=== PATIENT | male | born 1955 | race Caucasian/White ===

== ENCOUNTER → 2016-07-01 | Outpatient (CLI) | payer OTHER ==
[~2016-07-01] MED LIST: ACET-1256 PO; ALEN70TA3 PO; AMLO-114 PO; ASCO500T3 PO; ASPI81TA28 PO; FSMD/70 PO; HYDR25TA4 PO; INSU100I2 SC; INSU70IN2 SC; LISI40TA PO; ZCRT/40 PO
[2016-07-02 05:57] LABS: ESTIMATED AVERAGE GLUCOSE 194 mg/dl; HA1C FLAG Normal (Normal)
== END | disposition home or self-care (01) ==
LOC: C.LAB 14:17
PROVIDERS: ATTEND Nurse Practitioner Adult Health
DX: E11.65 Type 2 diabetes mellitus with hyperglycemia (principal); Z79.4 Long term (current) use of insulin; Z11.59 Encounter for screening for other viral diseases

== ENCOUNTER → 2016-10-21 | Outpatient (CLI) | payer OTHER ==
[2016-10-21 18:12] LABS: ALT/SGPT 23 U/L (12-78); BLOOD UREA NITROGEN 16 mg/dl (7-18); BUN/CREATININE RATIO 19.1 (10-20); CALCIUM 9.1 mg/dl (8.5-10.1); CARBON DIOXIDE 30 mmol/L (21-32); CHLORIDE 99 mmol/L (98-107); CHOLESTEROL 126 mg/dl (0-200); CREATININE 0.85 mg/dl (0.60-1.40); GLUCOSE 297 mg/dl (70-99); POTASSIUM 4.8 mmol/L (3.5-5.1); SODIUM 134 mmol/L (136-145)
[2016-10-21 18:15] LABS: ALB/GLOB RATIO 0.9 (0.9-2); ALKALINE PHOSPHATASE 68 U/L (45-117); AST/SGOT 15 U/L (15-37); CHOLESTEROL/HDL RATIO 3.5; HDL CHOLESTEROL 36 mg/dl; LDL CHOLESTEROL CALCULATED 51 mg/dl; TRIGLYCERIDES 195 mg/dl (0-150); VERY LOW DENSITY LIPOPROT CALC 39 mg/dl
[2016-10-22 06:31] LABS: ESTIMATED AVERAGE GLUCOSE 200 mg/dl; HA1C FLAG Normal (Normal)
== END | disposition home or self-care (01) ==
LOC: C.LABPVFM 13:20
PROVIDERS: ATTEND Nurse Practitioner Adult Health
DX: E78.5 Hyperlipidemia, unspecified (principal); E66.01 Morbid (severe) obesity due to excess calories; E11.49 Type 2 diabetes mellitus with other diabetic neurological complication; E11.65 Type 2 diabetes mellitus with hyperglycemia; E55.9 Vitamin D deficiency, unspecified; I10 Essential (primary) hypertension

== ENCOUNTER → 2016-12-21 | Outpatient (CLI) | payer OTHER ==
--- NOTE | 2016-12-28 07:51 | CODING QUERY MEDICAL NECESSITY ---
SUPPORTING DIAGNOSIS NEEDED Mana PA, A supporting diagnosis is required for the test/procedure performed on this patient in order for us to be reimbursed by the patient's insurance. Please provide a supporting diagnosis for the following test/procedure listed below next to the test name along with your signature. *If there is no additional diagnosis for this patient that would support the following test/procedure please document that below next to the test/procedure. Test(s)/Procedure(s) that require a supporting diagnosis: * ([id number]) DXA BONE DENSITY/PERIPHERAL DIAGNOSIS: DATE OF SERVICE: 12/21/16 Provider Signature: Date: Thank you Dontae Veliz [facility] Information Management Once completed, please kindly fax back to [phone] For questions please call [phone]
== END | disposition home or self-care (01) ==
LOC: C.MAMM 14:23
PROVIDERS: ATTEND Physician Assistant Medical
DX: Z00.00 Encounter for general adult medical examination without abnormal findings (principal); M81.0 Age-related osteoporosis without current pathological fracture

== ENCOUNTER → 2017-02-24 | Outpatient (CLI) | payer OTHER ==
[2017-02-24 18:00] LABS: HEMATOCRIT 47.2 % (42-52)
[2017-02-24 18:31] LABS: CREATININE RANDOM URINE 54.5 mg/dl
[2017-02-25 07:09] LABS: ESTIMATED AVERAGE GLUCOSE 209 mg/dl; HA1C FLAG Normal (Normal)
== END | disposition home or self-care (01) ==
LOC: C.LABPVFM 14:20
PROVIDERS: ATTEND Nurse Practitioner Adult Health
DX: I10 Essential (primary) hypertension (principal); E11.49 Type 2 diabetes mellitus with other diabetic neurological complication

== ENCOUNTER → 2017-03-15 | Outpatient (CLI) | payer OTHER ==
[2017-03-15 16:54] LABS: BASO % 0.4 %; BASO ABS # 0.04 K/uL (0-0.2); COMPLETE YES; EOS % 1.8 %; HEMATOCRIT 48.3 % (42-52); IG% 0.7 %; LYMPH % 21.2 %; LYMPH ABS # 1.98 K/uL (1.2-3.4); MEAN CORPUSCULAR HEMOGLOBIN 29.9 pg (25-34); MEAN CORPUSCULAR HGB CONC 35.2 g/dl (32-36); MEAN PLATELET VOLUME 10.1 fL (7.4-10.4); MONO % 8.6 %; NEUT % 67.3 %; PLATELET COUNT 227 K/uL (130-400); RED BLOOD COUNT 5.68 M/uL (4.7-6.1); WHITE BLOOD COUNT 9.34 K/uL (4.8-10.8)
[2017-03-15 17:13] LABS: BLOOD UREA NITROGEN 11 mg/dl (7-18); BUN/CREATININE RATIO 12.6 (10-20); CARBON DIOXIDE 31 mmol/L (21-32); CHLORIDE 98 mmol/L (98-107); CREATININE 0.87 mg/dl (0.60-1.40); GLUCOSE 201 mg/dl (70-99); POTASSIUM 4.3 mmol/L (3.5-5.1); SODIUM 133 mmol/L (136-145)
== END | disposition home or self-care (01) ==
LOC: C.LABBC 13:34
PROVIDERS: ATTEND Physician Assistant Medical
DX: R53.83 Other fatigue (principal); E55.9 Vitamin D deficiency, unspecified

== ENCOUNTER 2017-03-31 09:40 | Inpatient (IN) | payer OTHER ==
[2017-03-31] VITALS (10 sets, daily range): BP systolic 120–160; BP diastolic 66–80; PULSE 62–73; TEMP 36.3–36.8; O2SAT 95–98; BMI 43.1
[~2017-03-31] VITALS: Ht 195.6 cm; Wt 157.4 kg
[2017-03-31] MEDS ORDERED: ASPIRIN 81 MG CHEW PO STA (10:05)
[2017-03-31] MEDS ORDERED: SODIUM CHLORIDE 0.9% 1000ML 1,000 ML IV STA (10:05)
[2017-03-31 10:25] LABS: BASO % 0.3 %; BASO ABS # 0.03 K/uL (0-0.2); EOS % 0.8 %; EOS ABS # 0.08 K/uL (0-0.5); HEMATOCRIT 47.7 % (42-52); HEMOGLOBIN 16.7 g/dL (14.0-18.0); IG# 0.07 K/uL (0.00-0.02); LYMPH % 20.1 %; LYMPH ABS # 1.96 K/uL (1.2-3.4); MEAN CELL VOLUME 84.6 fL (80-100); MEAN CORPUSCULAR HEMOGLOBIN 29.6 pg (25-34); MEAN PLATELET VOLUME 9.5 fL (7.4-10.4); MONO % 8.2 %; NEUT % 69.9 %; NEUT ABS # 6.83 K/uL (1.4-6.5); PLATELET COUNT 198 K/uL (130-400); RED CELL DISTRIBUTION WIDTH CV 13.1 % (11.5-14.5); RED CELL DISTRIBUTION WIDTH SD 40.1 fL (36.4-46.3); WHITE BLOOD COUNT 9.77 K/uL (4.8-10.8)
[2017-03-31] MEDS: NITROGLYCERIN 0.4 MG SL PER TAB CHARGE SL PRN ×3 (10:27→11:39)
--- NOTE | 2017-03-31 10:37 | DIAGNOSTIC IMAGING REPORT ---
CHEST ONE VIEW PORTABLE HISTORY: 61 years-old Male Chest Pain acute atypical chest pain with numbness in the left arm COMPARISON: Chest radiograph 05/27/2013 TECHNIQUE: Portable AP view of the chest FINDINGS: Cardiomediastinal and hilar silhouettes are within normal limits. There is no pneumothorax or pleural effusion. Unchanged subsegmental opacities of the left lung base suggest areas of atelectasis or scarring. No definite lobar airspace consolidation to suggest pneumonia. Bones of the chest appear grossly intact. There are degenerative changes of the spine and right shoulder. IMPRESSION: No acute process. The above report was generated using voice recognition software. It may contain grammatical, syntax or spelling errors. Electronically signed by: Abner Burnette M.D. 03/31/2017 10:36 AM Dictated Date/Time: 03/31/2017 10:34 AM
[2017-03-31 10:40] LABS: BLOOD UREA NITROGEN 10 mg/dl (7-18); CALCIUM 8.3 mg/dl (8.5-10.1); CARBON DIOXIDE 29 mmol/L (21-32); GLUCOSE 199 mg/dl (70-99); POTASSIUM 3.8 mmol/L (3.5-5.1); SODIUM 133 mmol/L (136-145)
[2017-03-31] MEDS ORDERED: INSDGIPEN SC (10:53)
[2017-03-31] MEDS: SODIUM CHLORIDE 0.9% 1000ML 1,000 ML IV SCH (12:33)
[2017-03-31] MEDS ORDERED: MAGNESIUM HYDROXIDE SUSP 30 ML UDC PO PRN (12:45)
[2017-03-31] MEDS ORDERED: GLUCAGON FOR INJ 1 MG VIAL SQ PRN (12:45)
[2017-03-31] MEDS ORDERED: ONDANSETRON INJ 2 MG/ML 2 ML VIAL IV PRN (12:45)
[2017-03-31] MEDS ORDERED: ACETAMINOPHEN 325 MG TAB PO PRN (12:45)
[2017-03-31] MEDS ORDERED: DEXTROSE 50% 50 ML SYR IV PRN (12:45)
[2017-03-31] MEDS ORDERED: MoRPHine SULFATE 2 MG/ML CARP IV PRN (12:45)
[2017-03-31] MEDS ORDERED: GLUCOSE 10 TABS/TUBE PO PRN (12:45)
[2017-03-31] MEDS ORDERED: GLUCOSE 40% GEL 15 GM TUBE PO PRN (12:45)
[2017-03-31] MEDS ORDERED: NITROGLYCERIN 0.4 MG SL PER TAB CHARGE SL PRN (12:45)
[2017-03-31] MEDS ORDERED: ALUMINUM/MAGNESIUM/SIMETH (MAALOX MAX) 30 ML UDC PO PRN (12:45)
[2017-03-31] MEDS ORDERED: POLYETHYLENE (MIRALAX) 17 GM PACK PO PRN (12:45)
[2017-03-31] MEDS ORDERED: PHARMACY GLYCEMIC MGMT CONSULT PRN (12:47)
--- NOTE | 2017-03-31 12:54 | History and Physical ---
History & Physical Date & Time of Service: Mar 31, 2017 at 12:39 Chief Complaint: Numbness In Left Arm, Pain In Chest Primary Care Physician: Meryl Adair P.A. History of Present Illness Source: patient 61 years old man w pmhx of DMii on insulin, HTN and dyslipidemia presented to ED w left sided chest pain. stabbing in character started at 9am when he was working at [employer]. referred to left arm no associated diaphoresis or sob pain was 7/10, after arrival he received SL NTG and pain subsided. EKG compared to another study in 05/2013 showed new LBBB lives by himself does not smoke father had heart disease in his 60s Past Medical/Surgical History Medical Problems: (1) DIAB W NEURO MANIFEST, TYPE II OR UNSPEC TYPE, NOT UNCNTRLD Status: Chronic (2) DIAB W NEURO MANIFEST, TYPE II OR UNSPEC TYPE, UNCONTROLLED Status: Chronic (3) DIAB W OTH SPEC MANIFEST, TYPE II OR UNSPEC TYPE, NOT UNCNTR Status: Chronic (4) DIAB W PERIPH CIRC DIS, TYPE II OR UNSPEC TYPE, NOT UNCNTRLD Status: Chronic (5) DIVERTICULOSIS COLON (W/O MENT OF HEMORRHAGE) Status: Chronic (6) HYPERTENSION NOS Status: Chronic (7) NEUROPATHY IN DIABETES Status: Chronic (8) OTHER HAMMER TOE Status: Chronic (9) SWELLING OF LIMB Status: Chronic (10) ULCER OF HEEL AND MIDFOOT Status: Chronic Family History FH: diabetes mellitus FH: hypertension Social History Smoking Status: Never Smoker Drug Use: none Marital Status: Housing status: lives with family Occupational Status: disabled Immunizations History of Influenza Vaccine: Yes History of Tetanus Vaccine?: Yes History of Pneumococcal: Yes History of Hepatitis B Vaccine: Yes Multi-Drug Resistant Organisms History of MDRO: No Allergies Coded Allergies: Penicillins (Verified Allergy, Unknown, REACTION A CHILD; EYES SWELLED , 08/22/15) Home Medications Scheduled Alendronate/Cholecalciferol (Fosamax+D 70MG/2800 Iu), 1 TABLET PO WK Amlodipine (Norvasc), 10 MG PO DAILY Ascorbic Acid (Vitamin C), 500 MG PO DAILY Aspirin (Aspirin Ec), 81 MG PO DAILY Hydrochlorothiazide (Hctz), 25 MG PO DAILY Insulin Glargine (Lantus Solostar), 25 UNITS SC HS Insulin Lispro (Human) (Humalog Kwikpen), UNITS SC TIDM Lisinopril (Zestril), 40 MG PO DAILY Simvastatin (Zocor), 40 MG PO HS Review of Systems Constitutional: No fever, No chills, No sweats, No weight loss, No weakness, No fatigue, No problem reported Eyes: No worsening of vision, No eye pain, No redness, No discharge, No diplopia, No problem reported ENT: No hearing loss, No unusual epistaxis, No nasal symptoms, No sore throat, No tinnitus, No dental problems, No trouble swallowing, No problem reported Respiratory: No cough, No sputum, No wheezing, No shortness of breath, No dyspnea on exertion, No dyspnea at rest, No hemoptysis, No problem reported Cardiovascular: + chest pain, No orthopnea, No PND, No edema, No claudication, No palpitations, No problem reported Abdomen: No pain, No nausea, No vomiting, No diarrhea, No constipation, No GI bleeding, No problem reported Musculoskeletal: No joint pain, No muscle pain, No swelling, No calf pain, No problem reported Genitourinary - Male: No hematuria, No dysuria, No urinary frequency, No urinary urgency, No urinary hesitancy, No urinary retention, No urinary incontinence, No penile discharge, No lesions, No impotence, No problem reported Neurologic: No memory loss, No paralysis, No weakness, No numbness/tingling, No vertigo, No balance problems, No problem reported Psychiatric: No depression symptoms, No anhedonism, No anxiety, No insomnia, No substance abuse, No problem reported Endocrine: No fatigue, No excessive thirst, No excessive urination, No problem reported Hematologic / Lymphatic: No abnormal bleeding/bruising, No clotting problems, No swollen lymph nodes, No night sweats, No problem reported Integumentary: No rash, No itch, No new/changing skin lesions, No color change , No bleeding, No problem reported Allergic / Immunologic: No environmental allergies, No seasonal allergies, No pet sensitivities, No food allergies, No hives, No frequent infections, No poor healing, No prolonged convalescence, No problem reported Physical Exam Vital Signs Date Time Temp Pulse Resp B/P (MAP) Pulse Ox O2 Delivery O2 Flow Rate FiO2 03/31/17 11:45 67 20 163/89 93 Room Air 03/31/17 11:30 79 18 164/97 98 Room Air 03/31/17 10:53 78 16 151/88 94 Room Air 03/31/17 10:32 73 18 170/88 96 Room Air 03/31/17 10:10 82 03/31/17 09:54 37.3 78 20 192/83 96 Room Air General Appearance: no apparent distress, + obese Head: normocephalic, atraumatic Eyes: normal inspection, PERRL, EOMI ENT: normal ENT inspection, hearing grossly normal Neck: supple Respiratory/Chest: chest non-tender, lungs clear, normal breath sounds, no respiratory distress, no accessory muscle use Cardiovascular: regular rate, rhythm, no edema, no gallop, no JVD, no murmur Abdomen/GI: normal bowel sounds, non tender, soft, no organomegaly, no pulsatile mass Back: normal inspection Extremities/Musculoskelatal: normal inspection, no pedal edema 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, no motor/sensory deficits, alert, normal mood/affect, normal reflexes, oriented x 3 Skin: normal color, warm/dry, no rash Diagnostics Laboratory Results Results Past 24 Hours Test 03/31/17 10:09 Range/Units White Blood Count 9.77 4.8-10.8 K/uL Red Blood Count 5.64 4.7-6.1 M/uL Hemoglobin 16.7 14.0-18.0 g/dL Hematocrit 47.7 42-52 % Mean Corpuscular Volume 84.6 80-100 fL Mean Corpuscular Hemoglobin 29.6 25-34 pg Mean Corpuscular Hemoglobin Concent 35.0 32-36 g/dl Platelet Count 198 130-400 K/uL Mean Platelet Volume 9.5 7.4-10.4 fL Neutrophils (%) (Auto) 69.9 % Lymphocytes (%) (Auto) 20.1 % Monocytes (%) (Auto) 8.2 % Eosinophils (%) (Auto) 0.8 % Basophils (%) (Auto) 0.3 % Neutrophils # (Auto) 6.83 1.4-6.5 K/uL Lymphocytes # (Auto) 1.96 1.2-3.4 K/uL Monocytes # (Auto) 0.80 0.11-0.59 K/uL Eosinophils # (Auto) 0.08 0-0.5 K/uL Basophils # (Auto) 0.03 0-0.2 K/uL RDW Standard Deviation 40.1 36.4-46.3 fL RDW Coefficient of Variation 13.1 11.5-14.5 % Immature Granulocyte % (Auto) 0.7 % Immature Granulocyte # (Auto) 0.07 0.00-0.02 K/uL Sodium Level 133 136-145 mmol/L Potassium Level 3.8 3.5-5.1 mmol/L Chloride Level 97 98-107 mmol/L Carbon Dioxide Level 29 21-32 mmol/L Anion Gap 7.0 3-11 mmol/L Blood Urea Nitrogen 10 7-18 mg/dl Creatinine 0.90 0.60-1.40 mg/dl Estimated GFR () 107.2 Estimated GFR (Non- 92.5 BUN/Creatinine Ratio 11.2 10-20 Random Glucose 199 70-99 mg/dl Calcium Level 8.3 8.5-10.1 mg/dl Total Creatine Kinase 79 39-308 U/L Creatine Kinase MB 2.0 0.5-3.6 ng/ml Creatine Kinase MB Ratio 2.5 0-3.0 Troponin I < 0.015 0-0.045 ng/ml Impression Assessment and Plan 61 years old man with DMII ID, HTN , Dyslipidemia and obesity p/w CP and new LBBB compared to 05/2013 EKG Plan: Chest pain R/O ACS LBBB unknown chronicity most recent comparison was 4 years ago obesity DMII insulin req HTN Dyslipidemia Plan 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 Y/N: Yes Risk Level: Moderate
[2017-03-31] MEDS: PATIENT'S HEIGHT AND/OR WEIGHT NEEDED SCH ×2 (13:00→14:26)
[2017-03-31] MEDS ORDERED: HEPARIN SOD 5000 UNIT/0.5 ML CARP SQ SCH (14:00)
--- NOTE | 2017-03-31 14:26 | EMERGENCY ROOM VISIT NOTE ---
History Report prepared by Dave: Aries Bynum Under the Supervision of: Dr. Shaun Glez D.O. First contact with patient: 09:58 Chief Complaint: CHEST PAIN Stated Complaint: NUMBNESS IN LEFT ARM, PAIN IN CHEST History of Present Illness The patient is a 61 year old male who presents to the Emergency Room with complaints of constant chest tightness beginning an hour ago. 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 He reports he was not walking or exerting himself. The patient notes his pain radiates to his left arm. He states his pain started out as a 7/10, but it has gotten better. The patient reports he has a history of diabetes, and he takes pills. He notes his dad has a history of heart disease. The patient denies shortness of breath, urinary symptoms, nausea, vomiting, problems with his aorta, new leg swelling, a history of smoking, hyperlipidemia, and heart disease. Source of History: patient Onset: hour ago Position: chest Quality: other (tightness) Timing: constant Associated Symptoms: No SOB, No nausea, No vomiting, No urinary symptoms Note: Associated symptoms: left arm pain Denies: new leg swelling, problems with his aorta Review of Systems See HPI for pertinent positives & negatives. A total of 10 systems reviewed and were otherwise negative. Past Medical & Surgical Medical Problems: (1) Chest pain (2) DIAB W NEURO MANIFEST, TYPE II OR UNSPEC TYPE, NOT UNCNTRLD (3) DIAB W NEURO MANIFEST, TYPE II OR UNSPEC TYPE, UNCONTROLLED (4) DIAB W OTH SPEC MANIFEST, TYPE II OR UNSPEC TYPE, NOT UNCNTR (5) DIAB W PERIPH CIRC DIS, TYPE II OR UNSPEC TYPE, NOT UNCNTRLD (6) Diabetic peripheral neuropathy associated with type 2 diabetes mellitus (7) DIVERTICULOSIS COLON (W/O MENT OF HEMORRHAGE) (8) Foot deformity (9) History of diabetic ulcer of foot (10) HYPERTENSION NOS (11) Loss of sensation (12) NEUROPATHY IN DIABETES (13) OTHER HAMMER TOE (14) Pre-ulcerative corn or callous (15) SWELLING OF LIMB (16) ULCER OF HEEL AND MIDFOOT Family History FH: diabetes mellitus FH: hypertension Social History Smoking Status: Never Smoker Alcohol Use: none Drug Use: none Marital Status: Housing Status: lives with family Occupation Status: disabled Current/Historical Medications Scheduled Alendronate/Cholecalciferol (Fosamax+D 70MG/2800 Iu), 1 TABLET PO WK Amlodipine (Norvasc), 10 MG PO DAILY Ascorbic Acid (Vitamin C), 500 MG PO DAILY Aspirin (Aspirin Ec), 81 MG PO DAILY Hydrochlorothiazide (Hctz), 25 MG PO DAILY Insulin Glargine (Lantus Solostar), 25 UNITS SC HS Insulin Lispro (Human) (Humalog Kwikpen), UNITS SC TIDM Lisinopril (Zestril), 40 MG PO DAILY Simvastatin (Zocor), 40 MG PO HS Allergies Coded Allergies: Penicillins (Verified Allergy, Unknown, REACTION A CHILD; EYES SWELLED , 08/22/15) Physical Exam Vital Signs Date Time Temp Pulse Resp B/P (MAP) Pulse Ox O2 Delivery O2 Flow Rate FiO2 03/31/17 11:45 67 20 163/89 93 Room Air 03/31/17 11:30 79 18 164/97 98 Room Air 03/31/17 10:53 78 16 151/88 94 Room Air 03/31/17 10:32 73 18 170/88 96 Room Air 03/31/17 10:10 82 03/31/17 09:54 37.3 78 20 192/83 96 Room Air Physical Exam GENERAL: Sitting up in bed, disheveled, no distress, non-toxic EYE EXAM: normal conjunctiva. OROPHARYNX: no exudate, no erythema, lips, buccal mucosa, and tongue normal and mucous membranes are moist NECK: supple, no nuchal rigidity, no adenopathy, non-tender LUNGS: Clear to auscultation. Normal chest wall mechanics CHEST: No reproducible chest wall tenderness. HEART: no murmurs, S1 normal and S2 normal ABDOMEN: abdomen soft, non-tender, normo-active bowel sounds, no masses, no rebound or guarding. BACK: Back is symmetrical on inspection and there is no deformity, no midline tenderness, no CVA tenderness. SKIN: no rashes and no bruising UPPER EXTREMITIES: upper extremities are grossly normal. LOWER EXTREMITIES: Mild pitting edema bilaterally. NEURO EXAM: Normal sensorium, cranial nerves II-XII grossly intact, normal speech, no gross weakness of arms, no gross weakness of legs. Medical Decision & Procedures ER Provider Diagnostic Interpretation: Radiology results as stated below per my review and the radiologist's interpretation: CHEST ONE VIEW PORTABLE HISTORY: 61 years-old Male Chest Pain acute atypical chest pain with numbness in the left arm COMPARISON: Chest radiograph 05/27/2013 TECHNIQUE: Portable AP view of the chest FINDINGS: Cardiomediastinal and hilar silhouettes are within normal limits. There is no pneumothorax or pleural effusion. Unchanged subsegmental opacities of the left lung base suggest areas of atelectasis or scarring. No definite lobar airspace consolidation to suggest pneumonia. Bones of the chest appear grossly intact. There are degenerative changes of the spine and right shoulder. IMPRESSION: No acute process. The above report was generated using voice recognition software. It may contain grammatical, syntax or spelling errors. Electronically signed by: Abner Burnette M.D. 03/31/2017 10:36 AM Dictated Date/Time: 03/31/2017 10:34 AM Laboratory Results 03/31/17 10:09 Red Blood Count 5.64, Mean Corpuscular Volume 84.6, Mean Corpuscular Hemoglobin 29.6, Mean Corpuscular Hemoglobin Concent 35.0, Mean Platelet Volume 9.5, Neutrophils (%) (Auto) 69.9, Lymphocytes (%) (Auto) 20.1, Monocytes (%) (Auto) 8.2, Eosinophils (%) (Auto) 0.8, Basophils (%) (Auto) 0.3, Neutrophils # (Auto) 6.83, Lymphocytes # (Auto) 1.96, Monocytes # (Auto) 0.80, Eosinophils # (Auto) 0.08, Basophils # (Auto) 0.03 03/31/17 10:09 Test 03/31/17 10:09 White Blood Count 9.77 K/uL (4.8-10.8) Red Blood Count 5.64 M/uL (4.7-6.1) Hemoglobin 16.7 g/dL (14.0-18.0) Hematocrit 47.7 % (42-52) Mean Corpuscular Volume 84.6 fL (80-100) Mean Corpuscular Hemoglobin 29.6 pg (25-34) Mean Corpuscular Hemoglobin Concent 35.0 g/dl (32-36) Platelet Count 198 K/uL (130-400) Mean Platelet Volume 9.5 fL (7.4-10.4) Neutrophils (%) (Auto) 69.9 % Lymphocytes (%) (Auto) 20.1 % Monocytes (%) (Auto) 8.2 % Eosinophils (%) (Auto) 0.8 % Basophils (%) (Auto) 0.3 % Neutrophils # (Auto) 6.83 K/uL (1.4-6.5) Lymphocytes # (Auto) 1.96 K/uL (1.2-3.4) Monocytes # (Auto) 0.80 K/uL (0.11-0.59) Eosinophils # (Auto) 0.08 K/uL (0-0.5) Basophils # (Auto) 0.03 K/uL (0-0.2) RDW Standard Deviation 40.1 fL (36.4-46.3) RDW Coefficient of Variation 13.1 % (11.5-14.5) Immature Granulocyte % (Auto) 0.7 % Immature Granulocyte # (Auto) 0.07 K/uL (0.00-0.02) Anion Gap 7.0 mmol/L (3-11) Estimated GFR () 107.2 Estimated GFR (Non- 92.5 BUN/Creatinine Ratio 11.2 (10-20) Calcium Level 8.3 mg/dl (8.5-10.1) Total Creatine Kinase 79 U/L (39-308) Creatine Kinase MB 2.0 ng/ml (0.5-3.6) Creatine Kinase MB Ratio 2.5 (0-3.0) Troponin I < 0.015 ng/ml (0-0.045) Triglycerides Level 142 mg/dl (0-150) Cholesterol Level 178 mg/dl (0-200) HDL Cholesterol 39 mg/dl LDL Cholesterol, Calculated 111 mg/dl VLDL Cholesterol, Calculated 28 mg/dl Cholesterol/HDL Ratio 4.6 Laboratory results per my review. Medications Administered Medications (Trade) Dose Ordered Sig/Juancarlos Route Start Time Stop Time Status Last Admin Dose Admin Sodium Chloride 1,000 ml @ 999 mls/hr Q1H1M STAT IV 03/31/17 10:05 03/31/17 11:05 DC 03/31/17 10:26 999 MLS/HR Aspirin (Aspirin Chew) 324 mg NOW STAT PO 03/31/17 10:05 03/31/17 10:07 DC 03/31/17 10:27 324 MG Nitroglycerin (Nitrostat Tab) 0.4 mg Q5M PRN SL 03/31/17 10:15 04/30/17 10:14 03/31/17 11:39 0.4 MG ECG Indication: chest pain Rate (beats per minute): 77 Rhythm: sinus rhythm Findings: LBBB, T-wave inversion (Lateral & Highlateral), other (normal axis) Comparison ECG Date: 05/27/2013 Change: LBBB is new ED Course ED COURSE: Vital signs were reviewed and showed hypertension. The patients medical record was reviewed The above diagnostic studies were performed and reviewed. ED treatments and interventions as stated above. 1000: The patient was evaluated in room B12B. A complete history and physical examination was performed. 1005: Ordered Aspirin 324 mg PO, Sodium Chloride 1000 ml @ 999 mls/hr IV 1015: Ordered Nitroglycerin 0.4mg SL 1129: Upon reevaluation, the patient is showing complete relief of his symptoms. I discussed my findings with the patient and he understands and agrees with the treatment plan. 1220: I discussed the patient's case Dr. Marc Villatoro, [facility] Hospitalist. The patient will be evaluated for further management and care. He requested I consult cardiology. 1223: I discussed the patient's case with Dr. Carnes, Cardiology. He understands the patient's case. Based on the patients age, coexisting illnesses, exam and lab findings the decision to treat as an inpatient was made. The patient remained stable while under my care. The patient will be evaluated for further management. Medical Decision Differential diagnoses includes but is not limited to acute coronary syndrome, myocardial infarction, pericarditis, pulmonary embolus, aortic dissection, pneumonia, pneumothorax, musculoskeletal, shingles, esophageal. Patient is a 61-year-old male with past medical history of hypertension, hyperlipidemia and family history of heart disease that presents to ER for exertional chest pain associated with arm pain. Chest x-ray was unremarkable. Troponin was negative. EKG shows a new left bundle in comparison to old. Pain completely resolved with nitroglycerin. Received aspirin. Patient was updated bedside. He was admitted to internal medicine for chest pain. Did discussed my findings with cardiology. Medication Reconcilliation Current Medication List: was personally reviewed by me Blood Pressure Screening Patient's blood pressure: Elevated blood pressure Monitored by hospitalist. Consults Time Called: [id number] Consulting Physician: Dr. Marc Villatoro, [facility] Hospitalist Returned Call: 1220 I discussed the patient's case Dr. Marc Villatoro, [facility] Hospitalist. The patient will be evaluated for further management and care. He requested I consult cardiology. Additional Consults: Time Called: 1222 Consulted Physician: Dr. Carnes, Cardiology Returned Call: 1223 Additional Comments: I discussed the patient's case with Dr. Carnes, Cardiology. He understands the patient's case. Impression Primary Impression: Precordial chest pain Additional Impression: New onset left bundle branch block (LBBB) Scribe Attestation The scribe's documentation has been prepared under my direction and personally reviewed by me in its entirety. I confirm that the note above accurately reflects all work, treatment, procedures, and medical decision making performed by me. Departure Information Dispostion Being Evaluated By Hospitalist Referrals Meryl AdairPTabbyATabby (PCP) Patient Instructions My [facility] Problem Qualifiers
--- NOTE | 2017-03-31 14:43 | Cardiology Consultation ---
Cardiology Consultation Date of Consultation: Mar 31, 2017. Requesting Physician: Irving Reason for Consultation: Chest pain Pt evaluation today including: conversation w/ patient, physical exam, chart review, lab review, review of studies, review of inpatient medication list, conversation w/ attending History of Present Illness The patient is a 61-year-old gentleman without a known history of cardiac disease but multiple risk factors who presented to [facility] with an episode of chest pain. 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 He reports the acute onset of sharp and stabbing chest pain close to the left nipple. This later generalized include some numbness in the left arm. It did not radiate to the back or neck. The symptoms were not pleuritic in nature. There is no associated shortness of breath. He felt he may have had an element of mild dizziness associated with this symptom. He has not had symptoms of this nature before. He presented to [facility] in the symptoms appear to have resolved without any particular intervention. He feels that the episode lasted at least an hour possibly an hour and a half. He did not report any associated palpitations. At the time of this interview the patient is feeling well without symptoms of chest discomfort or arm numbness. In general he is an active person is able form mild exertion at work. He walks on occasion and is able to complete his activities without limiting symptoms such as dyspnea or chest pain. Reports never having had chest pain before. He denies orthopnea or paroxysmal nocturnal dyspnea but does sleep in a recliner for convenience purposes. He has not report any swelling in his lower extremities. He has not report any palpitations. He has never suffered a syncopal episode. Past Medical/Surgical History Charcot foot Gastroesophageal reflux disease Peripheral neuropathy Diabetes mellitus type 2 Hyperlipidemia Hypertension Past surgical history: Knee replacement Family History FH: diabetes mellitus FH: hypertension Diabetes mellitus. No history of coronary disease Social History Smoking Status: Never Smoker History of Alcohol Use: Yes (former drinker-stopped) Patient lives alone. 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 No recent constitutional symptoms such as fevers or chills. All Other Systems: Reviewed and Negative Allergies Coded Allergies: Penicillins (Verified Allergy, Unknown, REACTION A CHILD; EYES SWELLED , 08/22/15) Medications Current Inpatient Medications Medications (Trade) Dose Ordered Sig/Juancarlos Route Start Time Stop Time Status Last Admin Dose Admin Nitroglycerin (Nitrostat Tab) 0.4 mg Q5M PRN SL 03/31/17 10:15 04/30/17 10:14 03/31/17 11:39 0.4 MG Amlodipine Besylate (Norvasc Tab) 10 mg DAILY PO 04/01/17 09:00 05/01/17 08:59 Ascorbic Acid (Vitamin C Tab) 500 mg DAILY PO 04/01/17 09:00 05/01/17 08:59 Aspirin (Ecotrin Tab) 81 mg DAILY PO 04/01/17 09:00 05/01/17 08:59 Hydrochlorothiazide (Hydrochlorothiazide Tab) 25 mg DAILY PO 04/01/17 09:00 05/01/17 08:59 Insulin Glargine (Lantus Solostar Pen) 12 units HS SC 03/31/17 21:00 04/30/17 20:59 UNV Lisinopril (Zestril Tab) 40 mg DAILY PO 04/01/17 09:00 05/01/17 08:59 Heparin Sodium (Porcine) (Heparin Sq 5000 Unit/0.5ml) 5,000 unit Q8 SQ 03/31/17 14:00 04/30/17 13:59 UNV Sodium Chloride 1,000 ml @ 50 mls/hr Q20H IV 03/31/17 12:33 04/30/17 12:32 03/31/17 12:33 50 MLS/HR Acetaminophen (Tylenol Tab) 650 mg Q4H PRN PO 03/31/17 12:45 04/30/17 12:44 Al Hydrox/Mg Hydrox/Simethicone (Maalox Max Susp) 15 ml Q4H PRN PO 03/31/17 12:45 04/30/17 12:44 Magnesium Hydroxide (Milk Of Magnesia Susp) 30 ml Q12H PRN PO 03/31/17 12:45 04/30/17 12:44 Ondansetron HCl (Zofran Inj) 4 mg Q6H PRN IV 03/31/17 12:45 04/30/17 12:44 Nitroglycerin (Nitrostat Tab) 0.4 mg UD PRN SL 03/31/17 12:45 04/30/17 12:44 Nitroglycerin (Nitroglycerin 2% Oint) 1 inch Q6 EXT 03/31/17 18:00 04/30/17 17:59 Morphine Sulfate (MoRPHine SULFATE INJ) 2 mg Q30M PRN IV 03/31/17 12:45 04/14/17 12:44 Polyethylene (Miralax Powder Packet) 17 gm DAILY PRN PO 03/31/17 12:45 04/30/17 12:44 Insulin Aspart (novoLOG ASPART) SLIDING SCALE If C... ACHS SC 03/31/17 16:00 04/30/17 15:59 UNV Glucose (Glucose 40% Gel) 15-30 GRAMS 15 GRAMS... UD PRN PO 03/31/17 12:45 04/30/17 12:44 Glucose (Glucose Chew Tab) 4-8 Tablets 4 Tabl... UD PRN PO 03/31/17 12:45 04/30/17 12:44 Dextrose (Dextrose 50% 50ML Syringe) 25-50ML OF 50% DW IV FOR... UD PRN IV 03/31/17 12:45 04/30/17 12:44 Glucagon (Glucagon Inj) 1 mg UD PRN SQ 03/31/17 12:45 04/30/17 12:44 Miscellaneous Information (Consult Glycemic Management Pharmacy) 1 ea UD PRN N/A 03/31/17 12:47 04/30/17 12:46 Miscellaneous Information (Patient'S Height And/Or Weight Needed) 1 ea Q1H N/A 03/31/17 13:00 04/30/17 12:59 03/31/17 14:26 1 EA Simvastatin (Zocor Tab) 40 mg HS PO 03/31/17 21:00 04/30/17 20:59 Physical Exam Vital Signs Past 12 Hours Date Time Temp Pulse Resp B/P (MAP) Pulse Ox O2 Delivery O2 Flow Rate FiO2 03/31/17 13:16 60 20 138/67 98 Room Air 03/31/17 13:04 59 03/31/17 12:45 64 18 137/73 98 03/31/17 11:45 67 20 163/89 93 Room Air 03/31/17 11:30 79 18 164/97 98 Room Air 03/31/17 10:53 78 16 151/88 94 Room Air 03/31/17 10:32 73 18 170/88 96 Room Air 03/31/17 10:10 82 03/31/17 09:54 37.3 78 20 192/83 96 Room Air The patient is alert and oriented. Mood and affect appeared normal. He answered all questions appropriately. HEENT: Pupils are equal and reactive to light and accommodation. Extraocular movements are intact. The sclerae are anicteric. Neuro: Cranial nerves intact Neck: Patient's neck is supple. He has palpable carotid pulses bilaterally without bruits on auscultation. There is no evidence of jugular venous distention. The thyroid is not enlarged. Lungs: Clear to auscultation bilaterally. He has good air movement without use of accessory muscles. No rales wheezes or rhonchi. Cardiac: Heart demonstrates a regular rate and rhythm. Normal S1 and S2. No murmurs on examination. Pulses: The patient has palpable radial pulses bilaterally that are equal in intensity Extremities: There was no evidence of hypoperfusion. There is no cyanosis or clubbing. Some deformity of both feet. There is no edema. Skin: I did not appreciate any rashes on examination today. Data Laboratory Results: Last 24 Hours Test 03/31/17 10:09 White Blood Count 9.77 K/uL Red Blood Count 5.64 M/uL Hemoglobin 16.7 g/dL Hematocrit 47.7 % Mean Corpuscular Volume 84.6 fL Mean Corpuscular Hemoglobin 29.6 pg Mean Corpuscular Hemoglobin Concent 35.0 g/dl Platelet Count 198 K/uL Mean Platelet Volume 9.5 fL Neutrophils (%) (Auto) 69.9 % Lymphocytes (%) (Auto) 20.1 % Monocytes (%) (Auto) 8.2 % Eosinophils (%) (Auto) 0.8 % Basophils (%) (Auto) 0.3 % Neutrophils # (Auto) 6.83 K/uL Lymphocytes # (Auto) 1.96 K/uL Monocytes # (Auto) 0.80 K/uL Eosinophils # (Auto) 0.08 K/uL Basophils # (Auto) 0.03 K/uL RDW Standard Deviation 40.1 fL RDW Coefficient of Variation 13.1 % Immature Granulocyte % (Auto) 0.7 % Immature Granulocyte # (Auto) 0.07 K/uL Sodium Level 133 mmol/L Potassium Level 3.8 mmol/L Chloride Level 97 mmol/L Carbon Dioxide Level 29 mmol/L Anion Gap 7.0 mmol/L Blood Urea Nitrogen 10 mg/dl Creatinine 0.90 mg/dl Estimated GFR () 107.2 Estimated GFR (Non- 92.5 BUN/Creatinine Ratio 11.2 Random Glucose 199 mg/dl Calcium Level 8.3 mg/dl Total Creatine Kinase 79 U/L Creatine Kinase MB 2.0 ng/ml Creatine Kinase MB Ratio 2.5 Troponin I < 0.015 ng/ml Triglycerides Level 142 mg/dl Cholesterol Level 178 mg/dl HDL Cholesterol 39 mg/dl LDL Cholesterol, Calculated 111 mg/dl VLDL Cholesterol, Calculated 28 mg/dl Cholesterol/HDL Ratio 4.6 Imaging: Chest x-ray did not demonstrate any acute cardiopulmonary disease EKG: Normal sinus rhythm with left bundle branch block Telemetry reviewed: Occasional PVC Pharmacologic perfusion study performed in 2012: No evidence of inducible ischemia or perfusion abnormality Echocardiogram performed in 06/14/2013: Preserved LV systolic function with stage I diastolic dysfunction. Assessment & Plan 1. Chest pain: The character of the patient's chest pain is slightly atypical. However, he does have multiple risk factors for coronary disease. Objective evaluation is complicated by his baseline left bundle branch block. This appears to be new from old EKGs. Fortunately, his chest pain has resolved. At this point we will simply monitor his biomarkers and symptoms. I think we should treat him as if this was an acute coronary syndrome until we have more objective data. This would include aspirin, beta blockade and systemic heparinization. Patient can be continued on his high-dose atorvastatin. He had an extended episode of chest discomfort and in the setting of normal biomarkers I would still consider an ischemic evaluation with noninvasive testing due to the development of a left bundle branch block. An echocardiogram will also be helpful and will be ordered. 2. Hypertension: Patient blood pressure mildly elevated in the hospital. Will add beta blockade to his regimen. 3. Hyperlipidemia: Patient on high-dose atorvastatin 4. Left bundle-branch block: Suggestive of cardiomyopathy. He has not report symptoms consistent with pulmonary vascular congestion or heart failure. He may also have an element of ischemic heart disease as the 2 are commonly associated. I think we will obtain an echocardiogram perform an ischemic evaluation. At this point I think we need to treat him as if he had an acute coronary syndrome with heparinization, beta-blockade anti-platelet therapy. If he has normal biomarkers on repeat testing then heparin can be discontinued. Based on the presence of a left bundle branch block and ischemic evaluation at some point is probably warranted. In the absence of significant abnormalities on his echo or elevated biomarkers despite a prolonged episode of chest pain this evaluation could be completed as an outpatient.
--- NOTE | 2017-03-31 15:00 | Pharmacy Progress Note ---
Glycemic Control Intl Consult Date of Service Mar 31, 2017. Scope Glycemic Pharmacist consulted by Dr Marc Villatoro on 03/31/17 for glycemic control and to write orders per [facility] inpatient glycemic control protocol Objective Weight (Kilograms): 165.000 Accuchecks BSG (last 24hrs): Test 03/31/17 10:09 Random Glucose 199 mg/dl (70-99) Laboratory Data (last 24hrs) Test 03/31/17 10:09 Anion Gap 7.0 mmol/L BUN/Creatinine Ratio 11.2 Blood Urea Nitrogen 10 mg/dl Creatinine 0.90 mg/dl Potassium Level 3.8 mmol/L Sodium Level 133 mmol/L White Blood Count 9.77 K/uL Red Blood Count 5.64 M/uL Hemoglobin 16.7 g/dL Hematocrit 47.7 % Mean Corpuscular Volume 84.6 fL Mean Corpuscular Hemoglobin 29.6 pg Mean Corpuscular Hemoglobin Concent 35.0 g/dl Platelet Count 198 K/uL Mean Platelet Volume 9.5 fL Neutrophils (%) (Auto) 69.9 % Lymphocytes (%) (Auto) 20.1 % Monocytes (%) (Auto) 8.2 % Eosinophils (%) (Auto) 0.8 % Basophils (%) (Auto) 0.3 % Neutrophils # (Auto) 6.83 K/uL Lymphocytes # (Auto) 1.96 K/uL Monocytes # (Auto) 0.80 K/uL Eosinophils # (Auto) 0.08 K/uL Basophils # (Auto) 0.03 K/uL Recent Pertinent Medications Outpatient Anti-diabetic Regimen: * Lantus 25 units at bedtime and Humalog TIDM (took 15 units this morning) * A1c = 8.9 % 02/24/17 Risk Factors for Insulin Resistance: * Diet: NPO except for ice chips Assessment & Plan ASSESSMENT: * Mr Nolasco is a 61 y/o M with a PMH of DM type 2, HTN, and diverticulosis who presents with chest pain. His blood sugar on random check around 10 AM was 199 mg/dL. He is current NPO. * The patient's weight is 165 kg and his current HbA1C demonstrates his blood sugar is not well controlled at 8.9%. * Based upon NPO status, will utilize a slightly lower Lantus dose if patient remains NPO tonight and 0.2 units/kg if patient is ordered a diet. A weight- based stress of 1-2 will be utilized for Novolog coverage currently. PLAN FOR INPATIENT GLYCEMIC CONTROL: * Basal insulin with LANTUS 20-30 units SQ HS * Correctional Insulin with NOVOLOG per scale ACHS or Q6hrs while NPO * Goal Range: Low 110 mg/dL - High 140 mg/dL * Correction Factor: 20 mg/dL/unit * Nutritional / Prandial insulin per carb ratio of 1 unit per 6 grams CHO consumed * Please note that the plan above was derived based on current level of insulin resistance and hospital stress. These recommendations are appropriate for inpatient admission only. Plan of care upon discharge will need to be reassessed to avoid potential outpatient hypo/hyperglycemia. Thank you.
[2017-03-31] MEDS ORDERED: NURSING VERBAL MED ORDER ONE ×2 (16:30→21:15)
[2017-03-31] MEDS ORDERED: INSULIN ASPART 100 UNITS/ML 3 ML PEN SC SCH (16:30)
[2017-03-31] MEDS: INSULIN ASPART 100 UNITS/ML 3 ML PEN SC SCH (17:00)
[2017-03-31] MEDS: NITROGLYCERIN 2% OINTMENT 30GM TUBE EXT SCH (17:03)
[2017-03-31] MEDS ORDERED: HEPARIN 25,000 UNIT/500ML D5W 500 ML IV PRN (19:15)
[2017-03-31] MEDS ORDERED: HEPARIN IV BOLUS 10,000 UNIT in SYRINGE 0 ML IV ONE (19:15)
[2017-03-31 20:05] LABS: BASO % 0.3 %; BASO ABS # 0.03 K/uL (0-0.2); EOS % 1.7 %; EOS ABS # 0.18 K/uL (0-0.5); HEMOGLOBIN 15.2 g/dL (14.0-18.0); IG# 0.06 K/uL (0.00-0.02); LYMPH % 26.7 %; LYMPH ABS # 2.77 K/uL (1.2-3.4); MEAN CELL VOLUME 84.1 fL (80-100); MEAN CORPUSCULAR HEMOGLOBIN 29.7 pg (25-34); MEAN PLATELET VOLUME 9.4 fL (7.4-10.4); MONO % 8.2 %; MONO ABS # 0.85 K/uL (0.11-0.59); NEUT % 62.5 %; NEUT ABS # 6.49 K/uL (1.4-6.5); PLATELET COUNT 173 K/uL (130-400); RED CELL DISTRIBUTION WIDTH CV 13.1 % (11.5-14.5); RED CELL DISTRIBUTION WIDTH SD 39.6 fL (36.4-46.3); WHITE BLOOD COUNT 10.38 K/uL (4.8-10.8)
[2017-03-31 20:07] LABS: MEAN CORPUSCULAR HGB CONC 35.3 g/dl (32-36)
[2017-03-31 20:20] LABS: PTT PATIENT 24.5 SECONDS (21.0-31.0)
[2017-03-31] MEDS ORDERED: INSULIN GLARGINE SOLOSTAR 100 UNITS/ML 3 ML PEN SC SCH (21:00)
[2017-03-31] MEDS ORDERED: SIMVASTATIN 40 MG TAB PO SCH ×2 (21:00)
[2017-03-31] MEDS: METOPROLOL TARTRATE 25 MG TAB PO SCH (22:14)
[2017-04-01] VITALS (7 sets, daily range): BP systolic 136–167; BP diastolic 69–90; PULSE 62–81; TEMP 36.4–36.9; O2SAT 94–97
[2017-04-01] MEDS: INSULIN ASPART 100 UNITS/ML 3 ML PEN SC SCH ×6 (00:21→20:46)
[2017-04-01] MEDS: NITROGLYCERIN 2% OINTMENT 30GM TUBE EXT SCH ×4 (00:25→17:58)
[2017-04-01 02:55] LABS: BASO % 0.3 %; BASO ABS # 0.03 K/uL (0-0.2); EOS % 1.8 %; EOS ABS # 0.16 K/uL (0-0.5); HEMATOCRIT 42.5 % (42-52); HEMOGLOBIN 14.7 g/dL (14.0-18.0); IG# 0.06 K/uL (0.00-0.02); LYMPH % 28.2 %; LYMPH ABS # 2.49 K/uL (1.2-3.4); MEAN CELL VOLUME 85.3 fL (80-100); MEAN CORPUSCULAR HEMOGLOBIN 29.5 pg (25-34); MEAN CORPUSCULAR HGB CONC 34.6 g/dl (32-36); MEAN PLATELET VOLUME 9.2 fL (7.4-10.4); MONO ABS # 0.71 K/uL (0.11-0.59); NEUT ABS # 5.39 K/uL (1.4-6.5); PLATELET COUNT 165 K/uL (130-400); RED CELL DISTRIBUTION WIDTH CV 13.3 % (11.5-14.5); RED CELL DISTRIBUTION WIDTH SD 41.3 fL (36.4-46.3); WHITE BLOOD COUNT 8.84 K/uL (4.8-10.8)
[2017-04-01] MEDS ORDERED: INSULIN ASPART 100 UNITS/ML 3 ML PEN SC SCH (03:00)
[2017-04-01 03:24] LABS: PTT PATIENT 53.2 SECONDS (21.0-31.0)
--- NOTE | 2017-04-01 06:25 | DIAGNOSTIC IMAGING REPORT ---
ULTRASOUND VENOUS DOPPLER LWR EXT BILA CLINICAL HISTORY: Leg pain. Elevated d-dimer COMPARISON STUDY: November 25, 2011 FINDINGS: Real-time and color flow Doppler imaging were performed. Flow was seen within the femoral, popliteal and calf veins with no intraluminal thrombus demonstrated. The saphenous vein is patent. IMPRESSION: No evidence of lower extremity DVT. Electronically signed by: Les Chong M.D. 04/01/2017 6:24 AM Dictated Date/Time: 04/01/2017 6:23 AM
[2017-04-01 07:14] LABS: HEMOGLOBIN A1C 8.3 % (4.5-5.6)
[2017-04-01 07:22] LABS: ALBUMIN 3.2 gm/dl (3.4-5.0); ALT/SGPT 22 U/L (12-78); AST/SGOT 18 U/L (15-37); BLOOD UREA NITROGEN 9 mg/dl (7-18); CARBON DIOXIDE 29 mmol/L (21-32); CREATININE 0.78 mg/dl (0.60-1.40); GLUCOSE 184 mg/dl (70-99); POTASSIUM 3.8 mmol/L (3.5-5.1); SODIUM 135 mmol/L (136-145); TOTAL PROTEIN 6.9 gm/dl (6.4-8.2)
[2017-04-01 07:27] LABS: ALKALINE PHOSPHATASE 53 U/L (45-117)
[2017-04-01] MEDS ORDERED: NURSING VERBAL MED ORDER ONE (07:45)
[2017-04-01] MEDS: LISINOPRIL 40 MG TAB PO SCH (08:19)
[2017-04-01] MEDS: ASPIRIN 81 MG ECTAB PO SCH (08:19)
[2017-04-01] MEDS: HYDROCHLOROTHIAZIDE 25 MG TAB PO SCH (08:19)
[2017-04-01] MEDS: ASCORBIC ACID 500 MG TAB PO SCH (08:19)
[2017-04-01] MEDS: AMLODIPINE BESYLATE 5 MG TAB PO SCH (08:19)
[2017-04-01] MEDS: METOPROLOL TARTRATE 25 MG TAB PO SCH ×2 (08:20→20:46)
[2017-04-01] MEDS: SODIUM CHLORIDE 0.9% 1000ML 1,000 ML IV SCH (08:29)
[2017-04-01] MEDS ORDERED: INSULIN GLARGINE SOLOSTAR 100 UNITS/ML 3 ML PEN SC SCH ×2 (09:00→17:00)
--- NOTE | 2017-04-01 10:42 | Pharmacy Progress Note ---
Glycemic Control Progress Note Date of Service Apr 01, 2017. Scope Glycemic Pharmacist consulted for glycemic control to write orders per [facility] inpatient glycemic control protocol. Objective Accuchecks BSG (last 24hrs): Test 03/31/17 16:26 03/31/17 20:24 04/01/17 00:09 04/01/17 02:48 Bedside Glucose 117 mg/dl (70-99) 127 mg/dl (70-99) 156 mg/dl (70-99) 143 mg/dl (70-99) Test 04/01/17 05:50 04/01/17 06:31 04/01/17 07:35 Bedside Glucose 210 mg/dl (70-99) 159 mg/dl (70-99) Random Glucose 184 mg/dl (70-99) HbA1c: Test 04/01/17 02:39 Hemoglobin A1c 8.3 % (4.5-5.6) H Recent Pertinent Medications Outpatient Anti-diabetic Regimen: * Lantus 25 units at bedtime and Humalog TIDM (took 15 units this morning) * A1c = 8.9 % 02/24/17 Risk Factors for Insulin Resistance: * Diet: T2 DM Outpatient Anti-Diabetic Meds Lantus 25 units HS plus Humalog TIDm Assessment & Plan ASSESSMENT: * Mr Nolasco is a 61 y/o M with a PMH of DM type 2, HTN, and diverticulosis who presents with chest pain. Blood sugars yesterday ranged from 117-199 mg/dL. He received only 10 of Lantus per MD order for NPO status. Fasting today is 159 mg/ dL. * Give Lantus 10 units this morning to "make up" for only 10 units given last night. Schedule 15 units with dinner and then transition to 25 units nightly tomorrow. Continue Novolog parameters as post-prandial blood sugars appear well- controlled. May need tightened with Lantus transitioning. PLAN FOR INPATIENT GLYCEMIC CONTROL: * Basal insulin with LANTUS 10 units SQ this morning then 15 units at dinner; 25 units at night starting 04/02/17 * Correctional Insulin with NOVOLOG per scale ACHS or Q6hrs while NPO * Goal Range: Low 110 mg/dL - High 140 mg/dL * Correction Factor: 20 mg/dL/unit * Nutritional / Prandial insulin per carb ratio of 1 unit per 6 grams CHO consumed Discharge Recommendations * Lower HbA1C indicates that patient has improved glycemic control. Continue current regimen and titrate as appropriate. Thank you.
[2017-04-01] MEDS ORDERED: PERFLUTREN LIPID MICROSPHERE (DEFINITY) IV ONE (11:19)
--- NOTE | 2017-04-01 16:51 | ECHOCARDIOGRAM REPORT ---
*NOTICE TO RECEIVING LIBERTARIAN AGENCY This information is strictly Confidential and protected under [place] law. [place] law prohibits you from making any further disclosure of this information unless further disclosure is expressly permitted by the written consent of the person to whom it pertains or is authorized by law. A general authorization for the release of medical or other information is not sufficient for this purpose. Hospital accepts no responsibility if the information is made available to any other person, INCLUDING THE PATIENT. Interpretation Summary * Name: SARIAH AMES Study Date: 04/01/2017 10:25 AM BP: 163/80 mmHg * Patient Location: [facility]\S\N288\S\2 HR: 62 * : 1955 (M/d/yyyy) Gender: Male Height: 77 in * Age: 61 yrs Ethnicity: CA Weight: 363 lb * Ordering Physician: Diaz Carnes * Referring Physician: Self, Referred * Performed By: Anil Oh RDCS * * Reason For Study: Chest pain * BSA: 2.9 m2 * -- Conclusions -- * 1. Technically limited study despite use of definity ultrasound contrast. * 2. Grossly normal LV size and function. Abnormal septal motion consistent with conduction abnormality. Cannot exclude other wall motion abnormalities. * 3. RV not well visualized. * 4. No significant valvular pathology. * 5. No prior studies for comparison. Procedure Details * A complete two-dimensional transthoracic echocardiogram was performed (2D, M-mode, Doppler and color flow Doppler). * The study was technically limited. * The study was technically difficult, but visualization was adequate with the administration of Definity ultrasound contrast. * There were technical limitations due to patient'sbody habitus * A contrast injection of Definity was performed to improve assessment of LV function. * Contrast was injected into an intravenous site in the left arm. * One vial of Definity ultrasound contrast was diluted in normal saline to a total volume of 10 ml. A total of '6' ml of solution was administered during imaging. * Lot # [id number] of Definity utilized for procedure. * Expiration date . * The attending nurse who injected the contrast agent was MARISA Frias. Left Ventricle * Ejection Fraction = 55-60%. * Septal motion is consistent with conduction abnormality. Right Ventricle * The right ventricle is not well visualized. Atria * The left atrium is not well visualized. * Right atrium not well visualized. * No ASD detected; PFO is not assessed. Mitral Valve * The mitral valve is grossly normal. * There is no mitral valve stenosis. * Significant mitral regurgitation is absent. Tricuspid Valve * There is trace tricuspid regurgitation. * Right ventricular systolic pressure is elevated at 30-40mmHg. Aortic Valve * The aortic valve is not well visualized. * No hemodynamically significant valvular aortic stenosis. * There is no significant aortic regurgitation. Pulmonic Valve * The pulmonary valve is inadequately visualized, but the Doppler data is adequate for interpretation. * There is no pulmonic valvular stenosis. * There is no significant pulmonary regurgitation. Pericardium/Pleural * There is no pericardial effusion. Great Vessels * Normal inferior vena cava size and collapsability with sniff indicates a normal right atrial pressure of 3 mmHg MMode 2D Measurements and Calculations IVSd 1.4 cm IVSs 1.8 cm LVIDd 5.1 cm LVIDs 3.2 cm LVPWd 1.3 cm LVPWs 1.8 cm IVS/LVPW 1.1 FS 38.1 % EDV(Teich) 124.4 ml ESV(Teich) 39.8 ml EF(Teich) 68.0 % EDV(cubed) 133.4 ml ESV(cubed) 31.6 ml EF(cubed) 76.3 % % IVS thick 24.9 % % LVPW thick 37.0 % LV mass(C)d 284.1 grams LV mass(C)dI 98.6 grams/m\S\2 LV mass(C)s 221.6 grams LV mass(C)sI 76.9 grams/m\S\2 SV(Teich) 84.6 ml SI(Teich) 29.4 ml/m\S\2 SV(cubed) 101.8 ml SI(cubed) 35.3 ml/m\S\2 Ao root diam 3.6 cm Ao root area 10.1 cm\S\2 ACS 1.9 cm LA dimension 3.8 cm asc Aorta Diam 3.7 cm LA/Ao 1.1 LVOT diam 2.1 cm LVOT area 3.4 cm\S\2 LVAd ap4 18.2 cm\S\2 LVLd ap4 5.5 cm EDV(MOD-sp4) 48.4 ml EDV(sp4-el) 51.5 ml LVAs ap4 8.2 cm\S\2 LVLs ap4 4.4 cm ESV(MOD-sp4) 13.4 ml ESV(sp4-el) 12.9 ml EF(MOD-sp4) 72.3 % EF(sp4-el) 74.9 % LVAd ap2 25.3 cm\S\2 LVLd ap2 8.1 cm EDV(MOD-sp2) 63.2 ml EDV(sp2-el) 66.8 ml LVAs ap2 9.9 cm\S\2 LVLs ap2 5.3 cm ESV(MOD-sp2) 15.4 ml ESV(sp2-el) 15.7 ml EF(MOD-sp2) 75.6 % EF(sp2-el) 76.5 % LVLd %diff 32.4 % EDV(MOD-bp) 66.8 ml LVLs %diff 17.0 % ESV(MOD-bp) 15.6 ml EF(MOD-bp) 76.7 % SV(MOD-sp4) 35.0 ml SI(MOD-sp4) 12.1 ml/m\S\2 SV(MOD-sp2) 47.8 ml SI(MOD-sp2) 16.6 ml/m\S\2 SV(MOD-bp) 51.3 ml SI(MOD-bp) 17.8 ml/m\S\2 SV(sp4-el) 38.5 ml SI(sp4-el) 13.4 ml/m\S\2 SV(sp2-el) 51.1 ml SI(sp2-el) 17.7 ml/m\S\2 Doppler Measurements and Calculations MV E max matilde 77.7 cm/sec MV A max matilde 89.3 cm/sec MV E/A 0.87 MV dec time 0.20 sec Ao V2 max 139.6 cm/sec Ao max PG 7.8 mmHg Ao max PG (full) 3.7 mmHg ZARINA(V,A) 2.5 cm\S\2 ZARINA(V,D) 2.5 cm\S\2 LV V1 max PG 4.1 mmHg LV V1 max 101.1 cm/sec PA V2 max 71.9 cm/sec PA max PG 2.1 mmHg PA acc slope 405.3 cm/sec\S\2 PA acc time 0.16 sec TR max matilde 289.0 cm/sec PA pr(Accel) 6.1 mmHg
--- NOTE | 2017-04-01 20:48 | Progress Note ---
Subjective Date of Service: Apr 01, 2017. Subjective Patient reports having no issues or complaints in the hospital. Patient reports that he cannot go home today as his family cannot pick him up. Problem List Medical Problems: (1) Closed head injury Status: Acute (2) New onset left bundle branch block (LBBB) Status: Acute (3) Precordial chest pain Status: Acute Review of Systems Constitutional: No fever Eyes: No worsening of vision, No eye pain Respiratory: No cough, No sputum Abdomen: No pain, No nausea Neurologic: No memory loss, No paralysis Heme: No abnormal bleeding/bruising Endo: No fatigue Skin: No rash, No itch All Other Systems: Reviewed and Negative Medications Current Inpatient Medications Medications (Trade) Dose Ordered Sig/Juancarlos Route Start Time Stop Time Status Last Admin Dose Admin Amlodipine Besylate (Norvasc Tab) 10 mg DAILY PO 04/01/17 09:00 05/01/17 08:59 04/03/17 08:25 10 MG Ascorbic Acid (Vitamin C Tab) 500 mg DAILY PO 04/01/17 09:00 05/01/17 08:59 04/03/17 08:25 500 MG Aspirin (Ecotrin Tab) 81 mg DAILY PO 04/01/17 09:00 05/01/17 08:59 04/03/17 08:23 81 MG Hydrochlorothiazide (Hydrochlorothiazide Tab) 25 mg DAILY PO 04/01/17 09:00 05/01/17 08:59 04/03/17 08:24 25 MG Lisinopril (Zestril Tab) 40 mg DAILY PO 04/01/17 09:00 05/01/17 08:59 04/03/17 08:24 40 MG Acetaminophen (Tylenol Tab) 650 mg Q4H PRN PO 03/31/17 12:45 04/30/17 12:44 Al Hydrox/Mg Hydrox/Simethicone (Maalox Max Susp) 15 ml Q4H PRN PO 03/31/17 12:45 04/30/17 12:44 Magnesium Hydroxide (Milk Of Magnesia Susp) 30 ml Q12H PRN PO 03/31/17 12:45 04/30/17 12:44 Ondansetron HCl (Zofran Inj) 4 mg Q6H PRN IV 03/31/17 12:45 04/30/17 12:44 Nitroglycerin (Nitrostat Tab) 0.4 mg UD PRN SL 03/31/17 12:45 04/30/17 12:44 03/31/17 18:41 0.4 MG Nitroglycerin (Nitroglycerin 2% Oint) 1 inch Q6 EXT 03/31/17 18:00 04/30/17 17:59 04/03/17 05:59 1 INCH Morphine Sulfate (MoRPHine SULFATE INJ) 2 mg Q30M PRN IV 03/31/17 12:45 04/14/17 12:44 03/31/17 18:42 2 MG Polyethylene (Miralax Powder Packet) 17 gm DAILY PRN PO 03/31/17 12:45 04/30/17 12:44 Glucose (Glucose 40% Gel) 15-30 GRAMS 15 GRAMS... UD PRN PO 03/31/17 12:45 04/30/17 12:44 Glucose (Glucose Chew Tab) 4-8 Tablets 4 Tabl... UD PRN PO 03/31/17 12:45 04/30/17 12:44 Dextrose (Dextrose 50% 50ML Syringe) 25-50ML OF 50% DW IV FOR... UD PRN IV 03/31/17 12:45 04/30/17 12:44 Glucagon (Glucagon Inj) 1 mg UD PRN SQ 03/31/17 12:45 04/30/17 12:44 Miscellaneous Information (Consult Glycemic Management Pharmacy) 1 ea UD PRN N/A 03/31/17 12:47 04/30/17 12:46 Metoprolol Tartrate (Lopressor Tab) 12.5 mg BID PO 03/31/17 21:00 04/30/17 20:59 Future Hold 04/02/17 21:04 12.5 MG Insulin Aspart (novoLOG ASPART) SLIDING SCALE If C... ACHS SC 04/01/17 06:30 04/30/17 17:59 04/03/17 08:30 3 UNITS Insulin Glargine (Lantus Solostar Pen) 25 units HS SC 04/02/17 21:00 05/02/17 20:59 04/02/17 21:07 25 UNITS Objective Vital Signs Date Time Temp Pulse Resp B/P (MAP) Pulse Ox O2 Delivery O2 Flow Rate FiO2 04/01/17 19:49 36.9 81 17 167/90 (115) 95 Room Air 04/01/17 16:00 95 Room Air 04/01/17 15:15 36.6 74 16 136/69 (91) 97 Room Air 04/01/17 12:00 Room Air 04/01/17 07:36 Room Air 04/01/17 07:12 36.6 67 16 155/78 (103) 04/01/17 05:45 36.4 62 18 163/80 (107) 95 Room Air 04/01/17 04:00 Room Air 04/01/17 03:59 36.7 75 16 140/78 (98) 94 Room Air 04/01/17 00:00 Room Air 03/31/17 23:46 36.4 62 18 160/79 (106) 96 Room Air 03/31/17 22:15 65 152/78 (102) 03/31/17 21:07 73 133/66 (88) Physical Exam General Appearance: WD/WN, no apparent distress, + obese Neck: supple, no adenopathy Respiratory/Chest: chest non-tender, lungs clear, normal breath sounds Cardiovascular: regular rate, rhythm, no edema Abdomen: normal bowel sounds, non tender, soft Extremities: normal range of motion, non-tender Skin: normal color, warm/dry Lymphatic: no adenopathy Laboratory Results Last 24 Hours Test 04/01/17 00:08 04/01/17 00:09 04/01/17 02:39 04/01/17 02:48 Total Creatine Kinase 58 U/L Troponin I < 0.015 ng/ml Bedside Glucose 156 mg/dl 143 mg/dl White Blood Count 8.84 K/uL Red Blood Count 4.98 M/uL Hemoglobin 14.7 g/dL Hematocrit 42.5 % Mean Corpuscular Volume 85.3 fL Mean Corpuscular Hemoglobin 29.5 pg Mean Corpuscular Hemoglobin Concent 34.6 g/dl Platelet Count 165 K/uL Mean Platelet Volume 9.2 fL Neutrophils (%) (Auto) 61.0 % Lymphocytes (%) (Auto) 28.2 % Monocytes (%) (Auto) 8.0 % Eosinophils (%) (Auto) 1.8 % Basophils (%) (Auto) 0.3 % Neutrophils # (Auto) 5.39 K/uL Lymphocytes # (Auto) 2.49 K/uL Monocytes # (Auto) 0.71 K/uL Eosinophils # (Auto) 0.16 K/uL Basophils # (Auto) 0.03 K/uL RDW Standard Deviation 41.3 fL RDW Coefficient of Variation 13.3 % Immature Granulocyte % (Auto) 0.7 % Immature Granulocyte # (Auto) 0.06 K/uL Activated Partial Thromboplast Time 53.2 SECONDS Partial Thromboplastin Ratio 2.0 Estimated Average Glucose 192 mg/dl Hemoglobin A1c 8.3 % Test 04/01/17 05:50 04/01/17 06:31 04/01/17 07:18 04/01/17 07:35 Bedside Glucose 210 mg/dl 159 mg/dl Sodium Level 135 mmol/L Potassium Level 3.8 mmol/L Chloride Level 100 mmol/L Carbon Dioxide Level 29 mmol/L Anion Gap 6.0 mmol/L Blood Urea Nitrogen 9 mg/dl Creatinine 0.78 mg/dl Est Creatinine Clear Calc Drug Dose 169.6 ml/min Estimated GFR () 113.7 Estimated GFR (Non- 98.1 BUN/Creatinine Ratio 11.3 Random Glucose 184 mg/dl Calcium Level 8.0 mg/dl Magnesium Level 2.1 mg/dl Total Bilirubin 0.8 mg/dl Aspartate Amino Transf (AST/SGOT) 18 U/L Alanine Aminotransferase (ALT/SGPT) 22 U/L Alkaline Phosphatase 53 U/L Total Creatine Kinase 53 U/L Troponin I < 0.015 ng/ml Total Protein 6.9 gm/dl Albumin 3.2 gm/dl Globulin 3.7 gm/dl Albumin/Globulin Ratio 0.9 Test 04/01/17 11:45 04/01/17 12:16 04/01/17 16:51 04/01/17 19:15 Bedside Glucose 171 mg/dl 154 mg/dl 139 mg/dl Total Creatine Kinase 70 U/L Troponin I < 0.015 ng/ml Assessment and Plan 61 years old man with DMII ID, HTN , Dyslipidemia and obesity p/w CP and new LBBB compared to 05/2013 EKG Atypical chest pain Plan was to discharge today. Trop. and Echo is negative for ischemic changes Inital plac was to have stress test as outpatient. But patient is not leaving hospital today as he has no one to pick him up As patient lives by himself, it will be safer to keep him over the weekend and have a stress test on Monday. LBBB unknown chronicity most recent comparison was 4 years ago obesity DMII continue sliding scale HTN cont. current management. BP stable Dyslipidemia cont. current statin (lipitor) DVT prophylaxis w heparin
[2017-04-02] VITALS (9 sets, daily range): BP systolic 122–147; BP diastolic 63–77; PULSE 59–73; TEMP 36.5–36.9; O2SAT 93–96
[2017-04-02] LABS: CALCIUM 8.3 mg/dl (8.5-10.1); CREATININE 0.83 mg/dl (0.60-1.40); POTASSIUM 3.8 mmol/L (3.5-5.1)
[2017-04-02] MEDS: NITROGLYCERIN 2% OINTMENT 30GM TUBE EXT SCH ×5 (00:03→23:59)
[2017-04-02] MEDS: SODIUM CHLORIDE 0.9% 1000ML 1,000 ML IV SCH (04:03)
[2017-04-02] MEDS: AMLODIPINE BESYLATE 5 MG TAB PO SCH (08:28)
[2017-04-02] MEDS: LISINOPRIL 40 MG TAB PO SCH (08:28)
[2017-04-02] MEDS: HYDROCHLOROTHIAZIDE 25 MG TAB PO SCH (08:28)
[2017-04-02] MEDS: ASPIRIN 81 MG ECTAB PO SCH (08:28)
[2017-04-02] MEDS: ASCORBIC ACID 500 MG TAB PO SCH (08:29)
[2017-04-02] MEDS: METOPROLOL TARTRATE 25 MG TAB PO SCH ×2 (08:29→21:04)
[2017-04-02] MEDS: INSULIN ASPART 100 UNITS/ML 3 ML PEN SC SCH ×4 (08:34→21:07)
[2017-04-02] MEDS ORDERED: NURSING VERBAL MED ORDER ONE (09:15)
[2017-04-02] MEDS: INSULIN GLARGINE SOLOSTAR 100 UNITS/ML 3 ML PEN SC SCH (21:07)
--- NOTE | 2017-04-02 22:25 | Progress Note ---
Subjective Date of Service: Apr 02, 2017. Subjective Pt evaluation today including: conversation w/ patient, physical exam 61 yo male with no change in symptoms. Continues to have chest pain at rest. Problem List Medical Problems: (1) Closed head injury Status: Acute (2) New onset left bundle branch block (LBBB) Status: Acute (3) Precordial chest pain Status: Acute Review of Systems Constitutional: No fever, No chills Eyes: No worsening of vision ENT: No hearing loss, No unusual epistaxis Respiratory: No cough, No sputum Cardiac: No chest pain, No orthopnea Musculoskeletal: No joint pain Male : No dysuria Neurologic: No memory loss, No paralysis Psychiatric: No depression symptoms Endo: No fatigue Skin: No rash, No itch All Other Systems: Reviewed and Negative Medications Current Inpatient Medications Medications (Trade) Dose Ordered Sig/Juancarlos Route Start Time Stop Time Status Last Admin Dose Admin Amlodipine Besylate (Norvasc Tab) 10 mg DAILY PO 04/01/17 09:00 05/01/17 08:59 04/03/17 08:25 10 MG Ascorbic Acid (Vitamin C Tab) 500 mg DAILY PO 04/01/17 09:00 05/01/17 08:59 04/03/17 08:25 500 MG Aspirin (Ecotrin Tab) 81 mg DAILY PO 04/01/17 09:00 05/01/17 08:59 04/03/17 08:23 81 MG Hydrochlorothiazide (Hydrochlorothiazide Tab) 25 mg DAILY PO 04/01/17 09:00 05/01/17 08:59 04/03/17 08:24 25 MG Lisinopril (Zestril Tab) 40 mg DAILY PO 04/01/17 09:00 05/01/17 08:59 04/03/17 08:24 40 MG Acetaminophen (Tylenol Tab) 650 mg Q4H PRN PO 03/31/17 12:45 04/30/17 12:44 Al Hydrox/Mg Hydrox/Simethicone (Maalox Max Susp) 15 ml Q4H PRN PO 03/31/17 12:45 04/30/17 12:44 Magnesium Hydroxide (Milk Of Magnesia Susp) 30 ml Q12H PRN PO 03/31/17 12:45 04/30/17 12:44 Ondansetron HCl (Zofran Inj) 4 mg Q6H PRN IV 03/31/17 12:45 04/30/17 12:44 Nitroglycerin (Nitrostat Tab) 0.4 mg UD PRN SL 03/31/17 12:45 04/30/17 12:44 03/31/17 18:41 0.4 MG Nitroglycerin (Nitroglycerin 2% Oint) 1 inch Q6 EXT 03/31/17 18:00 04/30/17 17:59 04/03/17 05:59 1 INCH Morphine Sulfate (MoRPHine SULFATE INJ) 2 mg Q30M PRN IV 03/31/17 12:45 04/14/17 12:44 03/31/17 18:42 2 MG Polyethylene (Miralax Powder Packet) 17 gm DAILY PRN PO 03/31/17 12:45 04/30/17 12:44 Glucose (Glucose 40% Gel) 15-30 GRAMS 15 GRAMS... UD PRN PO 03/31/17 12:45 04/30/17 12:44 Glucose (Glucose Chew Tab) 4-8 Tablets 4 Tabl... UD PRN PO 03/31/17 12:45 04/30/17 12:44 Dextrose (Dextrose 50% 50ML Syringe) 25-50ML OF 50% DW IV FOR... UD PRN IV 03/31/17 12:45 04/30/17 12:44 Glucagon (Glucagon Inj) 1 mg UD PRN SQ 03/31/17 12:45 04/30/17 12:44 Miscellaneous Information (Consult Glycemic Management Pharmacy) 1 ea UD PRN N/A 03/31/17 12:47 04/30/17 12:46 Metoprolol Tartrate (Lopressor Tab) 12.5 mg BID PO 03/31/17 21:00 04/30/17 20:59 Future Hold 04/02/17 21:04 12.5 MG Insulin Aspart (novoLOG ASPART) SLIDING SCALE If C... ACHS SC 04/01/17 06:30 04/30/17 17:59 04/03/17 08:30 3 UNITS Insulin Glargine (Lantus Solostar Pen) 25 units HS SC 04/02/17 21:00 05/02/17 20:59 04/02/17 21:07 25 UNITS Objective Vital Signs Date Time Temp Pulse Resp B/P (MAP) Pulse Ox O2 Delivery O2 Flow Rate FiO2 04/02/17 20:02 36.8 72 20 122/72 (89) 94 Room Air 04/02/17 20:00 94 Room Air 04/02/17 16:00 94 Room Air 04/02/17 14:58 36.5 66 16 136/67 (90) 94 Room Air 04/02/17 11:52 Room Air 04/02/17 11:35 36.9 59 16 131/63 (85) 96 Room Air 04/02/17 08:00 Room Air 04/02/17 07:39 36.9 63 20 145/67 (93) 93 Room Air 04/02/17 04:57 36.9 67 18 147/77 (100) 96 Room Air 04/02/17 04:00 Room Air 04/02/17 00:08 36.7 73 18 143/74 (97) 95 Room Air 04/02/17 00:00 Room Air Physical Exam General Appearance: WD/WN, no apparent distress, + obese Neck: supple, thyroid normal Respiratory/Chest: chest non-tender, lungs clear, normal breath sounds Cardiovascular: regular rate, rhythm, no edema, no gallop Abdomen: normal bowel sounds, non tender, soft Extremities: normal range of motion Neurologic/Psychiatric: alert, oriented x 3 Skin: normal color Lymphatic: no adenopathy Laboratory Results Last 24 Hours Test 04/01/17 23:22 04/02/17 05:43 04/02/17 07:35 04/02/17 11:32 Sodium Level 136 mmol/L Potassium Level 3.8 mmol/L Chloride Level 99 mmol/L Carbon Dioxide Level 28 mmol/L Anion Gap 9.0 mmol/L Blood Urea Nitrogen 9 mg/dl Creatinine 0.83 mg/dl Est Creatinine Clear Calc Drug Dose 159.4 ml/min Estimated GFR () 110.8 Estimated GFR (Non- 95.6 BUN/Creatinine Ratio 11.1 Random Glucose 165 mg/dl Calcium Level 8.3 mg/dl Activated Partial Thromboplast Time 26.0 SECONDS Partial Thromboplastin Ratio 1.0 Bedside Glucose 164 mg/dl 170 mg/dl Test 04/02/17 16:26 04/02/17 20:23 Bedside Glucose 167 mg/dl 159 mg/dl Assessment and Plan 61 years old man with DMII ID, HTN , Dyslipidemia and obesity p/w CP and new LBBB compared to 05/2013 EKG Atypical chest pain Plan was to discharge today. Trop. and Echo is negative for ischemic changes Initial plan was to have stress test as outpatient. But patient would likt ot have test as an inpatient. As patient lives by himself, it will be safer to keep him over the weekend and have a stress test on Monday. LBBB unknown chronicity most recent comparison was 4 years ago Echo was negative for cardiomyopathy obesity DMII continue sliding scale HTN cont. current management. BP stable Dyslipidemia cont. current statin (lipitor) DVT prophylaxis w heparin Continued [facility] stay due to: home environment unsafe for pt Discharge planning: home
[2017-04-03 03:48] VITALS: BP 138/69; PULSE 68; TEMP 36.5; O2SAT 95
[2017-04-03] MEDS: NITROGLYCERIN 2% OINTMENT 30GM TUBE EXT SCH ×2 (05:59→12:09)
[2017-04-03 06:39] LABS: HEMATOCRIT 46.7 % (42-52); HEMOGLOBIN 16.4 g/dL (14.0-18.0); MEAN CELL VOLUME 83.8 fL (80-100); MEAN CORPUSCULAR HEMOGLOBIN 29.4 pg (25-34); MEAN CORPUSCULAR HGB CONC 35.1 g/dl (32-36); MEAN PLATELET VOLUME 9.5 fL (7.4-10.4); PLATELET COUNT 196 K/uL (130-400); RED CELL DISTRIBUTION WIDTH SD 39.3 fL (36.4-46.3); WHITE BLOOD COUNT 9.24 K/uL (4.8-10.8)
[2017-04-03 06:51] LABS: PTT PATIENT 26.1 SECONDS (21.0-31.0)
[2017-04-03 07:52] VITALS: BP 159/75; PULSE 103; TEMP 36.5
[2017-04-03] MEDS: ASPIRIN 81 MG ECTAB PO SCH (08:23)
[2017-04-03] MEDS: HYDROCHLOROTHIAZIDE 25 MG TAB PO SCH (08:24)
[2017-04-03] MEDS: LISINOPRIL 40 MG TAB PO SCH (08:24)
[2017-04-03] MEDS: ASCORBIC ACID 500 MG TAB PO SCH (08:25)
[2017-04-03] MEDS: AMLODIPINE BESYLATE 5 MG TAB PO SCH (08:25)
[2017-04-03] MEDS: INSULIN ASPART 100 UNITS/ML 3 ML PEN SC SCH ×4 (08:30→21:25)
--- NOTE | 2017-04-03 10:32 | Pharmacy Progress Note ---
Pharmacy Glycemic Short Note 2 Date of Service Apr 03, 2017. OUTPATIENT ANTIDIABETIC REGIMEN: * Lantus 25 units at bedtime and Humalog TIDM * A1c = 8.9 % 02/24/17 ASSESSMENT: * 61yo T2DM with sub-adequate outpatient patient per recent A1c. Goal A1c <7% based on age/co-morbidities. * Patient has been receiving ~ 60 units of insulin per day with near adequate control * BSGs 04/02/17: 164, 170, 167, 159 * BSGs 04/03/17: 188 * 25 units of basal insulin + 34 units of prandial/correctional insulin * AM fasting BSG slightly above goal range at 188mg/dl. Dose increase warranted , but patient now NPO. Will not increase dosing at this time. * Post-prandial BSGs near goal range yesterday - will not receive CHO coverage today. No changes needed. PLAN FOR INPATIENT GLYCEMIC CONTROL: no changes needed at this time * Basal insulin * Lantus 25 units SQ HS * OK to give while NPO * Bolus insulin * NovoLog per scale ACHS or Q6hrs while NPO * Goal Range: Low 110 mg/dL - High 140 mg/dL * Correction Factor: 20 mg/dL/unit * Nutritional / Prandial insulin per carb ratio of 1 unit per 6 grams CHO consumed PLAN FOR DISCHARGE: * May need a slight dose increase in Lantus or Humalog dosing at discharge to achieve A1c <7%
[2017-04-03 10:42] VITALS: Ht 195.6 cm; Wt 157.4 kg
[2017-04-03 11:19] VITALS: BP 156/72; PULSE 79; TEMP 36.6; O2SAT 94
--- NOTE | 2017-04-03 14:07 | Hospitalist Progress Note ---
Hospitalist Progress Note Date of Service Apr 03, 2017. Subjective Pt evaluation today including: conversation w/ patient, physical exam, chart review, lab review, review of studies, conversation w/ travel consultant, review of inpatient medication list Patient seen and evaluated. No acute events overnight. Patient has remained largely CP free but reports intermittent L-sided "twinges" that have been chronically occurring. Had a long conversation explaining the findings and suspected heart attack in the past due to the LBBB developing at some point over the past 4 years. Due to LBBB he will need Lexiscan and will perform today and tomorrow to further evaluate. Constitutional: No fever, No chills Respiratory: No cough, No shortness of breath Cardiovascular: + chest pain (intermittent "twinges") Abdomen: No pain, No nausea, No vomiting, No diarrhea, No constipation Musculoskeletal: No swelling, No calf pain Heme: No abnormal bleeding/bruising Skin: No rash Medications Current Inpatient Medications Medications (Trade) Dose Ordered Sig/Juancarlos Route Start Time Stop Time Status Last Admin Dose Admin Amlodipine Besylate (Norvasc Tab) 10 mg DAILY PO 04/01/17 09:00 05/01/17 08:59 04/03/17 08:25 10 MG Ascorbic Acid (Vitamin C Tab) 500 mg DAILY PO 04/01/17 09:00 05/01/17 08:59 04/03/17 08:25 500 MG Aspirin (Ecotrin Tab) 81 mg DAILY PO 04/01/17 09:00 05/01/17 08:59 04/03/17 08:23 81 MG Hydrochlorothiazide (Hydrochlorothiazide Tab) 25 mg DAILY PO 04/01/17 09:00 05/01/17 08:59 04/03/17 08:24 25 MG Lisinopril (Zestril Tab) 40 mg DAILY PO 04/01/17 09:00 05/01/17 08:59 04/03/17 08:24 40 MG Acetaminophen (Tylenol Tab) 650 mg Q4H PRN PO 03/31/17 12:45 04/30/17 12:44 Al Hydrox/Mg Hydrox/Simethicone (Maalox Max Susp) 15 ml Q4H PRN PO 03/31/17 12:45 04/30/17 12:44 Magnesium Hydroxide (Milk Of Magnesia Susp) 30 ml Q12H PRN PO 03/31/17 12:45 2/4/18 12:44 Ondansetron HCl (Zofran Inj) 4 mg Q6H PRN IV 03/31/17 12:45 04/30/17 12:44 Nitroglycerin (Nitrostat Tab) 0.4 mg UD PRN SL 03/31/17 12:45 04/30/17 12:44 03/31/17 18:41 0.4 MG Nitroglycerin (Nitroglycerin 2% Oint) 1 inch Q6 EXT 03/31/17 18:00 04/30/17 17:59 04/03/17 12:09 1 INCH Morphine Sulfate (MoRPHine SULFATE INJ) 2 mg Q30M PRN IV 03/31/17 12:45 04/14/17 12:44 03/31/17 18:42 2 MG Polyethylene (Miralax Powder Packet) 17 gm DAILY PRN PO 03/31/17 12:45 04/30/17 12:44 Glucose (Glucose 40% Gel) 15-30 GRAMS 15 GRAMS... UD PRN PO 03/31/17 12:45 04/30/17 12:44 Glucose (Glucose Chew Tab) 4-8 Tablets 4 Tabl... UD PRN PO 03/31/17 12:45 04/30/17 12:44 Dextrose (Dextrose 50% 50ML Syringe) 25-50ML OF 50% DW IV FOR... UD PRN IV 03/31/17 12:45 04/30/17 12:44 Glucagon (Glucagon Inj) 1 mg UD PRN SQ 03/31/17 12:45 04/30/17 12:44 Miscellaneous Information (Consult Glycemic Management Pharmacy) 1 ea UD PRN N/A 03/31/17 12:47 04/30/17 12:46 Metoprolol Tartrate (Lopressor Tab) 12.5 mg BID PO 03/31/17 21:00 04/30/17 20:59 Future Hold 04/02/17 21:04 12.5 MG Insulin Aspart (novoLOG ASPART) SLIDING SCALE If C... ACHS SC 04/01/17 06:30 04/30/17 17:59 04/03/17 08:30 3 UNITS Insulin Glargine (Lantus Solostar Pen) 25 units HS SC 04/02/17 21:00 05/02/17 20:59 04/02/17 21:07 25 UNITS Objective Vital Signs Date Time Temp Pulse Resp B/P (MAP) Pulse Ox O2 Delivery O2 Flow Rate FiO2 04/03/17 12:00 Room Air 04/03/17 11:19 36.6 79 19 156/72 (100) 94 Room Air 04/03/17 08:00 Room Air 04/03/17 07:52 36.5 103 20 159/75 (103) Room Air 04/03/17 04:00 Room Air 04/03/17 03:48 36.5 68 18 138/69 (92) 95 Room Air 04/03/17 00:00 Room Air 04/02/17 23:38 36.5 70 18 143/73 (96) 95 Room Air 04/02/17 20:02 36.8 72 20 122/72 (89) 94 Room Air 04/02/17 20:00 94 Room Air 04/02/17 16:00 94 Room Air 04/02/17 14:58 36.5 66 16 136/67 (90) 94 Room Air Physical Exam General Appearance: WD/WN, no apparent distress, + obese Eyes: sclerae normal ENT: hearing grossly normal Neck: supple, no JVD, trachea midline Respiratory/Chest: lungs clear, normal breath sounds, no respiratory distress, no accessory muscle use Cardiovascular: regular rate, rhythm, no gallop, no murmur Abdomen: normal bowel sounds, non tender, soft Neurologic/Psychiatric: alert, oriented x 3 Skin: normal color, warm/dry Laboratory Results Last 24 Hours Test 04/02/17 16:26 04/02/17 20:23 04/03/17 06:27 04/03/17 07:47 Bedside Glucose 167 mg/dl 159 mg/dl 188 mg/dl White Blood Count 9.24 K/uL Red Blood Count 5.57 M/uL Hemoglobin 16.4 g/dL Hematocrit 46.7 % Mean Corpuscular Volume 83.8 fL Mean Corpuscular Hemoglobin 29.4 pg Mean Corpuscular Hemoglobin Concent 35.1 g/dl RDW Standard Deviation 39.3 fL RDW Coefficient of Variation 13.0 % Platelet Count 196 K/uL Mean Platelet Volume 9.5 fL Activated Partial Thromboplast Time 26.1 SECONDS Partial Thromboplastin Ratio 1.0 Test 04/03/17 11:44 Bedside Glucose 145 mg/dl Assessment and Plan 61 years old man with DMII ID, HTN , Dyslipidemia and obesity p/w CP and new LBBB compared to 05/2013 EKG Chest Pain with New LBBB: - Reporting pain that brought him in has not reoccurred but states he has had limited exertion in-hospital; reports intermittent twinges of chest pain that has been chronic - Cardiac enzymes have remained negative and LBBB appears to have developed at some point in the last 4 years - Echo - EF 55-60%; abnormal septal motional abnormality consistent with conduction abnormality - Lexiscan today and tomorrow - ASA 81 mg daily, Lisinopril 40 mg daily, and Metoprolol 12.5 mg BID - Will hold further NTG ointment and cover with PRN SL - Cardiology following - plan to incorporate medical management with ACEI, BB, and antiplatelet HTN: - Continue Norvasc 10 mg daily and HCTZ 25 mg daily - Continue to monitor BP and may need adjustments in Norvasc/HCTZ given addition of BB T2DM: Alc 8.3 - Lantus 25 units SC HS and SSI - likely need increased coverage on D/C - pharmacy following Code Status: FULL RESUSCITATION Disposition: Pending Lexiscan results possible D/C tomorrow Continued [facility] stay due to: multiple IV medications needed Discharge planning: home
[2017-04-03 15:53] VITALS: BP 142/78; PULSE 83; TEMP 36.6; O2SAT 95
[2017-04-03 19:39] VITALS: BP 133/74; PULSE 79; TEMP 36.8; O2SAT 91
[2017-04-03] MEDS: INSULIN GLARGINE SOLOSTAR 100 UNITS/ML 3 ML PEN SC SCH (21:25)
[2017-04-03 23:44] VITALS: BP 156/77; PULSE 85; TEMP 36.5; O2SAT 94
[2017-04-04 05:05] VITALS: BP 157/83; PULSE 79; TEMP 36.5; O2SAT 95
[2017-04-04 06:29] LABS: PTT PATIENT 26.1 SECONDS (21.0-31.0)
[2017-04-04 07:34] VITALS: BP 117/69; PULSE 98; TEMP 36.5; O2SAT 95
[2017-04-04] MEDS ORDERED: REGADENOSON 0.4 MG/5 ML SYR ONE (07:35)
[2017-04-04 09:33] VITALS: BP 133/84; PULSE 102
[2017-04-04] MEDS: LISINOPRIL 40 MG TAB PO SCH (09:38)
[2017-04-04] MEDS: ASCORBIC ACID 500 MG TAB PO SCH (09:39)
[2017-04-04] MEDS: HYDROCHLOROTHIAZIDE 25 MG TAB PO SCH (09:39)
[2017-04-04] MEDS: AMLODIPINE BESYLATE 5 MG TAB PO SCH (09:39)
[2017-04-04] MEDS: ASPIRIN 81 MG ECTAB PO SCH (09:39)
[2017-04-04] MEDS: INSULIN ASPART 100 UNITS/ML 3 ML PEN SC SCH ×3 (10:37→17:07)
[2017-04-04 11:30] VITALS: BP 130/76; PULSE 92; TEMP 37; O2SAT 94
--- NOTE | 2017-04-04 12:01 | Pharmacy Progress Note ---
Glycemic: Assessment & Plan Date of Service Apr 04, 2017. Assessment & Plan The patient is currently receiving ~58 units of insulin per day while taking full PO. BSGs ranging 145 - 188 mg/dl over the past 24hrs. * Basal insulin: Lantus 25 units every 24 hours given at bedtime * Correctional Insulin: Novolog Correction per scale ACHS Goal Range: Low 110 mg/dL - High 140 mg/dL Correction Factor: 20 mg/dL/unit * Prandial insulin: Per carb ratio of 1 unit per 6 grams CHO consumed BSGs continue to improve, no changes needed to inpatient regimen at this time. Pharmacy will continue to monitor patient daily and write orders per [facility] inpatient glycemic control protocol. Thanks. * Please note that the plan above was derived based on current level of insulin resistance and hospital stress. These recommendations are appropriate for inpatient admission only. Plan of care upon discharge will need to be reassessed to avoid potential outpatient hypo/hyperglycemia.
--- NOTE | 2017-04-04 12:37 | MYOCARDIAL PERFUSION SCAN ---
ONE-DAY NUCLEAR MEDICINE TECHNETIUM-99M CARDIOLITE MYOCARDIAL PERFUSION SCAN CLINICAL HISTORY: This stress test is being performed because of a chest pain syndrome. The patient has a left bundle-branch block. COMPARISON: None. TECHNIQUE: TECHNIQUE: For the stress portion of the study, 25.9 mCi of Technetium 99 m Cardiolite IV was injected at 8:35 a.m. on 04/04/2017. Thirty minutes following the injection, imaging of the heart was performed in multiple projection. For the rest portion of the study, 24.8 mCi of Technetium 99 m Cardiolite was injected IV at 1:35 p.m. One hour following the injection, imaging of the heart was performed in the same projections. For the stress portion of the study, 0.4 mg of Lexiscan was injected intravenously as per protocol. The patient did not experience chest discomfort or EKG changes above the baseline abnormality. Following the study, patient was hemodynamically stable without complaints. FINDINGS: Short axis, vertical long axis, horizontal long axis images were reviewed in detail. There is normal myocardial uptake at both stress and rest. This excludes a prior myocardial infarction and evidence of stress-induced myocardial ischemia. The left ventricle demonstrates mildly reduced systolic performance with an ejection fraction of 44%. There are no isolated wall motion abnormalities. IMPRESSION: 1. No definite scintigraphic evidence of a prior myocardial infarction or stress-induced myocardial ischemia. 2. No Lexiscan induced chest pain. 3. No Lexiscan induced EKG changes over the baseline abnormality. 4. Mildly reduced left ventricular ejection fraction of 44% without wall motion abnormality.
[2017-04-04] MEDS ORDERED: LPR25 PO (13:10)
--- NOTE | 2017-04-04 13:23 | Discharge Instructions ---
Discharge Instructions Date of Service Apr 04, 2017. Admission Reason for Admission: Chest Pain Discharge Discharge Diagnosis / Problem: Chest Pain Discharge Goals Goal(s): Decrease discomfort, Improve function, Increase independence Activity Recommendations Activity Limitations: per Instructions/Follow-up section Lifting Limitations: gradually increase as tolerated Exercise/Sports Limitations: gradually increase as tolerated . Instructions / Follow-Up Instructions / Follow-Up Chest Pain with New Left Bundle Branch Block: - You were admitted to evaluate your chest pain. Your cardiac enzymes were negative meaning that you did not have a heart attack that brought your into the hospital. - The EKG was concerning for a new left bundle branch block that has occurred at some point over the past 4 years. This can be caused by a previous heart attack or can develop overtime. A left bundle branch block is caused when the electrical current (that causes your heart to pump) travels slower through the left side of your heart. - Thankfully your echo (ultrasound of your heart) does not show an issue with the pumping action of your heart and is functioning well. - You had a Lexiscan which looks at the structure of your heart and how its functioning. -- This scan actually does not show any damage that would suggest a previous heart attack and when your heart is stressed it does not show lack of blood flow to your heart muscle. This means that your heart is doing very well and this bundle branch block may have just been something that you developed with time. - Recommend to continue to maintain good diabetes control and practice a heart healthy lifestyle. Diabetes when uncontrolled can lead to cardiac issues and would recommend a low-carbohydrate diet, incorporate good fats such as avocados/ fish, and reduce your salt intake. Good diet and exercise helps as well and you should gradually increase your physical activity - There would not be direct activity restriction but would encourage to gradually increase as tolerated and taking breaks as needed - Continue Aspirin 81 mg daily Medications Changes: - It would be best to still treat you with medications to help reduce the stress on your heart - STOP YOUR HCTZ - Since we are adding other blood pressure medication - Continue Lisinopril 40 mg daily and Norvasc 10 mg daily - START Metoprolol 25 mg twice a day - this will help with blood pressure, heart , and faster heart rates as you had a short episode of supraventricular tachycardia when your heart rate went in the 150s. Diabetes: - You A1c is 8.3 and goal would be to get this closer to 6.5 to help reduce complications of diabetes including cardiac disease, neuropathy (numbness/ tingling), poor wound healing, vision issues.... Follow-Up: - Recommend follow-up with your family doctor, heart doctors, and to complete your sleep study as undiagnosed sleep apnea can add stress to your heart as overall health. Current Hospital Diet Patient's current hospital diet: AHA Diet (Heart Healthy), Diabetes Type 2 Diet Discharge Diet Recommended Diet: AHA Diet (Heart Healthy), Diabetes Type 2 Diet Pending Studies Studies pending at discharge: no Laboratory Results Hemoglobin A1c Test 04/01/17 02:39 Range/Units Estimated Average Glucose 192 mg/dl Hemoglobin A1c 8.3 H 4.5-5.6 % Lipid Panel Test 03/31/17 10:09 Range/Units Triglycerides Level 142 0-150 mg/dl Cholesterol Level 178 0-200 mg/dl HDL Cholesterol 39 mg/dl Cholesterol/HDL Ratio 4.6 LDL Cholesterol, Calculated 111 mg/dl Medical Emergencies . Who to Call and When: Medical Emergencies: If at any time you feel your situation is an emergency, please call 911 immediately. . Non-Emergent Contact Non-Emergency issues call your: Primary Care Provider Call Non-Emergent contact if: you have a fever, your pain is concerning you, you have any medication questions . . "Provider Documentation" section prepared by Luann Philippe. . VTE Core Measure Inpt VTE Proph given/why not?: Other Anticoagulation (heparin gtt), SCD's
[2017-04-04 14:24] VITALS: BP 130/76; PULSE 92; TEMP 37; O2SAT 94
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
[2017-04-04 15:45] LABS: RMSF IgG AB Not Detected (Not Detected); RMSF IgM AB Not Detected (Not Detected)
[2017-04-04] MEDS ORDERED: METOPROLOL TARTRATE 25 MG TAB PO SCH (21:00)
[2017-04-04] MEDS ORDERED: INSULIN GLARGINE SOLOSTAR 100 UNITS/ML 3 ML PEN SC SCH (21:00)
== END 2017-04-04 18:28 | disposition home or self-care (01) | DRG 313 ==
LOC: C.EDB 09:41 → C.MED 12:38 → ENRESERV 13:18
PROVIDERS: ADMIT Internal Medicine; ATTEND Internal Medicine
DX: R07.9 Chest pain, unspecified (principal); I50.32 Chronic diastolic (congestive) heart failure; Z68.41 Body mass index [BMI] 40.0-44.9, adult; I24.9 Acute ischemic heart disease, unspecified; I44.7 Left bundle-branch block, unspecified; I11.0 Hypertensive heart disease with heart failure; E66.9 Obesity, unspecified; E11.49 Type 2 diabetes mellitus with other diabetic neurological complication; Z79.82 Long term (current) use of aspirin; Z79.4 Long term (current) use of insulin; Z83.3 Family history of diabetes mellitus; Z82.49 Family history of ischemic heart disease and other diseases of the circulatory system

== ENCOUNTER 2017-05-04 16:53 | Observation (INO) | payer OTHER ==
[~2017-05-04] VITALS: Ht 195.6 cm; Wt 158.0 kg
[~2017-05-04 16:53] MED LIST changes: -ACET-1256 PO; -ALEN70TA3 PO; -HYDR25TA4 PO; +INSDGIPEN SC; -INSU70IN2 SC; +LPR25 PO
[2017-05-04] MEDS ORDERED: SODIUM CHLORIDE 0.9% 500ML 500 ML IV STA (17:35)
--- NOTE | 2017-05-04 17:37 | EMERGENCY ROOM VISIT NOTE ---
History Report prepared by Dave: Ludin Lawrence Under the Supervision of: Dr. Jase Kidd M.D. First contact with patient: 17:17 Chief Complaint: SYNCOPE Stated Complaint: SYNCOPE Nursing Triage Summary: Patient having a syncopal episiode at [facility]. Pt doesn't remember the event, but his friend was there. Denies hitting his head. Drove home after the event and his niece instructed him to come here for evaluation. PMH: SD 2 weeks ago (treated here). History of Present Illness The patient is a 61 year old male who presents to the Emergency Room with complaints of a sudden syncopal episode occurring prior to arrival, and he was unconscious for a few minutes. The patient states that he was pumping gas, and he suddenly fell, and he does not remember falling. He states that he did not hit his head, though he is having neck pain and back pain. He states that he was feeling fine earlier in the day, and he denies any light headedness, chest pain, shortness of breath, nausea, vomiting, diarrhea, burning with urination. He states that he had a fever the other day. The patient states that he has never passed out before, and he states that he does not smoke or drink alcohol. The patient states that he drove home after the incident, and he states that he was admitted to the hospital for five days for a new left bundle branch block. The patient states that he is a diabetic, and his sugars were not that bad today. On the patient's last admission, he had an unremarkable nuclear stress test, and his EF was 55-60% on echo. He is supposed to have a sleep study for sleep apnea coming up. When he was admitted he had a run of SVT while going to the bathroom, so they increased his Lopressor dose. Source of History: patient Onset: prior to arrival Position: other (global) Quality: other (syncope) Timing: other (sudden) Associated Symptoms: + neck pain, + back pain, No chest pain, No SOB, No nausea, No vomiting, No diarrhea Review of Systems See HPI for pertinent positives and negatives. A total of ten systems were reviewed and were otherwise negative. Past Medical & Surgical Medical Problems: (1) Chest pain (2) DIAB W NEURO MANIFEST, TYPE II OR UNSPEC TYPE, NOT UNCNTRLD (3) DIAB W NEURO MANIFEST, TYPE II OR UNSPEC TYPE, UNCONTROLLED (4) DIAB W OTH SPEC MANIFEST, TYPE II OR UNSPEC TYPE, NOT UNCNTR (5) DIAB W PERIPH CIRC DIS, TYPE II OR UNSPEC TYPE, NOT UNCNTRLD (6) Diabetic peripheral neuropathy associated with type 2 diabetes mellitus (7) DIVERTICULOSIS COLON (W/O MENT OF HEMORRHAGE) (8) Foot deformity (9) History of diabetic ulcer of foot (10) HYPERTENSION NOS (11) Loss of sensation (12) NEUROPATHY IN DIABETES (13) OTHER HAMMER TOE (14) Pre-ulcerative corn or callous (15) SWELLING OF LIMB (16) Syncope (17) ULCER OF HEEL AND MIDFOOT Family History FH: diabetes mellitus FH: hypertension Social History Smoking Status: Former Smoker Alcohol Use: none Drug Use: none Marital Status: Housing Status: lives with family Occupation Status: disabled Current/Historical Medications Scheduled Ascorbic Acid (Vitamin C), 500 MG PO DAILY Aspirin (Aspirin Ec), 81 MG PO DAILY Atorvastatin (Lipitor), 40 MG PO HS Calcium Carbonate-Cholecalcife (Caltrate 600+D), 1 TAB PO DAILY Cholecalciferol (Vitamin D3), 1 CAP PO DAILY Clonidine Hcl (Catapres), 2 TAB PO BID Doxycycline Monohydrate (Monodox), 100 MG PO BID Gabapentin (Gabapentin), 300 MG PO TID Insulin Glargine (Lantus Solostar), 25 UNITS SC HS Insulin Lispro (Human) (Humalog Kwikpen), 25 UNITS SC BIDM Lisinopril (Zestril), 40 MG PO DAILY Metoprolol Tartrate (Lopressor), 25 MG PO BID Multivitamin (Multivitamin), 1 TAB PO DAILY Allergies Coded Allergies: Penicillins (Verified Allergy, Unknown, REACTION A CHILD; EYES SWELLED , 05/04/17) Physical Exam Vital Signs Date Time Temp Pulse Resp B/P (MAP) Pulse Ox O2 Delivery O2 Flow Rate FiO2 05/04/17 22:06 61 14 98 05/04/17 22:01 174/83 05/04/17 22:00 66 18 91 Room Air 05/04/17 21:31 167/80 05/04/17 21:30 61 16 98 Room Air 05/04/17 21:20 66 05/04/17 21:00 62 17 153/70 97 05/04/17 20:59 67 16 152/71 97 Room Air 05/04/17 20:01 157/72 05/04/17 20:00 59 18 05/04/17 19:31 137/76 05/04/17 19:30 60 17 95 05/04/17 19:06 70 15 129/69 97 Room Air 05/04/17 18:19 80 160/80 75 151/91 96 164/130 05/04/17 18:00 71 20 133/85 97 Room Air 05/04/17 17:29 82 05/04/17 17:24 80 16 136/76 95 Room Air 05/04/17 17:13 95 Room Air 05/04/17 17:05 36.7 90 18 168/83 96 Room Air Physical Exam GENERAL: Well appearing, no distress. HENT: Normocephalic, atraumatic. Dry mucous membranes. Oropharynx unremarkable. EYES: Normal conjunctiva. Sclera non-icteric. NECK: Supple. No nuchal rigidity. FROM. No JVD. RESPIRATORY: Clear to auscultation. CARDIAC: Regular rate, normal rhythm. Extremities warm and well perfused. Pulses equal. ABDOMEN: Obese abdomen. Soft, non-distended. No tenderness to palpation. No rebound or guarding. No masses. RECTAL: Deferred. MUSCULOSKELETAL: Chest examination reveals no tenderness. The back is symmetrical on inspection without obvious abnormality. There is no CVA tenderness to palpation. No joint edema. LOWER EXTREMITIES: Scant lower extremity edema. Calves are equal size bilaterally and non-tender. No discoloration. NEURO: Normal sensorium. No sensory or motor deficits noted. SKIN: No rash or jaundice noted. Medical Decision & Procedures ER Provider Diagnostic Interpretation: Radiology results as stated below per my review and radiologist interpretation: HEAD WITHOUT CONTRAST (CT) CLINICAL HISTORY: 61 years-old Male presenting with Culp fall syncope. TECHNIQUE: Multidetector CT imaging of the head was performed without the use of intravenous contrast. IV contrast: None. A dose lowering technique was used consistent with the principles of ALARA (as low as reasonably achievable). COMPARISON: 05/06/2015. CT DOSE (mGy.cm): The estimated cumulative dose is 1331.41 mGy.cm. FINDINGS: Organizational Psychologist topogram: Unremarkable. Ventricles and sulci normal in size. Brain parenchyma normal in appearance with preserved luna-white differentiation. No mass effect or midline shift. No hemorrhage or acute territorial infarct. No extra-axial fluid collection. Paranasal sinuses and mastoid air cells clear. Calvarium intact. IMPRESSION: 1. No acute intracranial abnormality. Electronically signed by: Kaleb Champion M.D. 05/04/2017 6:48 PM Dictated Date/Time: 05/04/2017 6:47 PM CHEST ONE VIEW PORTABLE CLINICAL HISTORY: 61 years-old Male presenting with EVALUATE ALTERED MENTAL STATUS/WEAKNESS. TECHNIQUE: Portable upright AP view of the chest was obtained. COMPARISON: 03/31/2017. FINDINGS: Prominence of the aortic contour and pulmonary vasculature. Mildly low lung volumes with hypoventilatory changes. Apparent opacities in the right mid lung may represent overlapping costochondral calcification. No other focal opacity. No large effusion or pneumothorax. Lungs and pleural spaces clear. Osseous structures normal. Upper abdomen normal. IMPRESSION: 1. Mildly low lung volumes with hypoventilatory changes. 2. Possible volume overload. 3. Apparent nodular opacities in the right lung represent overlapping shadows related to costochondral calcification. If there is clinical concern, PA and lateral radiographs recommended. Electronically signed by: Kaleb Champion M.D. 05/04/2017 6:09 PM Dictated Date/Time: 05/04/2017 6:07 PM CERVICAL SPINE W/O CLINICAL HISTORY: 61 years-old Male presenting with neck pain, headache, fall syncope. TECHNIQUE: Multidetector CT of the cervical spine was performed without the use of intravenous contrast. IV contrast: None. A dose lowering technique was used consistent with the principles of ALARA (as low as reasonably achievable). COMPARISON: 05/06/2015. CT DOSE (mGy.cm): The estimated cumulative dose is 1331.[address] head. FINDINGS: Organizational Psychologist topogram: Unremarkable. Normal cervical lordosis. Vertebral bodies maintain normal height and alignment. Intervertebral discs spaces preserved. No acute fracture or subluxation. Minimal degenerative change evidenced by disc osteophyte complexes at C3-4 and C4-5. No significant osseous neural foraminal or spinal canal narrowing. Skull base intact. Nonspecific subcutaneous edema noted in the posterior cervical region. Paraspinal musculature within normal limits. Atherosclerosis noted. IMPRESSION: No acute osseous injury of the cervical spine. Minimal degenerative change. Electronically signed by: Kaleb Champion M.D. 05/04/2017 6:52 PM Dictated Date/Time: 05/04/2017 6:49 PM CHEST 2 VIEWS ROUTINE CLINICAL HISTORY: 61 years-old Male presenting with leukocytosis. TECHNIQUE: PA and lateral views of the chest were obtained. COMPARISON: Portable chest x-ray performed earlier the same day. FINDINGS: Atherosclerosis of the aortic arch. Cardiac silhouette normal in size. Dense nodular opacity projecting over the paramediastinal right upper lung likely indicates calcification related to a rib shadow despite the asymmetric appearance. Degenerative changes of the thoracic spine. Upper abdomen normal. IMPRESSION: 1. No acute cardiopulmonary disease. 2. The nodular opacity in the right upper lung queried on portable radiograph likely represents a rib shadow. Electronically signed by: Kaleb Champion M.D. 05/04/2017 8:28 PM Dictated Date/Time: 05/04/2017 8:26 PM Laboratory Results Test 05/04/17 17:19 05/04/17 18:27 Immature Granulocyte % (Auto) 0.5 % White Blood Count 15.88 K/uL (4.8-10.8) Red Blood Count 5.40 M/uL (4.7-6.1) Hemoglobin 16.1 g/dL (14.0-18.0) Hematocrit 45.2 % (42-52) Mean Corpuscular Volume 83.7 fL (80-100) Mean Corpuscular Hemoglobin 29.8 pg (25-34) Mean Corpuscular Hemoglobin Concent 35.6 g/dl (32-36) Platelet Count 186 K/uL (130-400) Mean Platelet Volume 9.7 fL (7.4-10.4) Neutrophils (%) (Auto) 84.8 % Lymphocytes (%) (Auto) 8.3 % Monocytes (%) (Auto) 6.0 % Eosinophils (%) (Auto) 0.2 % Basophils (%) (Auto) 0.2 % Neutrophils # (Auto) 13.47 K/uL (1.4-6.5) Lymphocytes # (Auto) 1.32 K/uL (1.2-3.4) Monocytes # (Auto) 0.95 K/uL (0.11-0.59) Eosinophils # (Auto) 0.03 K/uL (0-0.5) Basophils # (Auto) 0.03 K/uL (0-0.2) Immature Granulocyte # (Auto) 0.08 K/uL (0.00-0.02) Magnesium Level 1.9 mg/dl (1.8-2.4) Total Bilirubin 0.7 mg/dl (0.2-1) Direct Bilirubin 0.2 mg/dl (0-0.2) Aspartate Amino Transf (AST/SGOT) 18 U/L (15-37) Alanine Aminotransferase (ALT/SGPT) 23 U/L (12-78) Alkaline Phosphatase 61 U/L (45-117) Pro-B-Type Natriuretic Peptide 239 pg/ml (0-900) Total Protein 7.6 gm/dl (6.4-8.2) Albumin 3.6 gm/dl (3.4-5.0) Thyroid Stimulating Hormone (TSH) 3.320 uIu/ml (0.300-4.500) Hepatitis C Antibody Screen NEG (NEG) Urine Color YELLOW Urine Appearance CLEAR (CLEAR) Urine pH 7.5 (4.5-7.5) Urine Specific Alexander 1.004 (1.000-1.030) Urine Protein NEG (NEG) Urine Glucose (UA) NEG (NEG) Urine Ketones NEG (NEG) Urine Occult Blood NEG (NEG) Urine Nitrite NEG (NEG) Urine Bilirubin NEG (NEG) Urine Urobilinogen NEG (NEG) Urine Leukocyte Esterase NEG (NEG) Laboratory results reviewed by me Medications Administered Medications (Trade) Dose Ordered Sig/Juancarlos Route Start Time Stop Time Status Last Admin Dose Admin Sodium Chloride 500 ml @ 999 mls/hr Q31M STAT IV 05/04/17 17:35 05/04/17 18:05 DC 05/04/17 18:15 999 MLS/HR Acetaminophen (Tylenol Tab) 1,000 mg NOW STAT PO 05/04/17 17:40 05/04/17 17:41 DC 05/04/17 18:16 1,000 MG ECG Indication: syncope Rate (beats per minute): 83 Rhythm: sinus with SA Findings: LBBB, PVC (Occasional ), no acute ischemic change, other (No Sgarbossa Criteria) Change: Patient's electrocardiogram interpreted by me. ED Course 1716: The patient was evaluated in room A12. A complete history and physical exam was performed. 2102: I reevaluated the patient, and I discussed the treatment plan with him, and he was agreeable 2131: I discussed the patient with Dr. Galeas - She will evaluate the patient for further treatment. Medical Decision I reviewed the patient's past medical history, medications, and the nursing notes as described above. Differential diagnosis: Etiologies such as vasovagal event, infection, hypoglycemia, electrolyte abnormalities, cardiac sources, intracerebral event, toxicologic, neurologic, as well as others were entertained. The patient is a 61-year-old gentleman with a past medical history of a left bundle branch block recent admission for chest pain with negative nuclear stress test who presents emergency Department with syncopal episode per hpi. Of note during the patient's admission there was an episode of SVT when the patient had walked to the bathroom. On arrival the patient is well-appearing, in no acute distress, afebrile stable vital signs. Appears clinically dry. Neuro intact including normal cerebellar function with [id number], alternating palms. WBC elevated to 15, nonspecific. Labs otherwise unremarkable. UA negative. Chest x-ray negative for pneumonia. Question of volume overload however BNP within normal limits and the patient has no respiratory symptoms. CT head and C-spine negative. The patient's prior episode of SVT, and syncopal episode is possibly related to an arrhythmia. I discussed findings with the patient and he is concerned about going home given that he lives by himself. Thus it is reasonable to admit the patient for further syncopal evaluation including telemetry monitoring for further arrhythmias. Case was discussed with Dr. Galeas, [facility] admitting resident, who will admit the patient for further evaluation and management. Medication Reconcilliation Current Medication List: was personally reviewed by me Blood Pressure Screening Patient's blood pressure: Elevated blood pressure Monitored by the hospitalist Consults Time Called: 2130 Consulting Physician: Dr. Galeas Returned Call: 2131 I discussed the patient with Dr. Galeas - She will evaluate the patient for further treatment. Impression Primary Impression: Syncope Scribe Attestation The scribe's documentation has been prepared under my direction and personally reviewed by me in its entirety. I confirm that the note above accurately reflects all work, treatment, procedures, and medical decision making performed by me. Departure Information Dispostion Being Evaluated By Hospitalist Prescriptions Doxycycline Monohydrate (Monodox) 100 Mg Cap 100 MG PO BID for 10 Days, #20 CAP Prov: Denita Cabrera MD 05/05/17 Referrals Meryl Adair,P.A. (PCP) Patient Instructions [facility]
[2017-05-04] MEDS ORDERED: ACETAMINOPHEN 500 MG TAB PO STA (17:40)
[2017-05-04 17:45] LABS: BASO % 0.2 %; BASO ABS # 0.03 K/uL (0-0.2); EOS % 0.2 %; EOS ABS # 0.03 K/uL (0-0.5); HEMATOCRIT 45.2 % (42-52); HEMOGLOBIN 16.1 g/dL (14.0-18.0); IG# 0.08 K/uL (0.00-0.02); LYMPH % 8.3 %; LYMPH ABS # 1.32 K/uL (1.2-3.4); MEAN CELL VOLUME 83.7 fL (80-100); MEAN CORPUSCULAR HEMOGLOBIN 29.8 pg (25-34); MEAN CORPUSCULAR HGB CONC 35.6 g/dl (32-36); MEAN PLATELET VOLUME 9.7 fL (7.4-10.4); MONO ABS # 0.95 K/uL (0.11-0.59); NEUT % 84.8 %; NEUT ABS # 13.47 K/uL (1.4-6.5); PLATELET COUNT 186 K/uL (130-400); RED CELL DISTRIBUTION WIDTH CV 13.1 % (11.5-14.5); WHITE BLOOD COUNT 15.88 K/uL (4.8-10.8)
[2017-05-04 18:03] LABS: ALBUMIN 3.6 gm/dl (3.4-5.0); ALKALINE PHOSPHATASE 61 U/L (45-117); ALT/SGPT 23 U/L (12-78); AST/SGOT 18 U/L (15-37); BLOOD UREA NITROGEN 12 mg/dl (7-18); CARBON DIOXIDE 31 mmol/L (21-32); CREATININE 0.84 mg/dl (0.60-1.40); GLUCOSE 121 mg/dl (70-99); POTASSIUM 3.6 mmol/L (3.5-5.1); SODIUM 133 mmol/L (136-145); TOTAL PROTEIN 7.6 gm/dl (6.4-8.2)
--- NOTE | 2017-05-04 18:11 | DIAGNOSTIC IMAGING REPORT ---
CHEST ONE VIEW PORTABLE CLINICAL HISTORY: 61 years-old Male presenting with EVALUATE ALTERED MENTAL STATUS/WEAKNESS. TECHNIQUE: Portable upright AP view of the chest was obtained. COMPARISON: 03/31/2017. FINDINGS: Prominence of the aortic contour and pulmonary vasculature. Mildly low lung volumes with hypoventilatory changes. Apparent opacities in the right mid lung may represent overlapping costochondral calcification. No other focal opacity. No large effusion or pneumothorax. Lungs and pleural spaces clear. Osseous structures normal. Upper abdomen normal. IMPRESSION: 1. Mildly low lung volumes with hypoventilatory changes. 2. Possible volume overload. 3. Apparent nodular opacities in the right lung represent overlapping shadows related to costochondral calcification. If there is clinical concern, PA and lateral radiographs recommended. Electronically signed by: Kaleb Champion M.D. 05/04/2017 6:09 PM Dictated Date/Time: 05/04/2017 6:07 PM
--- NOTE | 2017-05-04 18:50 | DIAGNOSTIC IMAGING REPORT ---
HEAD WITHOUT CONTRAST (CT) CLINICAL HISTORY: 61 years-old Male presenting with Culp fall syncope. TECHNIQUE: Multidetector CT imaging of the head was performed without the use of intravenous contrast. IV contrast: None. A dose lowering technique was used consistent with the principles of ALARA (as low as reasonably achievable). COMPARISON: 05/06/2015. CT DOSE (mGy.cm): The estimated cumulative dose is 1331.41 mGy.cm. FINDINGS: Marketing Assistant Manager topogram: Unremarkable. Ventricles and sulci normal in size. Brain parenchyma normal in appearance with preserved luna-white differentiation. No mass effect or midline shift. No hemorrhage or acute territorial infarct. No extra-axial fluid collection. Paranasal sinuses and mastoid air cells clear. Calvarium intact. IMPRESSION: 1. No acute intracranial abnormality. Electronically signed by: Kaleb Champion M.D. 05/04/2017 6:48 PM Dictated Date/Time: 05/04/2017 6:47 PM
--- NOTE | 2017-05-04 18:53 | DIAGNOSTIC IMAGING REPORT ---
CERVICAL SPINE W/O CLINICAL HISTORY: 61 years-old Male presenting with neck pain, headache, fall syncope. TECHNIQUE: Multidetector CT of the cervical spine was performed without the use of intravenous contrast. IV contrast: None. A dose lowering technique was used consistent with the principles of ALARA (as low as reasonably achievable). COMPARISON: 05/06/2015. CT DOSE (mGy.cm): The estimated cumulative dose is 1331.[address] head. FINDINGS: Treatment Manager topogram: Unremarkable. Normal cervical lordosis. Vertebral bodies maintain normal height and alignment. Intervertebral discs spaces preserved. No acute fracture or subluxation. Minimal degenerative change evidenced by disc osteophyte complexes at C3-4 and C4-5. No significant osseous neural foraminal or spinal canal narrowing. Skull base intact. Nonspecific subcutaneous edema noted in the posterior cervical region. Paraspinal musculature within normal limits. Atherosclerosis noted. IMPRESSION: No acute osseous injury of the cervical spine. Minimal degenerative change. Electronically signed by: Kaleb Champion M.D. 05/04/2017 6:52 PM Dictated Date/Time: 05/04/2017 6:49 PM
[2017-05-04] MEDS ORDERED: CALC-354 PO (19:37)
[2017-05-04] MEDS ORDERED: CTP1CL PO (19:37)
[2017-05-04] MEDS ORDERED: ZSTI SQ (19:37)
[2017-05-04] MEDS ORDERED: MULT-506 PO (19:37)
[2017-05-04] MEDS ORDERED: GABA1CAP4 PO (19:37)
[2017-05-04] MEDS ORDERED: ATOR-24 PO (19:41)
[2017-05-04] MEDS ORDERED: CHOL2000 PO (19:41)
--- NOTE | 2017-05-04 20:29 | DIAGNOSTIC IMAGING REPORT ---
CHEST 2 VIEWS ROUTINE CLINICAL HISTORY: 61 years-old Male presenting with leukocytosis. TECHNIQUE: PA and lateral views of the chest were obtained. COMPARISON: Portable chest x-ray performed earlier the same day. FINDINGS: Atherosclerosis of the aortic arch. Cardiac silhouette normal in size. Dense nodular opacity projecting over the paramediastinal right upper lung likely indicates calcification related to a rib shadow despite the asymmetric appearance. Degenerative changes of the thoracic spine. Upper abdomen normal. IMPRESSION: 1. No acute cardiopulmonary disease. 2. The nodular opacity in the right upper lung queried on portable radiograph likely represents a rib shadow. Electronically signed by: Kaleb Champion M.D. 05/04/2017 8:28 PM Dictated Date/Time: 05/04/2017 8:26 PM
--- NOTE | 2017-05-04 21:45 | History and Physical ---
History & Physical Date & Time of Service: May 04, 2017 at 21:44 Chief Complaint: Syncope Primary Care Physician: Meryl Adair P.A. History of Present Illness Source: family, hospital records 61 years old man with DMII, LBBB, HTN , HLD, and obesity admitted for syncopal episode work up Patient was feeling well today. Walling a little light headed at work, but this was transient and subsequently resolved. Was stopped for gas, got out of car to fill gas, as he turned to look over at his friend, he experienced some facial flushing and fell to ground. Friend who came out of passenger side believes he landed on his bottom. As per patient, friend did not state that he had been shaking, denies incontinence, and states he was only out a minute or two. Patient denies a post ictal state. No pervious similar episode of syncope States compliance with medication, no adverse issues noted. Drinks lots of water and diet green tea. Currently, neck and back are slightly sore, denies headache. He otherwise denies fevers/chills, headaches, CP, palpitations, dyspnea, abdominal pain, lower extremity swelling or rashes. He is tolerating diet without nausea or vomiting, ambulating without exacerbating symptoms - uses a cane due to neuropathy, and voiding and stooling appropriately. ROS is unremarkable except as noted above. Past Medical/Surgical History Medical Problems: (1) DIAB W NEURO MANIFEST, TYPE II OR UNSPEC TYPE, NOT UNCNTRLD (5) DIVERTICULOSIS COLON (W/O MENT OF HEMORRHAGE) (6) HYPERTENSION NOS (7) NEUROPATHY IN DIABETES (8) OTHER HAMMER TOE (9) SWELLING OF LIMB (10) ULCER OF HEEL AND MIDFOOT Family History FH: diabetes mellitus FH: hypertension Dad had DM and leukemia Social History Smoking Status: Former Smoker Drug Use: none Marital Status: Housing status: lives with family Occupational Status: disabled Immunizations History of Influenza Vaccine: Yes History of Tetanus Vaccine?: Yes History of Pneumococcal: Yes History of Hepatitis B Vaccine: Yes Multi-Drug Resistant Organisms History of MDRO: No Allergies Coded Allergies: Penicillins (Verified Allergy, Unknown, REACTION A CHILD; EYES SWELLED , 05/04/17) Home Medications Scheduled Ascorbic Acid (Vitamin C), 500 MG PO DAILY Aspirin (Aspirin Ec), 81 MG PO DAILY Atorvastatin (Lipitor), 40 MG PO HS Calcium Carbonate-Cholecalcife (Caltrate 600+D), 1 TAB PO DAILY Cholecalciferol (Vitamin D3), 1 CAP PO DAILY Clonidine Hcl (Catapres), 2 TAB PO BID Doxycycline Monohydrate (Monodox), 100 MG PO BID Gabapentin (Gabapentin), 300 MG PO TID Insulin Glargine (Lantus Solostar), 25 UNITS SC HS Insulin Lispro (Human) (Humalog Kwikpen), 25 UNITS SC BIDM Lisinopril (Zestril), 40 MG PO DAILY Metoprolol Tartrate (Lopressor), 25 MG PO BID Multivitamin (Multivitamin), 1 TAB PO DAILY Physical Exam Vital Signs Date Time Temp Pulse Resp B/P (MAP) Pulse Ox O2 Delivery O2 Flow Rate FiO2 05/04/17 20:59 67 16 152/71 97 Room Air 05/04/17 20:01 157/72 05/04/17 20:00 59 18 05/04/17 19:31 137/76 05/04/17 19:30 60 17 95 05/04/17 19:06 70 15 129/69 97 Room Air 05/04/17 18:19 80 160/80 75 151/91 96 164/130 05/04/17 18:00 71 20 133/85 97 Room Air 05/04/17 17:29 82 05/04/17 17:24 80 16 136/76 95 Room Air 05/04/17 17:13 95 Room Air 05/04/17 17:05 36.7 90 18 168/83 96 Room Air General Appearance: WD/WN, no apparent distress, + obese Head: normocephalic, atraumatic Eyes: normal inspection ENT: hearing grossly normal, pharynx normal, + pertinent finding (moist mucous membranes) Neck: supple, no adenopathy Respiratory/Chest: normal breath sounds, no respiratory distress, no accessory muscle use Cardiovascular: regular rate, rhythm Abdomen/GI: normal bowel sounds, non tender, soft Extremities/Musculoskelatal: no calf tenderness, + swelling Neurologic/Psych: alert, normal mood/affect Skin: normal color, warm/dry Diagnostics Laboratory Results Results Past 24 Hours Test 05/04/17 17:19 05/04/17 18:09 05/04/17 18:27 Range/Units White Blood Count 15.88 4.8-10.8 K/uL Red Blood Count 5.40 4.7-6.1 M/uL Hemoglobin 16.1 14.0-18.0 g/dL Hematocrit 45.2 42-52 % Mean Corpuscular Volume 83.7 80-100 fL Mean Corpuscular Hemoglobin 29.8 25-34 pg Mean Corpuscular Hemoglobin Concent 35.6 32-36 g/dl Platelet Count 186 130-400 K/uL Mean Platelet Volume 9.7 7.4-10.4 fL Neutrophils (%) (Auto) 84.8 % Lymphocytes (%) (Auto) 8.3 % Monocytes (%) (Auto) 6.0 % Eosinophils (%) (Auto) 0.2 % Basophils (%) (Auto) 0.2 % Neutrophils # (Auto) 13.47 1.4-6.5 K/uL Lymphocytes # (Auto) 1.32 1.2-3.4 K/uL Monocytes # (Auto) 0.95 0.11-0.59 K/uL Eosinophils # (Auto) 0.03 0-0.5 K/uL Basophils # (Auto) 0.03 0-0.2 K/uL RDW Standard Deviation 39.0 36.4-46.3 fL RDW Coefficient of Variation 13.1 11.5-14.5 % Immature Granulocyte % (Auto) 0.5 % Immature Granulocyte # (Auto) 0.08 0.00-0.02 K/uL Sodium Level 133 136-145 mmol/L Potassium Level 3.6 3.5-5.1 mmol/L Chloride Level 97 98-107 mmol/L Carbon Dioxide Level 31 21-32 mmol/L Anion Gap 5.0 3-11 mmol/L Blood Urea Nitrogen 12 7-18 mg/dl Creatinine 0.84 0.60-1.40 mg/dl Est Creatinine Clear Calc Drug Dose 157.9 ml/min Estimated GFR () 110.3 Estimated GFR (Non- 95.2 BUN/Creatinine Ratio 14.4 10-20 Random Glucose 121 70-99 mg/dl Calcium Level 9.0 8.5-10.1 mg/dl Magnesium Level 1.9 1.8-2.4 mg/dl Total Bilirubin 0.7 0.2-1 mg/dl Direct Bilirubin 0.2 0-0.2 mg/dl Aspartate Amino Transf (AST/SGOT) 18 15-37 U/L Alanine Aminotransferase (ALT/SGPT) 23 12-78 U/L Alkaline Phosphatase 61 45-117 U/L Troponin I < 0.015 0-0.045 ng/ml Pro-B-Type Natriuretic Peptide 239 0-900 pg/ml Total Protein 7.6 6.4-8.2 gm/dl Albumin 3.6 3.4-5.0 gm/dl Thyroid Stimulating Hormone (TSH) 3.320 0.300-4.500 uIu/ml Bedside Glucose 97 70-99 mg/dl Urine Color YELLOW Urine Appearance CLEAR CLEAR Urine pH 7.5 4.5-7.5 Urine Specific [place] 1.004 1.000-1.030 Urine Protein NEG NEG Urine Glucose (UA) NEG NEG Urine Ketones NEG NEG Urine Occult Blood NEG NEG Urine Nitrite NEG NEG Urine Bilirubin NEG NEG Urine Urobilinogen NEG NEG Urine Leukocyte Esterase NEG NEG Impression Assessment and Plan 61 years old man with DMII, LBBB, HTN , HLD, and obesity admitted for syncopal episode work up Syncopal episode - NSS @ 100ml/hr - Started aspirin - MRA neck combo, MRA brain combo, MRI head without contrast LBBB/HTN/HLD - Continue metoprolol, lisinopril, clonidine, atorvastatin - EKG/trop PRN chest pain DMII with neuropathy - Lantus and ISS with checks ac/hs - Continue gabapentin VTE ppx - SCD FULL CODE Attending addendum: I have physically seen this patient, have supervised the medical residents activities, and agree with the H&P unless as otherwise noted. Assessment and Plan: Syncope-- The patient will be admitted to telemetry for serial cardiac enzymes, serial EKG's, cardiac rhythm monitoring and a 2-D echocardiogram with Dopplers. Stroke protocol with neuro checks Order MRA of head without contrast, MRI of brain combo, MRA neck combo Start aspirin 81 mg daily Consult neurology Hypertension/left bundle branch block-- Continue metoprolol, lisinopril and clonidine with hold parameters Hyperlipidemia-- Continue atorvastatin Check a fasting lipid panel Diabetes mellitus-- Continue Lantus Placed on Accu-Cheks before meals and at bedtime with NovoLog coverage for scale Check hemoglobin A1c Level of Care Telemetry Advanced Directives Existing Living Will: Yes Resuscitation Status FULL RESUSCITATION VTE Prophylaxis VTE Risk Assessment Done? Y/N: Yes Risk Level: Moderate Given or contraindicated: SCD's Resident Tracking Resident Involvement: Resident Care Provided Care Provided: Adult [facility]
[2017-05-04] MEDS ORDERED: ALUMINUM/MAGNESIUM/SIMETH (MAALOX MAX) 30 ML UDC PO PRN (22:15)
[2017-05-04] MEDS ORDERED: MAGNESIUM HYDROXIDE SUSP 30 ML UDC PO PRN (22:15)
[2017-05-04] MEDS ORDERED: NITROGLYCERIN 0.4 MG SL PER TAB CHARGE SL PRN (22:15)
[2017-05-04] MEDS ORDERED: POLYETHYLENE (MIRALAX) 17 GM PACK PO PRN (22:15)
[2017-05-04] MEDS ORDERED: ACETAMINOPHEN 325 MG TAB PO PRN (22:15)
[2017-05-04] MEDS ORDERED: ONDANSETRON INJ 2 MG/ML 2 ML VIAL IV PRN (22:15)
[2017-05-04] MEDS ORDERED: GLUCOSE 10 TABS/TUBE PO PRN (22:45)
[2017-05-04] MEDS ORDERED: GLUCAGON FOR INJ 1 MG VIAL SQ PRN (22:45)
[2017-05-04] MEDS ORDERED: DEXTROSE 50% 50 ML SYR IV PRN (22:45)
[2017-05-04] MEDS ORDERED: GLUCOSE 40% GEL 15 GM TUBE PO PRN (22:45)
[2017-05-04] MEDS ORDERED: IV FLUIDS COMPLETED PRN (23:15)
[2017-05-05] VITALS (7 sets, daily range): BP systolic 115–186; BP diastolic 68–93; PULSE 60–78; TEMP 36.3–36.9; O2SAT 95–97; Ht 195.6 cm; Wt 158.0 kg
[2017-05-05] MEDS: SODIUM CHLORIDE 0.9% 1000ML 1,000 ML IV SCH ×2 (01:33→11:00)
[2017-05-05 05:50] LABS: HEMATOCRIT 43.9 % (42-52); HEMOGLOBIN 15.1 g/dL (14.0-18.0); MEAN CELL VOLUME 84.1 fL (80-100); MEAN CORPUSCULAR HEMOGLOBIN 28.9 pg (25-34); MEAN CORPUSCULAR HGB CONC 34.4 g/dl (32-36); MEAN PLATELET VOLUME 9.6 fL (7.4-10.4); PLATELET COUNT 184 K/uL (130-400); RED CELL DISTRIBUTION WIDTH CV 13.2 % (11.5-14.5); RED CELL DISTRIBUTION WIDTH SD 40.2 fL (36.4-46.3); WHITE BLOOD COUNT 10.36 K/uL (4.8-10.8)
[2017-05-05 06:06] LABS: CALCIUM 8.4 mg/dl (8.5-10.1); CREATININE 0.71 mg/dl (0.60-1.40); POTASSIUM 3.8 mmol/L (3.5-5.1)
--- NOTE | 2017-05-05 07:03 | DIAGNOSTIC IMAGING REPORT ---
MR ANGIOGRAPHY OF THE [place] OF [place] NO CONTRAST CLINICAL HISTORY: syncope HEADACHES COMPARISON STUDY: Head CT dated May 04, 2017 A 3-D [id number] MR angiographic sequence of the [place] was performed. Both the source and projection images were reviewed. There is no evidence of major intracranial branch occlusion. There is no evidence of intracranial stenosis. There are no lesions suspicious for aneurysm. IMPRESSION: Unremarkable MR angiography of the [place]. Electronically signed by: Les Chong M.D. 05/05/2017 7:02 AM Dictated Date/Time: 05/05/2017 7:01 AM
--- NOTE | 2017-05-05 07:18 | DIAGNOSTIC IMAGING REPORT ---
BRAIN COMBO HISTORY: 61 years-old Male syncope acute syncope with headache COMPARISON: MRA of the head of same day, CT head 05/14/2017 TECHNIQUE: Multiplanar multisequence MRI of the brain was obtained both with and without the use of Gadavist. Technologist reports that the first injection there was a malfunction with the IV catheter and contrast injection was not injected into the patient. The second bolus however worked appropriately. A total of 16 mL Gadavist was used. FINDINGS: Large field view safety and occupational health manager localizer images demonstrate no gross abnormality. No restricted diffusion to suggest acute infarction. Midline structures including the corpus callosum, brainstem, optic chiasm, infundibulum, pituitary and pineal glands appear unremarkable on the sagittal T1 series. There is no cerebellar tonsillar herniation. Degenerative changes are seen within the imaged cervical spine. There is no acute intracranial hemorrhage, midline shift, abnormal extra-axial collections or hydrocephalus. There is mild brain atrophy with minimal scattered T2/FLAIR hyperintensities within the subcortical and periventricular white matter suggesting mild chronic microvascular ischemic changes. The major flow voids at the level of the skull base appear patent. Mastoid air cells are clear. The globes are suboptimally evaluated secondary to patient motion. Mild ethmoid sinus disease. The scalp, calvarium and soft tissues are unremarkable. There is no abnormal intra-axial or extra-axial enhancement identified. IMPRESSION: 1. No acute intracranial abnormality identified. No acute infarction or abnormal enhancement. 2. Probable mild chronic microvascular ischemic changes. 3. Minimal ethmoid sinus disease. The above report was generated using voice recognition software. It may contain grammatical, syntax or spelling errors. Electronically signed by: Abner Burnette M.D. 05/05/2017 7:17 AM Dictated Date/Time: 05/05/2017 7:11 AM
--- NOTE | 2017-05-05 07:29 | DIAGNOSTIC IMAGING REPORT ---
MR ANGIOGRAM OF THE NECK COMBO CLINICAL HISTORY: Syncope. COMPARISON STUDY: No priors.. TECHNIQUE: Axial 3-D [id number] MR angiography of the neck is performed. Subsequently, following the IV administration of 16 cc of Gadavist. Coronal MR angiogram of the neck was performed to corroborate the findings. 3-D reformats are created and assessed. All measurements were calculated based on NASCET criteria. FINDINGS: Visualized portions of the thoracic aorta are normal in caliber. The aortic arch demonstrates standard 3-vessel anatomy. The subclavian arteries are widely patent bilaterally. The right common carotid artery is widely patent, as are the right internal and external carotid arteries. The left common carotid artery is widely patent, as are the left internal and external carotid arteries. The vertebral arteries are widely patent. The vertebral arteries are codominant. The visualized intracranial vessels at the skull base appear patent. IMPRESSION: Unremarkable MR angiogram of the neck. Electronically signed by: Leroy Best M.D. 05/05/2017 7:28 AM Dictated Date/Time: 05/05/2017 7:25 AM
[2017-05-05] MEDS: GABAPENTIN 300 MG CAP PO SCH ×2 (08:01→13:05)
[2017-05-05] MEDS ORDERED: METOPROLOL TARTRATE 25 MG TAB PO SCH (09:00)
[2017-05-05] MEDS ORDERED: CLONIDINE HCL 0.1 MG TAB PO SCH (09:00)
[2017-05-05] MEDS ORDERED: MULTIVITAMIN TAB PO SCH (09:00)
[2017-05-05] MEDS ORDERED: ASPIRIN 81 MG ECTAB PO SCH (09:00)
[2017-05-05] MEDS ORDERED: ASCORBIC ACID 500 MG TAB PO SCH (09:00)
[2017-05-05] MEDS ORDERED: LISINOPRIL 40 MG TAB PO SCH (09:00)
[2017-05-05] MEDS: INSULIN ASPART 100 UNITS/ML 3 ML PEN SC SCH ×2 (09:09→12:12)
--- NOTE | 2017-05-05 15:45 | Discharge Instructions ---
Discharge Instructions Date of Service May 05, 2017. Admission Reason for Admission: Syncope Discharge Discharge Diagnosis / Problem: Syncope Discharge Goals Goal(s): Improve function, Diagnostic testing Activity Recommendations Activity Limitations: resume your previous activity . Instructions / Follow-Up Instructions / Follow-Up You were admitted to the hospital for the evaluation of your episode of fainting which had occurred prior to your arrival. You were evaluated with blood tests as well as imaging and monitoring on a heart monitor to check for any abnormalities. In the blood tests there was no sign of infection, no changes in your electrolytes such as potassium or magnesium and the heart test called troponin was negative more than 8 hour after the incident. This with a recent admission and stress test which did not show any damage is very reassuring. Your ekg was also not significantly changed from the previous admission. The imaging looked at the brain as well as the vessels of your brain and neck. There was no acute findings on the brain MRI however there was some sinus disease so we will treat for sinusitis in case this is contributing to your symptoms. The vessels in the head and neck also looked good without any significant clogging. We will arrange for a 7 day event monitor in case you develop another episode of lightheadedness and we can possibly capture an arrhythmia which could be causing your symptoms. We also recommend that you check a blood pressure and blood sugar during/ after the episode and write down the results as this can help us understand what the cause could be. in summary, 1. Starting you on doxycyline x2/ day for 10 days to treat the sinus disease with a nasal spray 2. You will wear an event monitor for 7 days to assess for any abnormal heart beats which could be the cause of the symptoms 3. Please check the blood pressure and your sugar if you develop another of these episodes. We wish you well Lesly Cabrera Current Hospital Diet Patient's current hospital diet: Diabetes Type 2 Diet, AHA Diet (Heart Healthy) Discharge Diet Recommended Diet: Diabetes Type 2 Diet Pending Studies Studies pending at discharge: no Laboratory Results Hemoglobin A1c Test 04/01/17 02:39 Range/Units Estimated Average Glucose 192 mg/dl Hemoglobin A1c 8.3 H 4.5-5.6 % Lipid Panel Test 03/31/17 10:09 Range/Units Triglycerides Level 142 0-150 mg/dl Cholesterol Level 178 0-200 mg/dl HDL Cholesterol 39 mg/dl Cholesterol/HDL Ratio 4.6 LDL Cholesterol, Calculated 111 mg/dl Medical Emergencies . Who to Call and When: Medical Emergencies: If at any time you feel your situation is an emergency, please call 911 immediately. . Non-Emergent Contact Non-Emergency issues call your: Primary Care Provider Call Non-Emergent contact if: you have a fever, you have any medication questions . . "Provider Documentation" section prepared by Denita Cabrera. . VTE Core Measure Inpt VTE Proph given/why not?: SCD's
[2017-05-05] MEDS ORDERED: DOXY100C76 PO (15:52)
[2017-05-05] MEDS ORDERED: DOXYCYCLINE HYCLATE 100 MG CAP PO STA (15:56)
--- NOTE | 2017-05-05 16:03 | Discharge Summary ---
Discharge Summary Date of Service May 05, 2017. Discharge Summary Admission Date: May 04, 2017 at 22:23 Discharge Date: May 05, 2017 Discharge Disposition: Home Principal Diagnosis: Syncope Problems/Secondary Diagnoses: LBBB CAD HTN DMII HLD Immunizations: Have You Had Influenza Vaccine: Yes History of Tetanus Vaccine?: Yes History of Pneumococcal: Yes History of Hepatitis B Vaccine: Yes Medication Reconciliation New Medications: Doxycycline Monohydrate (Monodox) 100 Mg Cap 100 MG PO BID for 10 Days, #20 CAP Continued Medications: Ascorbic Acid (Vitamin C) 500 Mg Tab 500 MG PO DAILY Aspirin (Aspirin Ec) 81 Mg Tab 81 MG PO DAILY Atorvastatin (Lipitor) 40 Mg Tab 40 MG PO HS Calcium Carbonate-Cholecalcife (Caltrate 600+D) 1 Tab Tab 1 TAB PO DAILY Cholecalciferol (Vitamin D3) 2,000 Unit Cap 1 CAP PO DAILY Clonidine Hcl (Catapres) 0.1 Mg Tab 2 TAB PO BID Gabapentin (Gabapentin) 300 Mg Cap 300 MG PO TID Insulin Glargine (Lantus Solostar) 100 Unit/Ml Inj 25 UNITS SC HS, PEN Insulin Lispro (Human) (Humalog Kwikpen) 100 Unit/Ml Inj 25 UNITS SC BIDM COVERAGE DIRECTED BY SLIDING SCALE. Lisinopril (Zestril) 40 Mg Tab 40 MG PO DAILY, 0 Refills Metoprolol Tartrate (Lopressor) 25 Mg Tab 25 MG PO BID for 30 Days, #60 TAB Multivitamin (Multivitamin) Tab 1 TAB PO DAILY, TAB Discontinued Medications: Zoster Vaccine (Zostavax) 0.65 Ml Inj 0.65 ML SQ UD Discharge Exam Patient has been asymptomatic today and was able to participate with PT without symptoms or changes to his tele monitor. We discussed the plan for d/c and the patient was agreeable. Patient reflected understanding of the plan and felt comfortable with d/c Review of Systems: Constitutional: No fever Eyes: No worsening of vision ENT: No hearing loss Respiratory: No cough, No sputum, No wheezing, No shortness of breath, No dyspnea on exertion, No dyspnea at rest Cardiovascular: No chest pain, No palpitations Abdomen: No pain, No nausea, No vomiting, No diarrhea, No constipation, No GI bleeding Musculoskeletal: + problem reported (lower ext edema, BL), No joint pain, No muscle pain Genitourinary - Male: No hematuria, No dysuria Neurologic: No weakness, No numbness/tingling, No balance problems Psychiatric: No depression symptoms, No anxiety Endocrine: No fatigue Hematologic / Lymphatic: No abnormal bleeding/bruising Integumentary: No rash Physical Exam: General Appearance: no apparent distress Eyes: normal inspection ENT: normal ENT inspection, + pertinent finding (poor dentition) Neck: supple, no JVD, no carotid bruits, trachea midline Respiratory/Chest: normal breath sounds, no respiratory distress, no accessory muscle use, + decreased breath sounds (bilat bases) Cardiovascular: regular rate, rhythm, no murmur, normal peripheral pulses Extremities: normal inspection, no calf tenderness, + pedal edema (+2 bilat LE) 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 The patient states that he had an episode fo syncope at work which did not result in any postictal confusion or seizure like activity ( was witnessed by friend). He has never had a syncopal episode in the past but had light headed episodes occurring 1-2x/ week at work over the past month and a half. He states that he would be working , feel flushed and lightheaded and it would resolve. In house there was no events noted on the monitor, EKG unchanged, MRA or head and neck unremarkable and the MRI was WNL aside from some mild sinus disease. Difficult to say if this is contributory however patient will be treated accordingly. Event monitor has been ordered and discussed with patient checking BP and BSG with additional lightheaded episodes. As he was recently admitted for new LBBB and nuclear stress was WNL with an unchanged EKG and negative troponin this is reassuring. Syncopal episode possibly secondary to arrhythmia vs hypotension - Patient is to check BP if he develops a lightheaded episode - Event monitor x 1 week - Orthostatics appropriate and unlikely cause of syncope - Has had extensive work up during last hospital stay and it was negative. Sinusitis - Doxycycline bid x 10 days with INCS bid x 3 days then daily LBBB/HTN/HLD - Continued metoprolol, lisinopril, clonidine, atorvastatin - EKG did not reveal significant changes DMII with neuropathy - Lantus and ISS while in house - Continue gabapentin DVT Prophylaxis - SCD FULL CODE Total Time Spent: Greater than 30 minutes This includes examination of the patient, discharge planning, medication reconciliation, and communication with other providers. Discharge Instructions Please refer to the electronic Patient Visit Report (Discharge Instructions) for additional information. Additional Copies To Meryl Adair P.A. Reviewed: Pt Seen/Exam by Me History no dizziness Constitutional: denies: fever Respiratory: negative: short of breath Cardiovascular: denies chest pain General Appearance: no apparent distress Respiratory: lungs clear, no respiratory distress Cardiovascular: regular rate, rhythm Neurologic/Psychiatric: alert, oriented x 3 Skin Characteristics: warm/dry Assessment/Plan Resident Physician Supervision Note: I independently interviewed and examined the patient and verified the ferraro history and physical, reviewed labs and image studies, discussed the case with the resident Dr. Cabrera and agree with the findings and care plan.
[2017-05-05] MEDS ORDERED: FLUTICASONE PROPIONATE NA SPR 16 GM BTL SCH (16:30)
[2017-05-05] MEDS ORDERED: INSULIN GLARGINE SOLOSTAR 100 UNITS/ML 3 ML PEN SC SCH (21:00)
[2017-05-05] MEDS ORDERED: ATORVASTATIN 20 MG TAB PO SCH (21:00)
== END 2017-05-05 17:00 | disposition home or self-care (01) ==
LOC: EDBD 16:53 → C.EDA 16:55 → C.MED 22:23 → ENRESERV 23:16
PROVIDERS: ADMIT Hospitalist; ATTEND Family Medicine
DX: R55 Syncope and collapse (principal); I44.7 Left bundle-branch block, unspecified; I25.10 Atherosclerotic heart disease of native coronary artery without angina pectoris; I10 Essential (primary) hypertension; E11.9 Type 2 diabetes mellitus without complications; E78.5 Hyperlipidemia, unspecified; E66.9 Obesity, unspecified; Z87.891 Personal history of nicotine dependence; Z79.82 Long term (current) use of aspirin; Z79.899 Other long term (current) drug therapy; Z79.4 Long term (current) use of insulin; Z83.3 Family history of diabetes mellitus; Z82.49 Family history of ischemic heart disease and other diseases of the circulatory system; Z88.0 Allergy status to penicillin; Z80.6 Family history of leukemia

== ENCOUNTER → 2017-07-14 | Outpatient (CLI) | payer OTHER ==
[~2017-07-14] MED LIST changes: -AMLO-114 PO; +ATOR-24 PO; +CALC-354 PO; +CHOL2000 PO; +CTP1CL PO; -FSMD/70 PO; +GABA-1219 PO; +GLC500 PO; +INSUINJ7 SQ; +METO25TA56 PO; +MULT-506 PO; -ZCRT/40 PO
[2017-07-14 14:53] LABS: BLOOD UREA NITROGEN 11 mg/dl (7-18); CARBON DIOXIDE 31 mmol/L (21-32); CREATININE 0.81 mg/dl (0.60-1.40); GLUCOSE 118 mg/dl (70-99); POTASSIUM 4.2 mmol/L (3.5-5.1); SODIUM 137 mmol/L (136-145)
[2017-07-15 06:44] LABS: HEMOGLOBIN A1C 7.1 % (4.5-5.6)
== END ==
LOC: C.LAB1850 13:23
PROVIDERS: ATTEND Nurse Practitioner Adult Health
DX: I10 Essential (primary) hypertension (principal); E11.49 Type 2 diabetes mellitus with other diabetic neurological complication; E11.65 Type 2 diabetes mellitus with hyperglycemia

== ENCOUNTER 2017-07-20 13:59 | Emergency (ER) | payer OTHER ==
[~2017-07-20] VITALS: Ht 195.6 cm; Wt 142.4 kg
[~2017-07-20 13:59] MED LIST changes: -ASCO500T3 PO; -ASPI81TA28 PO; -ATOR-24 PO; -CALC-354 PO; -CHOL2000 PO; -CTP1CL PO; -GABA-1219 PO; -GLC500 PO; -INSUINJ7 SQ; -METO25TA56 PO; -MULT-506 PO
[2017-07-20 14:04] VITALS: TEMP 36.6; Ht 195.6 cm; Wt 142.4 kg
--- NOTE | 2017-07-20 14:16 | EMERGENCY ROOM VISIT NOTE ---
History Report prepared by Dave: Kilo Oscar Under the Supervision of: Dr. Ryanne Heck D.O. First contact with patient: 14:06 Chief Complaint: SYNCOPE Stated Complaint: CHEST PAIN, DIZZY History of Present Illness The patient is a 61 year old male who presents to the Emergency Room with complaints of a syncopal episode that occurred earlier today. 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 The patient notes that his left knee hurt after the fall, but went to [employer] prior to arrival, and had an x-ray of the knee which was negative. He adds that he had breakfast and then a snack around 0900 this morning, but did not eat lunch. The patient states that he drank a lot of water this morning, and was not feeling sick this morning before the episode. He denies any fevers, chills, nausea, chest pain, shortness of breath, current pain , urinary symptoms, changes in his bowel movements, numbness, or tingling. He notes no recent changes in his medications. The patient states that he has passed out twice before, the last time being a month ago while standing at a gas station. He notes that during the first episode, he was told that he had a left bundle branch block. The patient states that during the second episode, either his blood sugar or his blood pressure dropped. He adds that he has a history of wearing a Holter monitor for a month but nothing came of it. 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 Review of Systems See HPI for pertinent positives & negatives. A total of 10 systems reviewed and were otherwise negative. Past Medical & Surgical Medical Problems: (1) Chest pain (2) DIAB W NEURO MANIFEST, TYPE II OR UNSPEC TYPE, NOT UNCNTRLD (3) DIAB W NEURO MANIFEST, TYPE II OR UNSPEC TYPE, UNCONTROLLED (4) DIAB W OTH SPEC MANIFEST, TYPE II OR UNSPEC TYPE, NOT UNCNTR (5) DIAB W PERIPH CIRC DIS, TYPE II OR UNSPEC TYPE, NOT UNCNTRLD (6) Diabetic peripheral neuropathy associated with type 2 diabetes mellitus (7) DIVERTICULOSIS COLON (W/O MENT OF HEMORRHAGE) (8) Foot deformity (9) History of diabetic ulcer of foot (10) HYPERTENSION NOS (11) Loss of sensation (12) NEUROPATHY IN DIABETES (13) OTHER HAMMER TOE (14) Pre-ulcerative corn or callous (15) SWELLING OF LIMB (16) Syncope (17) ULCER OF HEEL AND MIDFOOT Family History FH: diabetes mellitus FH: hypertension Social History Smoking Status: Never Smoker Alcohol Use: none Drug Use: none Marital Status: Housing Status: lives with family Occupation Status: disabled Current/Historical Medications Scheduled Ascorbic Acid (Vitamin C), 500 MG PO DAILY Aspirin (Aspirin Ec), 81 MG PO DAILY Atorvastatin (Lipitor), 40 MG PO HS Calcium Carbonate-Cholecalcife (Caltrate 600+D), 1 TAB PO DAILY Cholecalciferol (Vitamin D3), 1 CAP PO DAILY Clonidine Hcl (Catapres), 2 TAB PO BID Gabapentin (Gabapentin), 300 MG PO TID Insulin Glargine (Lantus Solostar), 35 UNITS SC HS Insulin Regular (Human) (Novolin R U-100), UNITS SQ TIDM Lisinopril (Zestril), 40 MG PO DAILY Metformin HCl (Metformin HCl), 1,000 MG PO BID Metoprolol Tartrate (Lopressor) (Lopressor), 25 MG PO BID Multivitamin (Multivitamin), 1 TAB PO DAILY Allergies Coded Allergies: Penicillins (Verified Allergy, Unknown, REACTION A CHILD; EYES SWELLED , 05/04/17) Physical Exam Vital Signs Date Time Temp Pulse Resp B/P (MAP) Pulse Ox O2 Delivery O2 Flow Rate FiO2 07/20/17 18:07 84 163/73 93 179/99 101 180/91 07/20/17 16:57 78 18 141/86 98 Room Air 07/20/17 14:35 82 22 116/69 97 Room Air 07/20/17 14:27 98 Room Air 07/20/17 14:23 85 07/20/17 14:04 36.6 95 18 188/118 98 Room Air Physical Exam GENERAL: alert, well appearing, well nourished, no distress, non-toxic, ambulates with a cane EYE EXAM: normal conjunctiva, PERRL and EOM's grossly intact OROPHARYNX: no exudate, no erythema, lips, buccal mucosa, and tongue normal and mucous membranes are moist NECK: supple, no nuchal rigidity, no adenopathy, non-tender LUNGS: Clear to auscultation. Normal chest wall mechanics HEART: no murmurs, S1 normal and S2 normal ABDOMEN: abdomen obese, soft, non-tender, normo-active bowel sounds, no masses, no rebound or guarding. BACK: Back is symmetrical on inspection and there is no deformity, no midline tenderness, no CVA tenderness. SKIN: no rashes and no bruising UPPER EXTREMITIES: upper extremities are grossly normal. LOWER EXTREMITIES: No pitting edema. NEURO EXAM: Normal sensorium, cranial nerves II-XII grossly intact, normal speech, no gross weakness of arms, no gross weakness of legs. No drift. Finger to nose intact. Gross sensation intact. Medical Decision & Procedures ER Provider Diagnostic Interpretation: Radiology results have been interpreted by the radiologist and reviewed by me. ANGIOGRAPHY HEAD COMBO HISTORY: Mental status change TECHNIQUE: Multiaxial CT images of the head were performed both before and after the intravenous administration of contrast to evaluate the major cerebral vessels. Maximum intensity projection images were also obtained. A dose lowering technique was utilized adhering to the principles of ALARA. COMPARISON: 05/04/2017 FINDINGS: There is no mass, hematoma, midline shift, or acute infarct. Visualized intracranial internal carotid arteries, distal vertebral arteries, and basilar artery are widely patent. 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 IMPRESSION: No significant stenosis, occlusion, or aneurysm within the [place]. Negative CT of the brain The above report was generated using voice recognition software. It may contain grammatical, syntax or spelling errors. Electronically signed by: Joey Gallardo M.D. 07/20/2017 4:20 PM Dictated Date/Time: 07/20/2017 4:19 PM CHEST ONE VIEW PORTABLE CLINICAL HISTORY: Syncope. Chest pain. Dizzy. COMPARISON STUDY: Chest radiograph May 04, 2017. FINDINGS: Lung volumes are normal. No pneumothorax or pleural effusion is noted. There is no consolidation or evidence for pulmonary edema. Mild cardiomegaly is unchanged. The appearance of the chest is unchanged. IMPRESSION: 1. No acute cardiopulmonary findings. 2. Stable mild cardiomegaly. Electronically signed by: Aamir Betancur M.D. 07/20/2017 2:38 PM Dictated Date/Time: 07/20/2017 2:37 PM Laboratory Results 07/20/17 14:20 Red Blood Count 5.51, Mean Corpuscular Volume 83.7, Mean Corpuscular Hemoglobin 29.2, Mean Corpuscular Hemoglobin Concent 34.9, Mean Platelet Volume 9.3, Neutrophils (%) (Auto) 78.2, Lymphocytes (%) (Auto) 14.0, Monocytes (%) (Auto) 6.4, Eosinophils (%) (Auto) 0.7, Basophils (%) (Auto) 0.2, Neutrophils # (Auto) 11.56, Lymphocytes # (Auto) 2.07, Monocytes # (Auto) 0.95, Eosinophils # (Auto) 0.11, Basophils # (Auto) 0.03 07/20/17 14:20 Test 07/20/17 14:20 07/20/17 17:05 White Blood Count 14.80 K/uL (4.8-10.8) Red Blood Count 5.51 M/uL (4.7-6.1) Hemoglobin 16.1 g/dL (14.0-18.0) Hematocrit 46.1 % (42-52) Mean Corpuscular Volume 83.7 fL (80-100) Mean Corpuscular Hemoglobin 29.2 pg (25-34) Mean Corpuscular Hemoglobin Concent 34.9 g/dl (32-36) Platelet Count 209 K/uL (130-400) Mean Platelet Volume 9.3 fL (7.4-10.4) Neutrophils (%) (Auto) 78.2 % Lymphocytes (%) (Auto) 14.0 % Monocytes (%) (Auto) 6.4 % Eosinophils (%) (Auto) 0.7 % Basophils (%) (Auto) 0.2 % Neutrophils # (Auto) 11.56 K/uL (1.4-6.5) Lymphocytes # (Auto) 2.07 K/uL (1.2-3.4) Monocytes # (Auto) 0.95 K/uL (0.11-0.59) Eosinophils # (Auto) 0.11 K/uL (0-0.5) Basophils # (Auto) 0.03 K/uL (0-0.2) RDW Standard Deviation 40.3 fL (36.4-46.3) RDW Coefficient of Variation 13.3 % (11.5-14.5) Immature Granulocyte % (Auto) 0.5 % Immature Granulocyte # (Auto) 0.08 K/uL (0.00-0.02) Prothrombin Time 10.3 SECONDS (9.0-12.0) Prothromb Time International Ratio 1.0 (0.9-1.1) Anion Gap 6.0 mmol/L (3-11) Est Creatinine Clear Calc Drug Dose 153.4 ml/min Estimated GFR () 112.5 Estimated GFR (Non- 97.1 BUN/Creatinine Ratio 14.3 (10-20) Calcium Level 8.8 mg/dl (8.5-10.1) Magnesium Level 1.9 mg/dl (1.8-2.4) Total Bilirubin 0.6 mg/dl (0.2-1) Aspartate Amino Transf (AST/SGOT) 17 U/L (15-37) Alanine Aminotransferase (ALT/SGPT) 22 U/L (12-78) Alkaline Phosphatase 69 U/L (45-117) Troponin I < 0.015 ng/ml (0-0.045) Pro-B-Type Natriuretic Peptide 120 pg/ml (0-900) Total Protein 7.7 gm/dl (6.4-8.2) Albumin 3.8 gm/dl (3.4-5.0) Globulin 3.9 gm/dl (2.5-4.0) Albumin/Globulin Ratio 1.0 (0.9-2) Thyroid Stimulating Hormone (TSH) 2.420 uIu/ml (0.300-4.500) Urine Color YELLOW Urine Appearance CLEAR (CLEAR) Urine pH 7.0 (4.5-7.5) Urine Specific [place] 1.045 (1.000-1.030) Urine Protein NEG (NEG) Urine Glucose (UA) NEG (NEG) Urine Ketones NEG (NEG) Urine Occult Blood NEG (NEG) Urine Nitrite NEG (NEG) Urine Bilirubin NEG (NEG) Urine Urobilinogen NEG (NEG) Urine Leukocyte Esterase NEG (NEG) Laboratory results per my review. ECG Per My Interpretation Indication: syncope Rate (beats per minute): 88 Rhythm: normal sinus Findings: LBBB, other (normal axis) Change: no significant change (from 05/04/17) ED Course 1407: The patient was evaluated in room C6. A complete history and physical exam was performed. 1417: Review of EMR - in March 2017, he had a head CT and had a nuclear stress test, both of which were negative. The stress test revealed a LVEF of 44% . In April of this year he had a MRI/MRA of the brain, and those were negative as well. 1713: I reevaluated the patient and he says that he has been up and down to the bathroom and felt okay. He will be discharged after PO challenge. The patient expressed understanding and agreement with this plan. Medical Decision Differential diagnosis includes etiologies such as vasovagal event, infection, hypoglycemia, electrolyte abnormalities, cardiac sources, intracerebral event, toxicologic, neurologic, as well as others were entertained. Patient well-appearing here despite HPI and complaint. Review of EMR concerns patient's story of recent negative MRI and stress test. No dysrhythmia noted on telemetry. Patient's labs and imaging reassuring, vital signs stable throughout. Unclear etiology of syncopal event today, possible given patient's description of decreased oral intake that is orthostatic due to volume depletion. No evidence of DKA, doubt occult infectious etiology. Patient had no other accompanying symptoms prior to or following the syncopal event and had no recurrent symptoms here. I do not suspect ACS, dissection, PE, CVA, cerebellar infarct/bleed, bacteremia/sepsis. Patient ambulatory with a steady gait in his usual fashion, tolerating p.o. at bedside, had no orthostatic complaints upon standing. Discussed with patient close follow-up with family doctor as a precaution, symptoms to watch and return for, he verbalized understanding and was agreeable with plan. Medication Reconcilliation Current Medication List: was personally reviewed by me Blood Pressure Screening Patient's blood pressure: Elevated blood pressure Blood pressure disposition: Referred to PCP Impression Primary Impression: Syncope Scribe Attestation The scribe's documentation has been prepared under my direction and personally reviewed by me in its entirety. I confirm that the note above accurately reflects all work, treatment, procedures, and medical decision making performed by me. Departure Information Dispostion Home / Self-Care Referrals Meryl Adair P.A. (PCP) Patient Instructions My [facility] Additional Instructions Please call and follow-up with your family doctor as a precaution. If you have any recurrent episodes of passing out, develop recurrent dizziness or lightheadedness, develop chest pain, palpitations, trouble breathing, headaches , vision changes, numbness or tingling, vomiting, you have any other new concerns, please return the emergency room. Please make sure you are eating and drinking at regular intervals, and staying well-hydrated. Please take your medications as prescribed. Problem Qualifiers Primary Impression: Syncope Syncope type: unspecified Qualified Codes: R55 - Syncope and collapse
[2017-07-20 14:27] VITALS: O2SAT 98
[2017-07-20] MEDS ORDERED: OPTIRAY 320 IV PRN (14:30)
[2017-07-20 14:32] LABS: BASO % 0.2 %; BASO ABS # 0.03 K/uL (0-0.2); EOS % 0.7 %; EOS ABS # 0.11 K/uL (0-0.5); HEMATOCRIT 46.1 % (42-52); HEMOGLOBIN 16.1 g/dL (14.0-18.0); IG# 0.08 K/uL (0.00-0.02); LYMPH ABS # 2.07 K/uL (1.2-3.4); MEAN CELL VOLUME 83.7 fL (80-100); MEAN CORPUSCULAR HEMOGLOBIN 29.2 pg (25-34); MEAN CORPUSCULAR HGB CONC 34.9 g/dl (32-36); MEAN PLATELET VOLUME 9.3 fL (7.4-10.4); MONO % 6.4 %; MONO ABS # 0.95 K/uL (0.11-0.59); NEUT % 78.2 %; NEUT ABS # 11.56 K/uL (1.4-6.5); PLATELET COUNT 209 K/uL (130-400); RED CELL DISTRIBUTION WIDTH CV 13.3 % (11.5-14.5); RED CELL DISTRIBUTION WIDTH SD 40.3 fL (36.4-46.3)
--- NOTE | 2017-07-20 14:39 | DIAGNOSTIC IMAGING REPORT ---
CHEST ONE VIEW PORTABLE CLINICAL HISTORY: Syncope. Chest pain. Dizzy. COMPARISON STUDY: Chest radiograph May 04, 2017. FINDINGS: Lung volumes are normal. No pneumothorax or pleural effusion is noted. There is no consolidation or evidence for pulmonary edema. Mild cardiomegaly is unchanged. The appearance of the chest is unchanged. IMPRESSION: 1. No acute cardiopulmonary findings. 2. Stable mild cardiomegaly. Electronically signed by: Aamir Betancur M.D. 07/20/2017 2:38 PM Dictated Date/Time: 07/20/2017 2:37 PM
[2017-07-20 14:50] LABS: ALBUMIN 3.8 gm/dl (3.4-5.0); ALT/SGPT 22 U/L (12-78); AST/SGOT 17 U/L (15-37); BLOOD UREA NITROGEN 11 mg/dl (7-18); CALCIUM 8.8 mg/dl (8.5-10.1); CARBON DIOXIDE 29 mmol/L (21-32); GLUCOSE 116 mg/dl (70-99); POTASSIUM 3.8 mmol/L (3.5-5.1); SODIUM 136 mmol/L (136-145)
[2017-07-20 15:00] LABS: ALKALINE PHOSPHATASE 69 U/L (45-117); TOTAL PROTEIN 7.7 gm/dl (6.4-8.2)
[2017-07-20] MEDS ORDERED: INSUINJ7 SQ (15:18)
[2017-07-20] MEDS ORDERED: METO25TA56 PO (15:18)
[2017-07-20] MEDS ORDERED: GLC500 PO (15:18)
[2017-07-20] MEDS ORDERED: ASCO500T3 PO (15:44)
[2017-07-20] MEDS ORDERED: ASPI81TA28 PO (15:45)
--- NOTE | 2017-07-20 16:22 | DIAGNOSTIC IMAGING REPORT ---
ANGIOGRAPHY HEAD COMBO HISTORY: Mental status change TECHNIQUE: Multiaxial CT images of the head were performed both before and after the intravenous administration of contrast to evaluate the major cerebral vessels. Maximum intensity projection images were also obtained. A dose lowering technique was utilized adhering to the principles of ALARA. COMPARISON: 05/04/2017 FINDINGS: There is no mass, hematoma, midline shift, or acute infarct. Visualized intracranial internal carotid arteries, distal vertebral arteries, and basilar artery are widely patent. There is no significant stenosis, occlusion, or aneurysm seen within the bilateral ACAs, MCAs, or triage clinician. IMPRESSION: No significant stenosis, occlusion, or aneurysm within the [place]. Negative CT of the brain The above report was generated using voice recognition software. It may contain grammatical, syntax or spelling errors. Electronically signed by: Joey Gallardo M.D. 07/20/2017 4:20 PM Dictated Date/Time: 07/20/2017 4:19 PM
[2017-07-20 16:57] VITALS: O2SAT 98
[2017-07-20 18:07] VITALS: BP 180/91; PULSE 101
[2017-07-20] MEDS ORDERED: CALC-354 PO (19:37)
[2017-07-20] MEDS ORDERED: CTP1CL PO (19:37)
[2017-07-20] MEDS ORDERED: GABA-1219 PO (19:37)
[2017-07-20] MEDS ORDERED: MULT-506 PO (19:37)
[2017-07-20] MEDS ORDERED: CHOL2000 PO (19:41)
[2017-07-20] MEDS ORDERED: ATOR-24 PO (19:41)
[2017-07-24] MEDS ORDERED: OXYC1TAB3 PO (10:55)
== END 2017-07-20 18:35 | disposition home or self-care (01) ==
LOC: C.EDB 14:00 → C.EDC 18:35
DX: R55 Syncope and collapse (principal); E11.42 Type 2 diabetes mellitus with diabetic polyneuropathy; E11.59 Type 2 diabetes mellitus with other circulatory complications; I10 Essential (primary) hypertension; Z86.31 Personal history of diabetic foot ulcer; Z88.0 Allergy status to penicillin; Z83.3 Family history of diabetes mellitus; Z82.49 Family history of ischemic heart disease and other diseases of the circulatory system; Z79.4 Long term (current) use of insulin; Z79.82 Long term (current) use of aspirin; Z79.84 Long term (current) use of oral hypoglycemic drugs; Z79.899 Other long term (current) drug therapy

== ENCOUNTER → 2017-11-10 | Outpatient (CLI) | payer OTHER ==
[~2017-11-10] MED LIST changes: +ACET-1047 PO; +ASCO500T3 PO; +ASPI81TA28 PO; +ATOR-24 PO; +CALC-354 PO; +CHOL2000 PO; +CTP1CL PO; +GABA-1219 PO; +GLC500 PO; -INSU100I2 SC; +INSUINJ7 SQ; -LPR25 PO; +METO25TA56 PO; +MULT-506 PO
[2017-11-10 09:07] LABS: ALBUMIN 3.2 gm/dl (3.4-5.0); ALKALINE PHOSPHATASE 66 U/L (45-117); ALT/SGPT 17 U/L (12-78); AST/SGOT 13 U/L (15-37); BLOOD UREA NITROGEN 11 mg/dl (7-18); CALCIUM 8.6 mg/dl (8.5-10.1); CARBON DIOXIDE 30 mmol/L (21-32); CHOLESTEROL 94 mg/dl (0-200); CREATININE 0.68 mg/dl (0.60-1.40); GLUCOSE 99 mg/dl (70-99); LDL CHOLESTEROL CALCULATED 40 mg/dl; POTASSIUM 3.8 mmol/L (3.5-5.1); SODIUM 137 mmol/L (136-145); TOTAL PROTEIN 7.4 gm/dl (6.4-8.2)
== END ==
LOC: C.LABCC 08:30
PROVIDERS: ATTEND Internal Medicine
DX: E78.5 Hyperlipidemia, unspecified (principal); I10 Essential (primary) hypertension; E55.9 Vitamin D deficiency, unspecified; E11.40 Type 2 diabetes mellitus with diabetic neuropathy, unspecified

== ENCOUNTER 2017-11-21 10:49 | Emergency (ER) | payer OTHER ==
[~2017-11-21] VITALS: Ht 193 cm; Wt 145.0 kg
[2017-11-21 11:04] VITALS: TEMP 37; Ht 193 cm; Wt 145.0 kg
[2017-11-21] MEDS ORDERED: SODIUM CHLORIDE 0.9% 1000ML 1,000 ML IV STA (11:25)
[2017-11-21] MEDS ORDERED: VANCOMYCIN IV 2,800 MG in SODIUM CHLORIDE 0.9% 500ML 500 ML IV STA (11:25)
[2017-11-21] MEDS ORDERED: VANCOMYCIN CONSULT ACTIVE PRN (11:30)
--- NOTE | 2017-11-21 11:32 | EMERGENCY ROOM VISIT NOTE ---
History Report prepared by Dave: Kilo Norman Under the Supervision of: Dr. Rita Arrieta M.D. First contact with patient: 11:12 Chief Complaint: EYE PAIN Stated Complaint: RIGHT EYE PAIN History of Present Illness The patient is a 61 year old male who presents to the Emergency Room with complaints of worsening cellulitis in his right eye beginning 4 or 5 days ago. The patient reports that he has been receiving Rocephin injections and prednisone for his symptoms. He reports that at 01:30 this morning, his eye was completely shut. He reports associated pain in his right eye, noting that it worsens with eyeball movement. The patient notes a history of cellulitis. He states that he is currently living at [facility] for rehabilitation from a fractured ankle on July 28. He notes that his face has felt warm today and yesterday. Source of History: patient Onset: 4 or 5 days ago Position: eye (right) Quality: other (cellulitis) Timing: worsening Modifying Factors (Worsening): movement (of eyeball) Note: eye pain, warmth in face Review of Systems See HPI for pertinent positives & negatives. A total of 10 systems reviewed and were otherwise negative. Past Medical & Surgical Medical Problems: (1) Chest pain (2) DIAB W NEURO MANIFEST, TYPE II OR UNSPEC TYPE, NOT UNCNTRLD (3) DIAB W NEURO MANIFEST, TYPE II OR UNSPEC TYPE, UNCONTROLLED (4) DIAB W OTH SPEC MANIFEST, TYPE II OR UNSPEC TYPE, NOT UNCNTR (5) DIAB W PERIPH CIRC DIS, TYPE II OR UNSPEC TYPE, NOT UNCNTRLD (6) Diabetic peripheral neuropathy associated with type 2 diabetes mellitus (7) DIVERTICULOSIS COLON (W/O MENT OF HEMORRHAGE) (8) Foot deformity (9) History of diabetic ulcer of foot (10) HYPERTENSION NOS (11) Loss of sensation (12) NEUROPATHY IN DIABETES (13) OTHER HAMMER TOE (14) Pre-ulcerative corn or callous (15) Sinus pause (16) SWELLING OF LIMB (17) Syncope (18) ULCER OF HEEL AND MIDFOOT Family History FH: diabetes mellitus FH: hypertension Social History Smoking Status: Never Smoker Alcohol Use: none Drug Use: none Marital Status: Housing Status: lives with family Occupation Status: employed, disabled Current/Historical Medications Scheduled Ascorbic Acid (Vitamin C), 500 MG PO DAILY Aspirin (Aspirin Ec), 81 MG PO DAILY Atorvastatin (Lipitor), 40 MG PO HS Calcium Carbonate-Cholecalcife (Caltrate 600+D), 1 TAB PO DAILY Ceftriaxone Sod (Ceftriaxone Sodium), 1 DOSE INJ DAILY Cholecalciferol (Vitamin D3), 2,000 UNITS PO DAILY Clonidine Hcl (Catapres), 0.2 MG PO BID Gabapentin (Gabapentin), 300 MG PO TID Insulin Glargine (Lantus Solostar), 35 UNITS SC HS Insulin Regular (Human) (Novolin R U-100), UNITS SQ TIDM Lisinopril (Zestril), 40 MG PO DAILY Metformin HCl (Metformin HCl), 1,000 MG PO BID Metoprolol Tartrate (Lopressor) (Lopressor), 25 MG PO BID Multivitamin (Multivitamin), 1 TAB PO DAILY Prednisone (Prednisone), 20 MG PO DAILY Vancomycin HCl in Sodium Chlor (Vancomycin Hydrochloride/ 1-0.9 gm/250Ml-%), 2, 800 MG IV BID Scheduled PRN Acetaminophen (Mapap), 650 MG PO Q4H PRN for Pain or Fever Allergies Coded Allergies: Penicillins (Verified Allergy, Unknown, REACTION A CHILD; EYES SWELLED , 11/21/17) Physical Exam Vital Signs Date Time Temp Pulse Resp B/P (MAP) Pulse Ox O2 Delivery O2 Flow Rate FiO2 11/21/17 17:04 67 16 143/94 99 11/21/17 16:04 66 16 141/78 99 11/21/17 14:26 77 16 168/84 97 Room Air 11/21/17 13:25 68 20 158/86 95 Room Air 11/21/17 12:30 69 21 137/66 94 Room Air 11/21/17 12:22 71 11/21/17 11:52 75 21 117/50 95 Room Air 11/21/17 11:04 37.0 75 18 134/75 95 Room Air Physical Exam Vital signs reviewed. General: Obese and chronically ill-appearing male, in no significant distress. HEENT: No scleral icterus, PERRLA, neck supple. Atraumatic. Right periorbital edema and erythema with a 2 cm area of swelling and fluctuance overlying ulceration. Pain with extraocular movements. No proptosis. Cardiovascular: Regular rate and rhythm, no extra sounds. Pulmonary: Clear to auscultation bilaterally, normal work of breathing. Abdomen: Soft, nontender, nondistended, positive bowel sounds. Musculoskeletal: Atraumatic, no peripheral edema. Cast in place to RLE Neurologic: Patient awake alert and oriented x 3 Skin: Warm, dry, no rash Medical Decision & Procedures ER Provider Diagnostic Interpretation: Radiology results as stated below per my review and radiologist interpretation: ORBIT CT WITH CONTRAST CLINICAL HISTORY: Right periorbital cellulitis. Evaluate for abscess. COMPARISON STUDY: Head CT July 20, 2017. TECHNIQUE: Axial images of the orbits were obtained following intravenous injection of 119 cc Optiray 320 IV. Sagittal and coronal reconstructions were viewed. FINDINGS: Visualized portions of the intracranial contents are unremarkable. The globes are intact. There is no retrobulbar abnormality. There is moderate inflammation lateral to the right orbit. There is an associated 8 mm rim-enhancing fluid collection which is located 1 cm deep to the skin. There is associated skin thickening. No additional fluid collections are present. There is no bony destruction. Sinuses and mastoid air cells are clear. IMPRESSION: Moderate inflammation and skin thickening consistent with cellulitis lateral to the right orbit with an associated 8 mm abscess located 1 cm deep to the skin. No retrobulbar abnormality. Electronically signed by: Aamir Betancur M.D. 11/21/2017 1:43 PM Dictated Date/Time: 11/21/2017 1:06 PM Laboratory Results 11/21/17 11:30 Red Blood Count 5.00, Mean Corpuscular Volume 85.0, Mean Corpuscular Hemoglobin 29.2, Mean Corpuscular Hemoglobin Concent 34.4, Mean Platelet Volume 9.9, Neutrophils (%) (Auto) 82.7, Lymphocytes (%) (Auto) 10.2, Monocytes (%) (Auto) 5.5, Eosinophils (%) (Auto) 0.3, Basophils (%) (Auto) 0.2, Neutrophils # (Auto) 10.03, Lymphocytes # (Auto) 1.23, Monocytes # (Auto) 0.66, Eosinophils # (Auto) 0.04, Basophils # (Auto) 0.02 11/21/17 11:30 Test 11/21/17 11:30 White Blood Count 12.11 K/uL (4.8-10.8) Red Blood Count 5.00 M/uL (4.7-6.1) Hemoglobin 14.6 g/dL (14.0-18.0) Hematocrit 42.5 % (42-52) Mean Corpuscular Volume 85.0 fL (80-100) Mean Corpuscular Hemoglobin 29.2 pg (25-34) Mean Corpuscular Hemoglobin Concent 34.4 g/dl (32-36) Platelet Count 227 K/uL (130-400) Mean Platelet Volume 9.9 fL (7.4-10.4) Neutrophils (%) (Auto) 82.7 % Lymphocytes (%) (Auto) 10.2 % Monocytes (%) (Auto) 5.5 % Eosinophils (%) (Auto) 0.3 % Basophils (%) (Auto) 0.2 % Neutrophils # (Auto) 10.03 K/uL (1.4-6.5) Lymphocytes # (Auto) 1.23 K/uL (1.2-3.4) Monocytes # (Auto) 0.66 K/uL (0.11-0.59) Eosinophils # (Auto) 0.04 K/uL (0-0.5) Basophils # (Auto) 0.02 K/uL (0-0.2) RDW Standard Deviation 42.7 fL (36.4-46.3) RDW Coefficient of Variation 13.9 % (11.5-14.5) Immature Granulocyte % (Auto) 1.1 % Immature Granulocyte # (Auto) 0.13 K/uL (0.00-0.02) Prothrombin Time 10.6 SECONDS (9.0-12.0) Prothromb Time International Ratio 1.0 (0.9-1.1) Activated Partial Thromboplast Time 24.7 SECONDS (21.0-31.0) Partial Thromboplastin Ratio 1.0 Anion Gap 9.0 mmol/L (3-11) Est Creatinine Clear Calc Drug Dose 147.3 ml/min Estimated GFR () 110.8 Estimated GFR (Non- 95.6 BUN/Creatinine Ratio 15.2 (10-20) Calcium Level 8.4 mg/dl (8.5-10.1) Total Bilirubin 0.4 mg/dl (0.2-1) Direct Bilirubin 0.1 mg/dl (0-0.2) Aspartate Amino Transf (AST/SGOT) 12 U/L (15-37) Alanine Aminotransferase (ALT/SGPT) 22 U/L (12-78) Alkaline Phosphatase 68 U/L (45-117) Total Protein 7.3 gm/dl (6.4-8.2) Albumin 3.1 gm/dl (3.4-5.0) Laboratory results per my review. Medications Administered Medications (Trade) Dose Ordered Sig/Juancarlos Route Start Time Stop Time Status Last Admin Dose Admin Sodium Chloride 1,000 ml @ 125 mls/hr Q8H STAT IV 11/21/17 11:25 11/21/17 17:22 DC 11/21/17 12:24 125 MLS/HR Vancomycin HCl 2800 mg/Sodium Chloride 556 ml @ 200 mls/hr ONE STAT IV 11/21/17 11:25 11/21/17 14:11 DC 11/21/17 12:24 200 MLS/HR Procedure Incision & Drainage Indication: Abscess. Location: right lateral orbital ridge Verbal consent was obtained after the risks and benefits were explained, including but not limited to bleeding, scarring, infection, pain, and bone/joint /nerve damage. At this time, the risks of the procedure are less than the risks of NOT performing the procedure. A time out was taken and the correct patient and site identified. The skin was prepped with betadine and a sterile field set. The wound was anesthetized with 1 ml of 1% lidocaine without epinephrine. The abscess cavity was entered with a number 11 blade and small amount of purulent material expressed. Copious irrigation was performed using saline. The wound was explored for foreign bodies and none found. Debridement was not performed. Packing placed and a sterile dressing applied. Detailed wound care instructions and signs and symptoms of worsening infection reviewed with the patient. No complications and the patient tolerated the procedure well. ED Course 1115: Past medical records reviewed. The patient was evaluated in room C5. A complete history and physical examination was performed. 1519: I performed an Incision and Drainage on the patient. I reevaluated the patient and discussed findings with him. He verbalized agreement of the treatment plan. The patient was discharged home. Medical Decision Differential diagnosis: Etiologies such as cellulitis, abscess, MRSA infection, DVT, necrotizing fasciitis, dermatitis, drug eruption, as well as others were entertained. This patient was evaluated and appeared to be in no significant distress. IV access was obtained and laboratory work was drawn. Blood cultures were obtained. The fluctuant area was aspirated with an 18-gauge needle without success. CT scan of the face was performed and reveals no retrobulbar or fluid collection however there is a subcentimeter fluid collection 1 cm deep to the skin. An I&D was performed, please see my procedure note above. Culture was sent. Patient was given a dose of IV vancomycin. I did confirm with the nurse practitioner at [facility] that IV vancomycin could be continued as an outpatient. Patient does not appear to be septic at this time. He feels comfortable with the plan. He will return to the ED for worsening of symptoms or any medical concerns. Medication Reconcilliation Current Medication List: was personally reviewed by me Blood Pressure Screening Patient's blood pressure: Elevated blood pressure Blood pressure disposition: Referred to PCP Impression Primary Impression: Periorbital cellulitis of right eye Additional Impression: Subcutaneous abscess Scribe Attestation The scribe's documentation has been prepared under my direction and personally reviewed by me in its entirety. I confirm that the note above accurately reflects all work, treatment, procedures, and medical decision making performed by me. Departure Information Dispostion Home / Self-Care Prescriptions Vancomycin HCl in Sodium Chlor (Vancomycin Hydrochloride/ 1-0.9 gm/250Ml-%) 1 Inj Inj 2800 MG IV BID for 10 Days, #20 DOSE Prov: Rita Arrieta M.D. 11/21/17 Referrals [facility] ([facility] Forms HOME CARE DOCUMENTATION FORM, IMPORTANT VISIT INFORMATION, WORK / SCHOOL INSTRUCTIONS Patient Instructions My [facility] Additional Instructions Diagnosis: Right periorbital cellulitis with abscess Vancomycin 2800 mg IV every 12 hours. Dosing and further management is deferred to the retirement physician. Change the dressing only if it becomes soiled or blood-stained, but keep the packing in place. Keep area clean and dry. Follow up with your doctor or return in 48 hrs to have the packing removed. Tylenol 650 mg every 6 hours as needed for pain (Maximum 3000 mg Tylenol in 24 hr period). Return sooner if any problems such as fever >101 or significantly increasing pain. After packing removed, use warm soaks 4-5 times a day to help continue to express pus until healed. Follow-up with your physician for reevaluation in 24-48 hours. Return to the emergency department for worsening of symptoms or any medical concerns. Problem Qualifiers
[2017-11-21] MEDS ORDERED: OPTIRAY 320 IV PRN (11:45)
[2017-11-21] MEDS ORDERED: PRED20TA PO (11:52)
[2017-11-21] MEDS ORDERED: [UNRECOGNIZED DRUG - CODE] INJ (11:52)
[2017-11-21 11:54] LABS: BASO % 0.2 %; BASO ABS # 0.02 K/uL (0-0.2); EOS % 0.3 %; EOS ABS # 0.04 K/uL (0-0.5); HEMATOCRIT 42.5 % (42-52); HEMOGLOBIN 14.6 g/dL (14.0-18.0); IG# 0.13 K/uL (0.00-0.02); LYMPH % 10.2 %; LYMPH ABS # 1.23 K/uL (1.2-3.4); MEAN CORPUSCULAR HEMOGLOBIN 29.2 pg (25-34); MEAN CORPUSCULAR HGB CONC 34.4 g/dl (32-36); MEAN PLATELET VOLUME 9.9 fL (7.4-10.4); MONO % 5.5 %; MONO ABS # 0.66 K/uL (0.11-0.59); NEUT % 82.7 %; NEUT ABS # 10.03 K/uL (1.4-6.5); PLATELET COUNT 227 K/uL (130-400); RED CELL DISTRIBUTION WIDTH CV 13.9 % (11.5-14.5); RED CELL DISTRIBUTION WIDTH SD 42.7 fL (36.4-46.3); WHITE BLOOD COUNT 12.11 K/uL (4.8-10.8)
[2017-11-21 12:02] LABS: PTT PATIENT 24.7 SECONDS (21.0-31.0)
[2017-11-21 12:14] LABS: ALBUMIN 3.1 gm/dl (3.4-5.0); CALCIUM 8.4 mg/dl (8.5-10.1); CREATININE 0.83 mg/dl (0.60-1.40); POTASSIUM 4.3 mmol/L (3.5-5.1); TOTAL PROTEIN 7.3 gm/dl (6.4-8.2)
--- NOTE | 2017-11-21 13:45 | DIAGNOSTIC IMAGING REPORT ---
ORBIT CT WITH CONTRAST CLINICAL HISTORY: Right periorbital cellulitis. Evaluate for abscess. COMPARISON STUDY: Head CT July 20, 2017. TECHNIQUE: Axial images of the orbits were obtained following intravenous injection of 119 cc Optiray 320 IV. Sagittal and coronal reconstructions were viewed. FINDINGS: Visualized portions of the intracranial contents are unremarkable. The globes are intact. There is no retrobulbar abnormality. There is moderate inflammation lateral to the right orbit. There is an associated 8 mm rim-enhancing fluid collection which is located 1 cm deep to the skin. There is associated skin thickening. No additional fluid collections are present. There is no bony destruction. Sinuses and mastoid air cells are clear. IMPRESSION: Moderate inflammation and skin thickening consistent with cellulitis lateral to the right orbit with an associated 8 mm abscess located 1 cm deep to the skin. No retrobulbar abnormality. Electronically signed by: Aamir Betancur M.D. 11/21/2017 1:43 PM Dictated Date/Time: 11/21/2017 1:06 PM
[2017-11-21] MEDS ORDERED: LIDOCAINE 1% BUFFERED INJ 20 ML VIAL ONE (14:30)
[2017-11-21] MEDS ORDERED: LIDOCAINE 1% BUFFERED INJ 20 ML VIAL INFIL ONE (15:00)
[2017-11-21] MEDS ORDERED: [UNRECOGNIZED DRUG - CODE] IV ×2 (16:00→16:15)
--- NOTE | 2017-11-21 16:17 | Pharmacy Progress Note ---
ED Pharmacist Progress Note Date of Service: Nov 21, 2017. Received a call from [facility] pharmacist - received prescription for IV vancomycin and was clarifying. Spoke w Dr. Arrieta - prescription is to go to [facility], not [facility]. [facility] pharmacist aware and notes intent to cancel the prescription for vancomycin IV.
[2017-11-21 17:04] VITALS: BP 143/94; PULSE 67; O2SAT 99
--- NOTE | 2017-11-23 00:36 | EMERGENCY ROOM VISIT NOTE ---
ED Visit Note First contact with patient: 11:12 Upon my review of the cultures, it appears that the blood cultures are pending and no wound culture was ever formally ordered. I did contact the laboratory who stated that the swab has been discarded.
== END 2017-11-21 17:05 | disposition home or self-care (01) ==
LOC: C.EDB 10:50 → C.EDC 17:05
DX: L03.213 Periorbital cellulitis (principal); H00.033 Abscess of eyelid right eye, unspecified eyelid; E11.40 Type 2 diabetes mellitus with diabetic neuropathy, unspecified; I10 Essential (primary) hypertension; Z79.82 Long term (current) use of aspirin; Z79.4 Long term (current) use of insulin; Z79.84 Long term (current) use of oral hypoglycemic drugs; Z79.899 Other long term (current) drug therapy; Z88.0 Allergy status to penicillin

== ENCOUNTER 2022-07-07 11:32 | Inpatient (IN) ==
[2022-07-07] MEDS ORDERED: cefTRIAXone SODIUM 2,000 MG/70 ML BAG IV STA (13:11)
--- NOTE | 2022-07-07 13:21 | Emergency Department Note ---
Impression & Plan Cellulitis of right lower extremity, Right foot ulcer ED Provider Note CHIEF COMPLAINT: Right lower leg swelling, redness and warmth x3-4 days HISTORY OF PRESENT ILLNESS: Patient is a 66-year-old male with past medical history significant for diabetes on insulin, chronic venous insufficiency, Zvxntej-Tqijf-Kcbwq syndrome, hypertension, status post pacemaker insertion, who presents emergency department for evaluation of his right lower leg. He noticed some increased redness in the right leg over the last 3 to 4 days. It has gotten swollen and warm since yesterday. He otherwise reports that he is feeling well, denies any fever or chills, nausea, vomiting or malaise. Blood sugars have been controlled per his normal. He denies a prior history of skin infections, abscess or cellulitis. He does have peripheral neuropathy, and does report diminished sensation in his feet bilaterally, left greater than right. REVIEW OF SYSTEMS: Review of systems as per HPI. All other systems reviewed were negative. 10 systems reviewed. PMH: External medical records are reviewed and summarized as above/below. See Problem List. SOCIAL HISTORY: Patient lives at home. Employed. PHYSICAL EXAM: Vital Signs: Reviewed Nurse's notes. GENERAL: Patient is a well-appearing 66-year-old male who is awake and alert and in no acute distress. Vital signs are stable. LUNGS: Clear to auscultation. HEART: Regular rate and rhythm. ABDOMEN: Bowel sounds are present. The abdomen is soft, nontender, nondistended. MUSCULOSKELETAL: Examination of the right lower extremity note chronic venous stasis changes. There is superimposed erythema, increased warmth consistent with cellulitis over the anterior right padilla. There is a superficial abraded area on the anterior tibial spine proximally. 2+ pitting edema noted. The patient's shoes were removed, and on the plantar aspect of the right foot over the fourth and fifth metatarsal head, he has a large, several centimeter in diameter ulcer/blister. It is about 2 cm deep. The area is nontender to palpation. There is a foul odor but no overt discharge. EMERGENCY DEPARTMENT COURSE: The patient was seen and assessed as above. Exter nal medical records were reviewed. He presents emergency department for evaluation of right lower leg redness and warmth concerning for cellulitis. He does have a history of diabetes and peripheral neuropathy as well as a CMT and has diminished sensation in his feet. He has a large plantar foot ulcer on the right on exam which he is completely unaware of. This is likely the source. I did review outpatient podiatry note from 05/25/2022, which noted at that time the patient only had a mild callus at this site which was minimally debrided. IV lock was initiated and laboratory studies were collected. Ultrasound of the right lower extremity and x-ray of the right foot were obtained. He was treated with ceftriaxone 2 g empirically. I did later discussed the patient's presentation with the ED pharmacist, and she recommended Zosyn and daptomycin which were ordered. Laboratory studies per my interpretation notes a normal white count at 9400. No anemia, H&H 15 and 45. Platelet count is 204,000. Electrolytes are without significant imbalance requiring correction. Renal functions are normal. A COVID test was obtained and was negative. X-ray per my interpretation note no acute fracture. Soft tissue swelling noted. No obvious bony erosion or findings clip typical for osteomyelitis. Additional degenerative, posttraumatic and postsurgical changes are noted. There is also a thin linear metallic foreign body present in the plantar soft tissue of the foot, new since 2018. Ultrasound of the right lower extremity per my interpretation shows no evidence for DVT. Laboratory studies and diagnostic imaging studies were discussed with the patient. Reviewed with him findings, and suggested that he would benefit from admission/observation for further care and IV antibiotics in the hospital. He was in agreement. Case was reviewed with attending physician, Dr. Chappell and discussed with the ED immigration case worker. Admission was reviewed with the [facility]ist Terence graham. Patient was discussed with Dr. Zepeda. He remained stable in the emergency department pending admission. Differential diagnoses entertained included DVT, superficial thrombophlebitis, cellulitis, abscess, necrotizing fasciitis, osteomyelitis, among others. Past Med/Surg History Medical History Ambulatory dysfunction uses cane Bilateral lower extremity edema Improving - wound clinic did wrap to right LE 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 Khojoum-Pamta-Pkezx syndrome Followed by Wound clinic and [facility] Complete heart block follows Dr. Menon S/p pacemaker placement 2017 Diabetic peripheral neuropathy associated with type 2 diabetes mellitus Followed by Endocrinology To left LE GERD (gastroesophageal reflux disease) Well controlled and stable History of colon polyps History of diabetic ulcer of foot seeing wound clinic History of syncope reason for pacemaker per pt Hyperlipidemia Hypertension LBBB (left bundle branch block) Chronic Paroxysmal SVT (supraventricular tachycardia) Penicillin allergy Status post partial amputation of foot Type 2 diabetes mellitus treated with insulin Glucose controlled per patient Venous stasis ulcer Ventricular tachycardia Surgical History History of arthroscopy of left knee History of arthroscopy of right knee History of colonoscopy with polypectomy 10/13 repeat 10 years History of permanent cardiac pacemaker placement meditronic 2018 @ [facility]--follows with Dr. Menon > last checked few months ago History of tonsillectomy Hx of vasectomy S/P TKR (total knee replacement) (06/26/13) 1 on right knee 1 on left knee Family History Mother Alzheimer disease Depression Seizure Lung disease Hypertension Family hx of colon cancer Colorectal cancer Father Diabetes Depression Kidney disease Leukemia Seizure Lung disease Hypertension Sister Brain tumor Seizure Lung disease Lung cancer Other No family history of adverse response to anesthesia Denies family history of Ovarian cancer Prostate cancer Myocardial infarction Breast cancer Social History Smoking Status: Never smoker Second Hand Exposure: No; Hx Alcohol Use: Yes Hx Substance Use: No Preferred Language: Nepalese Communication Ability: Effective Visual Impairment: No Limitations Hearing Ability: Normal Hair And Makeup Designer Required: No Beliefs That Will Affect Care: None marital status: marital status details: Current Living Situation: Alone Current Living Situation Comment: Has an apartment with friend current occupational status: previously employed How many Children do You have: 2 Feels Safe at Home: Yes Childhood Exposure to Second-Hand Smoke: Yes caffeine: Yes Dental Care, Regularly: Yes Physical Activity Frequency: Does not Exercise Seatbelt Use: always Sunscreen Use: Yes Assistive Devices: Cane and Wheelchair Allergies Allergies Allergy/AdvReac Type Severity Reaction Status Date / Time vancomycin Allergy Mild thrombocyto Verified 06/23/22 10:21 penia Home Meds Home Medications Medication Instructions Recorded Confirmed acetaminophen 650 mg 650 mg PO Q6H PRN pain or fever 02/19/18 07/07/22 tablet,extended release ascorbic acid (vitamin C) 500 mg 500 mg PO QAM 02/19/18 07/07/22 tablet aspirin 81 mg tablet,delayed 81 mg PO DIRECTED PRN Pain 02/19/18 07/07/22 release calcium carbonate 600 mg-vitamin 1 tab PO QAM 02/19/18 07/07/22 D3 20 mcg (800 unit) chewable tablet (Caltrate 600 plus D) multivitamin 1 tab PO QAM 11/13/18 06/23/22 cholecalciferol (vitamin D3) 50 5,000 units PO HS 10/03/19 07/07/22 mcg (2,000 unit) tablet hydrocodone 5 mg-acetaminophen 325 1 tab PO Q6 PRN Pain 11/25/20 06/23/22 mg tablet Previous Rx's Medication Instructions Recorded Saccharomyces boulardii 250 mg 250 mg PO BID #60 caps 10/14/19 capsule (Florastor) clonidine HCl 0.1 mg tablet See Rx Instructions .Route 05/31/21 .COMPLEX #180 tabs metoprolol tartrate 25 mg tablet 25 mg PO BID #180 tabs 06/14/21 empagliflozin 10 mg tablet 10 mg PO DAILY #90 tabs 08/13/21 (Jardiance) torsemide 10 mg tablet 10 mg PO Q3D #30 tabs 08/31/21 atorvastatin 80 mg tablet 80 mg PO DAILY #90 tabs 12/11/21 insulin regular human 100 unit/mL See Rx Instructions .Route 01/18/22 injection solution (Novolin R .COMPLEX #1 vial Regular U-100 Insulin) gabapentin 300 mg capsule 300 mg PO TID #90 caps 01/25/22 blood sugar diagnostic (OneTouch #100 ea 02/16/22 Verio test strips) metformin 1,000 mg tablet 1,000 mg PO BID diabetes #90 tabs 02/28/22 lisinopril 40 mg tablet See Rx Instructions .Route 03/11/22 .COMPLEX #90 tabs insulin glargine 100 unit/mL (3 35 unit (0.35 mL) subcut PM #15 mL 04/27/22 mL) subcutaneous pen (Basaglar KwikPen U-100 Insulin) Results & Data (ED) Vital Signs Vital Signs - 24 hr 07/07/22 11:37 07/07/22 13:47 07/07/22 15:16 Temperature 36.7 C Temperature Source Temporal Artery Scan Pulse Rate 69 Pulse Rate [Finger] 54 L 70 Pulse Rhythm [Finger] Regular Respiratory Rate 18 18 20 Respiratory Effort / Characteristics Non-Labored Spontaneous Non-Labored Spontaneous Non-Labored Spontaneous Respiratory Depth Normal Normal Normal Respiratory Pattern Regular Blood Pressure 154/75 H Blood Pressure [Right Arm] 127/68 170/77 H Blood Pressure Mean 101 Blood Pressure Mean [Right Arm] 87 108 Blood Pressure Position [Right Arm] Sitting Pulse Oximetry 97 99 99 Oxygen Delivery Method Room Air Room Air Sepsis Recent Fever Within 48 Hours No Sepsis New/Unexplained Change in Mental Status N/A Sepsis Action Taken by Nursing No Action Required Home Medications Current Medication List: was personally reviewed by me Laboratory Data Attestation: I reviewed the patient's lab results. 07/07/22 13:24 07/07/22 13:24 Lab Results 07/07/22 07/07/22 07/07/22 Range/Units 13:24 13:24 13:45 WBC 9.49 (4.8-10.8) K/ul RBC 5.29 (4.70-6.10) M/uL Hgb 15.4 (14.0-18.0) g/dl Hct 45.1 (42.0-52.0) % MCV 85.3 (80.0-100.0) fL MCH 29.1 (25.0-34.0) pg MCHC 34.1 (32.0-36.0) g/dL RDW Std Deviation 41.3 (36.4-46.3) fL RDW Coeff of Oskar 13.2 (11.5-14.5) % Plt Count 204 (130-400) K/uL MPV 10.0 (9.4-12.4) fL Immature Gran % (Auto) 0.6 % Neut % (Auto) 74.4 % Lymph % (Auto) 15.5 % [place] % (Auto) 7.8 % Eos % (Auto) 1.2 % Baso % (Auto) 0.5 % Neut # (Auto) 7.06 H (1.40-6.50) K/uL Lymph # (Auto) 1.47 (1.2-3.4) K/uL [place] # (Auto) 0.74 H (0.11-0.59) K/uL Eos # (Auto) 0.11 (0-0.50) K/uL Baso # (Auto) 0.05 (0-0.2) K/uL Immature Gran # (Auto) 0.06 (0.01-0.20) K/uL Sodium 133 L (136-145) mmol/L Potassium 4.1 (3.5-5.1) mmol/L Chloride 99 (98-107) mmol/L Carbon Dioxide 30 (21-32) mmol/L Anion Gap 4 (3-11) BUN 11 (6-23) mg/dl Creatinine 0.68 (0.6-1.4) mg/dl Est Cr Clr Drug Dosing 171.2 ml/min Est GFR ( Amer) 116.2 ml/min Est GFR (Non-Af Amer) 100.2 ml/min BUN/Creatinine Ratio 16.2 (10-20) Glucose 257 H (70-99(Fasting)) mg/dl Calcium 9.1 (8.6-10.3) mg/dl SARS-CoV-2, RNA, NAAT NEGATIVE (NEGATIVE) Administered Medications Daptomycin 450 mg/ Syringe 9 mls @ 4.5 mls/min IV Q24H [facility]; Protocol Stop: 07/14/22 14:59 Last Admin: 07/07/22 15:12 Dose: 4.5 mls/min Documented By: MITRA Discontinued Medications Ceftriaxone Sodium (Rocephin) 2,000 mg in 70 mls @ 140 mls/hr IV NOW STA Stop: 07/07/22 13:40 Last Infusion: 07/07/22 14:51 Dose: 0 mls/hr Documented By: Admin: 07/07/22 13:36 Dose: 140 mls/hr Documented By: MAGALIS Piperacillin Sod/Tazobactam Sod (Zosyn) 4.5 gm in 120 mls @ 240 mls/hr IV NOW ONE Stop: 07/07/22 15:15 Last Infusion: 07/07/22 15:42 Dose: 0 mls/hr Documented By: Admin: 07/07/22 15:12 Dose: 240 mls/hr Documented By: MITRA Imaging Data Attestation: I personally reviewed and interpreted this imaging study as follows: Radiologist's Impression: Venous Doppler Study 07/07/22 13:11 ULTRASOUND RIGHT LOWER EXTREMITY VENOUS CLINICAL HISTORY: Right calf swelling and erythema. COMPARISON STUDY: Right lower extremity venous ultrasound dated 07/24/2017. TECHNIQUE: Real-time, grayscale, and color Doppler sonography of the deep veins of the right lower extremity was performed from the inguinal crease to the calf. Compression and augmentation were utilized. FINDINGS: There is no sonographic evidence of deep venous thrombosis identified in the right lower extremity. The common femoral, superficial femoral, and popliteal veins are patent and normally compressible. The greater saphenous vein and the profunda femoris vein at the junction with the common femoral vein are clear. The visualized calf veins are patent. Soft tissue edema is noted in the calf. IMPRESSION: There is no sonographic evidence of deep venous thrombosis identified in the right lower extremity. ACT 112: Negative or not required by law. Electronically signed by: Leroy Best M.D. 07/07/2022 3:11 PM Foot X-Ray 07/07/22 13:34 RIGHT FOOT 3 VIEWS CLINICAL HISTORY: Plantar ulcer. FINDINGS: 3 views of the right foot are compared to study dated 07/24/2017 and correlated with MRI of the right foot dated 08/07/2018. The skeletal structures are heterogeneously osteopenic. No acute fracture is seen. No bony erosion or periostitis is identified typical for osteomyelitis. There is chronic posttraumatic deformity of the fifth metatarsal. Advanced arthritic change and bony overgrowth is seen throughout the foot. Degenerative spurring is noted a long the dorsal aspect of the tarsal bones. There are dorsal and plantar calcaneal enthesophytes. Erosive osteoarthritis is suggested at the [place] proximal interphalangeal joint. A thin linear metallic foreign bodies seen in the plantar soft tissues between the second and third metatarsal shafts. A plantar ulceration is identified in the plantar soft tissues of the forefoot. Diffuse soft tissue edema is noted. There is atherosclerotic calcification of the residual arteries IMPRESSION: 1. Diffuse soft tissue edema with no acute bony abnormality identified. 2. Osteopenia with advanced degenerative, chronic posttraumatic, and postsurgical changes as above. 3. A thin linear metallic foreign body is present within the plantar soft tissues between the second and third metatarsal shafts. This is new from the 2018 examination. 4. A plantar ulceration is noted in the forefoot. Electronically signed by: Leroy Best M.D. 07/07/2022 3:22 PM Discharge Plan Visit Data Chief Complaint: Swelling/Edema to Extremity Stated Complaint: RIGHT LOWER KNEE, SWELLING AND RED ED Provider: Grady Chappell ED Midlevel Provider: Nirmala Barry Discharge Problem: Cellulitis of right lower extremity, Right foot ulcer Patient Disposition: Being Evaluated by Hospitalist Forms Stand Alone Forms: My [facility] Prescriptions Prescriptions: No Action cholecalciferol (vitamin D3) 50 mcg (2,000 unit) tablet 5,000 units PO HS Saccharomyces boulardii [Florastor] 250 mg capsule 250 mg PO BID Qty: 60 0RF Rx Instructions: swallow whole clonidine HCl 0.1 mg tablet See Rx Instructions .ROUTE .COMPLEX Qty: 180 3RF Dose Instruction: Take 1 tablet by mouth twice daily Rx Instructions: Take 1 tablet by mouth twice daily metoprolol tartrate 25 mg tablet 25 mg PO BID Qty: 180 3RF Jardiance 10 mg tablet 10 mg PO DAILY Qty: 90 3RF torsemide 10 mg tablet 10 mg PO Q3D Qty: 30 1RF Rx Instructions: 10 mg PO every 3 days atorvastatin 80 mg tablet 80 mg PO DAILY Qty: 90 3RF Novolin R Regular U-100 Insuln 100 unit/mL solution See Rx Instructions .ROUTE .COMPLEX Qty: 1 5RF Dose Instruction: INJECT SUBCUTANEOUSLY DAILY WITH MEALS, TOTAL DAILY DOSE 30 UNITS. Rx Instructions: INJECT SUBCUTANEOUSLY DAILY WITH MEALS, TAKES 10 UNITS WITH BREAKFAST, LUNC H, AND DINNER. gabapentin 300 mg capsule 300 mg PO TID Qty: 90 5RF (DME) OneTouch Verio test strips Strip See Rx Instructions miscellaneous .MEDSUPPLY Qty: 100 3RF Rx Instructions: Check every day 1x metformin 1,000 mg tablet 1,000 mg PO BID Qty: 90 3RF lisinopril 40 mg tablet See Rx Instructions .ROUTE .COMPLEX Qty: 90 3RF Dose Instruction: Take 1 tablet by mouth once daily Rx Instructions: Take 1 tablet by mouth once daily insulin glargine [Basaglar KwikPen U-100 Insulin] 100 unit/mL (3 mL) insulin pen 35 unit SQ PM Qty: 15 5RF acetaminophen 650 mg Tablet Extended Release 650 mg PO Q6H PRN (Reason: pain or fever) Rx Instructions: Temp greater than 100 not to exceed 3 grams/24 hour period Give for pain not to exceed 3 grams/24 hour period ascorbic acid (vitamin C) 500 mg Tablet 500 mg PO QAM aspirin 81 mg Tablet,Delayed Release (Dr/Ec) 81 mg PO DIRECTED PRN (Reason: Pain) Caltrate 600 plus D 600 mg (1,500 mg)-800 unit Tablet,Chewable 1 tab PO QAM multivitamin tablet 1 tab PO QAM hydrocodone-acetaminophen 5-325 mg tablet 1 tab PO Q6 PRN (Reason: Pain) Referrals Referrals: Branden Renteria DO [Primary Care Provider] -
[2022-07-07 14:13] LABS: Basophils # (auto) 0.05 K/uL (0-0.2); Basophils % (auto) 0.5 %; Eosinophils # (auto) 0.11 K/uL (0-0.50); Eosinophils % (auto) 1.2 %; Hematocrit (blood only) 45.1 % (42.0-52.0); Hemoglobin 15.4 g/dl (14.0-18.0); Immature Granulocytes # (auto) 0.06 K/uL (0.01-0.20); Immature Granulocytes % (auto) 0.6 %; Lymphocytes # (auto) 1.47 K/uL (1.2-3.4); Lymphocytes % (auto) 15.5 %; Mean Corpuscular Hemoglobin 29.1 pg (25.0-34.0); Mean Corpuscular Hgb Conc 34.1 g/dL (32.0-36.0); Mean Corpuscular Volume 85.3 fL (80.0-100.0); Monocytes # (auto) 0.74 K/uL (0.11-0.59); Monocytes % (auto) 7.8 %; Neutrophils # (auto) 7.06 K/uL (1.40-6.50); Neutrophils % (auto) 74.4 %; Platelet Count 204 K/uL (130-400); RDW Coefficient of Variation 13.2 % (11.5-14.5); RDW Standard Deviation 41.3 fL (36.4-46.3); Red Blood Count 5.29 M/uL (4.70-6.10); White Blood Count 9.49 K/ul (4.8-10.8)
[2022-07-07 14:17] LABS: Calcium 9.1 mg/dl (8.6-10.3); Potassium 4.1 mmol/L (3.5-5.1)
[2022-07-07 14:22] LABS: BUN Creatinine Ratio 16.2 (10-20); Creatinine Clr Calc Pharmacy 171.2 ml/min; Est GFR (African American) 116.2 ml/min; Est GFR (Non-African American) 100.2 ml/min
[2022-07-07] MEDS ORDERED: PIPERACILLIN/TAZOBACTAM 4.5 GM/120 ML BAG IV ONE (14:46)
[2022-07-07] MEDS: DAPTOmycin 450 MG in SYRINGE 0 ML IV SCH (15:12)
--- NOTE | 2022-07-07 15:12 | Ultrasound Report ---
ULTRASOUND RIGHT LOWER EXTREMITY VENOUS CLINICAL HISTORY: Right calf swelling and erythema. COMPARISON STUDY: Right lower extremity venous ultrasound dated 07/24/2017. TECHNIQUE: Real-time, grayscale, and color Doppler sonography of the deep veins of the right lower ex tremity was performed from the inguinal crease to the calf. Compression and augmentation were utilize d. FINDINGS: There is no sonographic evidence of deep venous thrombosis identified in the right lower ex tremity. The common femoral, superficial femoral, and popliteal veins are patent and normally heraclio sible. The greater saphenous vein and the profunda femoris vein at the junction with the common femor al vein are clear. The visualized calf veins are patent. Soft tissue edema is noted in the calf. IMPRESSION: There is no sonographic evidence of deep venous thrombosis identified in the right lower extremity. ACT 112: Negative or not required by law. Electronically signed by: Leroy Best M.D. 07/07/2022 3:11 PM
--- NOTE | 2022-07-07 15:23 | XRay Report ---
RIGHT FOOT 3 VIEWS CLINICAL HISTORY: Plantar ulcer. FINDINGS: 3 views of the right foot are compared to study dated 07/24/2017 and correlated with MRI of the right foot dated 08/07/2018. The skeletal structures are heterogeneously osteopenic. No acute frac ture is seen. No bony erosion or periostitis is identified typical for osteomyelitis. There is chroni c posttraumatic deformity of the fifth metatarsal. Advanced arthritic change and bony overgrowth is s een throughout the foot. Degenerative spurring is noted along the dorsal aspect of the tarsal bones. There are dorsal and plantar calcaneal enthesophytes. Erosive osteoarthritis is suggested at the [place] proximal interphalangeal joint. A thin linear metallic foreign bodies seen in the plantar soft tis sues between the second and third metatarsal shafts. A plantar ulceration is identified in the planta r soft tissues of the forefoot. Diffuse soft tissue edema is noted. There is atherosclerotic calcific ation of the residual arteries IMPRESSION: 1. Diffuse soft tissue edema with no acute bony abnormality identified. 2. Osteopenia with advanced degenerative, chronic posttraumatic, and postsurgical changes as above. 3. A thin linear metallic foreign body is present within the plantar soft tissues between the second and third metatarsal shafts. This is new from the 2018 examination. 4. A plantar ulceration is noted in the forefoot. Electronically signed by: Leroy Best M.D. 07/07/2022 3:22 PM
--- NOTE | 2022-07-07 16:19 | History & Physical Report ---
Date of Service July 07, 2022 Assessment & Plan (1) Cellulitis of right lower extremity: Plan: Presents with acute onset of erythema, warmth, worsening edema of right lower extremity. No leukocytosis or fever, no sepsis. With a history of diabetes and neuropathy of the feet from CMT as well as diabetes With right plantar foot ulcer likely as source of infection Right lower extremity venous Doppler negative for DVT Right foot x-ray negative for osteomyelitis Previous cultures from soft tissue infections have grown MRSA, Enterococcus, group B beta strep, Bacteroides, Klebsiella, Pseudomonas, E. coli -Admit to medical/surgical unit -Start IV Zosyn and daptomycin for broad spectrum coverage given extensive history of organisms on previous cultures -Elevate leg when in bed to reduce swelling, draw demarcation line for comparison -Tylenol as needed for pain -Consult podiatry for foot wound to see if needs debridement -Follow CBC, CMP in the morning (2) Right foot ulcer: Plan: As above Podiatry consulted (3) HTN (hypertension): Plan: Blood pressures mildly elevated on admission Continue home metoprolol, lisinopril, and torsemide Patient is unsure if he still takes clonidine and it has not been filled in 6 months-hold for now (4) Paroxysmal SVT (supraventricular tachycardia): Plan: Continue metoprolol No evidence of such on physical examination (5) Pacemaker: Plan: Placed for complete heart block, functioning appropriately and follows with cardiology routinely (6) Type 2 diabetes mellitus treated with insulin: Plan: Last hemoglobin A1c uncontrolled at 9.0% Follows with endocrinology Continue Lantus 35 units at bedtime, NovoLog supplemental insulin Hold home Jardiance and metformin (7) Diabetic peripheral neuropathy associated with type 2 diabetes mellitus: Plan: Continue gabapentin (8) Wqfnuxm-Ttgwp-Wvxcu syndrome: Plan: Follows with podiatry, has shoes Neuropathy precautions Plan DVT prophylaxis-Lovenox Disposition-admit to medical/surgical unit History of Present Illness Chief Complaint: Leg swelling and pain, redness Primary Care Provider: Branden Renteria, This patient is a 66-year-old male with a history of Emtihye-Dbpfd-Vjlrl, HTN, paroxysmal SVT, PPM for complete heart block, DM 2, LBBB, chronic venous insufficiency, obesity who presents to the ER with worsening pain, redness, and swelling of the right leg. He did not notice that he had an open ulceration on the bottom of his right foot as he has neuropathy from his CMT. He denies fevers or chills at home, no nausea/vomiting, no chest pains or shortness of breath, no abdominal pains or diarrhea. In the ER, his laboratory work-up was fairly unremarkable except for mildly low sodium at 133, vital signs were normal except for mild hypertension. A right foot x-ray showed metallic foreign body and ulceration of the plantar surface, soft tissue edema diffusely of the foot but no osteomyelitis. The right lower extremity venous Doppler was negative for DVT. The patient will be admitted for right lower extremity cellulitis and right diabetic foot ulcer. Allergies Allergy/AdvReac Type Severity Reaction Status Date / Time vancomycin Allergy Mild thrombocyto Verified 06/23/22 10:21 penia Home Medications Medication Instructions Recorded Confirmed Type acetaminophen 650 mg 650 mg PO Q6H PRN pain or fever 02/19/18 07/07/22 History tablet,extended release ascorbic acid (vitamin C) 500 mg 500 mg PO QAM 02/19/18 07/07/22 History tablet aspirin 81 mg tablet,delayed 81 mg PO DIRECTED PRN Pain 02/19/18 07/07/22 History release calcium carbonate 600 mg-vitamin 1 tab PO QAM 02/19/18 07/07/22 History D3 20 mcg (800 unit) chewable tablet (Caltrate 600 plus D) multivitamin 1 tab PO QAM 11/13/18 07/07/22 History cholecalciferol (vitamin D3) 50 5,000 units PO HS 10/03/19 07/07/22 History mcg (2,000 unit) tablet clonidine HCl 0.1 mg tablet See Rx Instructions .Route 05/31/21 07/07/22 Rx .COMPLEX #180 tabs metoprolol tartrate 25 mg tablet 25 mg PO BID #180 tabs 06/14/21 07/07/22 Rx empagliflozin 10 mg tablet 10 mg PO DAILY #90 tabs 08/13/21 07/07/22 Rx (Jardiance) torsemide 10 mg tablet 10 mg PO Q3D #30 tabs 08/31/21 07/07/22 Rx atorvastatin 80 mg tablet 80 mg PO DAILY #90 tabs 12/11/21 07/07/22 Rx insulin regular human 100 unit/mL See Rx Instructions .Route 01/18/22 07/07/22 Rx injection solution (Novolin R .COMPLEX #1 vial Regular U-100 Insulin) gabapentin 300 mg capsule 300 mg PO TID #90 caps 01/25/22 07/07/22 Rx blood sugar diagnostic (OneTouch #100 ea 02/16/22 06/23/22 Rx Verio test strips) metformin 1,000 mg tablet 1,000 mg PO BID diabetes #90 tabs 02/28/22 07/07/22 Rx lisinopril 40 mg tablet See Rx Instructions .Route 03/11/22 07/07/22 Rx .COMPLEX #90 tabs insulin glargine 100 unit/mL (3 35 unit (0.35 mL) subcut PM #15 mL 04/27/22 07/07/22 Rx mL) subcutaneous pen (Basaglar KwikPen U-100 Insulin) Past Med/Surg History Medical History Ambulatory dysfunction uses cane Bilateral lower extremity edema Improving - wound clinic did wrap to right LE 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 Nopleok-Riizl-Hambj syndrome Followed by Wound clinic and [facility] Complete heart block follows Dr. Menon S/p pacemaker placement 2017 Diabetic peripheral neuropathy associated with type 2 diabetes mellitus Followed by Endocrinology To left LE GERD (gastroesophageal reflux disease) Well controlled and stable History of colon polyps History of diabetic ulcer of foot seeing wound clinic History of syncope reason for pacemaker per pt Hyperlipidemia Hypertension LBBB (left bundle branch block) Chronic Paroxysmal SVT (supraventricular tachycardia) Penicillin allergy Status post partial amputation of foot Type 2 diabetes mellitus treated with insulin Glucose controlled per patient Venous stasis ulcer Ventricular tachycardia Surgical History History of arthroscopy of left knee History of arthroscopy of right knee History of colonoscopy with polypectomy 10/13 repeat 10 years History of permanent cardiac pacemaker placement meditronic 2018 @ [facility]--follows with Dr. Menon > last checked few months ago History of tonsillectomy Hx of vasectomy S/P TKR (total knee replacement) (06/26/13) 1 on right knee 1 on left knee Family History Mother Alzheimer disease Depression Seizure Lung disease Hypertension Family hx of colon cancer Colorectal cancer Father Diabetes Depression Kidney disease Leukemia Seizure Lung disease Hypertension Sister Brain tumor Seizure Lung disease Lung cancer Other No family history of adverse response to anesthesia Denies family history of Ovarian cancer Prostate cancer Myocardial infarction Breast cancer Social History Smoking Status: Never smoker Second Hand Exposure: No; Hx Alcohol Use: Yes Hx Substance Use: No Preferred Language: Azerbaijani Communication Ability: Effective Visual Impairment: No Limitations Hearing Ability: Normal Trim Stencil Maker Required: No Beliefs That Will Affect Care: None marital status: marital status details: Current Living Situation: Alone Current Living Situation Comment: Has an apartment with friend current occupational status: previously employed How many Children do You have: 2 Feels Safe at Home: Yes Childhood Exposure to Second-Hand Smoke: Yes caffeine: Yes Dental Care, Regularly: Yes Physical Activity Frequency: Does not Exercise Seatbelt Use: always Sunscreen Use: Yes Assistive Devices: Cane and Wheelchair Review of Systems Review of Systems: All systems reviewed & are unremarkable except as noted in HPI & below Physical Exam Constitutional: WD/WN, vitals as above + obese Eyes: + anicteric sclerae Respiratory: normal respiratory effort, lungs clear to auscultation Cardiovascular: Rate/Rhythm: regular rate and regular rhythm Heart Sounds: no murmur Vessels: dorsalis pedis pulses present (Difficult to palpate through edema but present) Extremities: + edema (2+ edema in the right leg, 1+ edema left leg) Gastrointestinal (Abdomen): normal bowel sounds, soft, nontender, no hepatosplenomegaly Musculoskeletal: Extremities: + extremities abnormal to inspection (Left fourth and fifth toe amputations) Skin: + ulcer (Right plantar aspect fifth metatarsal 1.5 cm ulceration, surrounding callus) and + erythema (Right leg erythema circumferential from foot two thirds of the way up padilla) No drainage from ulcer Neurologic: no focal motor deficits and not confused Psychiatric: A+Ox3, euthymic affect Results & Data Results & Data Vital Signs (Past 12 Hours) Vital Signs Temp Pulse Pulse Resp BP BP Pulse Ox 07/07/22 15:16 70 20 170/77 H 99 07/07/22 13:47 54 L 18 127/68 99 07/07/22 11:37 36.7 C 69 18 154/75 H 97 O2 Del Method 07/07/22 15:16 Room Air 07/07/22 13:47 07/07/22 11:37 Room Air Laboratory Results CBC, BMP, COVID test reviewed Diagnostic Findings Right foot x-ray and right lower extremity venous Doppler reviewed ECG Additional Comments: None performed Code Status & VTE Plan Code Status Full code VTE Prophylaxis Plan VTE Prophylaxis will be ordered: Yes PG Care Time/CCT Total # of Minutes Spent Total Time Spent with Patient: Total time spent is greater than 50% in coordination of care (as documented) at patient's floor/unit and/or counseling patient: Coding Level of Care Code 36045 INT INP/OBS CARE 3/75MIN Diagnoses Cellulitis of right lower extremity L03.115 Right foot ulcer L97.519 HTN (hypertension) I10 Paroxysmal SVT (supraventricular tachycardia) I47.1 Pacemaker Z95.0 Type 2 diabetes mellitus treated with insulin E11.9; Z79.4 Diabetic peripheral neuropathy associated with type 2 diabetes mellitus E11.42 Ftuqhnl-Aumkl-Wmodd syndrome G60.0
--- NOTE | 2022-07-07 18:02 | Podiatry Consultation ---
Date of Consultation July 07, 2022 Assessment & Plan (1) Cellulitis of right lower extremity: Please continue antibiotics also recommend wound care evaluation for dressings patient is to continue to elevate the right lower extremity and rest he would probably also benefit from a surgical shoe although he does have a custom diabetic shoe which may need to be adjusted as well but that can be done in the outpatient setting especially if he is referred to the wound care center they can take a look and see if it needs some further adjustments. Again I will try to see patient tomorrow after my clinic if time does not permit I would recommend he follow-up with me in 1 week. (2) Right foot ulcer: (3) Diabetic peripheral neuropathy associated with type 2 diabetes mellitus: History of Present Illness History of Present Illness Patient is a very pleasant 66-year-old male known to myself last seen in my office on May 25, 2022. Patient has a history of Charcot neuropathy to the right foot and does develop a subsequent callus submetatarsal 5 in relationship to the changes of his foot secondary to Charcot. 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 He notes he developed right lower extremity leg swelling and cellulitis over the course of yesterday and into today. I was consulted on patient today he was still present in the emergency room department as they do not have any beds to send him to I did evaluate him in pod D room 2. He notes that he is feeling well patient is afebrile he does not have significant pain or discomfort. He does have a known history of neuropathy as previously stated. White blood cell count from blood work ordered today in the ED is noted to be within normal limits. His most pressing issue is he developed pretty significant right lower extremity swelling and cellulitis this is most likely secondary to his job and time spent standing. Underlying callus on the plantar aspect of the right foot does have a significant amount of callus tissue and there is a small underlying ulcerated area measuring about 1 cm x 1.5 cm in diameter. Due to patient remaining in the emergency room department I did not do any bedside debridement this will be best done in my office. However I do feel wound dressings would be appropriate to apply likely Aquacel and Allevyn foam but would recommend wound care consult for application of dressings while patient is in the hospital. Per discharge she may benefit from seeing the wound clinic as well. As well as he would benefit from seeing me in my office after d ischarge. This ulceration is stable without significant drainage. And again this is due to the fact that patient has been standing for long periods of his time having subsequent leg swelling and essentially of a callus perforated and has an opening. -If possible tomorrow if patient is in a room after clinic I would like to come over and try to debride some of the callus tissue at bedside again I feel that he would benefit from a topical wound dressing as well as antibiotics for his leg cellulitis. Probably be also beneficial to ensure that he does not have a DVT although likely unlikely, if unable to see patient tomorrow I would recommend that postdischarge I see him in our office next week. -Patient's visit with me on May 25 he had a callus which was debrided I recommended he apply moisturizing lotion he may also need to have his diabetic shoes changed to help better offload the area as he does have Charcot neuropathic arthropathy as well. Allergies Allergy/AdvReac Type Severity Reaction Status Date / Time vancomycin Allergy Mild thrombocyto Verified 06/23/22 10:21 penia Home Medications Medication Instructions Recorded Confirmed Type acetaminophen 650 mg 650 mg PO Q6H PRN pain or fever 02/19/18 07/07/22 History tablet,extended release ascorbic acid (vitamin C) 500 mg 500 mg PO QAM 02/19/18 07/07/22 History tablet aspirin 81 mg tablet,delayed 81 mg PO DIRECTED PRN Pain 02/19/18 07/07/22 History release calcium carbonate 600 mg-vitamin 1 tab PO QAM 02/19/18 07/07/22 History D3 20 mcg (800 unit) chewable tablet (Caltrate 600 plus D) multivitamin 1 tab PO QAM 11/13/18 07/07/22 History cholecalciferol (vitamin D3) 50 5,000 units PO HS 10/03/19 07/07/22 History mcg (2,000 unit) tablet clonidine HCl 0.1 mg tablet See Rx Instructions .Route 05/31/21 07/07/22 Rx .COMPLEX #180 tabs metoprolol tartrate 25 mg tablet 25 mg PO BID #180 tabs 06/14/21 07/07/22 Rx empagliflozin 10 mg tablet 10 mg PO DAILY #90 tabs 08/13/21 07/07/22 Rx (Jardiance) torsemide 10 mg tablet 10 mg PO Q3D #30 tabs 08/31/21 07/07/22 Rx atorvastatin 80 mg tablet 80 mg PO DAILY #90 tabs 12/11/21 07/07/22 Rx insulin regular human 100 unit/mL See Rx Instructions .Route 01/18/22 07/07/22 Rx injection solution (Novolin R .COMPLEX #1 vial Regular U-100 Insulin) gabapentin 300 mg capsule 300 mg PO TID #90 caps 01/25/22 07/07/22 Rx blood sugar diagnostic (OneTouch #100 ea 02/16/22 06/23/22 Rx Verio test strips) metformin 1,000 mg tablet 1,000 mg PO BID diabetes #90 tabs 02/28/22 07/07/22 Rx lisinopril 40 mg tablet See Rx Instructions .Route 03/11/22 07/07/22 Rx .COMPLEX #90 tabs insulin glargine 100 unit/mL (3 35 unit (0.35 mL) subcut PM #15 mL 04/27/22 07/07/22 Rx mL) subcutaneous pen (Basaglar KwikPen U-100 Insulin) Patient History Medical History Ambulatory dysfunction uses cane Bilateral lower extremity edema Improving - wound clinic did wrap to right LE 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 Pahahmp-Wlomr-Hnaey syndrome Followed by Wound clinic and [facility] Complete heart block follows Dr. Menon S/p pacemaker placement 2017 Diabetic peripheral neuropathy associated with type 2 diabetes mellitus Followed by Endocrinology To left LE GERD (gastroesophageal reflux disease) Well controlled and stable History of colon polyps History of diabetic ulcer of foot seeing wound clinic History of syncope reason for pacemaker per pt Hyperlipidemia Hypertension LBBB (left bundle branch block) Chronic Paroxysmal SVT (supraventricular tachycardia) Penicillin allergy Status post partial amputation of foot Type 2 diabetes mellitus treated with insulin Glucose controlled per patient Venous stasis ulcer Ventricular tachycardia Surgical History History of arthroscopy of left knee History of arthroscopy of right knee History of colonoscopy with polypectomy 10/13 repeat 10 years History of permanent cardiac pacemaker placement meditronic 2018 @ [facility]--follows with Dr. Menon > last checked few months ago History of tonsillectomy Hx of vasectomy S/P TKR (total knee replacement) (06/26/13) 1 on right knee 1 on left knee Family History Mother Alzheimer disease Depression Seizure Lung disease Hypertension Family hx of colon cancer Colorectal cancer Father Diabetes Depression Kidney disease Leukemia Seizure Lung disease Hypertension Sister Brain tumor Seizure Lung disease Lung cancer Other No family history of adverse response to anesthesia Denies family history of Ovarian cancer Prostate cancer Myocardial infarction Breast cancer Social History Smoking Status: Never smoker Second Hand Exposure: No; Hx Alcohol Use: Yes Hx Substance Use: No Preferred Language: Faroese Communication Ability: Effective Visual Impairment: No Limitations Hearing Ability: Normal Industrial 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: No Beliefs That Will Affect Care: None marital status: marital status details: Current Living Situation: Alone Current Living Situation Comment: Has an apartment with friend current occupational status: previously employed How many Children do You have: 2 Feels Safe at Home: Yes Childhood Exposure to Second-Hand Smoke: Yes caffeine: Yes Dental Care, Regularly: Yes Physical Activity Frequency: Does not Exercise Seatbelt Use: always Sunscreen Use: Yes Assistive Devices: Cane and Wheelchair Physical Exam 2 Skin: Difficult to palpate pulses although patient did have vascular studies for me in the office he is known to have lower extremity leg swelling and a history of venous insufficiency there is significant erythema and swelling to the right lower extremity secondary to his cellulitis. There is significant callus tissue present on the plantar aspect submetatarsal 5 right foot with a small ulcerated area underlying the callus no debridement performed will recommend once patient gets admitted to his bed in the hospital the wound care centimeters to apply a dressing and likely would require follow-up with wound care as well as myself. Results & Data Vital Signs (Past 12 Hours) Vital Signs Temp Pulse Pulse Resp BP BP Pulse Ox 07/07/22 17:33 68 20 162/82 H 96 07/07/22 15:16 70 20 170/77 H 99 07/07/22 13:47 54 L 18 127/68 99 07/07/22 11:37 36.7 C 69 18 154/75 H 97 O2 Del Method 07/07/22 17:33 Room Air 07/07/22 15:16 Room Air 07/07/22 13:47 07/07/22 11:37 Room Air
[2022-07-07] MEDS ORDERED: GLUCOSE 40% GEL 15 GM TUBE PO PRN (19:01)
[2022-07-07] MEDS ORDERED: ONDANSETRON INJ 2 MG/ML 2 ML VIAL IV PRN (19:01)
[2022-07-07] MEDS ORDERED: GLUCOSE 10 TAB/TUBE PO PRN (19:01)
[2022-07-07] MEDS ORDERED: CARBOHYDRATES FOR HYPOGLYCEMIA PO PRN (19:01)
[2022-07-07] MEDS ORDERED: POLYETHYLENE (MIRALAX) 17 GM PACK PO PRN (19:01)
[2022-07-07] MEDS ORDERED: FLUTICASONE PROPIONATE NA SPR 16 GM BTL NAE PRN (19:01)
[2022-07-07] MEDS ORDERED: DEXTROSE 50% 50 ML SYRINGE IV PRN (19:01)
[2022-07-07] MEDS ORDERED: GLUCAGON FOR INJ 1 MG VIAL SQ PRN (19:01)
[2022-07-07] MEDS ORDERED: ASPIRIN 81 MG ECTAB PO PRN (19:01)
[2022-07-07] MEDS ORDERED: ACETAMINOPHEN 325 MG TAB PO PRN (19:25)
[2022-07-07] MEDS: PIPERACILLIN/TAZOBACTAM 3.375 GM in DEXTROSE 5% 100 ML IV SCH (19:55)
[2022-07-07] MEDS ORDERED: LANTUS PER UNIT CHARGE SQ SCH (21:00)
[2022-07-07] MEDS ORDERED: cloNIDine HCL 0.1 MG TAB PO SCH (21:00)
[2022-07-07] MEDS: METOPROLOL TARTRATE 25 MG TAB PO SCH (21:04)
[2022-07-07] MEDS: CHOLECALCIFEROL 5,000 UNITS 125 MCG TAB PO SCH (21:04)
[2022-07-07] MEDS: TORSEMIDE 10 MG TAB PO SCH (21:04)
[2022-07-07] MEDS: ENOXAPARIN INJ 40 MG/0.4 ML SYR SQ SCH (21:05)
[2022-07-07] MEDS: GABAPENTIN 300 MG CAP PO SCH (21:05)
[2022-07-07] MEDS: INSULIN ASPART PER UNIT CHARGE SC SCH ×2 (21:12)
[2022-07-08] MEDS: PIPERACILLIN/TAZOBACTAM 3.375 GM in DEXTROSE 5% 100 ML IV SCH ×3 (04:09→19:44)
[2022-07-08] MEDS: CALCIUM 600MG + VIT D 400 IU TAB PO SCH (08:51)
[2022-07-08] MEDS: GABAPENTIN 300 MG CAP PO SCH ×3 (08:51→20:29)
[2022-07-08] MEDS: MULTIVITAMIN TAB PO SCH (08:52)
[2022-07-08] MEDS: METOPROLOL TARTRATE 25 MG TAB PO SCH ×2 (08:52→20:29)
[2022-07-08] MEDS: lisinopril 40 MG TAB PO SCH (08:52)
[2022-07-08] MEDS: INSULIN ASPART PER UNIT CHARGE SC SCH ×4 (08:53→20:33)
[2022-07-08 09:18] LABS: Basophils # (auto) 0.04 K/uL (0-0.2); Basophils % (auto) 0.5 %; Eosinophils # (auto) 0.13 K/uL (0-0.50); Eosinophils % (auto) 1.5 %; Hematocrit (blood only) 45.7 % (42.0-52.0); Hemoglobin 15.9 g/dl (14.0-18.0); Immature Granulocytes # (auto) 0.07 K/uL (0.01-0.20); Immature Granulocytes % (auto) 0.8 %; Lymphocytes # (auto) 1.44 K/uL (1.2-3.4); Lymphocytes % (auto) 16.3 %; Mean Corpuscular Hgb Conc 34.8 g/dL (32.0-36.0); Mean Corpuscular Volume 83.4 fL (80.0-100.0); Monocytes # (auto) 0.62 K/uL (0.11-0.59); Neutrophils # (auto) 6.56 K/uL (1.40-6.50); Neutrophils % (auto) 73.9 %; Platelet Count 237 K/uL (130-400); RDW Coefficient of Variation 13.3 % (11.5-14.5); RDW Standard Deviation 40.5 fL (36.4-46.3); Red Blood Count 5.48 M/uL (4.70-6.10); White Blood Count 8.86 K/ul (4.8-10.8)
[2022-07-08 09:33] LABS: Albumin Globulin Ratio 1.3 (0.9-2); Albumin Level 3.9 gm/dl (3.4-5.0); BUN Creatinine Ratio 14.1 (10-20); Bilirubin,Total 0.9 mg/dl (0.2-1.0); Calcium 9.1 mg/dl (8.6-10.3); Creatinine Clr Calc Pharmacy 160.7 ml/min; Est GFR (African American) 114.1 ml/min; Est GFR (Non-African American) 98.5 ml/min; Globulin 3.1 gm/dl (2.5-4.0); Magnesium 1.9 mg/dl (1.7-2.4); Potassium 4.2 mmol/L (3.5-5.1)
--- NOTE | 2022-07-08 15:03 | Podiatry Consultation ---
Date of Consultation July 08, 2022 Assessment & Plan (1) Cellulitis of right lower extremity: Please continue antibiotics also recommend wound care evaluation for dressings patient is to continue to elevate the right lower extremity and rest he would probably also benefit from a surgical shoe although he does have a custom diabetic shoe which may need to be adjusted as well but that can be done in the outpatient setting especially if he is referred to the wound care center post d/c - debridement performed bedside as stated. - will follow up with patient Monday if still in house, if d/c over the weekend will see in my office outpatient. (2) Right foot ulcer: (3) Diabetic peripheral neuropathy associated with type 2 diabetes mellitus: History of Present Illness Attending Physician: Lillian Zepeda MD History of Present Illness Is a very pleasant 66-year-old male presenting today for follow-up evaluation. Patient was seen at bedside. He notes that he is resting comfortably feeling well he had his leg elevated. He noted that wound nurse was in and placed a dressing on the foot. Allergies Allergy/AdvReac Type Severity Reaction Status Date / Time vancomycin Allergy Mild thrombocyto Verified 06/23/22 10:21 penia Home Medications Medication Instructions Recorded Confirmed Type acetaminophen 650 mg 650 mg PO Q6H PRN pain or fever 02/19/18 07/07/22 History tablet,extended release ascorbic acid (vitamin C) 500 mg 500 mg PO QAM 02/19/18 07/07/22 History tablet aspirin 81 mg tablet,delayed 81 mg PO DIRECTED PRN Pain 02/19/18 07/07/22 History release calcium carbonate 600 mg-vitamin 1 tab PO QAM 02/19/18 07/07/22 History D3 20 mcg (800 unit) chewable tablet (Caltrate 600 plus D) multivitamin 1 tab PO QAM 11/13/18 07/07/22 History cholecalciferol (vitamin D3) 50 5,000 units PO HS 10/03/19 07/07/22 History mcg (2,000 unit) tablet clonidine HCl 0.1 mg tablet See Rx Instructions .Route 05/31/21 07/07/22 Rx .COMPLEX #180 tabs metoprolol tartrate 25 mg tablet 25 mg PO BID #180 tabs 06/14/21 07/07/22 Rx empagliflozin 10 mg tablet 10 mg PO DAILY #90 tabs 08/13/21 07/07/22 Rx (Jardiance) torsemide 10 mg tablet 10 mg PO Q3D #30 tabs 08/31/21 07/07/22 Rx atorvastatin 80 mg tablet 80 mg PO DAILY #90 tabs 12/11/21 07/07/22 Rx insulin regular human 100 unit/mL See Rx Instructions .Route 01/18/22 07/07/22 Rx injection solution (Novolin R .COMPLEX #1 vial Regular U-100 Insulin) gabapentin 300 mg capsule 300 mg PO TID #90 caps 01/25/22 07/07/22 Rx blood sugar diagnostic (OneTouch #100 ea 02/16/22 06/23/22 Rx Verio test strips) metformin 1,000 mg tablet 1,000 mg PO BID diabetes #90 tabs 02/28/22 07/07/22 Rx lisinopril 40 mg tablet See Rx Instructions .Route 03/11/22 07/07/22 Rx .COMPLEX #90 tabs insulin glargine 100 unit/mL (3 35 unit (0.35 mL) subcut PM #15 mL 04/27/22 07/07/22 Rx mL) subcutaneous pen (Basaglar KwikPen U-100 Insulin) Patient History Medical History Ambulatory dysfunction uses cane Bilateral lower extremity edema Improving - wound clinic did wrap to right LE 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 Xbxaezq-Lnhpl-Abuup syndrome Followed by Wound clinic and [facility] Complete heart block follows Dr. Menon S/p pacemaker placement 2017 Diabetic peripheral neuropathy associated with type 2 diabetes mellitus Followed by Endocrinology To left LE GERD (gastroesophageal reflux disease) Well controlled and stable History of colon polyps History of diabetic ulcer of foot seeing wound clinic History of syncope reason for pacemaker per pt Hyperlipidemia Hypertension LBBB (left bundle branch block) Chronic Paroxysmal SVT (supraventricular tachycardia) Penicillin allergy Status post partial amputation of foot Type 2 diabetes mellitus treated with insulin Glucose controlled per patient Venous stasis ulcer Ventricular tachycardia Surgical History History of arthroscopy of left knee History of arthroscopy of right knee History of colonoscopy with polypectomy 10/13 repeat 10 years History of permanent cardiac pacemaker placement meditronic 2017 @ [facility]--follows with Dr. Menon > last checked few months ago History of tonsillectomy Hx of vasectomy S/P TKR (total knee replacement) (06/26/13) 1 on right knee 1 on left knee Family History Mother Alzheimer disease Depression Seizure Lung disease Hypertension Family hx of colon cancer Colorectal cancer Father Diabetes Depression Kidney disease Leukemia Seizure Lung disease Hypertension Sister Brain tumor Seizure Lung disease Lung cancer Other No family history of adverse response to anesthesia Denies family history of Ovarian cancer Prostate cancer Myocardial infarction Breast cancer Social History Smoking Status: Never smoker Second Hand Exposure: No; Do You Dip or Chew Tobacco: No; Hx Alcohol Use: No Hx Substance Use: No Preferred Language: Cuban Communication Ability: Effective Visual Impairment: No Limitations Hearing Ability: Normal Quality Assurance Lab Technician Required: No Beliefs That Will Affect Care: None marital status: marital status details: Current Living Situation: Alone Current Living Situation Comment: Has an apartment with friend current occupational status: previously employed How many Children do You have: 2 Feels Safe at Home: Yes Safety Concerns: Feels Safe At This Time Childhood Exposure to Second-Hand Smoke: Yes caffeine: Yes Dental Care, Regularly: Yes Physical Activity Frequency: Does not Exercise Seatbelt Use: always Sunscreen Use: Yes Assistive Devices: Cane Physical Exam Skin: Wound care dressings were removed, photo obtained there was significant callus tissue overlying an ulcerated area that is centrally perforated open due to the pressure from standing and pressure from the callus. All callus tissue was removed to uncover about a 4 cm x 4 cm area. This most central part of the area had an ulcerated portion with fully granular tissue there was scant yellow tissue present along the lateral side of the ulceration there is no acute erythema surrounding the ulcer. There was some mild minimal serous drainage on dressings which consisted of Aquacel silver. Debridement performed with a #15 blade and forceps of surrounding subcutaneous tissue no bleeding noted. Dressings were reapplied consisting of Aquacel silver abdominal pad and gauze. Patient should continue with wound care dressings. Results & Data Vital Signs (Past 12 Hours) Vital Signs Temp Pulse Pulse Resp BP Pulse Ox O2 Del Method 07/08/22 11:03 Room Air 07/08/22 08:10 37.3 C 64 16 168/72 H 97 Room Air 07/08/22 07:13 36.7 C 63 18 146/81 H 98 Room Air
[2022-07-08] MEDS: DAPTOmycin 450 MG in SYRINGE 0 ML IV SCH (15:26)
--- NOTE | 2022-07-08 16:57 | Hospitalist Progress Note ---
Date of Service July 08, 2022 Assessment & Plan (1) Cellulitis of right lower extremity: Plan: Presents with acute onset of erythema, warmth, worsening edema of right lower extremity. No leukocytosis or fever, no sepsis. With a history of diabetes and neuropathy of the feet from CMT as well as diabetes With right plantar foot ulcer likely as source of infection Right lower extremity venous Doppler negative for DVT Right foot x-ray negative for osteomyelitis Previous cultures from soft tissue infections have grown MRSA, Enterococcus, group B beta strep, Bacteroides, Klebsiella, Pseudomonas, E. coli BCxs remain NGTD Podiatry performed callus and ulcer debridement at bedside on 07/08-dressing in place as per Wound care recommendations Erythema of leg starting to improve Does have pacer in place, right TKA -cont IV Zosyn and daptomycin for broad spectrum coverage given extensive history of organisms on previous cultures -Elevate leg when in bed to reduce swelling, follow demarcation line for comparison -Tylenol as needed for pain -Consult podiatry appreciated -Follow CBC, CMP, CRP in the morning (2) Right foot ulcer: Plan: As above Podiatry consulted (3) HTN (hypertension): Plan: Blood pressures controlled Continue home metoprolol, lisinopril, and torsemide Patient is unsure if he still takes clonidine and it has not been filled in 6 months-hold for now as BPs controlled. (4) Paroxysmal SVT (supraventricular tachycardia): Plan: Continue metoprolol No evidence of such on physical examination (5) Pacemaker: Plan: Placed for complete heart block, functioning appropriately and follows with cardiology routinely (6) Type 2 diabetes mellitus treated with insulin: Plan: Last hemoglobin A1c uncontrolled at 9.0% recently Follows with endocrinology With hyperglycemia here Increase Lantus to 40 units at bedtime, tighten down NovoLog supplemental insulin Hold home Jardiance and metformin (7) Diabetic peripheral neuropathy associated with type 2 diabetes mellitus: Plan: Continue gabapentin (8) Vjxtuni-Rtlnj-Pvpwy syndrome: Plan: Follows with podiatry, has shoes Neuropathy precautions Plan DVT prophylaxis-Lovenox Disposition-continued stay medical/surgical unit. Is independent, no PT consult needed Admission and Anticipated Discharge Date Admission Date: July 07, 2022 Subjective Pt feels his leg redness is improving slightly. No other complaints. No CP, SOB, nausea, diarrhea. Physical Exam Constitutional: WD/WN, vitals as above + obese Eyes: + anicteric sclerae Respiratory: normal respiratory effort, lungs clear to auscultation Cardiovascular: Rate/Rhythm: regular rate and regular rhythm Heart Sounds: no murmur Vessels: dorsalis pedis pulses present (Difficult to palpate through edema but present) Extremities: + edema (2+ edema in the right leg, 1+ edema left leg) Gastrointestinal (Abdomen): normal bowel sounds, soft, nontender, no hepatosplenomegaly Musculoskeletal: Extremities: + extremities abnormal to inspection (Left fourth and fifth toe amputations) Skin: + ulcer (Right foot now in dressing s/p debridement) and + erythema (Right leg erythema improving from line,not as dark red or warm) Neurologic: no focal motor deficits and not confused Psychiatric: A+Ox3, euthymic affect Results & Data Results & Data Vital Signs (Past 12 Hours) Vital Signs Temp Pulse Pulse Resp BP Pulse Ox O2 Del Method 07/08/22 15:02 36.7 C 56 L 18 136/76 99 Room Air 07/08/22 11:03 Room Air 07/08/22 08:10 37.3 C 64 16 168/72 H 97 Room Air 07/08/22 07:13 36.7 C 63 18 146/81 H 98 Room Air Laboratory Results CBC, BMP, LFTs reviewed BCxs NGTD PG Care Time/CCT Total # of Minutes Spent Total Time Spent with Patient: Total time spent is greater than 50% in coordination of care (as documented) at patient's floor/unit and/or counseling patient: Coding Level of Care Code 15211 SUB INP/OBS CARE 2/35MIN Diagnoses Cellulitis of right lower extremity L03.115 Right foot ulcer L97.519 HTN (hypertension) I10 Paroxysmal SVT (supraventricular tachycardia) I47.1 Pacemaker Z95.0 Type 2 diabetes mellitus treated with insulin E11.9; Z79.4 Diabetic peripheral neuropathy associated with type 2 diabetes mellitus E11.42 Lxtwhgd-Atydp-Wlyqc syndrome G60.0
[2022-07-08] MEDS: ENOXAPARIN INJ 40 MG/0.4 ML SYR SQ SCH (20:29)
[2022-07-08] MEDS: CHOLECALCIFEROL 5,000 UNITS 125 MCG TAB PO SCH (20:29)
[2022-07-08] MEDS ORDERED: LANTUS PER UNIT CHARGE SQ SCH (21:00)
[2022-07-09] MEDS: PIPERACILLIN/TAZOBACTAM 3.375 GM in DEXTROSE 5% 100 ML IV SCH ×2 (04:21→12:41)
[2022-07-09 06:27] LABS: Basophils # (auto) 0.04 K/uL (0-0.2); Basophils % (auto) 0.5 %; Eosinophils # (auto) 0.14 K/uL (0-0.50); Eosinophils % (auto) 1.8 %; Hematocrit (blood only) 43.2 % (42.0-52.0); Hemoglobin 15.1 g/dl (14.0-18.0); Immature Granulocytes # (auto) 0.04 K/uL (0.01-0.20); Immature Granulocytes % (auto) 0.5 %; Lymphocytes # (auto) 1.41 K/uL (1.2-3.4); Lymphocytes % (auto) 18.6 %; Mean Corpuscular Hemoglobin 29.4 pg (25.0-34.0); Mean Corpuscular Volume 84.2 fL (80.0-100.0); Mean Platelet Volume 9.7 fL (9.4-12.4); Monocytes # (auto) 0.63 K/uL (0.11-0.59); Monocytes % (auto) 8.3 %; Neutrophils # (auto) 5.32 K/uL (1.40-6.50); Neutrophils % (auto) 70.3 %; Platelet Count 196 K/uL (130-400); RDW Coefficient of Variation 13.2 % (11.5-14.5); RDW Standard Deviation 40.3 fL (36.4-46.3); Red Blood Count 5.13 M/uL (4.70-6.10); White Blood Count 7.58 K/ul (4.8-10.8)
[2022-07-09 06:35] LABS: Albumin Globulin Ratio 1.2 (0.9-2); Albumin Level 3.6 gm/dl (3.4-5.0); BUN Creatinine Ratio 17.7 (10-20); Bilirubin,Total 0.7 mg/dl (0.2-1.0); Calcium 8.9 mg/dl (8.6-10.3); Creatinine Clr Calc Pharmacy 144.5 ml/min; Est GFR (African American) 109.2 ml/min; Est GFR (Non-African American) 94.2 ml/min; Globulin 2.9 gm/dl (2.5-4.0); Potassium 4.1 mmol/L (3.5-5.1); Total Protein 6.5 gm/dl (6.0-8.3)
[2022-07-09] MEDS: MULTIVITAMIN TAB PO SCH (08:39)
[2022-07-09] MEDS: METOPROLOL TARTRATE 25 MG TAB PO SCH ×2 (08:40→19:43)
[2022-07-09] MEDS: lisinopril 40 MG TAB PO SCH (08:41)
[2022-07-09] MEDS: GABAPENTIN 300 MG CAP PO SCH ×3 (08:42→19:41)
[2022-07-09] MEDS: CALCIUM 600MG + VIT D 400 IU TAB PO SCH (08:42)
[2022-07-09] MEDS: INSULIN ASPART PER UNIT CHARGE SC SCH ×4 (08:53→21:04)
[2022-07-09] MEDS: CIPROFLOXACIN 250 MG TAB PO SCH (15:46)
--- NOTE | 2022-07-09 18:03 | Hospitalist Progress Note ---
Date of Service July 09, 2022 Assessment & Plan (1) Cellulitis of right lower extremity: Plan: Presents with acute onset of erythema, warmth, worsening edema of right lower extremity. No leukocytosis or fever, no sepsis. With a history of diabetes and neuropathy of the feet from CMT as well as diabetes With right plantar foot ulcer likely as source of infection Right lower extremity venous Doppler negative for DVT Right foot x-ray negative for osteomyelitis Previous cultures from soft tissue infections have grown MRSA, Enterococcus, group B beta strep, Bacteroides, Klebsiella, Pseudomonas, E. coli BCxs remain NGTD Podiatry performed callus and ulcer debridement at bedside on 07/08-dressing in place as per Wound care recommendations Erythema of leg starting to improve Does have pacer in place, right TKA -Patient was initially placed on IV Zosyn and daptomycin for broad spectrum coverage given extensive history of organisms on previous cultures --agree with providing MRSA and Pseudomonal coverage, but would like to transition patient to an oral regimen. Linezolid and Cipro ordered. -Elevate leg when in bed to reduce swelling, follow demarcation line for comparison -Tylenol as needed for pain -Consult podiatry appreciated -Follow CBC, CMP, CRP in the morning (2) Right foot ulcer: Plan: As above Podiatry consulted (3) HTN (hypertension): Plan: Blood pressures controlled Continue home metoprolol, lisinopril, and torsemide Patient is unsure if he still takes clonidine and it has not been filled in 6 months-hold for now as BPs controlled. (4) Paroxysmal SVT (supraventricular tachycardia): Plan: Continue metoprolol No evidence of such on physical examination (5) Pacemaker: Plan: Placed for complete heart block, functioning appropriately and follows with cardiology routinely (6) Type 2 diabetes mellitus treated with insulin: Plan: Last hemoglobin A1c uncontrolled at 9.0% recently Follows with endocrinology Increase Lantus to 45 units at bedtime, tighten down NovoLog supplemental insulin Hold home Jardiance and metformin - Patient seems to be under the misunderstanding that his infection is causing his A1c to be elevated -- however upon my chart review his A1c has been above goal since 2019 - I do think he would be a good candidate for Trulicity as an outpatient. I will send in starting dose to pharmacy upon his discharge - As for his Jardiance, given his recurrent foot ulcer infections, I would like to discontinue use moving forward (ie increased risk of foot amputations in patients using SGLT2i) (7) Diabetic peripheral neuropathy associated with type 2 diabetes mellitus: Plan: Continue gabapentin (8) Cmubnrt-Ebevd-Nzdgt syndrome: Plan: Follows with podiatry, has shoes Neuropathy precautions Plan DVT prophylaxis-Lovenox Disposition-continued stay medical/surgical unit. Is independent, no PT consult needed. Admission and Anticipated Discharge Date Admission Date: July 07, 2022 Subjective Patient states he is doing much better -- he is frustrated with repeat foot infections. He says his father lost his foot due to recurrent diabetic ulcers Review of Systems Review of Systems: All systems reviewed & are unremarkable except as noted in HPI & below Physical Exam Physical Exam: Constitutional:L WD/WN, vitals as a davida + obese Eyes: + anicteric sclera e Respiratory: normal respiratory effort, lungs alyce ar to auscultation Cardiovascular:L Rate/Rhythm: regul ar rate and regula r rhythm Heart So unds: no murmur V essels: dorsalis p jolie pulses presen t (Difficult to pa lpate through octaviano a but present) Ex tremities: + edema (2+ edema in the right leg, 1+ octaviano a left leg) Gastrointestinal ( Abdomen): normal bowel sound s, soft, nontender , no hepatosplenom egaly Musculoskeletal: Extremities: + ext remities abnormal to inspection (Lef t fourth and fifth toe amputations) Skin: + ulcer (Right bita t now in dressing s/p debridement) a nd + erythema (Rig ht leg erythema im proving from line, not as dark red or warm) Neurologic: no focal motor def icits and not conf used Psychiatric: A+Ox3, euthymic af fect Results & Data Results & Data Vital Signs (Past 12 Hours) Vital Signs Temp Pulse Pulse Resp BP BP Pulse Ox 07/09/22 15:28 36.5 C 54 L 16 146/88 H 99 07/09/22 08:10 07/09/22 07:46 36.5 C 66 16 134/72 94 O2 Del Method 07/09/22 15:28 Room Air 07/09/22 08:10 Room Air 07/09/22 07:46 Room Air PG Care Time/CCT Total # of Minutes Spent Total Time Spent with Patient: Total time spent is greater than 50% in coordination of care (as documented) at patient's floor/unit and/or counseling patient: [place] [address] SUB INP/OBS CARE MIN Patient Type Established Diagnoses Cellulitis of right lower extremity L03.115 Right foot ulcer L97.519 HTN (hypertension) I10 Paroxysmal SVT (supraventricular tachycardia) I47.1 Pacemaker Z95.0 Type 2 diabetes mellitus treated with insulin E11.9; Z79.4 Diabetic peripheral neuropathy associated with type 2 diabetes mellitus E11.42 Smucxzk-Msgba-Fcobq syndrome G60.0
[2022-07-09] MEDS: ENOXAPARIN INJ 40 MG/0.4 ML SYR SQ SCH (19:40)
[2022-07-09] MEDS: CHOLECALCIFEROL 5,000 UNITS 125 MCG TAB PO SCH (19:41)
[2022-07-09] MEDS: LINEZOLID 600 MG TAB PO SCH (20:07)
[2022-07-09] MEDS ORDERED: LANTUS PER UNIT CHARGE SQ SCH (21:00)
[2022-07-10] MEDS: CIPROFLOXACIN 250 MG TAB PO SCH ×2 (03:12→13:28)
[2022-07-10 06:13] LABS: Basophils # (auto) 0.05 K/uL (0-0.2); Basophils % (auto) 0.6 %; Eosinophils # (auto) 0.17 K/uL (0-0.50); Eosinophils % (auto) 2.2 %; Hematocrit (blood only) 46.7 % (42.0-52.0); Hemoglobin 15.9 g/dl (14.0-18.0); Immature Granulocytes # (auto) 0.05 K/uL (0.01-0.20); Immature Granulocytes % (auto) 0.6 %; Lymphocytes # (auto) 2.03 K/uL (1.2-3.4); Lymphocytes % (auto) 26.1 %; Mean Corpuscular Hemoglobin 28.9 pg (25.0-34.0); Mean Corpuscular Volume 84.8 fL (80.0-100.0); Mean Platelet Volume 9.9 fL (9.4-12.4); Monocytes # (auto) 0.55 K/uL (0.11-0.59); Monocytes % (auto) 7.1 %; Neutrophils # (auto) 4.92 K/uL (1.40-6.50); Neutrophils % (auto) 63.4 %; Platelet Count 225 K/uL (130-400); RDW Coefficient of Variation 13.2 % (11.5-14.5); RDW Standard Deviation 41.1 fL (36.4-46.3); Red Blood Count 5.51 M/uL (4.70-6.10); White Blood Count 7.77 K/ul (4.8-10.8)
[2022-07-10] MEDS: CALCIUM 600MG + VIT D 400 IU TAB PO SCH (08:27)
[2022-07-10] MEDS: GABAPENTIN 300 MG CAP PO SCH ×2 (08:28→13:29)
[2022-07-10] MEDS: LINEZOLID 600 MG TAB PO SCH (08:28)
[2022-07-10] MEDS: lisinopril 40 MG TAB PO SCH (08:29)
[2022-07-10] MEDS: METOPROLOL TARTRATE 25 MG TAB PO SCH (08:30)
[2022-07-10] MEDS: TORSEMIDE 10 MG TAB PO SCH (08:31)
[2022-07-10] MEDS: INSULIN ASPART PER UNIT CHARGE SC SCH ×2 (08:41→12:31)
[2022-07-10] MEDS: MULTIVITAMIN TAB PO SCH (09:37)
--- NOTE | 2022-07-10 21:28 | Discharge Summary ---
Date of Service July 10, 2022 Admission HPI Per Admitting Provider This patient is a 66-year-old male with a history of Hajyjrc-Mcgon-Dvscc, HTN, paroxysmal SVT, PPM for complete heart block, DM 2, LBBB, chronic venous insufficiency, obesity who presents to the ER with worsening pain, redness, and swelling of the right leg. He did not notice that he had an open ulceration on the bottom of his right foot as he has neuropathy from his CMT. He denies fevers or chills at home, no nausea/vomiting, no chest pains or shortness of breath, no abdominal pains or diarrhea. In the ER, his laboratory work-up was fairly unremarkable except for mildly low sodium at 133, vital signs were normal except for mild hypertension. A right foot x-ray showed metallic foreign body and ulceration of the plantar surface, soft tissue edema diffusely of the foot but no osteomyelitis. The right lower extremity venous Doppler was negative for DVT. The patient will be admitted for right lower extremity cellulitis and right diabetic foot ulcer. Admission Exam Per Admitting Provider Constitutional: WD/WN, vitals as above + obese Eyes: + anicteric sclerae Respiratory: normal respiratory effort, lungs clear to auscultation Cardiovascular: Rate/Rhythm: regular rate and regular rhythm Heart Sounds: no murmur Vessels: dorsalis pedis pulses present (Difficult to palpate through edema but present) Extremities: + edema (2+ edema in the right leg, 1+ edema left leg) Gastrointestinal (Abdomen): normal bowel sounds, soft, nontender, no hepatosplenomegaly Musculoskeletal: Extremities: + extremities abnormal to inspection (Left fourth and fifth toe amputations) Skin: + ulcer (Right plantar aspect fifth metatarsal 1.5 cm ulceration, surrounding callus) and + erythema (Right leg erythema circumferential from foot two thirds of the way up padilla)No drainage from ulcer Neurologic: no focal motor deficits and not confused Psychiatric: A+Ox3, euthymic affect Principal Diagnosis Infected diabetic foot ulcer with right lower extremity cellulitis Discharge Exam Constitutional:WD/WN, vitals as above + obese Eyes:+ anicteric sclera Respiratory:normal respiratory effort, lungs clear to auscultation Cardiovascular:Rate/Rhythm: regular rate and regular rhythm Heart Sounds: no murmur Vessels: dorsalis pedis pulses present (Difficult to palpate through edema but present) Extremities: + edema (2+ edema in the right leg, 1+ edema left leg) Gastrointestinal: normal bowel sounds, soft, nontender, no hepatosplenomegaly Musculoskeletal:Extremities: + extremities abnormal to inspection (Left fourth and fifth toe amputations) Skin:+ ulcer (Right foot now in dressing s/p debridement) and + erythema (Right leg erythema receding from line, not as dark red or warm) Neurologic:no focal motor deficits and not confused Psychiatric:A+Ox3, euthymic affect Discharge Data Allergies Allergy/AdvReac Type Severity Reaction Status Date / Time vancomycin Allergy Mild thrombocyto Verified 06/23/22 10:21 penia Consultations 07/07/22 16:04 ED Decision to Admit Stat 07/07/22 16:17 Consult Podiatry Routine Ordered Studies 07/07/22 13:11 US venous doppler LE RT Stat Hospital Course (1) Cellulitis of right lower extremity: Presents with acute onset of erythema, warmth, worsening edema of right lower extremity. No leukocytosis or fever, no sepsis. With a history of diabetes and neuropathy of the feet from CMT as well as diabetes With right plantar foot ulcer likely as source of infection Right lower extremity venous Doppler negative for DVT Right foot x-ray negative for osteomyelitis Previous cultures from soft tissue infections have grown MRSA, Enterococcus, group B beta strep, Bacteroides, Klebsiella, Pseudomonas, E. coli BCxs remain NGTD Podiatry performed callus and ulcer debridement at bedside on 07/08-dressing in place as per Wound care recommendations Erythema of leg starting to improve Does have pacer in place, right TKA -Patient was initially placed on IV Zosyn and daptomycin for broad spectrum coverage given extensive history of organisms on previous cultures -transitioned to the following oral regimen upon discharge: Linezolid and Cipro ordered to complete a 10 day course. Patient to follow up with Podiatry Dr. Ashley in the office, ideally within next few weeks. Wound care referral also placed for consideration of making a surgical shoe or modifications to his current diabetic shoe. (2) Right foot ulcer: As above Podiatry consulted (3) HTN (hypertension): Blood pressures controlled Continue home metoprolol, lisinopril, and torsemide Patient is unsure if he still takes clonidine and it has not been filled in 6 months-hold for now as BPs controlled. (4) Paroxysmal SVT (supraventricular tachycardia): Continue metoprolol No evidence of such on physical examination (5) Pacemaker: Placed for complete heart block, functioning appropriately and follows with cardiology routinely (6) Type 2 diabetes mellitus treated with insulin: Last hemoglobin A1c uncontrolled at 9.0% recently Follows with endocrinology Increase Lantus to from 35 units at bedtime to 42 units - Patient seems to be under the misunderstanding that his infection is causing his A1c to be elevated -- however upon my chart review his A1c has been above goal since 2019 - I do think he would be a good candidate for [facility] as an outpatient. I will send in starting dose to pharmacy upon his discharge - As for his Jardiance, given his recurrent foot ulcer infections, I would like to discontinue use moving forward (ie increased risk of foot amputations in patients using SGLT2i) (7) Diabetic peripheral neuropathy associated with type 2 diabetes mellitus: Continue gabapentin (8) Zmwkjth-Cttdp-Edtda syndrome: Follows with podiatry, has shoes Neuropathy precautions Total Time Total Time Spent Total Time Spent (In Minutes): 37 Total Time Includes: Examination of the Patient, Discharge Planning and Medication Reconciliation Discharge Plan Discharge Items Patient Disposition: Home - Self-Care Reason For Visit: FOOT ULCER,LEG CELULITIS Discharge Diagnosis: Leg cellulitis and infected foot ulcer Activity: Resume your previous activity Non-emergency contact: Primary Care Provider Call non-emergency contact if: you have any medication questions Follow-up/Referrals: Zoe Bell CRNP [Nurse Practitioner] - (Patient hospitalized with recurrent R diabetic ulcer infection + cellulitis. Requesting surgical shoe vs. modifications to his custom diabetic shoe) Umu Ashley DPM [Physician] - Branden Renteria DO [Primary Care Provider] - Diet: Carb Consistent or DM2 Addtl Attending Provider Instructions: You were hospitalized at [facility] for a recurrent R foot ulcer infection and also infection of the surrounding skin (ie a cellulitis). Yo u were treated with IV antibiotics and then we converted you to an oral antibiotic regimen. Please continue the following antibiotic regimen upon discharge: Ciprofloxacin 750mg, once in the AM and once in the PM -- take first dose evening of 07/10/22. Take for a total of 7 days. Linezolid 600mg, once in the AM and once in the PM -- take first dose evening of 07/10/22. Take for a total of 7 days. Please continue to try to elevate the R leg when you are seated (ie such as on a recliner). As for your diabetes, your blood sugars remain well above. We need to increase your sugar control regimen. Please increase your glargine insulin from 35 units at night to 42 units at night. Additionally, we do not want you to restart Jardiance moving forward. In its place, I would like you to start a medication known as Trulicity. This is a one weekly injection you give yourself -- starting dose is 0.75mg once weekly. Over time, your diabetes provider may increase your dose of Trulicity. Please remain on your current dose of metformin. You should see [facility] (referral placed) and also Dr. Ashley in podiatry within 1-2 weeks of your discharge. You will have to call Dr. Abhijeet Martínez's office to make this appointment. Pending Studies at Discharge: No Stand-Alone Forms: My [facility] [employer], Work/School Release, Smoking Cessation Medications and DC Order Prescriptions: New ciprofloxacin HCl 250 mg Tablet 750 mg PO Q12H 7 Days Qty: 14 0RF linezolid 600 mg Tablet 600 mg PO BID 7 Days Qty: 14 0RF Trulicity 0.75 mg/0.5 mL pen injector 0.75 mg subcut .q7days 28 Days Qty: 2 0RF Rx Instructions: Please inject 0.5ml once weekly Continued cholecalciferol (vitamin D3) 50 mcg (2,000 unit) tablet 5,000 units PO HS metoprolol tartrate 25 mg tablet 25 mg PO BID Qty: 180 3RF torsemide 10 mg tablet 10 mg PO Q3D Qty: 30 1RF Rx Instructions: 10 mg PO every 3 days atorvastatin 80 mg tablet 80 mg PO DAILY Qty: 90 3RF Novolin R Regular U-100 Insuln 100 unit/mL solution See Rx Instructions .ROUTE .COMPLEX Qty: 1 5RF Dose Instruction: INJECT SUBCUTANEOUSLY DAILY WITH MEALS, TOTAL DAILY DOSE 30 UNITS. Rx Instructions: INJECT SUBCUTANEOUSLY DAILY WITH MEALS, TAKES 10 UNITS WITH BREAKFAST, LUNCH, AND DINNER. gabapentin 300 mg capsule 300 mg PO TID Qty: 90 5RF (DME) OneTouch Verio test strips Strip See Rx Instructions miscellaneous .MEDSUPPLY Qty: 100 3RF Rx Instructions: Check every day 1x metformin 1,000 mg tablet 1,000 mg PO BID Qty: 90 3RF lisinopril 40 mg tablet See Rx Instructions .ROUTE .COMPLEX Qty: 90 3RF Dose Instruction: Take 1 tablet by mouth once daily Rx Instructions: Take 1 tablet by mouth once daily acetaminophen 650 mg Tablet Extended Release 650 mg PO Q6H PRN (Reason: pain or fever) Rx Instructions: Temp greater than 100 not to exceed 3 grams/24 hour period Give for pain not to exceed 3 grams/24 hour period ascorbic acid (vitamin C) 500 mg Tablet 500 mg PO QAM aspirin 81 mg Tablet,Delayed Release (Dr/Ec) 81 mg PO DIRECTED PRN (Reason: Pain) Caltrate 600 plus D 600 mg (1,500 mg)-800 unit Tablet,Chewable 1 tab PO QAM multivitamin tablet 1 tab PO QAM Changed insulin glargine [Basaglar KwikPen U-100 Insulin] 100 unit/mL (3 mL) insulin pen 42 unit SQ PM 30 Days Qty: 15 5RF Discontinued clonidine HCl 0.1 mg tablet See Rx Instructions .ROUTE .COMPLEX Qty: 180 3RF Dose Instruction: Take 1 tablet by mouth twice daily Rx Instructions: Take 1 tablet by mouth twice daily Jardiance 10 mg tablet 10 mg PO DAILY Qty: 90 3RF Discharge Orders: Discharge Order (Routine); Ordered 07/10/22 Ordered By: Nancy Damian/Other Patient Handouts: Managing Type 2 Diabetes Admission Data Admit Date/Time: 07/07/22 16:17 Attending Provider: Nancy Hope Admit Provider: Lillian Zepeda Primary Care Provider: Branden Renteria Other Providers: Umu Ashley ; Lillian Zepeda Other Interventions: Discharge Summary Assessment (RN) Last Done: 07/10/22 14:16 [place] [address] INP/OBS DISCH >30 MIN Patient Type Established Diagnoses Cellulitis of right lower extremity L03.115 Right foot ulcer L97.519 HTN (hypertension) I10 Paroxysmal SVT (supraventricular tachycardia) I47.1 Pacemaker Z95.0 Type 2 diabetes mellitus treated with insulin E11.9; Z79.4 Diabetic peripheral neuropathy associated with type 2 diabetes mellitus E11.42 Xgxvazs-Rtpjg-Arrhu syndrome G60.0
== END 2022-07-10 16:23 | disposition home or self-care (01) | DRG 571 ==
LOC: ED 11:32 → 3E 16:17 → SUATTDRO 16:17 → 3E 18:33

== ENCOUNTER 2024-06-20 16:53 | Inpatient (IN) ==
--- NOTE | 2024-06-20 16:58 | Emergency Department Note ---
Impression & Plan Closed head injury, Fall, Diabetic ulcer of left foot, Infection of left foot, Elevated troponin ED Provider Note CHIEF COMPLAINT: Fall HISTORY OF PRESENTING ILLNESS: This 68-year-old male patient presents to the emergency department via EMS for evaluation after 2 falls. EMS states that he had a GLF this morning and hit his head. His neighbor had to help him get up. He then fell again this afternoon and his neighbor was unable to get him up and called EMS. He hit his head with both falls. He denies any blood thinners. The patient does not remember anything about the falls. He does not remember what caused him to fall. He does not remember if he had any symptoms prior to falling. He is complaining of a headache, neck pain, lower back pain, and left sided abdominal pain. BSG was 320 then down to 252 for EMS - he is on insulin. The patient also has a diabetic foot ulcer on the left side and has been following up with the diabetic foot clinic. The patient states that he had some mild discomfort in his chest 2 to 3 days ago, but currently denies any chest pain. He has a pacemaker. He did not take any aspirin today. The patient does not think that he has had any fevers. The patient denies any other symptoms. REVIEW OF SYSTEMS: See HPI for pertinent positives and pertinent negatives. ALLERGIES: Vancomycin MEDICATIONS: See below PAST MEDICAL HISTORY: See below PHYSICAL EXAM: VITALS: Vitals are noted on the nurse's note and reviewed by myself. GENERAL: No acute distress, non-diaphoretic. SKIN: The patient's left foot is erythematous and edematous from the midfoot distally. The patient has a diabetic ulcer on the bottom of his foot near the third and fourth metatarsals. There is an open wound that tracks deep. There is yellow purulent discharge coming from the wound. No obvious foreign body. There is a foul smell coming from the left foot. The patient is missing 2 toes secondary to previous amputation. The patient also has erythema and edema to the midportion of the left lower extremity. No obvious cording. The patient has chronic changes of the right lower extremity, but no significant sign for infection, erythema, or significant edema. The patient has no sensation to light or sharp touch of the bilateral lower extremities due to his significant diabetic neuropathy. The patient also has erythema to the left side of the chest wall underwear his breast tissue would overlap with the chest wall. It appears to be consistent with an irritant/contact dermatitis or possible yeast type infection. Capillary reflex less than 2 seconds. HEAD: Normocephalic. No scalp tenderness or step-offs felt. EYES: Pupils equal round and reactive to light and accommodation. Conjunctivae without injection, sclerae without icterus. Extraocular movements intact. No nystagmus. NOSE: Patent without discharge. No sinus tenderness. No septal hematoma or bleeding. FACE: No facial bone tenderness. Full range of motion of the jaw without tenderness. MOUTH: Mucous membranes somewhat dry with chronic changes present. Pharynx without erythema or exudate. Uvula midline. Airway patent. Tongue does not deviate. NECK: The patient was in a stiff cervical collar. Cervical spine is nontender, but the patient is tender to palpation over the right sided paraspinal muscles. HEART: Regular rate and rhythm without murmurs gallops or rubs. LUNGS: Clear to auscultation bilaterally without wheezes, rales or rhonchi. No retractions or accessory muscle use. CHEST: No chest wall tenderness. ABDOMEN: Positive bowel sounds x 4. Normal tympanic percussion. Soft, mildly tender to palpation over the left side of his abdomen. No obvious masses or organomegaly. No guarding or rebound tenderness. MUSCULOSKELETAL: No tenderness of the thoracic spine or paraspinal muscles. The patient is mildly tender to palpation of the lower lumbar spine and bilateral paraspinal muscles. No tenderness with pelvic rocking. No tenderness to palpation of the bilateral upper extremities. No tenderness to palpation of the right lower extremity. The patient does not have any tenderness to palpation of the left lower extremity. However, see the skin exam above in regards to the left foot and left lower extremity. NEURO: The patient is a poor historian and does not always appear to be oriented to time or place, but is always oriented to person. DIFFERENTIAL DIAGNOSIS: Differential diagnosis includes concussion, contusion, fracture, subluxation, dislocation, subdural hematoma, epidural hematoma, intraparenchymal hemorrhage, contusion, ligamentous injury, neurovascular, compartment syndrome, rhabdomyolysis, intra-abdominal injury, splenic rupture, hepatic rupture, rib fractures, cardiac contusion, pneumothorax, hemothorax, cardiac tamponade, intrathoracic injury, neurologic, cellulitis, abscess, osteomyelitis, septic arthritis, necrotizing fasciitis, as well as other pathologies. ED COURSE AND MEDICAL DECISION MAKING: HISTORY FROM INDEPENDENT HISTORIAN: Additional history obtained from EMS due to the patient's condition. MEDICATIONS GIVEN: 1 L normal saline solution bolus. Daptomycin 900 mg IV. Zosyn 4.5 g IV. Tylenol 1000 mg IV. Aspirin 324 mg p.o. chewed. MONITOR: Continuous spice fumigator: Order was placed for continuous spice fumigator. Patient was placed on the spice fumigator and continuous pulse ox. Patient was noted to be in normal sinus rhythm at an initial rate of 90 bpm per my interpretation. EKG: EKG was interpreted by myself and Dr. Dumont as a paced rhythm at 91 bpm with possible left bundle branch block, but no other acute abnormalities and no significant change from his previous EKG. Repeat EKG was interpreted by myself and Dr. Dumont as a paced rhythm at 87 bpm with possible left bundle branch block, but no other acute abnormalities and no significant change from his previous EKG. INTERPRETATION OF LABS: I interpreted the labs with full lab results as below in the lab section of this note. Laboratory results pertinent to the emergent complaint are discussed in the MDM section below. The patient was advised to follow up with their PCP and/or specialist(s) for further outpatient monitoring and management of any abnormal results. INTERPRETATION OF IMAGING: Imaging studies were interpreted by myself and read by radiology as per the imaging section of this note. The patient was advised to follow up with their PCP and/or specialist(s) for further outpatient management of any non-emergent abnormal findings. CT scan of the head without contrast was negative for acute intracranial abnormality. CT scan of the cervical and lumbar spine showed no acute fractures or subluxation. He does have chronic changes of the lumbar spine with diffuse mild to moderate disc base degeneration and disc bulging. CT scan of the chest, abdomen, and pelvis with IV contrast showed no traumatic abnormalities. Cardiomegaly is noted with cardiac pacing device. Stable 2.7 x 2.1 cm right adrenal myelolipoma. Simple bilateral renal cysts. Degenerative changes of the spine and hips. Small bilateral fat-containing inguinal hernias. CT scan of the left foot without contrast showed soft tissue swelling and gas which most likely reflects anaerobic infection at the level of the fourth proximal phalanx. No defined fluid collection or gross osteomyelitis noted, but there is some motion artifact. Venous Doppler of the left lower extremity was negative for DVT, SVT, or other acute abnormalities. EXTERNAL RECORDS REVIEWED: I reviewed the patient's most recent diabetic foot clinic note. CHRONIC MEDICAL/SOCIAL CONDITIONS AFFECTING CARE: Diabetes with significant diabetic neuropathy as well as Charcot Clary tooth syndrome. CONSULTATIONS: [employer]. Dr. Davila of orthopedics. On-call hospitalist. [facility] SUMMARY: I examined the patient. The patient presents by EMS after he had 2 ground-level falls today. The patient's neighbor had to pick him up the first time, but was unable to pick him up the second time. His neighbor called EMS. The patient does not remember falling and does not really remember the events. The patient is a relatively poor historian. The patient denies any blood thinners. He is not sure if he had any symptoms prior to the fall. He is complaining of a mild headache, neck pain, lower back pain, and left sided abdominal pain. The patient also has a diabetic foot ulcer to the left lower extremity that appears much worse than his last diabetic foot clinic office visit note. The patient has a hole in the bottom of the foot that I am able to probe deeply with the culture swab. There is some yellow purulent discharge from the opening. The patient has no sensation of the left lower extremity. An IV lock was placed and labs were drawn. The patient was given 1 L normal saline solution bolus and Tylenol 1000 mg IV. Additional IV fluids were held at this time due to concern for fluid overload from the patient's cardiac history. White blood cell count elevated at 17.88. Hemoglobin normal at 16.3. Platelet count normal at 237. Coags were normal. VBG with a slightly elevated pH of 7.42, but otherwise normal. Sodium slightly low at 135 and glucose 281, but CMP otherwise normal. Lipase normal. Magnesium normal. Lactate normal. Procalcitonin elevated at 0.93. Initial high-sensitivity troponin elevated at 56.9. Repeat high-sensitivity troponin 62.9. EKGs x 2 showed a paced rhythm with possible left bundle branch block, but no acute abnormalities and no significant change from his previous EKGs. The patient's pacemaker was interrogated and I spoke with [employer] regarding the interrogation. The patient had a 2-second episode of PVCs on May 09, but no additional episodes. The patient had no abnormalities recorded today. They stated that his wires look good and his battery life is 6 years. No other abnormalities noted. CT scan of the head without contrast was negative for acute intracranial abnormality. CT scan of the cervical and lumbar spine showed no acute fractures or subluxation. He does have chronic changes of the lumbar spine with diffuse mild to moderate disc base degeneration and disc bulging. The patient cervical collar was removed by myself. On repeat exam, the patient had no central cervical spine tenderness. Minimal right sided paraspinal muscle tenderness. He is able to move his neck fully. CT scan of the chest, abdomen, and pelvis with IV contrast showed no traumatic abnormalities. Cardiomegaly is noted with cardiac pacing device. Stable 2.7 x 2.1 cm right adrenal myelolipoma. Simple bilateral renal cysts. Degenerative changes of the spine and hips. Small bilateral fat-containing inguinal hernias. CT scan of the left foot without contrast showed soft tissue swelling and gas which most likely reflects anaerobic infection at the level of the fourth proximal phalanx. No defined fluid collection or gross osteomyelitis noted, but there is some motion artifact. Venous Doppler of the left lower extremity was negative for DVT, SVT, or other acute abnormalities. Blood cultures are pending. Wound culture of the left foot is still pending. The patient was given daptomycin 900 mg IV and Zosyn 4.5 g IV. Unfortunately, we do not have an on-call corporate recruiter this evening. I spoke with Dr. Davila of orthopedics who stated the patient could perform soaks of the foot if needed. He stated that podiatry should be consulted in the morning during admission. He agreed with IV antibiotics. No additional emergent surgical intervention needed at this time. I had a meaningful discussion about this patient with Dr. Dumont who agrees with my assessment and the treatment plan. The patient has an infection of the left lower quadrant from his diabetic ulcer. The patient's troponin is also elevated likely secondary to ischemic demand. Question whether the patient's falls may have been secondary to the infection of his foot. The patient will require admission for further evaluation and treatment. I spoke with the on-call hospitalist who agreed to admit the patient for further management. Please refer to their dictation for further details. The patient's care was transferred in stable condition. DIAGNOSIS: Closed head injury Fall Infected diabetic ulcer of the left foot Elevated troponin Past Med/Surg History Problem List (Updated 06/20/24 @ 22:28 by Gayle A. Roach, PA-C) Elevated troponin (Acute) Infection of left foot (Acute) Diabetic ulcer of left foot (Acute) Fall (Acute) Closed head injury (Acute) Loss of protective sensation of skin of foot 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 foot associated with diabetes mellitus due to underlying condition, limited to breakdown of skin Vitamin B12 deficiency Diabetes mellitus type 2 with complications Vitamin D deficiency HTN (hypertension) (Chronic) Paroxysmal SVT (supraventricular tachycardia) LBBB (left bundle branch block) Pacemaker (~2018) Type 2 diabetes mellitus treated with insulin (Chronic) Glucose controlled per patient Diabetic peripheral neuropathy associated with type 2 diabetes mellitus Followed by Endocrinology To left LE Status post partial amputation of foot Hyperlipidemia (Chronic) Chronic venous insufficiency (Chronic) Morbid obesity (Chronic) Ambulatory dysfunction uses cane GERD (gastroesophageal reflux disease) Well controlled and stable Bjvljen-Swify-Xhdgz syndrome (Chronic) Followed by Wound clinic and [facility] Podiatry Medical History Nonsustained paroxysmal ventricular tachycardia 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 Penicillin allergy Ventricular tachycardia History of colon polyps History of syncope Bilateral lower extremity edema Complete heart block (~2018) Hypertension History of diabetic ulcer of foot Surgical History Hx of vasectomy History of colonoscopy with polypectomy History of arthroscopy of left knee History of arthroscopy of right knee History of permanent cardiac pacemaker placement History of tonsillectomy S/P TKR (total knee replacement) (06/26/13) Family History Mother Alzheimer disease Depression Seizure Lung disease Hypertension Family hx of colon cancer Colorectal cancer Father Diabetes Depression Kidney disease Leukemia Seizure Lung disease Hypertension Sister Brain tumor Seizure Lung disease Lung cancer Other No family history of adverse response to anesthesia Denies family history of Ovarian cancer Prostate cancer Myocardial infarction Breast cancer Social History Smoking Status: Unknown if ever smoked Second Hand Exposure: No; Do You Dip or Chew Tobacco: No; Hx Alcohol Use: No Hx Substance Use: No Preferred Language: Nepali Communication Ability: Effective Visual Impairment: No Limitations Hearing Ability: Normal Coin Machine Collector Required: No Beliefs That Will Affect Care: None marital status: marital status details: Current Living Situation: Alone Current Living Situation Comment: Has an apartment with friend current occupational status: previously employed How many Children do You have: 2 Feels Safe at Home: Yes Childhood Exposure to Second-Hand Smoke: Yes Diet: regular caffeine: Yes Dental Care, Regularly: Yes Physical Activity Frequency: Does not Exercise Seatbelt Use: always Sunscreen Use: Yes Assistive Devices: Cane Allergies Allergies Allergy/AdvReac Type Severity Reaction Status Date / Time vancomycin Allergy Mild thrombocyto Verified 05/22/24 09:45 penia Home Meds Home Medications Medication Instructions Recorded Confirmed acetaminophen 650 mg 650 mg PO Q6H PRN pain or fever 02/19/18 05/22/24 tablet,extended release ascorbic acid (vitamin C) 500 mg 500 mg PO QAM 02/19/18 05/22/24 tablet aspirin 81 mg tablet,delayed 81 mg PO DIRECTED PRN Pain 02/19/18 05/22/24 release calcium 600 mg (as carbonate)-vit 1 tab PO QAM 02/19/18 05/22/24 D3 20 mcg (800 unit) chewable tablet (Caltrate plus D) multivitamin 1 tab PO QAM 11/13/18 05/22/24 cholecalciferol (vitamin D3) 50 5,000 units PO HS 10/03/19 05/22/24 mcg (2,000 unit) tablet Previous Rx's Medication Instructions Recorded pen needle, diabetic 32 gauge x #100 ea 06/14/23 5/32" (BD Ultra-Fine Danitza Pen Needle) blood-glucose meter (OneTouch #1 ea 06/28/23 Verio Flex Meter) FreeStyle Almaz 2 [place] (flash #1 ea 09/05/23 glucose scanning reader) blood sugar diagnostic (OneTouch #100 ea 02/06/24 Verio test strips) amlodipine 5 mg tablet 5 mg PO DAILY #90 tabs 04/10/24 atorvastatin 80 mg tablet 80 mg PO DAILY #90 tabs 04/10/24 insulin glargine 100 unit/mL (3 35 unit (0.35 mL) subcut PM #15 mL 04/10/24 mL) subcutaneous pen (Basaglar KwikPen U-100 Insulin) insulin lispro 100 unit/mL 10 unit (0.1 mL) subcut .COMPLEX 04/10/24 subcutaneous pen (Admelog SoloStar #15 mL U-) lisinopril 10 mg tablet 10 mg PO DAILY #90 tabs 04/10/24 metformin 1,000 mg tablet 1,000 mg PO BID diabetes #180 tabs 04/10/24 metoprolol tartrate 25 mg tablet 25 mg PO BID #180 tabs 04/10/24 mecobalamin (vitamin B12) 1,000 1,000 mcg PO DAILY #30 tabs 06/04/24 mcg chewable tablet Results & Data (ED) Vital Signs Vital Signs - 24 hr 06/20/24 17:17 06/20/24 17:17 06/20/24 17:31 Temperature 37.2 C 37.2 C Temperature Source Oral Oral Pulse Rate 97 H 93 H Pulse Rate [Apical] 97 H Pulse Rhythm [Apical] Pulse Strength [Apical] Respiratory Rate 17 17 Respiratory Effort / Characteristics Non-Labored Spontaneous Non-Labored Spontaneous Respiratory Depth Normal Normal Respiratory Pattern Regular Blood Pressure 131/74 Blood Pressure [Right Arm] 131/74 Blood Pressure Mean 93 Blood Pressure Mean [Right Arm] 93 Blood Pressure Position Lying Blood Pressure Position [Right Arm] Lying Pulse Oximetry 93 93 Oxygen Delivery Method Room Air Room Air Sepsis Recent Fever Within 48 Hours No Sepsis New/Unexplained Change in Mental Status N/A Sepsis Action Taken by Nursing No Action Required 06/20/24 17:38 06/20/24 19:10 06/20/24 21:00 Temperature Temperature Source Pulse Rate Pulse Rate [Apical] 85 77 Pulse Rhythm [Apical] Regular Regular Pulse Strength [Apical] Normal Normal Respiratory Rate 16 16 Respiratory Effort / Characteristics Non-Labored Spontaneous Non-Labored Spontaneous Respiratory Depth Normal Normal Respiratory Pattern Regular Regular Blood Pressure Blood Pressure [Right Arm] 136/74 119/73 Blood Pressure Mean Blood Pressure Mean [Right Arm] 94 88 Blood Pressure Position Blood Pressure Position [Right Arm] Lying Lying Pulse Oximetry 93 95 Oxygen Delivery Method Room Air Room Air Sepsis Recent Fever Within 48 Hours Sepsis New/Unexplained Change in Mental Status Sepsis Action Taken by Nursing 06/20/24 21:27 Temperature Temperature Source Pulse Rate 71 Pulse Rate [Apical] Pulse Rhythm [Apical] Pulse Strength [Apical] Respiratory Rate Respiratory Effort / Characteristics Respiratory Depth Respiratory Pattern Blood Pressure Blood Pressure [Right Arm] Blood Pressure Mean Blood Pressure Mean [Right Arm] Blood Pressure Position Blood Pressure Position [Right Arm] Pulse Oximetry Oxygen Delivery Method Sepsis Recent Fever Within 48 Hours Sepsis New/Unexplained Change in Mental Status Sepsis Action Taken by Nursing Laboratory Data 06/20/24 17:15 06/20/24 17:15 Lab Results 06/20/24 06/20/24 06/20/24 Range/Units 17:14 17:15 17:20 WBC 17.88 H (4.8-10.8) K/ul RBC 5.66 (4.70-6.10) M/uL Hgb 16.3 (14.0-18.0) g/dl POC Hgb 16.0 (14.0-18.0) g/dl Hct 46.9 (42.0-52.0) % POC Hct 47 (42-52) % MCV 82.9 (80.0-100.0) fL MCH 28.8 (25.0-34.0) pg MCHC 34.8 (32.0-36.0) g/dL RDW Std Deviation 37.2 (36.4-46.3) fL RDW Coeff of Oskar 12.3 (11.5-14.5) % Plt Count 237 (130-400) K/uL MPV 9.7 (9.4-12.4) fL Immature Gran % (Auto) 0.8 % Neut % (Auto) 90.9 % Lymph % (Auto) 1.3 % Duval % (Auto) 6.9 % Eos % (Auto) 0.0 % Baso % (Auto) 0.1 % Neut # (Auto) 16.24 H (1.40-6.50) K/uL Lymph # (Auto) 0.24 L (1.20-3.40) K/uL Duval # (Auto) 1.23 H (0.11-0.59) K/uL Eos # (Auto) 0.00 (0.00-0.50) K/uL Baso # (Auto) 0.02 (0.00-0.20) K/uL Immature Gran # (Auto) 0.15 (0.01-0.20) K/uL PT 11.9 (9.0-12.0) Seconds INR 1.1 (0.9-1.1) APTT 26 (21-31) Seconds PTT Ratio 1.0 VBG pH 7.42 H (7.36-7.41) VBG pCO2 49 (38-50) mmHg VBG pO2 21 mmHg VBG HCO3 32 mmol/L VBG O2 Saturation < 60.0 % VBG Base Excess 6.1 mEq/L POC Sodium 136 (135-144) mmol/L Sodium 135 L (136-145) mmol/L POC Potassium 4.0 (3.3-5.0) mmol/L Potassium 3.9 (3.5-5.1) mmol/L POC Chloride 95 L (101-112) mmol/L Chloride 96 L (98-107) mmol/L Carbon Dioxide 30 (21-32) mmol/L POC Total CO2 27 (24-31) mmol/L Anion Gap 9 (3-11) POC Anion Gap 18.0 (16-25) mmol/L POC BUN 15 (7-18) mg/dl BUN 15 (6-23) mg/dl Creatinine 0.87 (0.6-1.4) mg/dl POC Creatinine 0.9 (0.6-1.3) mg/dl Est Cr Clr Drug Dosing 122.3 ml/min eGFR 94.57 BUN/Creatinine Ratio 17.2 (10-20) Glucose 281 H (70-99(Fasting)) mg/dl POC Glucose (other) 269 H (70-99) mg/dl Lactate 1.9 (0.4-2.0) mmol/L Calcium 8.9 (8.6-10.3) mg/dl POC Ioniz Calcium Lokesh 1.08 L (1.12-1.32) mmol/l Magnesium 2.0 (1.7-2.4) mg/dl Total Bilirubin 1.0 (0.2-1.0) mg/dl AST 19 (13-39) U/L ALT 11 (7-52) U/L Alkaline Phosphatase 52 (34-104) U/L Troponin I High Sens 56.9 H* (0-20) pg/ml Total Protein 7.2 (6.0-8.3) gm/dl Albumin 3.7 (3.4-5.0) gm/dl Globulin 3.5 (2.5-4.0) gm/dl Albumin/Globulin Ratio 1.1 (0.9-2) Lipase 14 (11-82) U/L Procalcitonin 0.93 H (0-0.5) ng/ml SARS-CoV-2 (PCR) NEGATIVE (Negative) Influenza Type A (PCR) Negative (Neg) Influenza Type B (PCR) Negative (Neg) RSV (RT-PCR) Negative (Neg) 06/20/24 Range/Units 19:06 WBC (4.8-10.8) K/ul RBC (4.70-6.10) M/uL Hgb (14.0-18.0) g/dl POC Hgb (14.0-18.0) g/dl Hct (42.0-52.0) % POC Hct (42-52) % MCV (80.0-100.0) fL MCH (25.0-34.0) pg MCHC (32.0-36.0) g/dL RDW Std Deviation (36.4-46.3) fL RDW Coeff of Oskar (11.5-14.5) % Plt Count (130-400) K/uL MPV (9.4-12.4) fL Immature Gran % (Auto) % Neut % (Auto) % Lymph % (Auto) % Duval % (Auto) % Eos % (Auto) % Baso % (Auto) % Neut # (Auto) (1.40-6.50) K/uL Lymph # (Auto) (1.20-3.40) K/uL Duval # (Auto) (0.11-0.59) K/uL Eos # (Auto) (0.00-0.50) K/uL Baso # (Auto) (0.00-0.20) K/uL Immature Gran # (Auto) (0.01-0.20) K/uL PT (9.0-12.0) Seconds INR (0.9-1.1) APTT (21-31) Seconds PTT Ratio VBG pH (7.36-7.41) VBG pCO2 (38-50) mmHg VBG pO2 mmHg VBG HCO3 mmol/L VBG O2 Saturation % VBG Base Excess mEq/L POC Sodium (135-144) mmol/L Sodium (136-145) mmol/L POC Potassium (3.3-5.0) mmol/L Potassium (3.5-5.1) mmol/L POC Chloride (101-112) mmol/L Chloride (98-107) mmol/L Carbon Dioxide (21-32) mmol/L POC Total CO2 (24-31) mmol/L Anion Gap (3-11) POC Anion Gap (16-25) mmol/L POC BUN (7-18) mg/dl BUN (6-23) mg/dl Creatinine (0.6-1.4) mg/dl POC Creatinine (0.6-1.3) mg/dl Est Cr Clr Drug Dosing ml/min eGFR BUN/Creatinine Ratio (10-20) Glucose (70-99(Fasting)) mg/dl POC Glucose (other) (70-99) mg/dl Lactate (0.4-2.0) mmol/L Calcium (8.6-10.3) mg/dl POC Ioniz Calcium Lokesh (1.12-1.32) mmol/l Magnesium (1.7-2.4) mg/dl Total Bilirubin (0.2-1.0) mg/dl AST (13-39) U/L ALT (7-52) U/L Alkaline Phosphatase (34-104) U/L Troponin I High Sens 62.9 H* (0-20) pg/ml Total Protein (6.0-8.3) gm/dl Albumin (3.4-5.0) gm/dl Globulin (2.5-4.0) gm/dl Albumin/Globulin Ratio (0.9-2) Lipase (11-82) U/L Procalcitonin (0-0.5) ng/ml SARS-CoV-2 (PCR) (Negative) Influenza Type A (PCR) (Neg) Influenza Type B (PCR) (Neg) RSV (RT-PCR) (Neg) Administered Medications Discontinued Medications Aspirin (Aspirin Chew 324 Mg) 324 mg PO NOW STA Stop: 06/20/24 19:12 Last Admin: 06/20/24 19:25 Dose: 324 mg Documented By: CAM Sodium Chloride (Nss) 1,000 mls @ 999 mls/hr IV .Q1H1M ONE Stop: 06/20/24 18:14 Last Infusion: 06/20/24 19:39 Dose: Infused Documented By: Admin: 06/20/24 17:22 Dose: 999 mls/hr Documented By: WILLIAM Daptomycin 900 mg/ Syringe 18 mls @ 9 mls/min IV NOW ONE; Protocol Stop: 06/20/24 18:11 Last Admin: 06/20/24 18:56 Dose: 9 mls/min Documented By: WILLIAM Piperacillin Sod/Tazobactam Sod (Zosyn) 4.5 gm in 100 mls @ 200 mls/hr IV NOW ONE; Protocol Stop: 06/20/24 18:28 Last Infusion: 06/20/24 19:38 Dose: Infused Documented By: Admin: 06/20/24 18:59 Dose: 200 mls/hr Documented By: WILLIAM Acetaminophen (Ofirmev) 1,000 mg in 100 mls @ 400 mls/hr IV NOW STA Stop: 06/20/24 19:25 Last Infusion: 06/20/24 20:35 Dose: Infused Documented By: Admin: 06/20/24 19:25 Dose: 400 mls/hr Documented By: CAM Ioversol (Optiray 320 100ml) 93 ml IV ONCE ONE Stop: 06/20/24 17:45 Last Admin: 06/20/24 17:44 Dose: 93 ml Documented By: DUNCAN Imaging Data Radiologist's Impression: Abdomen/Pelvis CT 06/20/24 17:14 EXAM: CT Chest Abdomen and Pelvis With Intravenous Contrast INDICATION: Multiple falls. Lower back pain and lightheadedness. TECHNIQUE: Axial computed tomography images of the chest, abdomen and pelvis with intravenous contrast. Sagittal and coronal reformatted images were created and reviewed. This CT exam was performed using one or more of the following dose reduction techniques: automated exposure control, adjustment of the mA and/or kV according to patient size, and/or use of iterative reconstruction technique. CONTRAST: 93ml of Optiray 320 was administered intravenously. COMPARISON: CT chest 11/10/2020 FINDINGS: Limitations: None. CHEST: Lungs and pleural spaces: No abnormality noted. No mass. No consolidation. No significant effusion. No pneumothorax. Heart: Cardiomegaly noted. Cardiac pacing device noted. Metallic artifact limits assessment of lead integrity. Mediastinum: No abnormality noted. Thyroid: No abnormality noted. ABDOMEN: Liver: No abnormality noted. Gallbladder and bile ducts: No calcified stones or surrounding fluid. No ductal dilation. Pancreas: Homogeneous enhancement. No mass, inflammation or ductal dilation. Spleen: The spleen is enlarged to 16.8 cm long. Adrenals: Stable 2.7 x 2.1 cm right adrenal myelolipoma. No further assessment required. The left appears normal. Kidneys and ureters: Simple bilateral renal cysts noted. No follow-up necessary. No stones or hydronephrosis. There is scarring of the lower pole of the left kidney with a small associated nonobstructing stone measuring about 3 mm. No hydronephrosis. No urinary gas. Stomach and bowel: No distension or mucosal thickening. No inflammation noted. PELVIS: Appendix: Well seen and appears normal. Bladder: No filling defects to suggest mass or large stone. No inflammation. Reproductive: No significant abnormality noted. CHEST, ABDOMEN and PELVIS: Intraperitoneal space: No free air. No significant fluid collection. Retroperitoneal space: No abnormality noted. No fluid collection. Bones/joints: Degenerative changes noted throughout the spine. No acute osseous abnormality seen. Degenerative changes of the hips. There is heterotopic ossification contiguous with the left iliac crest presumably postoperative or posttraumatic. Soft tissues: There are small bilateral fat containing inguinal hernias. Vasculature: No abnormality noted. No aortic aneurysm. Lymph nodes: No enlarged lymph nodes. IMPRESSION: 1. No traumatic change in the chest, abdomen or pelvis. 2. Chronic changes as above. ACT 112: N/A Electronically signed by Katerina Xavier 06-20-2024 6:[address] 06/20/24 17:14 CT cervical spine without IV contrast History: Pain Comparison: None Technique: Using multidetector thin collimation helical acquisition technique, axial, coronal and sagittal CT images through the cervical spine were obtained without intravenous contrast. Dose reduction techniques were achieved by using automatic exposure control and/or adjustment of mA and/or kV according to patient size and/or use of iterative reconstruction technique. Findings: The cervical vertebrae are normally aligned. Normal cervical lordosis. No acute fracture or subluxation. No prevertebral edema. Mild multilevel uncovertebral osteophytes of the vertebral bodies. No abnormality of the paraspinous soft tissues. Impression: No acute fracture or traumatic subluxation. Electronically signed by Diaz Duran 06-20-2024 6:[address] 06/20/24 17:14 EXAM: CT Chest Abdomen and Pelvis With Intravenous Contrast INDICATION: Multiple falls. Lower back pain and lightheadedness. TECHNIQUE: Axial computed tomography images of the chest, abdomen and pelvis with intravenous contrast. Sagittal and coronal reformatted images were created and reviewed. This CT exam was performed using one or more of the following dose reduction techniques: automated exposure control, adjustment of the mA and/or kV according to patient size, and/or use of iterative reconstruction technique. CONTRAST: 93ml of Optiray 320 was administered intravenously. COMPARISON: CT chest 11/10/2020 FINDINGS: Limitations: None. CHEST: Lungs and pleural spaces: No abnormality noted. No mass. No consolidation. No significant effusion. No pneumothorax. Heart: Cardiomegaly noted. Cardiac pacing device noted. Metallic artifact limits assessment of lead integrity. Mediastinum: No abnormality noted. Thyroid: No abnormality noted. ABDOMEN: Liver: No abnormality noted. Gallbladder and bile ducts: No calcified stones or surrounding fluid. No ductal dilation. Pancreas: Homogeneous enhancement. No mass, inflammation or ductal dilation. Spleen: The spleen is enlarged to 16.8 cm long. Adrenals: Stable 2.7 x 2.1 cm right adrenal myelolipoma. No further assessment required. The left appears normal. Kidneys and ureters: Simple bilateral renal cysts noted. No follow-up necessary. No stones or hydronephrosis. There is scarring of the lower pole of the left kidney with a small associated nonobstructing stone measuring about 3 mm. No hydronephrosis. No urinary gas. Stomach and bowel: No distension or mucosal thickening. No inflammation noted. PELVIS: Appendix: Well seen and appears normal. Bladder: No filling defects to suggest mass or large stone. No inflammation. Reproductive: No significant abnormality noted. CHEST, ABDOMEN and PELVIS: Intraperitoneal space: No free air. No significant fluid collection. Retroperitoneal space: No abnormality noted. No fluid collection. Bones/joints: Degenerative changes noted throughout the spine. No acute osseous abnormality seen. Degenerative changes of the hips. There is heterotopic ossification contiguous with the left iliac crest presumably postoperative or posttraumatic. Soft tissues: There are small bilateral fat containing inguinal hernias. Vasculature: No abnormality noted. No aortic aneurysm. Lymph nodes: No enlarged lymph nodes. IMPRESSION: 1. No traumatic change in the chest, abdomen or pelvis. 2. Chronic changes as above. ACT 112: N/A Electronically signed by Katerina Xavier 06-20-2024 6:[address] 06/20/24 17:14 Exam(s): CT HEAD Without Contrast EXAM: CT Head Without Intravenous Contrast CLINICAL HISTORY: Reason for exam: Trauma. TECHNIQUE: Axial computed tomography images of the head/brain without intravenous contrast. CTDI is 36.9 mGy and DLP is 702.4 mGy-cm. Automated exposure control was utilized for the study. A dose lowering technique was utilized adhering to the principles of ALARA. COMPARISON: No relevant prior studies available. FINDINGS: Brain: Generalized parenchymal volume loss. Periventricular and deep cerebral white matter hypoattenuation suggesting chronic small vessel ischemic change. Neely-white matter differentiation maintained. No hemorrhage, mass effect, parenchymal edema, or midline shift. Ventricles: No hydrocephalus. Bones/joints: No acute fracture. Soft tissues: Unremarkable. Vasculature: Intracranial atherosclerosis. Sinuses: Unremarkable as visualized. Mastoid air cells: No significant mastoid effusion. IMPRESSION: No acute intracranial process. Electronically signed by: Diana Hoyos M.D. 06/20/24 21:[address] 06/20/24 17:14 EXAM: CT Lumbar Spine With Intravenous Contrast INDICATION: Multiple falls. TECHNIQUE: Axial computed tomography images of the lumbar spine with intravenous contrast. Sagittal and coronal reformatted images were created and reviewed. This CT exam was performed using one or more of the following dose reduction techniques: automated exposure control, adjustment of the mA and/or kV according to patient size, and/or use of iterative reconstruction technique. CONTRAST: 93 ml of Optiray 320 was administered intravenously. COMPARISON: No relevant prior studies available. FINDINGS: Limitations: None. Vertebrae: The bones are diffusely demineralized. There is diffuse mild to moderate facet arthrosis and moderate to severe spondylosis. There is no acute fracture or subluxation. Sacrum/coccyx: No significant abnormality noted. No acute change noted. Discs/spinal canal/neural foramina: There is diffuse mild to moderate disc space degeneration. Diffuse disc bulge with moderate canal stenosis noted at L3-L4. Mild stenosis L4-L5. Soft tissues: No significant abnormality noted. Kidneys and ureters: Simple left renal cyst/s. No simple cyst follow-up necessary. Right kidney appears normal. No renal stone, hydronephrosis or perinephric fluid. IMPRESSION: Chronic changes. No acute abnormality. ACT 112: N/A Electronically signed by Katerina Xavier 06-20-2024 6:51 PM Venous Doppler Study 06/20/24 17:14 Exam(s): US VENOUS LEFT LOWER EXTREMITY EXAM: US Duplex Left Lower Extremity Veins CLINICAL HISTORY: Reason for exam: eval DVT. TECHNIQUE: Real-time duplex ultrasound scan of the left lower extremity veins integrating B-mode two-dimensional vascular structure, Doppler spectral analysis, color flow Doppler imaging and compression. COMPARISON: No relevant prior studies available. FINDINGS: Deep veins: Unremarkable. The visualized deep veins of the left lower extremity are compressible with color flow. No visualized thrombus. Superficial veins: Unremarkable. No thrombus identified in the GSV. Soft tissues: No acute findings. IMPRESSION: No DVT within the left lower extremity. Electronically signed by: Beka Jules MD 06/20/24 21:[address] 06/20/24 17:39 EXAM: CT Left Lower Extremity Without Intravenous Contrast Foot INDICATION: Evaluate for osteomyelitis TECHNIQUE: Axial computed tomography images of the left foot without intravenous contrast. Sagittal and coronal reformatted images were created and reviewed. This CT exam was performed using one or more of the following dose reduction techniques: automated exposure control, adjustment of the mA and/or kV according to patient size, and/or use of iterative reconstruction technique. COMPARISON: X-ray left foot 11/18/2020 FINDINGS: Limitations: Significant motion artifact limits assessment. Bones/joints: Significantly limited evaluation of the tarsals, metatarsals and residual phalanges. Hypertrophic changes noted similar to the plain radiograph. There is no gross fracture or dislocation. Periosteal reaction and small erosions would not be visualized. Soft tissues: There is marked soft tissue edema. There is soft tissue gas adjacent to the base of the fourth proximal phalanx. No loculated collection is identified although there is significant motion. No radiopaque foreign body. IMPRESSION: 1. Significantly limited exam. 2. Soft tissue swelling and gas most likely reflecting anaerobic infection at the level of the fourth proximal phalanx. No defined fluid collection or gross osteomyelitis although limiting motion could obscure these abnormalities. ACT 112: N/A Electronically signed by Katerina Xavier 06-20-2024 6:49 PM Discharge Plan Visit Data Chief Complaint: Fall ED Provider: Bradley Dumont ED Midlevel Provider: Gayle Roach Discharge Problem: Closed head injury, Fall, Diabetic ulcer of left foot, Infection of left foot, Elevated troponin Patient Disposition: Admitted As Inpatient Condition: Good Forms Stand Alone Forms: [place] Prescriptions Prescriptions: No Action cholecalciferol (vitamin D3) 50 mcg (2,000 unit) tablet 5,000 units PO HS (DME) blood-glucose meter [OneTouch Verio Flex meter] [facility] [place] See Rx Instructions .ROUTE .MEDSUPPLY Qty: 1 0RF Rx Instructions: test blood sugar TID (DME) FreeStyle Almaz 2 [place] See Rx Instructions .Route Qty: 1 0RF Rx Instructions: Use to monitor blood sugars daily (DME) OneTouch Verio test strips Strip See Rx Instructions miscellaneous .MEDSUPPLY Qty: 100 3RF Rx Instructions: Check every day 1x insulin lispro [Admelog SoloStar U-100 Insulin] 100 unit/mL insulin pen 10 unit subcut .COMPLEX Qty: 15 5RF Rx Instructions: 10 units subcutaneously with breakfast and dinnet; insulin glargine [Basaglar KwikPen U-100 Insulin] 100 unit/mL (3 mL) insulin pen 35 unit SQ PM Qty: 15 5RF mecobalamin (vitamin B12) 1,000 mcg tablet,chewable 1,000 mcg PO DAILY Qty: 30 11RF amlodipine 5 mg tablet 5 mg PO DAILY Qty: 90 3RF atorvastatin 80 mg tablet 80 mg PO DAILY Qty: 90 3RF metoprolol tartrate 25 mg tablet 25 mg PO BID Qty: 180 3RF metformin 1,000 mg tablet 1,000 mg PO BID Qty: 180 3RF lisinopril 10 mg tablet 10 mg PO DAILY Qty: 90 3RF (DME) pen needle, diabetic [BD Ultra-Fine Danitza Pen Needle] 32 gauge x 5/32" needle See Rx Instructions .Route Qty: 100 5RF Rx Instructions: Use 3 per day acetaminophen 650 mg Tablet Extended Release 650 mg PO Q6H PRN (Reason: pain or fever) Rx Instructions: Temp greater than 100 not to exceed 3 grams/24 hour period Give for pain not to exceed 3 grams/24 hour period ascorbic acid (vitamin C) 500 mg Tablet 500 mg PO QAM aspirin 81 mg Tablet,Delayed Release (Dr/Ec) 81 mg PO DIRECTED PRN (Reason: Pain) Caltrate 600 plus D 600 mg (1,500 mg)-800 unit Tablet,Chewable 1 tab PO QAM multivitamin tablet 1 tab PO QAM Referrals Referrals: Branden Renteria DO [Primary Care Provider] - Discharge Problem: Closed head injury Qualifiers: Encounter type: initial encounter Qualified Code(s): S09.90XA - Unspecified injury of head, initial encounter Fall Qualifiers: Encounter type: initial encounter Qualified Code(s): W19.XXXA - Unspecified fall, initial encounter
[2024-06-20] MEDS: SODIUM CHLORIDE 0.9% 1,000 ML IV ONE (17:22)
[2024-06-20 17:27] LABS: Base Excess VBG 6.1 mEq/L; HCO3 VBG 32 mmol/L; Oxygen Saturation VBG < 60.0 %; PCO2 VBG 49 mmHg (38-50); PO2 VBG 21 mmHg; pH VBG 7.42 (7.36-7.41)
[2024-06-20 17:30] LABS: Hematocrit (blood only) 46.9 % (42.0-52.0); Hemoglobin 16.3 g/dl (14.0-18.0); Mean Corpuscular Hemoglobin 28.8 pg (25.0-34.0); Mean Corpuscular Hgb Conc 34.8 g/dL (32.0-36.0); Mean Corpuscular Volume 82.9 fL (80.0-100.0); Mean Platelet Volume 9.7 fL (9.4-12.4); Platelet Count 237 K/uL (130-400); RDW Coefficient of Variation 12.3 % (11.5-14.5); RDW Standard Deviation 37.2 fL (36.4-46.3); Red Blood Count 5.66 M/uL (4.70-6.10); White Blood Count 17.88 K/ul (4.8-10.8)
[2024-06-20 17:33] LABS: iSTAT Creatinine 0.9 mg/dl (0.6-1.3); iSTAT Ionized Calcium 1.08 mmol/l (1.12-1.32)
[2024-06-20] MEDS: OPTIRAY 320 100ml IV ONE (17:44)
[2024-06-20 17:46] LABS: Albumin Globulin Ratio 1.1 (0.9-2); Albumin Level 3.7 gm/dl (3.4-5.0); BUN Creatinine Ratio 17.2 (10-20); Calcium 8.9 mg/dl (8.6-10.3); Creatinine Clr Calc Pharmacy 122.3 ml/min; Globulin 3.5 gm/dl (2.5-4.0); Potassium 3.9 mmol/L (3.5-5.1); Total Protein 7.2 gm/dl (6.0-8.3)
[2024-06-20 17:51] LABS: Basophils # (auto) 0.02 K/uL (0.00-0.20); Basophils % (auto) 0.1 %; Immature Granulocytes # (auto) 0.15 K/uL (0.01-0.20); Immature Granulocytes % (auto) 0.8 %; Lymphocytes # (auto) 0.24 K/uL (1.20-3.40); Lymphocytes % (auto) 1.3 %; Monocytes # (auto) 1.23 K/uL (0.11-0.59); Monocytes % (auto) 6.9 %; Neutrophils # (auto) 16.24 K/uL (1.40-6.50); Neutrophils % (auto) 90.9 %
[2024-06-20 17:56] LABS: Troponin I High Sensitivity 56.9 pg/ml (0-20)
[2024-06-20 17:59] LABS: INR 1.1 (0.9-1.1); Partial Thromboplastin Time 26 Seconds (21-31); Prothrombin Time 11.9 Seconds (9.0-12.0)
--- NOTE | 2024-06-20 18:04 | Emergency Department Note ---
ED Visit Note I was consulted by the Advanced Practice Provider Vivienne Roach PA-C. I performed a substantive portion of the visit including all aspects of medical decision making. .
--- NOTE | 2024-06-20 18:13 | CT Scan Report ---
CT cervical spine without IV contrast History: Pain Comparison: None Technique: Using multidetector thin collimation helical acquisition technique, axial, coronal and sagittal CT images through the cervical spine were obtained without intravenous contrast. Dose reduction techniques were achieved by using automatic exposure control and/or adjustment of mA and/or kV according to patient size and/or use of iterative reconstruction technique. Findings: The cervical vertebrae are normally aligned. Normal cervical lordosis. No acute fracture or subluxation. No prevertebral edema. Mild multilevel uncovertebral osteophytes of the vertebral bodies. No abnormality of the paraspinous soft tissues. Impression: No acute fracture or traumatic subluxation. Electronically signed by Diaz Duran 06-20-2024 6:12 PM
[2024-06-20 18:21] LABS: Influenza A virus by PCR Negative (Neg); Influenza B virus by PCR Negative (Neg); RSV by PCR Negative (Neg); SARS CoV2 RNA(COVID-19) Ceph NEGATIVE (Negative)
--- NOTE | 2024-06-20 18:40 | CT Scan Report ---
EXAM: CT Chest Abdomen and Pelvis With Intravenous Contrast INDICATION: Multiple falls. Lower back pain and lightheadedness. TECHNIQUE: Axial computed tomography images of the chest, abdomen and pelvis with intravenous contrast. Sagittal and coronal reformatted images were created and reviewed. This CT exam was performed using one or more of the following dose reduction techniques: automated exposure control, adjustment of the mA and/or kV according to patient size, and/or use of iterative reconstruction technique. CONTRAST: 93ml of Optiray 320 was administered intravenously. COMPARISON: CT chest 11/10/2020 FINDINGS: Limitations: None. CHEST: Lungs and pleural spaces: No abnormality noted. No mass. No consolidation. No significant effusion. No pneumothorax. Heart: Cardiomegaly noted. Cardiac pacing device noted. Metallic artifact limits assessment of lead integrity. Mediastinum: No abnormality noted. Thyroid: No abnormality noted. ABDOMEN: Liver: No abnormality noted. Gallbladder and bile ducts: No calcified stones or surrounding fluid. No ductal dilation. Pancreas: Homogeneous enhancement. No mass, inflammation or ductal dilation. Spleen: The spleen is enlarged to 16.8 cm long. Adrenals: Stable 2.7 x 2.1 cm right adrenal myelolipoma. No further assessment required. The left appears normal. Kidneys and ureters: Simple bilateral renal cysts noted. No follow-up necessary. No stones or hydronephrosis. There is scarring of the lower pole of the left kidney with a small associated nonobstructing stone measuring about 3 mm. No hydronephrosis. No urinary gas. Stomach and bowel: No distension or mucosal thickening. No inflammation noted. PELVIS: Appendix: Well seen and appears normal. Bladder: No filling defects to suggest mass or large stone. No inflammation. Reproductive: No significant abnormality noted. CHEST, ABDOMEN and PELVIS: Intraperitoneal space: No free air. No significant fluid collection. Retroperitoneal space: No abnormality noted. No fluid collection. Bones/joints: Degenerative changes noted throughout the spine. No acute osseous abnormality seen. Degenerative changes of the hips. There is heterotopic ossification contiguous with the left iliac crest presumably postoperative or posttraumatic. Soft tissues: There are small bilateral fat containing inguinal hernias. Vasculature: No abnormality noted. No aortic aneurysm. Lymph nodes: No enlarged lymph nodes. IMPRESSION: 1. No traumatic change in the chest, abdomen or pelvis. 2. Chronic changes as above. ACT 112: N/A Electronically signed by Katerina Xavier 06-20-2024 6:40 PM
--- NOTE | 2024-06-20 18:49 | CT Scan Report ---
EXAM: CT Left Lower Extremity Without Intravenous Contrast Foot INDICATION: Evaluate for osteomyelitis TECHNIQUE: Axial computed tomography images of the left foot without intravenous contrast. Sagittal and coronal reformatted images were created and reviewed. This CT exam was performed using one or more of the following dose reduction techniques: automated exposure control, adjustment of the mA and/or kV according to patient size, and/or use of iterative reconstruction technique. COMPARISON: X-ray left foot 11/18/2020 FINDINGS: Limitations: Significant motion artifact limits assessment. Bones/joints: Significantly limited evaluation of the tarsals, metatarsals and residual phalanges. Hypertrophic changes noted similar to the plain radiograph. There is no gross fracture or dislocation. Periosteal reaction and small erosions would not be visualized. Soft tissues: There is marked soft tissue edema. There is soft tissue gas adjacent to the base of the fourth proximal phalanx. No loculated collection is identified although there is significant motion. No radiopaque foreign body. IMPRESSION: 1. Significantly limited exam. 2. Soft tissue swelling and gas most likely reflecting anaerobic infection at the level of the fourth proximal phalanx. No defined fluid collection or gross osteomyelitis although limiting motion could obscure these abnormalities. ACT 112: N/A Electronically signed by Katerina Xavier 06-20-2024 6:49 PM
--- NOTE | 2024-06-20 18:51 | CT Scan Report ---
EXAM: CT Lumbar Spine With Intravenous Contrast INDICATION: Multiple falls. TECHNIQUE: Axial computed tomography images of the lumbar spine with intravenous contrast. Sagittal and coronal reformatted images were created and reviewed. This CT exam was performed using one or more of the following dose reduction techniques: automated exposure control, adjustment of the mA and/or kV according to patient size, and/or use of iterative reconstruction technique. CONTRAST: 93 ml of Optiray 320 was administered intravenously. COMPARISON: No relevant prior studies available. FINDINGS: Limitations: None. Vertebrae: The bones are diffusely demineralized. There is diffuse mild to moderate facet arthrosis and moderate to severe spondylosis. There is no acute fracture or subluxation. Sacrum/coccyx: No significant abnormality noted. No acute change noted. Discs/spinal canal/neural foramina: There is diffuse mild to moderate disc space degeneration. Diffuse disc bulge with moderate canal stenosis noted at L3-L4. Mild stenosis L4-L5. Soft tissues: No significant abnormality noted. Kidneys and ureters: Simple left renal cyst/s. No simple cyst follow-up necessary. Right kidney appears normal. No renal stone, hydronephrosis or perinephric fluid. IMPRESSION: Chronic changes. No acute abnormality. ACT 112: N/A Electronically signed by Katerina Xavier 06-20-2024 6:51 PM
[2024-06-20] MEDS: DAPTOmycin 900 MG in SYRINGE 0 ML IV ONE (18:56)
[2024-06-20] MEDS: PIPERACILLIN/TAZOBACTAM 4.5 GM/100 ML BAG IV ONE (18:59)
[2024-06-20] MEDS: ACETAMINOPHEN 1,000 MG/100 ML VIAL IV STA (19:25)
[2024-06-20] MEDS: ASPIRIN CHEW 324 MG PO STA (19:25)
--- NOTE | 2024-06-20 21:23 | Ultrasound Report ---
Exam(s): US VENOUS LEFT LOWER EXTREMITY EXAM: US Duplex Left Lower Extremity Veins CLINICAL HISTORY: Reason for exam: eval DVT. TECHNIQUE: Real-time duplex ultrasound scan of the left lower extremity veins integrating B-mode two-dimensional vascular structure, Doppler spectral analysis, color flow Doppler imaging and compression. COMPARISON: No relevant prior studies available. FINDINGS: Deep veins: Unremarkable. The visualized deep veins of the left lower extremity are compressible with color flow. No visualized thrombus. Superficial veins: Unremarkable. No thrombus identified in the GSV. Soft tissues: No acute findings. IMPRESSION: No DVT within the left lower extremity. Electronically signed by: Beka Jules MD 06/20/24 21:22 PM
--- NOTE | 2024-06-20 21:43 | History & Physical Report ---
Date of Service June 20, 2024 Assessment & Plan (1) Diabetic ulcer of left foot: (2) History of amputation of foot through metatarsal bone: (3) Diabetes mellitus type 2 with complications: (4) Diabetic peripheral neuropathy associated with type 2 diabetes mellitus: (5) Elevated troponin: (6) Zpspuxr-Ujlzy-Zljpv syndrome: Plan The patient is a 68-year-old male with a past medical history including diabetic ulcer of left foot, peripheral neuropathy, history of partial amputation of foot through metatarsal bone, B12 deficiency, diabetes mellitus, vitamin D deficiency, hypertension, paroxysmal SVT, LBBB, presents of pacemaker, hyperlipidemia, chronic venous insufficiency, morbid obesity, GERD, and Ygjevod-Appnf-Nzllp syndrome.The patient presents to the emergency department via EMS, after a ground-level fall this morning, when he hit his head, requiring a neighbor to help him get up. He then fell again in the afternoon, where his neighbor was unable to help him get up, and he called EMS. In both instances, he hit his head. He does not remember the exact mechanism of how he fell. He did initially complain of some generalized headache, with neck pain and low back pain, but these resolved spontaneously while in the ED. The patient has been following with the diabetic foot care clinic for a chronic left lower extremity foot ulcer. The patient has a primary concern of losing his left foot, similar to what happened to his father, and has had a history of partial amputation in the past. Workup in the emergency department included CT scan of head, cervical spine, chest which were all negative. CT scan of the lumbar spine showed moderate L3-4, and mild L4-5 degenerative disc disease and spinal stenosis. CT scan of the left lower extremity without IV contrast showed soft tissue swelling and gas most likely reflecting anaerobic infection at the level of the fourth proximal phalanx. No defined fluid collection or gross osteomyelitis although limiting motion could obscure these abnormalities. [facility]. #Diabetic foot ulcer of left foot/history of partial amputation through metatarsal bone- Status post daptomycin 900 mg IV, and Zosyn 4.5 g IV in ED Daptomycin dosing to be adjusted by pharmacy to 700 mg IV daily. Continue Zosyn 4.5 g IV every [address] scan of left foot notes soft tissue swelling and gas most likely reflecting anaerobic infection at the level of the fourth proximal phalanx. There was no defined fluid collection or gross osteomyelitis and the limiting motion could not secure these abnormalities. Consult wound care Will need to have consult from either orthopedic surgery or podiatry in the a.m. Given aspirin 324 mg in ED, and will continue aspirin 81 mg every morning Most recent bilateral lower extremity arterial Dopplers were performed on 10/20/2020, and were both negative History of RF ablation 11/08/2019, with closure of both GSV's Order repeat bilateral lower extremity arterial Dopplers this evening. #Elevated troponin/LBBB/PSVT history/hypertension- The patient will be admitted to telemetry for serial cardiac enzymes, serial EKG's, cardiac rhythm monitoring Initial troponin 56.9 with follow-up 62.9, and will repeat in the a.m. Continue amlodipine, aspirin, metoprolol titrate Holding lisinopril #Diabetes mellitus- Hold metformin Reduce glargine from 35 to 25 units subcu daily Check hemoglobin A1c #Chronic medical conditions: Hyperlipidemia-continue atorvastatin, check a fasting lipid panel Vitamin D deficiency-continue supplement next 12 vitamin B12 deficiency-continue supplement History of Present Illness Chief Complaint: The patient presents to the emergency department via EMS, after a ground-level fall this morning, when he hit his head, requiring a neighbor to help him get up. He then fell again in the afternoon, where his neighbor was unable to help him get up, and he called EMS. In both instances, he hit his head. He does not remember the exact mechanism of how he fell. He did initially complain of some generalized headache, with neck pain and low back pain, but these resolved spontaneously while in the ED. The patient has been following with the diabetic foot care clinic for a chronic left lower extremity foot ulcer. The patient has a primary concern of losing his left foot, similar to what happened to his father, and has had a history of partial amputation in the past. Primary Care Provider: Branden Renteria DO The patient is a 68-year-old male with a past medical history including diabetic ulcer of left foot, peripheral neuropathy, history of partial amputation of foot through metatarsal bone, B12 deficiency, diabetes mellitus, vitamin D deficiency, hypertension, paroxysmal SVT, LBBB, presents of pacemaker, hyperlipidemia, chronic venous insufficiency, morbid obesity, GERD, and Bgfsxhp-Totqh-Kqrei syndrome.The patient presents to the emergency department via EMS, after a ground-level fall this morning, when he hit his head, requiring a neighbor to help him get up. He then fell again in the afternoon, where his neighbor was unable to help him get up, and he called EMS. In both instances, he hit his head. He does not remember the exact mechanism of how he fell. He did initially complain of some generalized headache, with neck pain and low back pain, but these resolved spontaneously while in the ED. The patient has been following with the diabetic foot care clinic for a chronic left lower extremity foot ulcer. The patient has a primary concern of losing his left foot, similar to what happened to his father, and has had a history of partial amputation in the past. Workup in the emergency department included CT scan of head, cervical spine, chest which were all negative. CT scan of the lumbar spine showed moderate L3-4, and mild L4-5 degenerative disc disease and spinal stenosis. CT scan of the left lower extremity without IV contrast showed soft tissue swelling and gas most likely reflecting anaerobic infection at the level of the fourth proximal phalanx. No defined fluid collection or gross osteomyelitis although limiting motion could obscure these abnormalities. [facility]. Allergies Allergy/AdvReac Type Severity Reaction Status Date / Time vancomycin Allergy Mild thrombocyto Verified 05/22/24 09:45 penia Home Medications Medication Instructions Recorded Confirmed Type acetaminophen 650 mg 650 mg PO Q6H PRN pain or fever 02/19/18 05/22/24 History tablet,extended release ascorbic acid (vitamin C) 500 mg 500 mg PO QAM 02/19/18 05/22/24 History tablet aspirin 81 mg tablet,delayed 81 mg PO DIRECTED PRN Pain 02/19/18 05/22/24 History release calcium 600 mg (as carbonate)-vit 1 tab PO QAM 02/19/18 05/22/24 History D3 20 mcg (800 unit) chewable tablet (Caltrate plus D) multivitamin 1 tab PO QAM 11/13/18 05/22/24 History cholecalciferol (vitamin D3) 50 5,000 units PO HS 10/03/19 05/22/24 History mcg (2,000 unit) tablet pen needle, diabetic 32 gauge x #100 ea 06/14/23 05/22/24 Rx 5/32" (BD Ultra-Fine Danitza Pen Needle) blood-glucose meter (OneTouch #1 ea 06/28/23 05/22/24 Rx Verio Flex Meter) FreeStyle Almaz 2 [place] (flash #1 ea 09/05/23 05/22/24 Rx glucose scanning reader) blood sugar diagnostic (OneTouch #100 ea 02/06/24 05/22/24 Rx Verio test strips) amlodipine 5 mg tablet 5 mg PO DAILY #90 tabs 04/10/24 05/22/24 Rx atorvastatin 80 mg tablet 80 mg PO DAILY #90 tabs 04/10/24 05/22/24 Rx insulin glargine 100 unit/mL (3 35 unit (0.35 mL) subcut PM #15 mL 04/10/24 05/22/24 Rx mL) subcutaneous pen (Basaglar KwikPen U-100 Insulin) insulin lispro 100 unit/mL 10 unit (0.1 mL) subcut .COMPLEX 04/10/24 05/22/24 Rx subcutaneous pen (Admelog SoloStar #15 mL U-) lisinopril 10 mg tablet 10 mg PO DAILY #90 tabs 04/10/24 05/22/24 Rx metformin 1,000 mg tablet 1,000 mg PO BID diabetes #180 tabs 04/10/24 05/22/24 Rx metoprolol tartrate 25 mg tablet 25 mg PO BID #180 tabs 04/10/24 05/22/24 Rx mecobalamin (vitamin B12) 1,000 1,000 mcg PO DAILY #30 tabs 06/04/24 Rx mcg chewable tablet Past Med/Surg History Problem List (Updated 06/20/24 @ 22:28 by Gayle Roach PA-C) Elevated troponin (Acute) Infection of left foot (Acute) Diabetic ulcer of left foot (Acute) Fall (Acute) Closed head injury (Acute) Loss of protective sensation of skin of foot 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 foot associated with diabetes mellitus due to underlying condition, limited to breakdown of skin Vitamin B12 deficiency Diabetes mellitus type 2 with complications Vitamin D deficiency HTN (hypertension) (Chronic) Paroxysmal SVT (supraventricular tachycardia) LBBB (left bundle branch block) Pacemaker (~2018) Type 2 diabetes mellitus treated with insulin (Chronic) Glucose controlled per patient Diabetic peripheral neuropathy associated with type 2 diabetes mellitus Followed by Endocrinology To left LE Status post partial amputation of foot Hyperlipidemia (Chronic) Chronic venous insufficiency (Chronic) Morbid obesity (Chronic) Ambulatory dysfunction uses cane GERD (gastroesophageal reflux disease) Well controlled and stable Ocpffuy-Lapqv-Ujper syndrome (Chronic) Followed by Wound clinic and [facility] Medical History Nonsustained paroxysmal ventricular tachycardia 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 Penicillin allergy Ventricular tachycardia History of colon polyps History of syncope Bilateral lower extremity edema Complete heart block (~2018) Hypertension History of diabetic ulcer of foot Surgical History Hx of vasectomy History of colonoscopy with polypectomy History of arthroscopy of left knee History of arthroscopy of right knee History of permanent cardiac pacemaker placement History of tonsillectomy S/P TKR (total knee replacement) (06/26/13) Family History Mother Alzheimer disease Depression Seizure Lung disease Hypertension Family hx of colon cancer Colorectal cancer Father Diabetes Depression Kidney disease Leukemia Seizure Lung disease Hypertension Sister Brain tumor Seizure Lung disease Lung cancer Other No family history of adverse response to anesthesia Denies family history of Ovarian cancer Prostate cancer Myocardial infarction Breast cancer Social History Smoking Status: Unknown if ever smoked Second Hand Exposure: No; Do You Dip or Chew Tobacco: No; Hx Alcohol Use: No Hx Substance Use: No Preferred Language: Malaysian Communication Ability: Effective Visual Impairment: No Limitations Hearing Ability: Normal Manager [employer] Required: No Beliefs That Will Affect Care: None marital status: marital status details: Current Living Situation: Alone Current Living Situation Comment: Has an apartment with friend current occupational status: previously employed How many Children do You have: 2 Feels Safe at Home: Yes Childhood Exposure to Second-Hand Smoke: Yes Diet: regular caffeine: Yes Dental Care, Regularly: Yes Physical Activity Frequency: Does not Exercise Seatbelt Use: always Sunscreen Use: Yes Assistive Devices: Cane Review of Systems Review of Systems: The patient denies chest pain, palpitations, shortness of breath, dyspnea on exertion, cough, sore throat, fevers, chills, sweats, weight change, fatigue, nausea, vomiting, diarrhea , constipation, abdominal pain, pelvic pain, blood in urine or stool, dysuria, urinary frequency or urgency, lightheadedness, dizziness, headache, memory loss, loss of consciousness, imbalance, focal or generalized weakness, numbness or tingling in arms right lower extremity, generalized arthralgias or myalgias, back or neck pain, or night sweats. The review of systems is otherwise negative other than for that already noted above, and at least 10 systems have been reviewed. Physical Exam Physical Exam: The patient is awake, alert and oriented 3, well developed and well nourished, normocephalic and atraumatic, lying in bed and in no acute distress. HEENT--PERRL, EOMI, mucous membranes and oropharynx mildly dry. Neck--supple. No JVD. No bruits. Thyroid normal, trachea midline, no adenopathy. Heart--normal S1 and S2. No murmurs, rubs or gallops. Lungs--clear bilaterally, no respiratory distress, no accessory muscle use. Abdomen--normal bowel sounds and soft. Nontender. Morbidly obese. Extremities-1+ bilateral pretibial pitting edema. Left foot with partial amputation. Moderate erythema and warmth across DIPs. Eschar at bases of DIPs moderate erythema Dermatologic--normal skin turgor, normal color, no abnormal lymph nodes, no rash. Neurologic--cranial nerves II through XII grossly intact. Rheumatologic--normal except for left lower extremity foot and toes Psychiatric--normal affect. Results & Data Results & Data Vital Signs (Past 12 Hours) Vital Signs Temp Pulse Pulse Resp BP BP Pulse Ox 06/20/24 21:27 71 06/20/24 21:00 77 16 119/73 95 06/20/24 19:10 85 16 136/74 06/20/24 17:38 93 06/20/24 17:31 93 H 06/20/24 17:17 37.2 C 97 H 17 131/74 93 06/20/24 17:17 37.2 C 97 H 17 131/74 93 O2 Del Method 06/20/24 21:27 06/20/24 21:00 Room Air 06/20/24 19:10 06/20/24 17:38 Room Air 06/20/24 17:31 06/20/24 17:17 Room Air 06/20/24 17:17 Room Air Laboratory Results Laboratory Results WBC 17.88 K/ul (4.8-10.8) H 06/20/24 17:15 RBC 5.66 M/uL (4.70-6.10) 06/20/24 17:15 Hgb 16.3 g/dl (14.0-18.0) 06/20/24 17:15 POC Hgb 16.0 g/dl (14.0-18.0) 06/20/24 17:20 Hct 46.9 % (42.0-52.0) 06/20/24 17:15 POC Hct 47 % (42-52) 06/20/24 17:20 MCV 82.9 fL (80.0-100.0) 06/20/24 17:15 MCH 28.8 pg (25.0-34.0) 06/20/24 17:15 MCHC 34.8 g/dL (32.0-36.0) 06/20/24 17:15 RDW Std Deviation 37.2 fL (36.4-46.3) 06/20/24 17:15 RDW Coeff of Oskar 12.3 % (11.5-14.5) 06/20/24 17:15 Plt Count 237 K/uL (130-400) 06/20/24 17:15 MPV 9.7 fL (9.4-12.4) 06/20/24 17:15 Immature Gran % (Auto) 0.8 % 06/20/24 17:15 Neut % (Auto) 90.9 % 06/20/24 17:15 Lymph % (Auto) 1.3 % 06/20/24 17:15 [place] % (Auto) 6.9 % 06/20/24 17:15 Eos % (Auto) 0.0 % 06/20/24 17:15 Baso % (Auto) 0.1 % 06/20/24 17:15 Neut # (Auto) 16.24 K/uL (1.40-6.50) H 06/20/24 17:15 Lymph # (Auto) 0.24 K/uL (1.20-3.40) L 06/20/24 17:15 [place] # (Auto) 1.23 K/uL (0.11-0.59) H 06/20/24 17:15 Eos # (Auto) 0.00 K/uL (0.00-0.50) 06/20/24 17:15 Baso # (Auto) 0.02 K/uL (0.00-0.20) 06/20/24 17:15 Immature Gran # (Auto) 0.15 K/uL (0.01-0.20) 06/20/24 17:15 PT 11.9 Seconds (9.0-12.0) 06/20/24 17:15 INR 1.1 (0.9-1.1) 06/20/24 17:15 APTT 26 Seconds (21-31) 06/20/24 17:15 PTT Ratio 1.0 06/20/24 17:15 VBG pH 7.42 (7.36-7.41) H 06/20/24 17:15 VBG pCO2 49 mmHg (38-50) 06/20/24 17:15 VBG pO2 21 mmHg 06/20/24 17:15 VBG HCO3 32 mmol/L 06/20/24 17:15 VBG O2 Saturation < 60.0 % 06/20/24 17:15 VBG Base Excess 6.1 mEq/L 06/20/24 17:15 POC Sodium 136 mmol/L (135-144) 06/20/24 17:20 Sodium 135 mmol/L (136-145) L 06/20/24 17:15 POC Potassium 4.0 mmol/L (3.3-5.0) 06/20/24 17:20 Potassium 3.9 mmol/L (3.5-5.1) 06/20/24 17:15 POC Chloride 95 mmol/L (101-112) L 06/20/24 17:20 Chloride 96 mmol/L (98-107) L 06/20/24 17:15 Carbon Dioxide 30 mmol/L (21-32) 06/20/24 17:15 POC Total CO2 27 mmol/L (24-31) 06/20/24 17:20 Anion Gap 9 (3-11) 06/20/24 17:15 POC Anion Gap 18.0 mmol/L (16-25) 06/20/24 17:20 POC BUN 15 mg/dl (7-18) 06/20/24 17:20 BUN 15 mg/dl (6-23) 06/20/24 17:15 Creatinine 0.87 mg/dl (0.6-1.4) 06/20/24 17:15 POC Creatinine 0.9 mg/dl (0.6-1.3) 06/20/24 17:20 Est Cr Clr Drug Dosing 122.3 ml/min 06/20/24 17:15 eGFR 94.57 06/20/24 17:15 BUN/Creatinine Ratio 17.2 (10-20) 06/20/24 17:15 Glucose 281 mg/dl (70-99(Fasting)) H 06/20/24 17:15 POC Glucose (other) 269 mg/dl (70-99) H 06/20/24 17:20 Lactate 1.9 mmol/L (0.4-2.0) 06/20/24 17:15 Calcium 8.9 mg/dl (8.6-10.3) 06/20/24 17:15 POC Ioniz Calcium [place] 1.08 mmol/l (1.12-1.32) L 06/20/24 17:20 Magnesium 2.0 mg/dl (1.7-2.4) 06/20/24 17:15 Total Bilirubin 1.0 mg/dl (0.2-1.0) 06/20/24 17:15 AST 19 U/L (13-39) 06/20/24 17:15 ALT 11 U/L (7-52) 06/20/24 17:15 Alkaline Phosphatase 52 U/L (34-104) 06/20/24 17:15 Troponin I High Sens 62.9 pg/ml (0-20) H* 06/20/24 19:06 Total Protein 7.2 gm/dl (6.0-8.3) 06/20/24 17:15 Albumin 3.7 gm/dl (3.4-5.0) 06/20/24 17:15 Globulin 3.5 gm/dl (2.5-4.0) 06/20/24 17:15 Albumin/Globulin Ratio 1.1 (0.9-2) 06/20/24 17:15 Lipase 14 U/L (11-82) 06/20/24 17:15 Procalcitonin 0.93 ng/ml (0-0.5) H 06/20/24 17:15 SARS-CoV-2 (PCR) NEGATIVE (Negative) 06/20/24 17:14 Influenza Type A (PCR) Negative (Neg) 06/20/24 17:14 Influenza Type B (PCR) Negative (Neg) 06/20/24 17:14 RSV (RT-PCR) Negative (Neg) 06/20/24 17:14 Impressions Abdomen/Pelvis CT 06/20/24 17:14 EXAM: CT Chest Abdomen and Pelvis With Intravenous Contrast INDICATION: Multiple falls. Lower back pain and lightheadedness. TECHNIQUE: Axial computed tomography images of the chest, abdomen and pelvis with intravenous contrast. Sagittal and coronal reformatted images were created and reviewed. This CT exam was performed using one or more of the following dose reduction techniques: automated exposure control, adjustment of the mA and/or kV according to patient size, and/or use of iterative reconstruction technique. CONTRAST: 93ml of Optiray 320 was administered intravenously. COMPARISON: CT chest 11/10/2020 FINDINGS: Limitations: None. CHEST: Lungs and pleural spaces: No abnormality noted. No mass. No consolidation. No significant effusion. No pneumothorax. Heart: Cardiomegaly noted. Cardiac pacing device noted. Metallic artifact limits assessment of lead integrity. Mediastinum: No abnormality noted. Thyroid: No abnormality noted. ABDOMEN: Liver: No abnormality noted. Gallbladder and bile ducts: No calcified stones or surrounding fluid. No ductal dilation. Pancreas: Homogeneous enhancement. No mass, inflammation or ductal dilation. Spleen: The spleen is enlarged to 16.8 cm long. Adrenals: Stable 2.7 x 2.1 cm right adrenal myelolipoma. No further assessment required. The left appears normal. Kidneys and ureters: Simple bilateral renal cysts noted. No follow-up necessary. No stones or hydronephrosis. There is scarring of the lower pole of the left kidney with a small associated nonobstructing stone measuring about 3 mm. No hydronephrosis. No urinary gas. Stomach and bowel: No distension or mucosal thickening. No inflammation noted. PELVIS: Appendix: Well seen and appears normal. Bladder: No filling defects to suggest mass or large stone. No inflammation. Reproductive: No significant abnormality noted. CHEST, ABDOMEN and PELVIS: Intraperitoneal space: No free air. No significant fluid collection. Retroperitoneal space: No abnormality noted. No fluid collection. Bones/joints: Degenerative changes noted throughout the spine. No acute osseous abnormality seen. Degenerative changes of the hips. There is heterotopic ossification contiguous with the left iliac crest presumably postoperative or posttraumatic. Soft tissues: There are small bilateral fat containing inguinal hernias. Vasculature: No abnormality noted. No aortic aneurysm. Lymph nodes: No enlarged lymph nodes. IMPRESSION: 1. No traumatic change in the chest, abdomen or pelvis. 2. Chronic changes as above. ACT 112: N/A Electronically signed by Katerina Xavier 06-20-2024 6:[address] 06/20/24 17:14 CT cervical spine without IV contrast History: Pain Comparison: None Technique: Using multidetector thin collimation helical acquisition technique, axial, coronal and sagittal CT images through the cervical spine were obtained without intravenous contrast. Dose reduction techniques were achieved by using automatic exposure control and/or adjustment of mA and/or kV according to patient size and/or use of iterative reconstruction technique. Findings: The cervical vertebrae are normally aligned. Normal cervical lordosis. No acute fracture or subluxation. No prevertebral edema. Mild multilevel uncovertebral osteophytes of the vertebral bodies. No abnormality of the paraspinous soft tissues. Impression: No acute fracture or traumatic subluxation. Electronically signed by Diaz Duran 06-20-2024 6:[address] 06/20/24 17:14 EXAM: CT Chest Abdomen and Pelvis With Intravenous Contrast INDICATION: Multiple falls. Lower back pain and lightheadedness. TECHNIQUE: Axial computed tomography images of the chest, abdomen and pelvis with intravenous contrast. Sagittal and coronal reformatted images were created and reviewed. This CT exam was performed using one or more of the following dose reduction techniques: automated exposure control, adjustment of the mA and/or kV according to patient size, and/or use of iterative reconstruction technique. CONTRAST: 93ml of Optiray 320 was administered intravenously. COMPARISON: CT chest 11/10/2020 FINDINGS: Limitations: None. CHEST: Lungs and pleural spaces: No abnormality noted. No mass. No consolidation. No significant effusion. No pneumothorax. Heart: Cardiomegaly noted. Cardiac pacing device noted. Metallic artifact limits assessment of lead integrity. Mediastinum: No abnormality noted. Thyroid: No abnormality noted. ABDOMEN: Liver: No abnormality noted. Gallbladder and bile ducts: No calcified stones or surrounding fluid. No ductal dilation. Pancreas: Homogeneous enhancement. No mass, inflammation or ductal dilation. Spleen: The spleen is enlarged to 16.8 cm long. Adrenals: Stable 2.7 x 2.1 cm right adrenal myelolipoma. No further assessment required. The left appears normal. Kidneys and ureters: Simple bilateral renal cysts noted. No follow-up necessary. No stones or hydronephrosis. There is scarring of the lower pole of the left kidney with a small associated nonobstructing stone measuring about 3 mm. No hydronephrosis. No urinary gas. Stomach and bowel: No distension or mucosal thickening. No inflammation noted. PELVIS: Appendix: Well seen and appears normal. Bladder: No filling defects to suggest mass or large stone. No inflammation. Reproductive: No significant abnormality noted. CHEST, ABDOMEN and PELVIS: Intraperitoneal space: No free air. No significant fluid collection. Retroperitoneal space: No abnormality noted. No fluid collection. Bones/joints: Degenerative changes noted throughout the spine. No acute osseous abnormality seen. Degenerative changes of the hips. There is heterotopic ossification contiguous with the left iliac crest presumably postoperative or posttraumatic. Soft tissues: There are small bilateral fat containing inguinal hernias. Vasculature: No abnormality noted. No aortic aneurysm. Lymph nodes: No enlarged lymph nodes. IMPRESSION: 1. No traumatic change in the chest, abdomen or pelvis. 2. Chronic changes as above. ACT 112: N/A Electronically signed by Katerina Xavier 06-20-2024 6:[address] 06/20/24 17:14 Exam(s): CT HEAD Without Contrast EXAM: CT Head Without Intravenous Contrast CLINICAL HISTORY: Reason for exam: Trauma. TECHNIQUE: Axial computed tomography images of the head/brain without intravenous contrast. CTDI is 36.9 mGy and DLP is 702.4 mGy-cm. Automated exposure control was utilized for the study. A dose lowering technique was utilized adhering to the principles of ALARA. COMPARISON: No relevant prior studies available. FINDINGS: Brain: Generalized parenchymal volume loss. Periventricular and deep cerebral white matter hypoattenuation suggesting chronic small vessel ischemic change. Neely-white matter differentiation maintained. No hemorrhage, mass effect, parenchymal edema, or midline shift. Ventricles: No hydrocephalus. Bones/joints: No acute fracture. Soft tissues: Unremarkable. Vasculature: Intracranial atherosclerosis. Sinuses: Unremarkable as visualized. Mastoid air cells: No significant mastoid effusion. IMPRESSION: No acute intracranial process. Electronically signed by: Diana Hoyos M.D. 06/20/24 21:[address] 06/20/24 17:14 EXAM: CT Lumbar Spine With Intravenous Contrast INDICATION: Multiple falls. TECHNIQUE: Axial computed tomography images of the lumbar spine with intravenous contrast. Sagittal and coronal reformatted images were created and reviewed. This CT exam was performed using one or more of the following dose reduction techniques: automated exposure control, adjustment of the mA and/or kV according to patient size, and/or use of iterative reconstruction technique. CONTRAST: 93 ml of Optiray 320 was administered intravenously. COMPARISON: No relevant prior studies available. FINDINGS: Limitations: None. Vertebrae: The bones are diffusely demineralized. There is diffuse mild to moderate facet arthrosis and moderate to severe spondylosis. There is no acute fracture or subluxation. Sacrum/coccyx: No significant abnormality noted. No acute change noted. Discs/spinal canal/neural foramina: There is diffuse mild to moderate disc space degeneration. Diffuse disc bulge with moderate canal stenosis noted at L3-L4. Mild stenosis L4-L5. Soft tissues: No significant abnormality noted. Kidneys and ureters: Simple left renal cyst/s. No simple cyst follow-up necessary. Right kidney appears normal. No renal stone, hydronephrosis or perinephric fluid. IMPRESSION: Chronic changes. No acute abnormality. ACT 112: N/A Electronically signed by Katerina Xavier 06-20-2024 6:51 PM Venous Doppler Study 06/20/24 17:14 Exam(s): US VENOUS LEFT LOWER EXTREMITY EXAM: US Duplex Left Lower Extremity Veins CLINICAL HISTORY: Reason for exam: eval DVT. TECHNIQUE: Real-time duplex ultrasound scan of the left lower extremity veins integrating B-mode two-dimensional vascular structure, Doppler spectral analysis, color flow Doppler imaging and compression. COMPARISON: No relevant prior studies available. FINDINGS: Deep veins: Unremarkable. The visualized deep veins of the left lower extremity are compressible with color flow. No visualized thrombus. Superficial veins: Unremarkable. No thrombus identified in the GSV. Soft tissues: No acute findings. IMPRESSION: No DVT within the left lower extremity. Electronically signed by: Beka Julse MD 06/20/24 21:[address] 06/20/24 17:39 EXAM: CT Left Lower Extremity Without Intravenous Contrast Foot INDICATION: Evaluate for osteomyelitis TECHNIQUE: Axial computed tomography images of the left foot without intravenous contrast. Sagittal and coronal reformatted images were created and reviewed. This CT exam was performed using one or more of the following dose reduction techniques: automated exposure control, adjustment of the mA and/or kV according to patient size, and/or use of iterative reconstruction technique. COMPARISON: X-ray left foot 11/18/2020 FINDINGS: Limitations: Significant motion artifact limits assessment. Bones/joints: Significantly limited evaluation of the tarsals, metatarsals and residual phalanges. Hypertrophic changes noted similar to the plain radiograph. There is no gross fracture or dislocation. Periosteal reaction and small erosions would not be visualized. Soft tissues: There is marked soft tissue edema. There is soft tissue gas adjacent to the base of the fourth proximal phalanx. No loculated collection is identified although there is significant motion. No radiopaque foreign body. IMPRESSION: 1. Significantly limited exam. 2. Soft tissue swelling and gas most likely reflecting anaerobic infection at the level of the fourth proximal phalanx. No defined fluid collection or gross osteomyelitis although limiting motion could obscure these abnormalities. ACT 112: N/A Electronically signed by Katerina Xavier 06-20-2024 6:49 PM Code Status & VTE Plan Code Status Full code VTE Prophylaxis Plan VTE Prophylaxis will be ordered: Yes PG Care Time/CCT Total # of Minutes Spent Total Time Spent with Patient: Total time spent is greater than 50% in coordination of care (as documented) at patient's floor/unit and/or counseling patient: Coding Level of Care Code 95237 INT INP/OBS CARE 3/75MIN Diagnoses Diabetic ulcer of left foot E11.621; L97.529 History of amputation of foot through metatarsal bone Z89.439 Diabetes mellitus type 2 with complications E11.8 Diabetic peripheral neuropathy associated with type 2 diabetes mellitus E11.42 Elevated troponin R79.89 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
--- NOTE | 2024-06-20 21:51 | CT Scan Report ---
Exam(s): CT HEAD Without Contrast EXAM: CT Head Without Intravenous Contrast CLINICAL HISTORY: Reason for exam: Trauma. TECHNIQUE: Axial computed tomography images of the head/brain without intravenous contrast. CTDI is 36.9 mGy and DLP is 702.4 mGy-cm. Automated exposure control was utilized for the study. A dose lowering technique was utilized adhering to the principles of ALARA. COMPARISON: No relevant prior studies available. FINDINGS: Brain: Generalized parenchymal volume loss. Periventricular and deep cerebral white matter hypoattenuation suggesting chronic small vessel ischemic change. Neely-white matter differentiation maintained. No hemorrhage, mass effect, parenchymal edema, or midline shift. Ventricles: No hydrocephalus. Bones/joints: No acute fracture. Soft tissues: Unremarkable. Vasculature: Intracranial atherosclerosis. Sinuses: Unremarkable as visualized. Mastoid air cells: No significant mastoid effusion. IMPRESSION: No acute intracranial process. Electronically signed by: Diana Hoyos M.D. 06/20/24 21:50 PM
[2024-06-21] MEDS ORDERED: ONDANSETRON INJ 2 MG/ML 2 ML VIAL IV PRN (00:59)
[2024-06-21] MEDS ORDERED: GLUCOSE 10 TAB/TUBE PO PRN (00:59)
[2024-06-21] MEDS ORDERED: CARBOHYDRATES FOR HYPOGLYCEMIA PO PRN (00:59)
[2024-06-21] MEDS ORDERED: GLUCOSE 40% GEL 15 GM TUBE PO PRN (00:59)
[2024-06-21] MEDS ORDERED: GLUCAGON FOR INJ 1 MG VIAL SQ PRN (00:59)
[2024-06-21] MEDS ORDERED: DEXTROSE 50% 50 ML SYRINGE IV PRN (00:59)
--- NOTE | 2024-06-21 02:30 | Ultrasound Report ---
EXAM: US arterial duplex LE BI CLINICAL HISTORY: LLE diabetic foot ulcr. TECHNIQUE: Ultrasound examination of the bilateral lower extremities arteries was performed in real time and duplex. One or more of the following were performed: spectral analysis, resistive index, waveform analysis, and pulsed Doppler. COMPARISON: None. 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) Triphasic 93/7 Triphasic 103 Profunda femoris Artery Triphasic 61 Triphasic 61 Superficial Femoral Artery (SFA) Triphasic 93/7-Proximal 90-Mid 74-Distal Triphasic 89-Proximal 100-Mid 88-Distal Popliteal Artery (POP A) Triphasic 95-Proximal 77-Distal Triphasic 64/9-Proximal 88/6-Distal Anterior tbial Artery(MER) Triphasic 39-Proximal 32-Mid 52-Distal Biphasic 33-Proximal 19-Mid 63-Distal Posterior Tibial Artery (ARCHITECTURAL INTERN) Triphasic 65-proximal 51-Mid 44-Distal Triphasic 102-Proximal 264-Mid 70-Distal Peroneal Artery (ARCHITECTURAL INTERN) Triphasic 34-Proximal 34-Mid 17-Distal Biphasic 42-Proximal 60-Mid 38-Distal Dorsalis Pedis Artery (DPA) Triphasic 48 Triphasic 18 Atherosclerotic changes with multifocal scattered calcified plaques are seen in both lower limb extremities arteries. Right side: Triphasic waveform in right lower limb arteries as described above. Normal peak systolic velocities. No hemodynamically significant stenosis. Left side: Biphasic flow in left anterior tibial and peoneal arteries. Triphasic flow in rest of the evaluated arteries of left lower limb. Increased peak systolic velocity of left mid posterior tibial artery, suggesting moderate stenosis. Low peak systolic velocity of left anterior tibial artery, with limited visualization of left proximal anterior tibial artery due to position and plaques. Collateral Circulation: Evaluation of collateral vessels: No significant collateral circulation was noted, indicative of chronic arterial occlusion. Additional Findings: Absence of haematoma IMPRESSION: 1. Normal triphasic waveforms, along with mild atherosclerotic changes and multifocal calcified plaques, were noted in the arteries of the right lower limb with normal peak systolic velocities, suggestive of minimal peripheral arterial disease. Details as above. 2. Triphasic/Biphasic waveforms along with moderate atherosclerotic changes noted in the arteries of the left lower limb, along with increased peak systolic velocity of left posterior tibial and low velocity of left anterior tibial arteries, could be due to position and plaques suggestive of mild to moderate peripheral arterial disease. Details as above. 3. Increased peak systolic velocity of left mid posterior tibial artery with velocity of 264 cm/sec, suggesting moderate stenosis. Electronically signed by Parag House 06-21-2024 02:30 AM
[2024-06-21] MEDS ORDERED: NYSTATIN POWDER 15GM BTL EXT PRN (06:00)
[2024-06-21 06:20] LABS: Basophils # (auto) 0.02 K/uL (0.00-0.20); Basophils % (auto) 0.2 %; Eosinophils # (auto) 0.04 K/uL (0.00-0.50); Eosinophils % (auto) 0.4 %; Hematocrit (blood only) 45.5 % (42.0-52.0); Hemoglobin 15.5 g/dl (14.0-18.0); Immature Granulocytes # (auto) 0.07 K/uL (0.01-0.20); Immature Granulocytes % (auto) 0.6 %; Lymphocytes % (auto) 3.5 %; Mean Corpuscular Hemoglobin 28.5 pg (25.0-34.0); Mean Corpuscular Hgb Conc 34.1 g/dL (32.0-36.0); Mean Corpuscular Volume 83.8 fL (80.0-100.0); Mean Platelet Volume 9.7 fL (9.4-12.4); Monocytes # (auto) 0.93 K/uL (0.11-0.59); Monocytes % (auto) 8.3 %; Neutrophils # (auto) 9.81 K/uL (1.40-6.50); Platelet Count 209 K/uL (130-400); RDW Coefficient of Variation 12.6 % (11.5-14.5); RDW Standard Deviation 37.8 fL (36.4-46.3); Red Blood Count 5.43 M/uL (4.70-6.10); White Blood Count 11.27 K/ul (4.8-10.8)
[2024-06-21 06:31] LABS: Albumin Globulin Ratio 1.1 (0.9-2); Albumin Level 3.4 gm/dl (3.4-5.0); BUN Creatinine Ratio 19.2 (10-20); Bilirubin,Total 0.8 mg/dl (0.2-1.0); Calcium 8.8 mg/dl (8.6-10.3); Chol HDL Ratio 5.6 (0-5); Globulin 3.2 gm/dl (2.5-4.0); Magnesium 2.2 mg/dl (1.7-2.4); Potassium 4.4 mmol/L (3.5-5.1); Total Protein 6.6 gm/dl (6.0-8.3)
[2024-06-21 06:37] LABS: INR 1.1 (0.9-1.1); Partial Thromboplastin Time 26 Seconds (21-31); Prothrombin Time 11.9 Seconds (9.0-12.0); Troponin I High Sensitivity 32.3 pg/ml (0-20)
[2024-06-21 06:48] LABS: Appearance Urine Clear (Clear); Bacteria Urine Automated None Seen (None Seen); Bilirubin Urine Negative (Negative); Blood Urine Negative (Negative); Color Urine Dark Yellow; Epithelial Casts Urine Present /lpf (None Prsent); Epithelial Cell Urine Auto 0-2 /hpf (0-2); Glucose Urine UA 3+ (Negative); Granular Casts Urine Present /lpf (None Prsent); Ketones Urine 1+ (Negative); Leukocyte Esterase Urine Negative (Negative); Mucus Urine Present (None Prsent); Nitrite Urine Negative (Negative); Protein Urine 2+ (Negative); RBC Urine Automated 0-2 /hpf (0-2); Specific Gravity Urine > 1.045 (1.000-1.030); Urobilinogen Urine Negative (Negative); WBC Urine Automated 0-5 /hpf (0-5); pH Urine 5.5 (4.5-7.5)
[2024-06-21 07:11] LABS: Estimated Average Glucose 212 mg/dl
[2024-06-21] MEDS: ASCORBIC ACID 500 MG TAB PO SCH (09:11)
[2024-06-21] MEDS: METOPROLOL TARTRATE 25 MG TAB PO SCH (09:11)
[2024-06-21] MEDS: CALCIUM 600MG + VIT D 400 IU TAB PO SCH (09:11)
[2024-06-21] MEDS: ASPIRIN 81 MG ECTAB PO SCH (09:11)
[2024-06-21] MEDS: CYANOCOBALAMIN (B-12) 500 MCG TABLET PO SCH (09:11)
[2024-06-21] MEDS: ATORVASTATIN 40 MG TAB PO SCH (09:11)
[2024-06-21] MEDS: amLODIPine BESYLATE 5 MG TAB PO SCH (09:11)
[2024-06-21] MEDS: INSULIN ASPART PER UNIT CHARGE SC SCH (09:15)
[2024-06-21 10:05] LABS: A calco-baum cmplx NotReported Not Detected (NotDetected); Bact fragilis Not Reported Not Detected (NotDetected); Blood Culture Id Panel See PCR Comment (NotDetected); C auris Not Reported Not Detected (NotDetected); Calbicans Not Reported Not Detected (NotDetected); Candida glabrata Not Reported Not Detected (NotDetected); Candida krusei Not Reported Not Detected (NotDetected); Cneoformans/gatti Not Reported Not Detected (NotDetected); Cparapsilosis Not Reported Not Detected (NotDetected); E cloacae compx Not Reported Not Detected (NotDetected); Efaecalis Not Reported Not Detected (NotDetected); Efaecium Not Reported Not Detected (NotDetected); Enterobacterales Not Reported Not Detected (NotDetected); Escherichia coli Not Reported Not Detected (NotDetected); H influenzae Not Reported Not Detected (NotDetected); K aerogenes Not Reported Not Detected (NotDetected); Koxytoca Not Reported Not Detected (NotDetected); Kpneumoniae grp Not Reported Not Detected (NotDetected); Lmonocyt Not Reported Not Detected (NotDetected); N meningitidis Not Reported Not Detected (NotDetected); P aeruginosa Not Reported Not Detected (NotDetected); Proteus spp Not Reported Not Detected (NotDetected); Salmonella spp Not Reported Not Detected (NotDetected); Staph lugdunensis Not Reported Not Detected (NotDetected); Staph spp. Not Reported DETECTED (NotDetected); Staphaureus Not Reported DETECTED (NotDetected); Staphepi Not Reported DETECTED (NotDetected); Stenmaltophilia Not Reported Not Detected (NotDetected); Strep agal(GrpB) Not Reported Not Detected (NotDetected); Strep pneum Not Reported Not Detected (NotDetected); Strep pyog (GrpA) Not Reported Not Detected (NotDetected); Strep spp Not Reported Not Detected (NotDetected)
[2024-06-21 10:14] LABS: Staphylococcus epidermidis DETECTED (NotDetected); Staphylococcus spp. DETECTED (NotDetected); mecAC Resistant Gene DETECTED (NotDetected); mecAC+MREJ Resistant Gene MRSA DETECTED (NotDetected)
--- NOTE | 2024-06-21 11:47 | Hospitalist Progress Note ---
Date of Service June 21, 2024 Assessment & Plan (1) Diabetic ulcer of left foot: (2) History of amputation of foot through metatarsal bone: (3) Diabetes mellitus type 2 with complications: (4) Diabetic peripheral neuropathy associated with type 2 diabetes mellitus: (5) Elevated troponin: (6) Ghmstjb-Ojcwh-Yxlhq syndrome: Plan The patient is a 68-year-old male with a past medical history including diabetic ulcer of left foot, peripheral neuropathy, history of partial amputation of foot through metatarsal bone, B12 deficiency, diabetes mellitus, vitamin D deficiency, hypertension, paroxysmal SVT, LBBB, presents of pacemaker, hyperlipidemia, chronic venous insufficiency, morbid obesity, GERD, and Rrfiucd-Wkmal-Hdxbc syndrome.The patient presents to the emergency department via EMS, after a ground-level fall this morning, when he hit his head, requiring a neighbor to help him get up. He then fell again in the afternoon, where his neighbor was unable to help him get up, and he called EMS. In both instances, he hit his head. He does not remember the exact mechanism of how he fell. He did initially complain of some generalized headache, with neck pain and low back pain, but these resolved spontaneously while in the ED. The patient has been following with the diabetic foot care clinic for a chronic left lower extremity foot ulcer. The patient has a primary concern of losing his left foot, similar to what happened to his father, and has had a history of partial amputation in the past. Workup in the emergency department included CT scan of head, cervical spine, chest which were all negative. CT scan of the lumbar spine showed moderate L3-4, and mild L4-5 degenerative disc disease and spinal stenosis. CT scan of the left lower extremity without IV contrast showed soft tissue swelling and gas most likely reflecting anaerobic infection at the level of the fourth proximal phalanx. No defined fluid collection or gross osteomyelitis although limiting motion could obscure these abnormalities. The patient was referred to the [facility] service for further evaluation and treatment. Bacteremia Blood culture now growing MRSA source is likely foot ulcer Will start IV daptomycin Consult ID #Diabetic foot ulcer of left foot/history of partial amputation through metatarsal bone- Status post daptomycin 900 mg IV, and Zosyn 4.5 g IV in ED Daptomycin dosing to be adjusted by pharmacy to 700 mg IV daily. Continue Zosyn 4.5 g IV every [address] scan of left foot notes soft tissue swelling and gas most likely reflecting anaerobic infection at the level of the fourth proximal phalanx. There was no defined fluid collection or gross osteomyelitis and the limiting motion could not secure these abnormalities. Consult wound care and Podiatry #Elevated troponin/LBBB/PSVT history/hypertension- Likely demand ischemia The patient will be admitted to telemetry for serial cardiac enzymes, serial EKG's, cardiac rhythm monitoring Initial troponin 56.9 with follow-up 62.9, will trend Continue amlodipine, aspirin, metoprolol titrate Holding lisinopril #Diabetes mellitus- Hold metformin Reduce glargine from 35 to 25 units subcu daily Check hemoglobin A1c #Chronic medical conditions: Hyperlipidemia-continue atorvastatin, check a fasting lipid panel Vitamin D deficiency-continue supplement next 12 vitamin B12 deficiency-continue supplement Admission and Anticipated Discharge Date Admission Date: June 20, 2024 Subjective patient seen and examined, no new complaints, awating eval by Podiatry Review of Systems Review of Systems: All systems reviewed are negative, apart from the ones contained in the history. Physical Exam Physical Exam: The patient is awake, alert and oriented 3, well developed and well nourished, normocephalic and atraumatic, lying in bed and in no acute distress. HEENT--PERRL, EOMI, mucous membranes and oropharynx mildly dry Neck--supple. No JVD. No bruits. Thyroid normal, trachea midline, no adenopathy. Heart--normal S1 and S2. No murmurs, rubs or gallops. Lungs--clear bilaterally, no respiratory distress, no accessory muscle use. Abdomen--normal bowel sounds and soft. Extremities--left LE in bandage, amputation of 4th digits Dermatologic--normal skin turgor, normal color, no abnormal lymph nodes, no rash. Neurologic--cranial nerves II through XII grossly intact. Rheumatologic--normal range of motion. Psychiatric--normal affect. Results & Data Results & Data Vital Signs (Past 12 Hours) Vital Signs Temp Pulse Pulse Pulse Resp BP BP 06/21/24 08:00 06/21/24 07:54 97.5 F L 73 20 150/69 H 06/21/24 07:00 75 06/21/24 06:45 98.1 F 75 18 133/74 06/21/24 00:59 06/21/24 00:50 96 H 06/21/24 00:47 97.7 F 75 16 116/66 Pulse Ox Pulse Ox O2 Del Method O2 Del Method 06/21/24 08:00 Room Air 06/21/24 07:54 98 Room Air 06/21/24 07:00 06/21/24 06:45 96 Room Air 06/21/24 00:59 98 Room Air 06/21/24 00:50 06/21/24 00:47 98 Room Air PG Care Time/CCT Total # of Minutes Spent Total Time Spent with Patient: Total time spent is greater than 50% in coordination of care (as documented) at patient's floor/unit and/or counseling patient: Coding Level of Care Code 24582 SUB INP/OBS CARE 2/35MIN Diagnoses Diabetic ulcer of left foot E11.621; L97.529 History of amputation of foot through metatarsal bone Z89.439 Diabetes mellitus type 2 with complications E11.8 Diabetic peripheral neuropathy associated with type 2 diabetes mellitus E11.42 Elevated troponin R79.89 Esfpdfw-Ripbp-Mibjh syndrome G60.0 Time Spent (min) 35
--- NOTE | 2024-06-21 12:09 | Infectious Disease Consult ---
Date of Consultation June 21, 2024 Assessment & Plan (1) MRSA bacteremia: (2) Diabetic ulcer of left foot: Plan Problems: #L diabetic foot infection #MRSA and Staph epi bacteremia #Pacemaker in place #Vanc allergy: thrombocytopenia Micro: 06/21 BCx x2: pending 06/20 L foot wound cx: Staph aureus, plus low counts of probable skin lucio. GS many GPCs 06/20 BCx: GPCs in clusters in 2/4 bottles. BCID2 panel + MRSA and Staph epi Abx: Dapto 06/20 - present Pip-tazo 06/20 - present 68 yo M with T2DM, peripheral neuropathy, diabetic foot ulcer s/p prior amputation, Urnzjnz-Qkcew-Ozuze syndrome, pacemaker in place who presented on 06/20 after a ground level fall that morning in which he hit his head. Again fell in the afternoon. He has a chronic LLE foot ulcer for which he was seen in the [facility] in 04/[facility]. On presentation, pt was afebrile, VSS. Exam was notable for a sub-third/fourth metatarsal open wound with purulent discharge, foul smell, and erythema and edema from the midfoot distally. Labs showed WBC 17.88, procal 0.93. UA with 0-5 WBCs. COVID-19/flu/RSV negative. BCx collected. CT head, C-spine, L-spine, chest, abd/pelvis without acute findings. CT LLE without contrast was significantly limited due to motion artifact, but showed soft tissue swelling and gas most likely reflecting anaerobic infection at the level of the fourth proximal phalanx, no defined fluid collection or gross osteomyelitis although limiting motion could obscure these abnormalities. Pt was started on dapto, Zosyn. Podiatry consulted and planning for I&D of L foot today to debride necrotic appearing soft tissue and bone, with tentative plan to return to the OR at some point next week for repeat I&D vs transmetatarsal amputation. BCx growing GPCs in clusters in 2/4 bottles. BCID2 panel positive for MRSA and Staph epi. Recommendations: -MRI with and without contrast to evaluate for osteomyelitis. (Pt had an MRI in 2019 when he had a pacemaker in place, so should be MRI compatible?) -Please send culture of tissue/bone from any debridements. Also send pathology of proximal margin from any amputation to evaluate for residual osteomyelitis. -TTE to evaluate for endocarditis given MRSA bacteremia and pacemaker (ordered) -Repeat blood cultures ordered for today and tomorrow -Follow-up L foot wound culture -Can continue dapto, pip-tazo for now Please note that ID does not round or write notes over the weekend. If questions or concerns arise, please contact the Infectious Disease Call Center and ask to speak with the covering ID physician. Consultation Information Consultation was provided via telemedicine using two-way real-time interactive telecommunication between the patient and the telemedicine provider. For the duration of the visit, the provider was performing the assessment from a different facility than the patient. This includesuse of bluetooth stethoscope forauscultationperformed by the telepresenter that the telemedicine provider can hear if described in the physical exam. Public Relations Consultant contact information: Please call [facility] [phone]. (Phone Number For Physician Use Only) After establishing a telemedicine visit, patient was: Patient was verified with two unique identifiers, Patient/authorized rep acknowledged consent and understanding and Gave permission to continue telehealth session Time Spent with Patient: Initial => 40 min History of Present Illness Reason for Consultation: Bacteremia Attending Physician: Chilango Plascencia MD History of Present Illness 68 yo M with T2DM, peripheral neuropathy, diabetic foot ulcer s/p prior amputation, Xlhstwx-Qvxif-Zkgbi syndrome, pacemaker in place who presented on 06/20 after a ground level fall that morning in which he hit his head. Again fell in the afternoon. He has a chronic LLE foot ulcer for which he was seen in the [facility] in 04/2024. On presentation, pt was afebrile, VSS. Exam was notable for a sub-third/fourth metatarsal open wound with purulent discharge, foul smell, and erythema and edema from the midfoot distally. Labs showed WBC 17.88, procal 0.93. UA with 0-5 WBCs. COVID-19/flu/RSV negative. BCx collected. CT head, C-spine, L-spine, chest, abd/pelvis without acute findings. CT LLE without contrast was significantly limited due to motion artifact, but showed soft tissue swelling and gas most likely reflecting anaerobic infection at the level of the fourth proximal phalanx, no defined fluid collection or gross osteomyelitis although limiting motion could obscure these abnormalities. Pt was started on dapto, Zosyn. BCx growing GPCs in clusters in 2/4 bottles. BCID2 panel positive for MRSA and Staph epi. Allergies Allergy/AdvReac Type Severity Reaction Status Date / Time vancomycin Allergy Mild thrombocyto Verified 05/22/24 09:45 penia Home Medications Medication Instructions Recorded Confirmed Type acetaminophen 650 mg 650 mg PO Q6H PRN pain or fever 02/19/18 05/22/24 History tablet,extended release ascorbic acid (vitamin C) 500 mg 500 mg PO QAM 02/19/18 05/22/24 History tablet aspirin 81 mg tablet,delayed 81 mg PO DIRECTED PRN Pain 02/19/18 05/22/24 History release calcium 600 mg (as carbonate)-vit 1 tab PO QAM 02/19/18 05/22/24 History D3 20 mcg (800 unit) chewable tablet (Caltrate plus D) multivitamin 1 tab PO QAM 11/13/18 05/22/24 History cholecalciferol (vitamin D3) 50 5,000 units PO HS 10/03/19 05/22/24 History mcg (2,000 unit) tablet pen needle, diabetic 32 gauge x #100 ea 06/14/23 05/22/24 Rx 5/32" (BD Ultra-Fine Danitza Pen Needle) blood-glucose meter (OneTouch #1 ea 06/28/23 05/22/24 Rx Verio Flex Meter) FreeStyle Almaz 2 [place] (flash #1 ea 09/05/23 05/22/24 Rx glucose scanning reader) blood sugar diagnostic (OneTouch #100 ea 02/06/24 05/22/24 Rx Verio test strips) amlodipine 5 mg tablet 5 mg PO DAILY #90 tabs 04/10/24 05/22/24 Rx atorvastatin 80 mg tablet 80 mg PO DAILY #90 tabs 04/10/24 05/22/24 Rx insulin glargine 100 unit/mL (3 35 unit (0.35 mL) subcut PM #15 mL 04/10/24 05/22/24 Rx mL) subcutaneous pen (Basaglar KwikPen U-100 Insulin) insulin lispro 100 unit/mL 10 unit (0.1 mL) subcut .COMPLEX 04/10/24 05/22/24 Rx subcutaneous pen (Admelog SoloStar #15 mL U-) lisinopril 10 mg tablet 10 mg PO DAILY #90 tabs 04/10/24 05/22/24 Rx metformin 1,000 mg tablet 1,000 mg PO BID diabetes #180 tabs 04/10/24 05/22/24 Rx metoprolol tartrate 25 mg tablet 25 mg PO BID #180 tabs 04/10/24 05/22/24 Rx mecobalamin (vitamin B12) 1,000 1,000 mcg PO DAILY #30 tabs 06/04/24 Rx mcg chewable tablet Patient History Medical History Nonsustained paroxysmal ventricular tachycardia 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 Penicillin allergy Ventricular tachycardia History of colon polyps History of syncope Bilateral lower extremity edema Complete heart block (~2017) Hypertension History of diabetic ulcer of foot Surgical History Hx of vasectomy History of colonoscopy with polypectomy History of arthroscopy of left knee History of arthroscopy of right knee History of permanent cardiac pacemaker placement History of tonsillectomy S/P TKR (total knee replacement) (06/26/13) Family History Mother Alzheimer disease Depression Seizure Lung disease Hypertension Family hx of colon cancer Colorectal cancer Father Diabetes Depression Kidney disease Leukemia Seizure Lung disease Hypertension Sister Brain tumor Seizure Lung disease Lung cancer Other No family history of adverse response to anesthesia Denies family history of Ovarian cancer Prostate cancer Myocardial infarction Breast cancer Social History Smoking Status: Never smoker Second Hand Exposure: No; Do You Dip or Chew Tobacco: No; Tobacco Cessation Education Requested by Patient: No Hx Alcohol Use: No Hx Substance Use: No Preferred Language: Bots[place]an Communication Ability: Effective Visual Impairment: No Limitations Hearing Ability: Normal Grounds/Maintenance Specialist Required: No Beliefs That Will Affect Care: None marital status: marital status details: Current Living Situation: Personal Care Facility Current Living Situation Comment: [facility] assisted [facility] current occupational status: previously employed How many Children do You have: 2 Other Information That Helps Us Care for You: No Feels Safe at Home: Yes Safety Concerns: Feels Safe At This Time Childhood Exposure to Second-Hand Smoke: Yes Diet: regular caffeine: Yes Dental Care, Regularly: Yes Physical Activity Frequency: Does not Exercise Seatbelt Use: always Sunscreen Use: Yes Assistive Devices: Walker and Wheelchair Review of System A complete ROS was performed and is negative except as mentioned in the HPI. Results & Data Vital Signs (Past 12 Hours) Vital Signs Temp Pulse Pulse Pulse Resp BP BP 06/21/24 08:00 06/21/24 07:54 36.4 C L 73 20 150/69 H 06/21/24 07:00 75 06/21/24 06:45 36.7 C 75 18 133/74 06/21/24 00:59 06/21/24 00:50 96 H 06/21/24 00:47 36.5 C 75 16 116/66 Pulse Ox Pulse Ox O2 Del Method O2 Del Method 06/21/24 08:00 Room Air 06/21/24 07:54 98 Room Air 06/21/24 07:00 06/21/24 06:45 96 Room Air 06/21/24 00:59 98 Room Air 06/21/24 00:50 06/21/24 00:47 98 Room Air Laboratory Results Short CBC 06/20/24 06/21/24 Range/Units 17:15 05:35 WBC 17.88 H 11.27 H (4.8-10.8) K/ul Hgb 16.3 15.5 (14.0-18.0) g/dl Hct 46.9 45.5 (42.0-52.0) % Plt Count 237 209 (130-400) K/uL BMP 06/20/24 06/21/24 17:15 05:35 Sodium 135 L 136 Potassium 3.9 4.4 Chloride 96 L 101 Carbon Dioxide 30 30 BUN 15 14 Creatinine 0.87 0.73 Glucose 281 H 236 H Calcium 8.9 8.8 Liver Function 06/20/24 06/21/24 Range/Units 17:15 05:35 Total Bilirubin 1.0 0.8 (0.2-1.0) mg/dl AST 19 20 (13-39) U/L ALT 11 10 (7-52) U/L Alkaline Phosphatase 52 47 (34-104) U/L Albumin 3.7 3.4 (3.4-5.0) gm/dl Urine 06/21/24 Range/Units 06:19 Urine Color Dark Yellow Urine Appearance Clear (Clear) Urine pH 5.5 (4.5-7.5) Ur Specific [place] > 1.045 H (1.000-1.030) Urine Protein 2+ H (Negative) Urine Glucose (UA) 3+ H (Negative) Diagnostic Findings Abdomen/Pelvis CT 06/20/24 17:14 EXAM: CT Chest Abdomen and Pelvis With Intravenous Contrast INDICATION: Multiple falls. Lower back pain and lightheadedness. TECHNIQUE: Axial computed tomography images of the chest, abdomen and pelvis with intravenous contrast. Sagittal and coronal reformatted images were created and reviewed. This CT exam was performed using one or more of the following dose reduction techniques: automated exposure control, adjustment of the mA and/or kV according to patient size, and/or use of iterative reconstruction technique. CONTRAST: 93ml of Optiray 320 was administered intravenously. COMPARISON: CT chest 11/10/2020 FINDINGS: Limitations: None. CHEST: Lungs and pleural spaces: No abnormality noted. No mass. No consolidation. No significant effusion. No pneumothorax. Heart: Cardiomegaly noted. Cardiac pacing device noted. Metallic artifact limits assessment of lead integrity. Mediastinum: No abnormality noted. Thyroid: No abnormality noted. ABDOMEN: Liver: No abnormality noted. Gallbladder and bile ducts: No calcified stones or surrounding fluid. No ductal dilation. Pancreas: Homogeneous enhancement. No mass, inflammation or ductal dilation. Spleen: The spleen is enlarged to 16.8 cm long. Adrenals: Stable 2.7 x 2.1 cm right adrenal myelolipoma. No further assessment required. The left appears normal. Kidneys and ureters: Simple bilateral renal cysts noted. No follow-up necessary. No stones or hydronephrosis. There is scarring of the lower pole of the left kidney with a small associated nonobstructing stone measuring about 3 mm. No hydronephrosis. No urinary gas. Stomach and bowel: No distension or mucosal thickening. No inflammation noted. PELVIS: Appendix: Well seen and appears normal. Bladder: No filling defects to suggest mass or large stone. No inflammation. Reproductive: No significant abnormality noted. CHEST, ABDOMEN and PELVIS: Intraperitoneal space: No free air. No significant fluid collection. Retroperitoneal space: No abnormality noted. No fluid collection. Bones/joints: Degenerative changes noted throughout the spine. No acute osseous abnormality seen. Degenerative changes of the hips. There is heterotopic ossification contiguous with the left iliac crest presumably postoperative or posttraumatic. Soft tissues: There are small bilateral fat containing inguinal hernias. Vasculature: No abnormality noted. No aortic aneurysm. Lymph nodes: No enlarged lymph nodes. IMPRESSION: 1. No traumatic change in the chest, abdomen or pelvis. 2. Chronic changes as above. ACT 112: N/A Electronically signed by Katerina Xavier 06-20-2024 6:[address] 06/20/24 17:14 CT cervical spine without IV contrast History: Pain Comparison: None Technique: Using multidetector thin collimation helical acquisition technique, axial, coronal and sagittal CT images through the cervical spine were obtained without intravenous contrast. Dose reduction techniques were achieved by using automatic exposure control and/or adjustment of mA and/or kV according to patient size and/or use of iterative reconstruction technique. Findings: The cervical vertebrae are normally aligned. Normal cervical lordosis. No acute fracture or subluxation. No prevertebral edema. Mild multilevel uncovertebral osteophytes of the vertebral bodies. No abnormality of the paraspinous soft tissues. Impression: No acute fracture or traumatic subluxation. Electronically signed by Diaz Duran 06-20-2024 6:[address] 06/20/24 17:14 EXAM: CT Chest Abdomen and Pelvis With Intravenous Contrast INDICATION: Multiple falls. Lower back pain and lightheadedness. TECHNIQUE: Axial computed tomography images of the chest, abdomen and pelvis with intravenous contrast. Sagittal and coronal reformatted images were created and reviewed. This CT exam was performed using one or more of the following dose reduction techniques: automated exposure control, adjustment of the mA and/or kV according to patient size, and/or use of iterative reconstruction technique. CONTRAST: 93ml of Optiray 320 was administered intravenously. COMPARISON: CT chest 11/10/2020 FINDINGS: Limitations: None. CHEST: Lungs and pleural spaces: No abnormality noted. No mass. No consolidation. No significant effusion. No pneumothorax. Heart: Cardiomegaly noted. Cardiac pacing device noted. Metallic artifact limits assessment of lead integrity. Mediastinum: No abnormality noted. Thyroid: No abnormality noted. ABDOMEN: Liver: No abnormality noted. Gallbladder and bile ducts: No calcified stones or surrounding fluid. No ductal dilation. Pancreas: Homogeneous enhancement. No mass, inflammation or ductal dilation. Spleen: The spleen is enlarged to 16.8 cm long. Adrenals: Stable 2.7 x 2.1 cm right adrenal myelolipoma. No further assessment required. The left appears normal. Kidneys and ureters: Simple bilateral renal cysts noted. No follow-up necessary. No stones or hydronephrosis. There is scarring of the lower pole of the left kidney with a small associated nonobstructing stone measuring about 3 mm. No hydronephrosis. No urinary gas. Stomach and bowel: No distension or mucosal thickening. No inflammation noted. PELVIS: Appendix: Well seen and appears normal. Bladder: No filling defects to suggest mass or large stone. No inflammation. Reproductive: No significant abnormality noted. CHEST, ABDOMEN and PELVIS: Intraperitoneal space: No free air. No significant fluid collection. Retroperitoneal space: No abnormality noted. No fluid collection. Bones/joints: Degenerative changes noted throughout the spine. No acute osseous abnormality seen. Degenerative changes of the hips. There is heterotopic ossification contiguous with the left iliac crest presumably postoperative or posttraumatic. Soft tissues: There are small bilateral fat containing inguinal hernias. Vasculature: No abnormality noted. No aortic aneurysm. Lymph nodes: No enlarged lymph nodes. IMPRESSION: 1. No traumatic change in the chest, abdomen or pelvis. 2. Chronic changes as above. ACT 112: N/A Electronically signed by Katerina Xavier 06-20-2024 6:[address] 06/20/24 17:14 Exam(s): CT HEAD Without Contrast EXAM: CT Head Without Intravenous Contrast CLINICAL HISTORY: Reason for exam: Trauma. TECHNIQUE: Axial computed tomography images of the head/brain without intravenous contrast. CTDI is 36.9 mGy and DLP is 702.4 mGy-cm. Automated exposure control was utilized for the study. A dose lowering technique was utilized adhering to the principles of ALARA. COMPARISON: No relevant prior studies available. FINDINGS: Brain: Generalized parenchymal volume loss. Periventricular and deep cerebral white matter hypoattenuation suggesting chronic small vessel ischemic change. Neely-white matter differentiation maintained. No hemorrhage, mass effect, parenchymal edema, or midline shift. Ventricles: No hydrocephalus. Bones/joints: No acute fracture. Soft tissues: Unremarkable. Vasculature: Intracranial atherosclerosis. Sinuses: Unremarkable as visualized. Mastoid air cells: No significant mastoid effusion. IMPRESSION: No acute intracranial process. Electronically signed by: Diana Hoyos M.D. 06/20/24 21:[address] 06/20/24 17:14 EXAM: CT Lumbar Spine With Intravenous Contrast INDICATION: Multiple falls. TECHNIQUE: Axial computed tomography images of the lumbar spine with intravenous contrast. Sagittal and coronal reformatted images were created and reviewed. This CT exam was performed using one or more of the following dose reduction techniques: automated exposure control, adjustment of the mA and/or kV according to patient size, and/or use of iterative reconstruction technique. CONTRAST: 93 ml of Optiray 320 was administered intravenously. COMPARISON: No relevant prior studies available. FINDINGS: Limitations: None. Vertebrae: The bones are diffusely demineralized. There is diffuse mild to moderate facet arthrosis and moderate to severe spondylosis. There is no acute fracture or subluxation. Sacrum/coccyx: No significant abnormality noted. No acute change noted. Discs/spinal canal/neural foramina: There is diffuse mild to moderate disc space degeneration. Diffuse disc bulge with moderate canal stenosis noted at L3-L4. Mild stenosis L4-L5. Soft tissues: No significant abnormality noted. Kidneys and ureters: Simple left renal cyst/s. No simple cyst follow-up necessary. Right kidney appears normal. No renal stone, hydronephrosis or perinephric fluid. IMPRESSION: Chronic changes. No acute abnormality. ACT 112: N/A Electronically signed by Katerina Xavier 06-20-2024 6:51 PM Venous Doppler Study 06/20/24 17:14 Exam(s): US VENOUS LEFT LOWER EXTREMITY EXAM: US Duplex Left Lower Extremity Veins CLINICAL HISTORY: Reason for exam: eval DVT. TECHNIQUE: Real-time duplex ultrasound scan of the left lower extremity veins integrating B-mode two-dimensional vascular structure, Doppler spectral analysis, color flow Doppler imaging and compression. COMPARISON: No relevant prior studies available. FINDINGS: Deep veins: Unremarkable. The visualized deep veins of the left lower extremity are compressible with color flow. No visualized thrombus. Superficial veins: Unremarkable. No thrombus identified in the GSV. Soft tissues: No acute findings. IMPRESSION: No DVT within the left lower extremity. Electronically signed by: Beka Jules MD 06/20/24 21:[address] 06/20/24 17:39 EXAM: CT Left Lower Extremity Without Intravenous Contrast Foot INDICATION: Evaluate for osteomyelitis TECHNIQUE: Axial computed tomography images of the left foot without intravenous contrast. Sagittal and coronal reformatted images were created and reviewed. This CT exam was performed using one or more of the following dose reduction techniques: automated exposure control, adjustment of the mA and/or kV according to patient size, and/or use of iterative reconstruction technique. COMPARISON: X-ray left foot 11/18/2020 FINDINGS: Limitations: Significant motion artifact limits assessment. Bones/joints: Significantly limited evaluation of the tarsals, metatarsals and residual phalanges. Hypertrophic changes noted similar to the plain radiograph. There is no gross fracture or dislocation. Periosteal reaction and small erosions would not be visualized. Soft tissues: There is marked soft tissue edema. There is soft tissue gas adjacent to the base of the fourth proximal phalanx. No loculated collection is identified although there is significant motion. No radiopaque foreign body. IMPRESSION: 1. Significantly limited exam. 2. Soft tissue swelling and gas most likely reflecting anaerobic infection at the level of the fourth proximal phalanx. No defined fluid collection or gross osteomyelitis although limiting motion could obscure these abnormalities. ACT 112: N/A Electronically signed by Katerina Xavier 06-20-2024 6:49 PM Duplex Scan Lower Extremity Artery 06/20/24 21:23 EXAM: US arterial duplex LE BI CLINICAL HISTORY: LLE diabetic foot ulcr. TECHNIQUE: Ultrasound examination of the bilateral lower extremities arteries was performed in real time and duplex. One or more of the following were performed: spectral analysis, resistive index, waveform analysis, and pulsed Doppler. COMPARISON: None. FINDINGS: Vessel Flow Pattern Right Peak Velocity Right (cm/sec) Flow Pattern Left Peak Velocity Left (cm/sec) Common Femoral Artery (DOOR INSTALLER) Triphasic 93/7 Triphasic 103 Profunda femoris Artery Triphasic 61 Triphasic 61 Superficial Femoral Artery (SFA) Triphasic 93/7-Proximal 90-Mid 74-Distal Triphasic 89-Proximal 100-Mid 88-Distal Popliteal Artery (POP A) Triphasic 95-Proximal 77-Distal Triphasic 64/9-Proximal 88/6-Distal Anterior tbial Artery(MER) Triphasic 39-Proximal 32-Mid 52-Distal Biphasic 33-Proximal 19-Mid 63-Distal Posterior Tibial Artery (ASSISTANT PROFESSOR SCULPTURE) Triphasic 65-proximal 51-Mid 44-Distal Triphasic 102-Proximal 264-Mid 70-Distal Peroneal Artery (ASSISTANT PROFESSOR SCULPTURE) Triphasic 34-Proximal 34-Mid 17-Distal Biphasic 42-Proximal 60-Mid 38-Distal Dorsalis Pedis Artery (DPA) Triphasic 48 Triphasic 18 Atherosclerotic changes with multifocal scattered calcified plaques are seen in both lower limb extremities arteries. Right side: Triphasic waveform in right lower limb arteries as described above. Normal peak systolic velocities. No hemodynamically significant stenosis. Left side: Biphasic flow in left anterior tibial and peoneal arteries. Triphasic flow in rest of the evaluated arteries of left lower limb. Increased peak systolic velocity of left mid posterior tibial artery, suggesting moderate stenosis. Low peak systolic velocity of left anterior tibial artery, with limited visualization of left proximal anterior tibial artery due to position and plaques. Collateral Circulation: Evaluation of collateral vessels: No significant collateral circulation was noted, indicative of chronic arterial occlusion. Additional Findings: Absence of haematoma IMPRESSION: 1. Normal triphasic waveforms, along with mild atherosclerotic changes and multifocal calcified plaques, were noted in the arteries of the right lower limb with normal peak systolic velocities, suggestive of minimal peripheral arterial disease. Details as above. 2. Triphasic/Biphasic waveforms along with moderate atherosclerotic changes noted in the arteries of the left lower limb, along with increased peak systolic velocity of left posterior tibial and low velocity of left anterior tibial arteries, could be due to position and plaques suggestive of mild to moderate peripheral arterial disease. Details as above. 3. Increased peak systolic velocity of left mid posterior tibial artery with velocity of 264 cm/sec, suggesting moderate stenosis. Electronically signed by Parag House 06-21-2024 02:30 AM Medications Administered Current Inpatient Medications Acetaminophen (Acetaminophen 325 Mg Tab) 650 mg PO Q6H PRN PRN Reason: pain or fever Stop: 07/21/24 01:05 Amlodipine Besylate (Amlodipine Besylate 5 Mg Tab) 5 mg PO DAILY [facility] Stop: 07/21/24 08:59 Last Admin: 06/21/24 09:11 Dose: 5 mg Ascorbic Acid (Ascorbic Acid 500 Mg Tab) 500 mg PO QAM [facility] Stop: 07/21/24 08:59 Last Admin: 06/21/24 09:11 Dose: 500 mg Aspirin (Aspirin 81 Mg Ectab) 81 mg PO QAM [facility] Stop: 07/21/24 08:59 Last Admin: 06/21/24 09:11 Dose: 81 mg Atorvastatin Calcium (Atorvastatin 40 Mg Tab) 80 mg PO DAILY [facility] Stop: 07/21/24 08:59 Last Admin: 06/21/24 09:11 Dose: 80 mg Calcium/Vitamin D (Calcium 600mg + Vit D 400 Iu Tab) 1 tab PO QAM [facility] Stop: 07/21/24 08:59 Last Admin: 06/21/24 09:11 Dose: 1 tab Cyanocobalamin (Cyanocobalamin (B-12) 500 Mcg Tablet) 1,000 mcg PO DAILY [facility] Stop: 07/21/24 08:59 Last Admin: 06/21/24 09:11 Dose: 1,000 mcg Dextrose (Dextrose 50% 50 Ml Syringe) 25 - 50 ml IV UD PRN; Protocol PRN Reason: Hypoglycemia Protocol Stop: 07/21/24 00:58 Glucagon (Glucagon For Inj 1 Mg Vial) 1 mg SQ UD PRN; Protocol PRN Reason: Hypoglycemia Protocol Stop: 07/21/24 00:58 Glucose (Glucose 40% Gel 15 Gm Tube) 15 - 30 gm PO UD PRN; Protocol PRN Reason: Hypoglycemia Protocol Stop: 07/21/24 00:58 Glucose (Glucose 10 Tab/Tube) 4 - 8 tab PO UD PRN; Protocol PRN Reason: Hypoglycemia Protocol Stop: 07/21/24 00:58 Daptomycin 700 mg/ Syringe 14 mls @ 7 mls/min IV Q24H [facility]; Protocol Stop: 07/05/24 18:59 Insulin Aspart (Insulin Aspart Per Unit Charge) 0 units SC ACHS [facility] Stop: 07/21/24 07:29 Last Admin: 06/21/24 09:15 Dose: 10 units Insulin Glargine (Lantus Per Unit Charge) 25 units SQ PM [facility] Stop: 07/21/24 20:59 Metoprolol Tartrate (Metoprolol Tartrate 25 Mg Tab) 25 mg PO BID [facility] Stop: 07/21/24 08:59 Last Admin: 06/21/24 09:11 Dose: 25 mg Miconazole Nitrate (Miconazole Nitrate Powder 85 Gm) 1 appln EXT PRN PRN PRN Reason: Affected Skin Folds Stop: 07/21/24 10:09 Miscellaneous (Carbohydrates For Hypoglycemia ) 15 - 30 gm PO UD PRN PRN Reason: Hypoglycemia Protocol Stop: 07/21/24 00:58 Ondansetron HCl (Ondansetron Inj 2 Mg/Ml 2 Ml Vial) 4 mg IV Q6H PRN PRN Reason: Nausea Stop: 07/21/24 00:58 Vitamin D (Cholecalciferol 125 Mcg (5,000 Units) Tab) 125 mcg PO HS [facility] Stop: 07/21/24 20:59
--- NOTE | 2024-06-21 13:07 | Podiatry Consultation ---
Date of Consultation June 21, 2024 Assessment & Plan (1) Infection of left foot: (2) Diabetic ulcer of left foot: Diabetic foot ulcer location: midfoot Diabetes mellitus type: type 2 Non-pressure ulcer stage: with necrosis of muscle Qualified Code(s): E11.621 - Type 2 diabetes mellitus with foot ulcer; L97.423 - Non-pressure chronic ulcer of left heel and midfoot with necrosis of muscle (3) MRSA bacteremia: Plan Plan for I&D of the left foot possible second and third ray amputation 05/24/2024. CT of the left foot and noninvasive vascular studies reviewed. Patient had just finished eating lunch when I saw him today. Plan to return to patient's room around 3 PM to discuss I&D of the left foot under local anesthesia versus waiting to [address] we will plan to perform I&D of the left foot today to debride all necrotic appearing soft tissue and bone in the presence of gas-forming bacteria. Tentative plan to return to the OR at some point next week for repeat I&D versus transmetatarsal amputation of the left foot. Blood cultures 06/20/2024 growing Staph aureus. Repeat blood cultures pending. Will collect cultures intraoperatively. N.p.o. until postop MRI of the left foot ordered. No need to have MRI for formed prior to initial I&D. MRI imaging helpful for surgical planning and transmetatarsal amputation to improve likelihood of removal of all infected bone. Will keep patient nonweightbearing to the left foot over the weekend and have him fit with a cam walker early next week. Reviewed written informed consent with patient for I&D of the left foot with removal of all necrotic appearing soft tissue and bone. Patient aware this is a staged procedure and there is a plan to return to the OR next week for either further debridement and wound VAC placement versus more likely transmetatarsal amputation of the left foot. Discussed performing procedure under local anesthesia versus delaying procedure until 06/22/2024. Patient is in agreement to move forward with procedure under local anesthesia. Discussed risk and benefits of the procedure at length. Risks including need for further surgery, continued infection, pain, loss of foot, loss of limb discussed the patient with length. All questions answered. Written informed consent signed by patient and witnessed by his nurse. Case discussed with hospitalist and OR team. History of Present Illness Attending Physician: Chilango Plascencia MD History of Present Illness 68-year-old male with a past medical history significant for previous partial fourth and fifth ray amputations on the left foot for management of osteo myelitis secondary to diabetic foot ulcer. Ongoing diabetic ulcer of left foot, peripheral neuropathy, history of partial amputation of foot through metatarsal bone, B12 deficiency, diabetes mellitus, vitamin D deficiency, hypertension, paroxysmal SVT, LBBB, presents of pacemaker, hyperlipidemia, chronic venous insufficiency, morbid obesity, GERD, and Fujrksm-Xxumf-Qnapc syndrome. Presents to the emergency room via EMS transport following 2 falls in the past week. Reports increased redness and swelling to his left foot with concern for loss of limb. Podiatry consulted to evaluate left foot wound. Patient seen resting comfortably in hospital bedside chair just finishing his lunch as I entered the room today. Left foot is evaluated with significant purulent drainage from open plantar wound. Patient denies pain in the left foot. Denies nausea vomiting fever chills. Reports 2 falls prior to admission. Allergies Allergy/AdvReac Type Severity Reaction Status Date / Time vancomycin Allergy Mild thrombocyto Verified 05/22/24 09:45 penia Home Medications Medication Instructions Recorded Confirmed Type acetaminophen 650 mg 650 mg PO Q6H PRN pain or fever 02/19/18 05/22/24 History tablet,extended release ascorbic acid (vitamin C) 500 mg 500 mg PO QAM 02/19/18 05/22/24 History tablet aspirin 81 mg tablet,delayed 81 mg PO DIRECTED PRN Pain 02/19/18 05/22/24 History release calcium 600 mg (as carbonate)-vit 1 tab PO QAM 02/19/18 05/22/24 History D3 20 mcg (800 unit) chewable tablet (Caltrate plus D) multivitamin 1 tab PO QAM 11/13/18 05/22/24 History cholecalciferol (vitamin D3) 50 5,000 units PO HS 10/03/19 05/22/24 History mcg (2,000 unit) tablet pen needle, diabetic 32 gauge x #100 ea 06/14/23 05/22/24 Rx 5/32" (BD Ultra-Fine Danitza Pen Needle) blood-glucose meter (OneTouch #1 ea 06/28/23 05/22/24 Rx Verio Flex Meter) FreeStyle Almaz 2 Samaria (flash #1 ea 09/05/23 05/22/24 Rx glucose scanning reader) blood sugar diagnostic (OneTouch #100 ea 02/06/24 05/22/24 Rx Verio test strips) amlodipine 5 mg tablet 5 mg PO DAILY #90 tabs 04/10/24 05/22/24 Rx atorvastatin 80 mg tablet 80 mg PO DAILY #90 tabs 04/10/24 05/22/24 Rx insulin glargine 100 unit/mL (3 35 unit (0.35 mL) subcut PM #15 mL 04/10/24 05/22/24 Rx mL) subcutaneous pen (Basaglar KwikPen U-100 Insulin) insulin lispro 100 unit/mL 10 unit (0.1 mL) subcut .COMPLEX 04/10/24 05/22/24 Rx subcutaneous pen (Admelog SoloStar #15 mL U-) lisinopril 10 mg tablet 10 mg PO DAILY #90 tabs 04/10/24 05/22/24 Rx metformin 1,000 mg tablet 1,000 mg PO BID diabetes #180 tabs 04/10/24 05/22/24 Rx metoprolol tartrate 25 mg tablet 25 mg PO BID #180 tabs 04/10/24 05/22/24 Rx mecobalamin (vitamin B12) 1,000 1,000 mcg PO DAILY #30 tabs 06/04/24 Rx mcg chewable tablet Patient History Medical History Nonsustained paroxysmal ventricular tachycardia 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 Penicillin allergy Ventricular tachycardia History of colon polyps History of syncope Bilateral lower extremity edema Complete heart block (~2017) Hypertension History of diabetic ulcer of foot Surgical History Hx of vasectomy History of colonoscopy with polypectomy History of arthroscopy of left knee History of arthroscopy of right knee History of permanent cardiac pacemaker placement History of tonsillectomy S/P TKR (total knee replacement) (06/26/13) Family History Mother Alzheimer disease Depression Seizure Lung disease Hypertension Family hx of colon cancer Colorectal cancer Father Diabetes Depression Kidney disease Leukemia Seizure Lung disease Hypertension Sister Brain tumor Seizure Lung disease Lung cancer Other No family history of adverse response to anesthesia Denies family history of Ovarian cancer Prostate cancer Myocardial infarction Breast cancer Social History Smoking Status: Never smoker Second Hand Exposure: No; Do You Dip or Chew Tobacco: No; Tobacco Cessation Education Requested by Patient: No Hx Alcohol Use: No Hx Substance Use: No Preferred Language: Korean Communication Ability: Effective Visual Impairment: No Limitations Hearing Ability: Normal Towing Pilot Required: No Beliefs That Will Affect Care: None marital status: marital status details: Current Living Situation: Personal Care Facility Current Living Situation Comment: [facility] assisted living current occupational status: previously employed How many Children do You have: 2 Other Information That Helps Us Care for You: No Feels Safe at Home: Yes Safety Concerns: Feels Safe At This Time Childhood Exposure to Second-Hand Smoke: Yes Diet: regular caffeine: Yes Dental Care, Regularly: Yes Physical Activity Frequency: Does not Exercise Seatbelt Use: always Sunscreen Use: Yes Assistive Devices: Walker and Wheelchair Review of Systems Review of Systems: Denies nausea, vomiting, fever, chills. Reports fatigue and lightheadedness. Left foot wound with increasing redness and swelling. All other systems reviewed and otherwise negative unless noted in HPI. Physical Exam Physical Exam: Objective: Const: Appears well developed and well nourished. No signs of acute distress present. CV: Extremities: No cyanosis. Capillary refill time is less than 2 seconds all digits of the bilateral foot. Posterior tibial and dorsalis pedis pulses are lightly palpable bilateral. Lymph: No palpable or visible regional lymphadenopathy. Skin: Loss of hair growth bilateral leg below the knee with thin atrophic skin and venous stasis skin changes bilateral. Neuro: Loss of protective sensation to the bilateral foot and ankle as tested with Bodega Courtney 5.0 7 monofilament. Psych: Mood/Affect: Mood is normal. Affect is normal. Cognition: Orientation is intact to person, place and time. Focused lower extremity musculoskeletal exam: Leg: No pain with compression of the calf muscle. Ankles: Normal to inspection and palpation. +1 pitting edema bilateral no tenderness bilaterally. Motor strength is intact. Range of motion pain-free and unlimited. Feet: Left foot: History of partial fourth and fifth ray amputation of the left foot with well-healed amputation site. Deformity of the left foot with subluxation of the left second and third digit. Diabetic ulcer left foot sub 3rd mettarsal head. Probes to the joint capsule of the second and third metatarsal phalangeal joints without eze bone exposure on probing. Wound probes from the plantar foot through the second and first interspace to the level of dorsal skin. Purulent drainage from the wound equaling 3 cc at bedside. Notable malodor. Erythema and edema to the left foot. Results & Data Vital Signs (Past 12 Hours) Vital Signs Temp Pulse Pulse Resp BP BP Pulse Ox 06/21/24 12:22 36.8 C 78 18 114/69 96 06/21/24 08:00 06/21/24 07:54 36.4 C L 73 20 150/69 H 98 06/21/24 07:00 75 06/21/24 06:45 36.7 C 75 18 133/74 96 O2 Del Method 06/21/24 12:22 Room Air 06/21/24 08:00 Room Air 06/21/24 07:54 Room Air 06/21/24 07:00 06/21/24 06:45 Room Air Diagnostic Findings CT left foot 06/20/2024: IMPRESSION: 1. Significantly limited exam. 2. Soft tissue swelling and gas most likely reflecting anaerobic infection at the level of the fourth proximal phalanx. No defined fluid collection or gross osteomyelitis although limiting motion could obscure these abnormalities. Duplex arterial ultrasound lower extremity 06/20/2024: IMPRESSION: 1. Normal triphasic waveforms, along with mild atherosclerotic changes and multifocal calcified plaques, were noted in the arteries of the right lower limb with normal peak systolic velocities, suggestive of minimal peripheral arterial disease. Details as above. 2. Triphasic/Biphasic waveforms along with moderate atherosclerotic changes noted in the arteries of the left lower limb, along with increased peak systolic velocity of left posterior tibial and low velocity of left anterior tibial arteries, could be due to position and plaques suggestive of mild to moderate peripheral arterial disease. Details as above. 3. Increased peak systolic velocity of left mid posterior tibial artery with velocity of 264 cm/sec, suggesting moderate stenosis. PG Care Time/CCT Total # of Minutes Spent Total Time Spent with Patient: Total time spent is greater than 50% in coordination of care (as documented) at patient's floor/unit and/or counseling patient: C[place] [address] INT INP/OBS CARE MIN Patient Type Established Diagnoses Infection of left foot L08.9 Diabetic ulcer of left midfoot associated with type 2 diabetes mellitus, with necrosis of muscle E11.621; L97.423 Diabetic foot ulcer location: midfoot Diabetes mellitus type: type 2 Non-pressure ulcer stage: with necrosis of muscle MRSA bacteremia R78.81; B95.62
--- NOTE | 2024-06-21 14:11 | Electrocardiogram Report ---
Test Reason : Blood Pressure : */* mmHG Vent. Rate : 91 BPM Atrial Rate : 91 BPM P-R Int : 174 ms QRS Dur : 166 ms QT Int : 466 ms P-R-T Axes : 23 -74 97 degrees QTcB Int : 573 ms Poor data quality, interpretation may be adversely affected Atrial-sensed ventricular-paced rhythm Abnormal ECG When compared with ECG of 25-Nov-2020 15:03, Vent. rate has increased by 14 bpm Confirmed by Grady Menon ([id number]) on 06/21/2024 2:11:00 PM Referred By: REFERRED SELF Confirmed By: Grady Menon
[2024-06-21] MEDS: PERFLUTREN LIPID MICROSPHERE (DEFINITY) IV ONE (14:13)
--- NOTE | 2024-06-21 14:14 | Electrocardiogram Report ---
Test Reason : Blood Pressure : */* mmHG Vent. Rate : 87 BPM Atrial Rate : 87 BPM P-R Int : 210 ms QRS Dur : 192 ms QT Int : 460 ms P-R-T Axes : 40 -75 94 degrees QTcB Int : 553 ms Atrial-sensed ventricular-paced rhythm with prolonged AV conduction Abnormal ECG When compared with ECG of 20-Jun-2024 17:07, (unconfirmed) Vent. rate has decreased by 4 bpm Confirmed by Grady Menon ([id number]) on 06/21/2024 2:13:58 PM Referred By: REFERRED SELF Confirmed By: Grady Menon
--- NOTE | 2024-06-21 15:28 | XCELERA ---
[id number]
[2024-06-21 16:43] LABS: Troponin I High Sensitivity 25.4 pg/ml (0-20)
[2024-06-21] MEDS: LIDOCAINE 1% LOCAL 20 ML VIAL ONE (17:49)
[2024-06-21] MEDS: BUPIVACAINE 0.5 % 5 MG/1 ML MPF 30ML VIAL ONE (17:49)
--- NOTE | 2024-06-21 17:55 | Post Operative Brief Note ---
PG Immediate Post Op with CF Date of Surgery June 21, 2024 Pre & Post Diagnosis Operation Date: 06/21/24 11:30 Pre-Op Diagnosis: Diabetic foot ulcer Post-Op Diagnosis: Diabetic foot ulcer I identified the patient and participated in the time-out.: Yes Procedure Operation Date: 06/21/24 11:30 Actual Procedures p Left Foot Incision and Debridement(Left) - Junaid Marks DPM Surgeon Junaid Marks DPM Gas Leak Inspector Helper none Estimated Blood Loss 10 Findings Consistent with Post-Op Diagnosis Specimens Specimen Description: Culture 1. Left Foot 2. Soft Tissue Left Foot 3. Bone Permanent A. Bone
--- NOTE | 2024-06-21 17:59 | Operative Report ---
PG Post Operative Report Pre & Post Diagnosis Operation Date: 06/21/24 11:30 Pre-Op Diagnosis: Diabetic foot ulcer Post-Op Diagnosis: Diabetic foot ulcer I identified the patient and participated in the time-out.: Yes Procedure Operation Date: 06/21/24 11:30 Actual Procedures p Left Foot Incision and Debridement(Left) - Junaid Marks DPM Surgeon Junaid Marks DPM Lawn Service Supervisor none Estimated Blood Loss 10 Findings Consistent with Post-Op Diagnosis Necrotic appearing bone of the third metatarsal head left foot. Specimens Soft tissue left foot for culture Bone left foot for culture second metatarsal Bone left foot for pathology second metatarsal Culture swab left foot Indications 68-year-old male with history of poorly controlled type 2 diabetes, diabetic peripheral neuropathy, loss of sensation to bilateral foot, bilateral Charcot neuroarthropathy, second metatarsal head resection left, fourth and fifth ray amputation left. Presents to [facility] with open wound to plantar foot extending to the level of the third metatarsal with purulent drainage and surrounding cellulitis focused on the plantar foot second and third toes. Initial blood cultures positive for Staph aureus. Patient is initiated on IV antibiotics and podiatry is consulted to evaluate the left foot. CT scan of the left foot shows soft tissue emphysema surrounding the third metatarsal distally and third toe. Discussed risks of delayed intervention with gas- forming organisms surrounding the bone and deep soft tissue structures of the foot. Patient last ate at 1230 06/21/2024. Discussed performing procedure under local anesthesia and patient is in agreement. Today's plan is to perform an I&D of the left foot with debridement of all necrotic appearing soft tissue and bone to remove the source of infection and allow surrounding soft tissues to stabilize for staged transmetatarsal amputation of the left foot. Description of Procedure Patient brought in the operating room and remains on hospital bed throughout the procedure. Timeout is held confirming correct patient, side, site, procedure with all necessary parties confirming. Local anesthesia is obtained about the patient's left ankle in a modified ankle block fashion. Anesthesia obtained about the left second and third ray in a modified Bunch fashion utilizing a total of 20 cc of one-to-one mixture half percent Marcaine plain and 1% lidocaine plain. I&D of the left foot. Increased erythema and edema focused on the second and third digits of the left foot with 1 cm open well-circumscribed diabetic ulcer to the plantar foot subthird metatarsal head. On probing of the wound there is undermining circumferentially for 2 to 3 cm. Wound probes to the level of the dorsal cutaneous tissue between the second and third metatarsal head and circumferentially around the distal end of both metatarsals. Incision is made in line with the third metatarsal extending proximally and toward the second digit which is dislocated and status post second metatarsal head resection in the past. All necrotic tissue was ellipsed from around the wound and incision is extended to open the undermining areas for debridement of necrotic soft tissue and bone. Upon further exposing the wound bed third metatarsal head is noted to be exposed with brown to hoskins discoloration is most plantar aspect. Sharp excision with a 15 blade and rongeur were utilized to remove necrotic blanca earing soft tissue from the wound base. Rongeur was utilized to debride the necrotic appearing bone. Bone from third metatarsal head and soft tissue for culture. Bone third metatarsal for pathology. Clinical appearance of resected bone is hoskins to brown discolored and soft. Following debridement wound measures 8 x 2-1/2 x 3 cm.wound flushed with 3 L of normal sterile saline. Wound evaluated and noted to be free of any frankly appearing necrotic soft tissue or bone. Wound is packed with half-inch iodoform packing gauze dressed with 4 x 4 fluff gauze ABD pad x 3 Edmund and a lightly applied Brayan bandage to hold dressings in place. Patient transferred back to his bed on the floor for continued IV antibiotics, medical management. Patient encouraged to elevate the left foot on 2 pillows while at rest. Nonweightbearing over the weekend of the left foot. Staged procedure. Plan for return to OR for further washout and debridement as needed with probable transmetatarsal amputation left foot versus wound VAC placement next week. Given the nature of patient's wound will need to be left open open to heal via secondary intention due to inadequate soft tissue for closure in hopes to sa lvage the limb. A wound VAC may be required in order to help encourage granulation tissue to the wound bed.This is a staged procedure and plan requires serial debridement at regular intervals to remove slough and nonviable tissue from the wound bed to encourage granulation and eventually epithelial coverage of the wound bed. Once local infection is adequately controlled in the wound bed has developed adequate granulation tissue we will plan to apply allograft or skin substitute to encourage closure of the wound. As with any limb salvage procedure, we contemplate the possibility of performing further stages to this procedure. Procedures may include debridement, delayed closure, plastic surgery techniques, or more proximal amputations. Although the goal is to maintain as much of a functional limb as possible, there is an increased risk of complications such as infection, vascular compromise/gangrene, partial and/or total loss of limb, or loss of life. These complications are known to be at a higher risk of occurring in patients with medical conditions such as but not limited to: Diabetes mellitus, peripheral vascular disease, active smokers, and those on immunosuppressants. This was thoroughly discussed with the patient during work-up and prior to surgery in which the patient notes that they have full understanding of all complications. This procedure may be considered part of a multi-staged limb salvage treatment plan. I attest to the content of the Intraoperative Record and any orders documented therein. Any exceptions are noted below.
[2024-06-21] MEDS: DAPTOmycin 800 MG in SYRINGE 0 ML IV SCH (18:19)
[2024-06-21] MEDS ORDERED: DAPTOmycin 700 MG in SYRINGE 0 ML IV SCH (19:00)
[2024-06-21] MEDS: CHOLECALCIFEROL 125 MCG (5,000 UNITS) TAB PO SCH (20:16)
[2024-06-21] MEDS: LANTUS PER UNIT CHARGE SQ SCH (20:17)
[2024-06-22 07:50] LABS: Basophils # (auto) 0.02 K/uL (0.00-0.20); Basophils % (auto) 0.3 %; Eosinophils # (auto) 0.08 K/uL (0.00-0.50); Hematocrit (blood only) 44.1 % (42.0-52.0); Hemoglobin 15.2 g/dl (14.0-18.0); Immature Granulocytes # (auto) 0.05 K/uL (0.01-0.20); Immature Granulocytes % (auto) 0.7 %; Lymphocytes % (auto) 10.5 %; Mean Corpuscular Hemoglobin 29.2 pg (25.0-34.0); Mean Corpuscular Hgb Conc 34.5 g/dL (32.0-36.0); Mean Corpuscular Volume 84.6 fL (80.0-100.0); Mean Platelet Volume 9.6 fL (9.4-12.4); Monocytes # (auto) 0.87 K/uL (0.11-0.59); Monocytes % (auto) 11.4 %; Neutrophils # (auto) 5.83 K/uL (1.40-6.50); Neutrophils % (auto) 76.1 %; Platelet Count 210 K/uL (130-400); RDW Coefficient of Variation 12.7 % (11.5-14.5); RDW Standard Deviation 39.4 fL (36.4-46.3); Red Blood Count 5.21 M/uL (4.70-6.10); White Blood Count 7.65 K/ul (4.8-10.8)
[2024-06-22 08:05] LABS: Hematocrit (blood only) 45.3 % (42.0-52.0); Hemoglobin 15.3 g/dl (14.0-18.0); Mean Corpuscular Hemoglobin 28.5 pg (25.0-34.0); Mean Corpuscular Hgb Conc 33.8 g/dL (32.0-36.0); Mean Corpuscular Volume 84.4 fL (80.0-100.0); Mean Platelet Volume 9.7 fL (9.4-12.4); Platelet Count 240 K/uL (130-400); RDW Coefficient of Variation 12.6 % (11.5-14.5); RDW Standard Deviation 38.1 fL (36.4-46.3); Red Blood Count 5.37 M/uL (4.70-6.10)
[2024-06-22 08:09] LABS: Albumin Level 3.2 gm/dl (3.4-5.0); BUN Creatinine Ratio 20.3 (10-20); Bilirubin,Total 0.6 mg/dl (0.2-1.0); Calcium 8.5 mg/dl (8.6-10.3); Creatinine Clr Calc Pharmacy 142.1 ml/min; Globulin 3.2 gm/dl (2.5-4.0); Potassium 3.8 mmol/L (3.5-5.1); Total Protein 6.4 gm/dl (6.0-8.3)
[2024-06-22 08:23] LABS: BUN Creatinine Ratio 20.5 (10-20); Calcium 8.9 mg/dl (8.6-10.3); Potassium 3.5 mmol/L (3.5-5.1)
[2024-06-22 08:30] LABS: INR 1.1 (0.9-1.1); Partial Thromboplastin Time 26 Seconds (21-31); Prothrombin Time 11.4 Seconds (9.0-12.0)
--- NOTE | 2024-06-22 09:46 | Electrocardiogram Report ---
Test Reason : Blood Pressure : */* mmHG Vent. Rate : 86 BPM Atrial Rate : 86 BPM P-R Int : 202 ms QRS Dur : 200 ms QT Int : 472 ms P-R-T Axes : 15 -70 94 degrees QTcB Int : 564 ms Atrial-sensed ventricular-paced rhythm Abnormal ECG When compared with ECG of 20-Jun-2024 19:09, No significant change was found Confirmed by Zoe Winslow (Luis Alberto) on 06/22/2024 9:46:18 AM Referred By: REFERRED SELF Confirmed By: Zoe Winslow
--- NOTE | 2024-06-22 10:10 | Hospitalist Progress Note ---
Date of Service June 22, 2024 Assessment & Plan (1) Diabetic ulcer of left foot: (2) History of amputation of foot through metatarsal bone: (3) Diabetes mellitus type 2 with complications: (4) Diabetic peripheral neuropathy associated with type 2 diabetes mellitus: (5) Elevated troponin: (6) Kbmhxjp-Ixcyb-Rlowz syndrome: Plan The patient is a 68-year-old male with a past medical history including diabetic ulcer of left foot, peripheral neuropathy, history of partial amputation of foot through metatarsal bone, B12 deficiency, diabetes mellitus, vitamin D deficiency, hypertension, paroxysmal SVT, LBBB, presents of pacemaker, hyperlipidemia, chronic venous insufficiency, morbid obesity, GERD, and Xrobaau-Jajys-Cioxp syndrome.The patient presents to the emergency department via EMS, after a ground-level fall this morning, when he hit his head, requiring a neighbor to help him get up. He then fell again in the afternoon, where his neighbor was unable to help him get up, and he called EMS. In both instances, he hit his head. He does not remember the exact mechanism of how he fell. He did initially complain of some generalized headache, with neck pain and low back pain, but these resolved spontaneously while in the ED. The patient has been following with the diabetic foot care clinic for a chronic left lower extremity foot ulcer. The patient has a primary concern of losing his left foot, similar to what happened to his father, and has had a history of partial amputation in the past. Workup in the emergency department included CT scan of head, cervical spine, chest which were all negative. CT scan of the lumbar spine showed moderate L3-4, and mild L4-5 degenerative disc disease and spinal stenosis. CT scan of the left lower extremity without IV contrast showed soft tissue swelling and gas most likely reflecting anaerobic infection at the level of the fourth proximal phalanx. No defined fluid collection or gross osteomyelitis although limiting motion could obscure these abnormalities. The patient was referred to the [facility] service for further evaluation and treatment. Bacteremia Blood culture now growing MRSA source is likely foot ulcer Will start IV daptomycin Consult ID #Diabetic foot ulcer of left foot/history of partial amputation through metatarsal bone- Status post daptomycin 900 mg IV, and Zosyn 4.5 g IV in ED Daptomycin dosing to be adjusted by pharmacy to 700 mg IV daily. Continue Zosyn 4.5 g IV every [address] scan of left foot notes soft tissue swelling and gas most likely reflecting anaerobic infection at the level of the fourth proximal phalanx. He is now s/o Incision and debridement Plan is further debridement and possibly transmetatarsal amputation with wound vac placement Appreciate wound care and Podiatry #Elevated troponin/LBBB/PSVT history/hypertension- Likely demand ischemia The patient will be admitted to telemetry for serial cardiac enzymes, serial EKG's, cardiac rhythm monitoring Continue amlodipine, aspirin, metoprolol titrate Holding lisinopril #Diabetes mellitus- Hold metformin Reduce glargine from 35 to 25 units subcu daily Check hemoglobin A1c #Chronic medical conditions: Hyperlipidemia-continue atorvastatin, check a fasting lipid panel Vitamin D deficiency-continue supplement next 12 vitamin B12 deficiency-continue supplement Admission and Anticipated Discharge Date Admission Date: June 20, 2024 Subjective patient seen and examined, no new complaints,sitting up at the edge of the bed Review of Systems Review of Systems: All systems reviewed are negative, apart from the ones contained in the history. Physical Exam Physical Exam: The patient is awake, alert and oriented 3, well developed and well nourished, normocephalic and atraumatic, lying in bed and in no acute distress. HEENT--PERRL, EOMI, mucous membranes and oropharynx mildly dry Neck--supple. No JVD. No bruits. Thyroid normal, trachea midline, no adenopathy. Heart--normal S1 and S2. No murmurs, rubs or gallops. Lungs--clear bilaterally, no respiratory distress, no accessory muscle use. Abdomen--normal bowel sounds and soft. Extremities--left LE in bandage, amputation of 4th digits Dermatologic--normal skin turgor, normal color, no abnormal lymph nodes, no rash. Neurologic--cranial nerves II through XII grossly intact. Rheumatologic--normal range of motion. Psychiatric--normal affect. Results & Data Results & Data Vital Signs (Past 12 Hours) Vital Signs Temp Pulse Resp BP BP Pulse Ox O2 Del Method 06/22/24 08:00 Room Air 06/22/24 07:56 98.1 F 71 16 147/74 H 96 Room Air 06/22/24 01:50 97.5 F L 75 20 177/89 H 96 Room Air 06/21/24 22:21 98.1 F 65 18 125/69 94 Room Air PG Care Time/CCT Total # of Minutes Spent Total Time Spent with Patient: Total time spent is greater than 50% in coordination of care (as documented) at patient's floor/unit and/or counseling patient: Coding Level of Care Code 66191 SUB INP/OBS CARE 2/35MIN Diagnoses Diabetic ulcer of left midfoot associated with type 2 diabetes mellitus, with necrosis of muscle E11.621; L97.423 Diabetes mellitus type: type 2 Diabetic foot ulcer location: midfoot Non-pressure ulcer stage: with necrosis of muscle History of amputation of foot through metatarsal bone Z89.439 Diabetes mellitus type 2 with complications E11.8 Diabetic peripheral neuropathy associated with type 2 diabetes mellitus E11.42 Elevated troponin R79.89 Soetnij-Zibrh-Jvhsy syndrome G60.0 Time Spent (min) 35 (1) Diabetic ulcer of left foot Diabetes mellitus type: type 2 Diabetic foot ulcer location: midfoot Non- pressure ulcer stage: with necrosis of muscle Qualified Code(s): E11.621 - Type 2 diabetes mellitus with foot ulcer; L97.423 - Non-pressure chronic ulcer of left heel and midfoot with necrosis of muscle
[2024-06-22] MEDS: MICONAZOLE NITRATE POWDER 85 GM EXT PRN (11:32)
[2024-06-22] MEDS: ACETAMINOPHEN 325 MG TAB PO PRN (11:34)
--- NOTE | 2024-06-22 16:40 | Podiatry Progress Note ---
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 Plan for transmetatarsal amputation likely Monday or . Dressing change left foot and repacked with quarter inch iodoform packing gauze. Blood cultures 06/20/2024 growing Staph aureus. Repeat blood cultures pending. Patient continues IV daptomycin Bone pathology third metatarsal left foot 06/21/2024: Pending Bone for culture third metatarsal left foot 06/21/2024 pending Soft tissue culture left foot 06/21/2024 pending MRI of the left foot ordered. No need to have MRI for formed prior to initial I&D. MRI imaging helpful for surgical planning and transmetatarsal amputation to improve likelihood of removal of all infected bone. Will keep patient nonweightbearing to the left foot over the weekend and have him fit with a cam walker early next week. Patient likely require longterm facility placement at discharge. Admission and Anticipated Discharge Date Admission Date: June 20, 2024 Subjective Patient seen postop day 1 status post I&D of the left foot resting comfortably in hospital bed. He denies pain in the left foot. Denies nausea vomiting fever chills over the past 24 hours. We again discussed plan for transmetatarsal amputation with probable need for posterior muscle group lengthening and patient is in agreement to move forward. All questions answered. Review of Systems Review of Systems: Review of systems negative unless otherwise stated in HPI or below. Physical Exam Physical Exam: Objective: Const: Appears well developed and well nourished. No signs of acute distress present. CV: Extremities: No cyanosis. Capillary refill time is less than 2 seconds all digits of the bilateral foot. Posterior tibial and dorsalis pedis pulses are lightly palpable bilateral. Lymph: No palpable or visible regional lymphadenopathy. Skin: Loss of hair growth bilateral leg below the knee with thin atrophic skin and venous stasis skin changes bilateral. Neuro: Loss of protective sensation to the bilateral foot and ankle as tested with [place] 5.0 7 monofilament. Psych: Mood/Affect: Mood is normal. Affect is normal. Cognition: Orientation is intact to person, place and time. Focused lower extremity musculoskeletal exam: Leg: No pain with compression of the calf muscle. Ankles: Normal to inspection and palpation. +1 pitting edema bilateral no tenderness bilaterally. Motor strength is intact. Range of motion pain-free and unlimited. Left foot: History of partial fourth and fifth ray amputation of the left foot with well-healed amputation site. History of second metatarsal head resection. Deformity of the left foot with subluxation of the left second and third digit. Diabetic ulcer left foot sub 3rd mettarsal head. Status post I&D of the left foot with debridement of necrotic soft tissue and bone. Wound bed is relatively healthy appearing soft tissue with exception of the distal aspect of the third metatarsal which now has a hoskins discoloration. Wound bed is mixed fibrotic, granular, muscular and subcutaneous tissue. Sanguinous drainage to the surgical dressing. No active drainage. Pressure is applied to the surrounding soft tissues and I am unable to express any purulent drainage from the left foot on the wound bed. Results & Data Results & Data Vital Signs (Past 12 Hours) Vital Signs Temp Pulse Resp BP BP Pulse Ox O2 Del Method 06/22/24 16:01 36.6 C 63 16 118/68 98 Room Air 06/22/24 08:00 Room Air 06/22/24 07:56 36.7 C 71 16 147/74 H 96 Room Air Coding Level of Care Code 62971 SUB INP/OBS CARE 2/35MIN Diagnoses MRSA bacteremia R78.81; B95.62 Infection of left foot L08.9 Diabetic ulcer of left midfoot associated with type 2 diabetes mellitus, with necrosis of muscle E11.621; L97.423 Diabetes mellitus type: type 2 Diabetic foot ulcer location: midfoot Non-pressure ulcer stage: with necrosis of muscle History of amputation of foot through metatarsal bone Z89.439 Diabetic ulcer of left midfoot associated with type 2 diabetes mellitus, with necrosis of bone E11.621; L97.424 Diabetic foot ulcer location: midfoot Diabetes mellitus type: type 2 (3) Diabetic ulcer of left foot Diabetes mellitus type: type 2 Diabetic foot ulcer location: midfoot Non- pressure ulcer stage: with necrosis of muscle Qualified Code(s): E11.621 - Type 2 diabetes mellitus with foot ulcer; L97.423 - Non-pressure chronic ulcer of left heel and midfoot with necrosis of muscle (5) 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
[2024-06-22 16:46] LABS: A calco-baum cmplx NotReported Not Detected (NotDetected); Bact fragilis Not Reported Not Detected (NotDetected); Blood Culture Id Panel See PCR Comment (NotDetected); C auris Not Reported Not Detected (NotDetected); Calbicans Not Reported Not Detected (NotDetected); Candida glabrata Not Reported Not Detected (NotDetected); Candida krusei Not Reported Not Detected (NotDetected); Cneoformans/gatti Not Reported Not Detected (NotDetected); Cparapsilosis Not Reported Not Detected (NotDetected); E cloacae compx Not Reported Not Detected (NotDetected); Efaecalis Not Reported Not Detected (NotDetected); Efaecium Not Reported Not Detected (NotDetected); Enterobacterales Not Reported Not Detected (NotDetected); Escherichia coli Not Reported Not Detected (NotDetected); H influenzae Not Reported Not Detected (NotDetected); K aerogenes Not Reported Not Detected (NotDetected); Koxytoca Not Reported Not Detected (NotDetected); Kpneumoniae grp Not Reported Not Detected (NotDetected); Lmonocyt Not Reported Not Detected (NotDetected); N meningitidis Not Reported Not Detected (NotDetected); P aeruginosa Not Reported Not Detected (NotDetected); Proteus spp Not Reported Not Detected (NotDetected); Salmonella spp Not Reported Not Detected (NotDetected); Staph lugdunensis Not Reported Not Detected (NotDetected); Staph spp. Not Reported Not Detected (NotDetected); Staphaureus Not Reported Not Detected (NotDetected); Staphepi Not Reported Not Detected (NotDetected); Stenmaltophilia Not Reported Not Detected (NotDetected); Strep agal(GrpB) Not Reported Not Detected (NotDetected); Strep pneum Not Reported Not Detected (NotDetected); Strep pyog (GrpA) Not Reported Not Detected (NotDetected); Streptococcus spp DETECTED (NotDetected)
[2024-06-22 16:55] LABS: Strep spp Not Reported DETECTED (NotDetected)
[2024-06-23 07:09] LABS: Basophils # (auto) 0.04 K/uL (0.00-0.20); Basophils % (auto) 0.5 %; Eosinophils # (auto) 0.15 K/uL (0.00-0.50); Eosinophils % (auto) 1.7 %; Hematocrit (blood only) 40.4 % (42.0-52.0); Hemoglobin 13.8 g/dl (14.0-18.0); Immature Granulocytes # (auto) 0.09 K/uL (0.01-0.20); Lymphocytes # (auto) 1.29 K/uL (1.20-3.40); Lymphocytes % (auto) 14.9 %; Mean Corpuscular Hemoglobin 28.8 pg (25.0-34.0); Mean Corpuscular Hgb Conc 34.2 g/dL (32.0-36.0); Mean Corpuscular Volume 84.2 fL (80.0-100.0); Mean Platelet Volume 9.7 fL (9.4-12.4); Monocytes # (auto) 0.87 K/uL (0.11-0.59); Neutrophils # (auto) 6.24 K/uL (1.40-6.50); Neutrophils % (auto) 71.9 %; Platelet Count 200 K/uL (130-400); RDW Coefficient of Variation 12.3 % (11.5-14.5); RDW Standard Deviation 37.5 fL (36.4-46.3); White Blood Count 8.68 K/ul (4.8-10.8)
[2024-06-23 07:27] LABS: Albumin Globulin Ratio 1.1 (0.9-2); BUN Creatinine Ratio 24.1 (10-20); Bilirubin,Total 0.4 mg/dl (0.2-1.0); C Reactive Protein 9.18 mg/dl (0-0.5); Calcium 8.3 mg/dl (8.6-10.3); Creatinine Clr Calc Pharmacy 181.3 ml/min; Globulin 2.8 gm/dl (2.5-4.0); Magnesium 1.8 mg/dl (1.7-2.4); Potassium 3.8 mmol/L (3.5-5.1); Total Protein 5.8 gm/dl (6.0-8.3)
[2024-06-23 07:45] LABS: Partial Thromboplastin Time 27 Seconds (21-31)
--- NOTE | 2024-06-23 11:04 | Hospitalist Progress Note ---
Date of Service June 23, 2024 Assessment & Plan (1) Diabetic ulcer of left foot: (2) History of amputation of foot through metatarsal bone: (3) Diabetes mellitus type 2 with complications: (4) Diabetic peripheral neuropathy associated with type 2 diabetes mellitus: (5) Elevated troponin: (6) Unpwowr-Cxkri-Zuczk syndrome: Plan The patient is a 68-year-old male with a past medical history including diabetic ulcer of left foot, peripheral neuropathy, history of partial amputation of foot through metatarsal bone, B12 deficiency, diabetes mellitus, vitamin D deficiency, hypertension, paroxysmal SVT, LBBB, presents of pacemaker, hyperlipidemia, chronic venous insufficiency, morbid obesity, GERD, and Dphqyfh-Zhjxl-Awrva syndrome.The patient presents to the emergency department via EMS, after a ground-level fall this morning, when he hit his head, requiring a neighbor to help him get up. He then fell again in the afternoon, where his neighbor was unable to help him get up, and he called EMS. In both instances, he hit his head. He does not remember the exact mechanism of how he fell. He did initially complain of some generalized headache, with neck pain and low back pain, but these resolved spontaneously while in the ED. The patient has been following with the diabetic foot care clinic for a chronic left lower extremity foot ulcer. The patient has a primary concern of losing his left foot, similar to what happened to his father, and has had a history of partial amputation in the past. Workup in the emergency department included CT scan of head, cervical spine, chest which were all negative. CT scan of the lumbar spine showed moderate L3-4, and mild L4-5 degenerative disc disease and spinal stenosis. CT scan of the left lower extremity without IV contrast showed soft tissue swelling and gas most likely reflecting anaerobic infection at the level of the fourth proximal phalanx. No defined fluid collection or gross osteomyelitis although limiting motion could obscure these abnormalities. [facility]. Bacteremia Blood culture now growing MRSA source is likely foot ulcer Will start IV daptomycin Consult ID #Diabetic foot ulcer of left foot/history of partial amputation through metatarsal bone- CT scan of left foot notes soft tissue swelling and gas most likely reflecting anaerobic infection at the level of the fourth proximal phalanx. He is now day 1 s/o Incision and debridement Plan is further debridement and possibly transmetatarsal amputation with probable need for posterior muscle group lengthening on Monday or per Podiatry Appreciate wound care and Podiatry #Elevated troponin/LBBB/PSVT history/hypertension- Likely demand ischemia The patient will be admitted to telemetry for serial cardiac enzymes, serial EKG's, cardiac rhythm monitoring Continue amlodipine, aspirin, metoprolol titrate Holding lisinopril #Diabetes mellitus- Hold metformin Reduce glargine from 35 to 25 units subcu daily Check hemoglobin A1c #Chronic medical conditions: Hyperlipidemia-continue atorvastatin, check a fasting lipid panel Vitamin D deficiency-continue supplement next 12 vitamin B12 deficiency-continue supplement Admission and Anticipated Discharge Date Admission Date: June 20, 2024 Subjective Patient seen and examined, he is stable post I&D of the left foot Review of Systems Review of Systems: All systems reviewed are negative, apart from the ones contained in the history. Physical Exam Physical Exam: The patient is awake, alert and oriented 3, well developed and well nourished, normocephalic and atraumatic, lying in bed and in no acute distress. HEENT--PERRL, EOMI, mucous membranes and oropharynx mildly dry Neck--supple. No JVD. No bruits. Thyroid normal, trachea midline, no adenopathy. Heart--normal S1 and S2. No murmurs, rubs or gallops. Lungs--clear bilaterally, no respiratory distress, no accessory muscle use. Abdomen--normal bowel sounds and soft. Extremities--left LE in bandage, amputation of 4th digits Dermatologic--normal skin turgor, normal color, no abnormal lymph nodes, no rash. Neurologic--cranial nerves II through XII grossly intact. Rheumatologic--normal range of motion. Psychiatric--normal affect. Results & Data Results & Data Vital Signs (Past 12 Hours) Vital Signs Temp Pulse Resp BP Pulse Ox O2 Del Method 06/23/24 07:58 97.5 F L 60 16 159/69 H 98 Room Air 06/23/24 07:58 Room Air PG Care Time/CCT Total # of Minutes Spent Total Time Spent with Patient: Total time spent is greater than 50% in coordination of care (as documented) at patient's floor/unit and/or counseling patient: Coding Level of Care Code 24415 SUB INP/OBS CARE 2/35MIN Diagnoses Diabetic ulcer of left midfoot associated with type 2 diabetes mellitus, with necrosis of muscle E11.621; L97.423 Diabetes mellitus type: type 2 Diabetic foot ulcer location: midfoot Non-pressure ulcer stage: with necrosis of muscle History of amputation of foot through metatarsal bone Z89.439 Diabetes mellitus type 2 with complications E11.8 Diabetic peripheral neuropathy associated with type 2 diabetes mellitus E11.42 Elevated troponin R79.89 Dwixqjt-Dmgoo-Luytv syndrome G60.0 Time Spent (min) 35 (1) Diabetic ulcer of left foot Diabetes mellitus type: type 2 Diabetic foot ulcer location: midfoot Non- pressure ulcer stage: with necrosis of muscle Qualified Code(s): E11.621 - Type 2 diabetes mellitus with foot ulcer; L97.423 - Non-pressure chronic ulcer of left heel and midfoot with necrosis of muscle
[2024-06-23 22:44] LABS: A calco-baum cmplx NotReported Not Detected (NotDetected); Bact fragilis Not Reported Not Detected (NotDetected); Blood Culture Id Panel See PCR Comment (NotDetected); C auris Not Reported Not Detected (NotDetected); Calbicans Not Reported Not Detected (NotDetected); Candida glabrata Not Reported Not Detected (NotDetected); Candida krusei Not Reported Not Detected (NotDetected); Cneoformans/gatti Not Reported Not Detected (NotDetected); Cparapsilosis Not Reported Not Detected (NotDetected); E cloacae compx Not Reported Not Detected (NotDetected); Efaecalis Not Reported Not Detected (NotDetected); Efaecium Not Reported Not Detected (NotDetected); Enterobacterales Not Reported Not Detected (NotDetected); Escherichia coli Not Reported Not Detected (NotDetected); H influenzae Not Reported Not Detected (NotDetected); K aerogenes Not Reported Not Detected (NotDetected); Koxytoca Not Reported Not Detected (NotDetected); Kpneumoniae grp Not Reported Not Detected (NotDetected); Lmonocyt Not Reported Not Detected (NotDetected); N meningitidis Not Reported Not Detected (NotDetected); P aeruginosa Not Reported Not Detected (NotDetected); Proteus spp Not Reported Not Detected (NotDetected); Salmonella spp Not Reported Not Detected (NotDetected); Staph lugdunensis Not Reported Not Detected (NotDetected); Staph spp. Not Reported DETECTED (NotDetected); Staphaureus Not Reported DETECTED (NotDetected); Staphepi Not Reported Not Detected (NotDetected); Staphylococcus spp. DETECTED (NotDetected); Stenmaltophilia Not Reported Not Detected (NotDetected); Strep agal(GrpB) Not Reported Not Detected (NotDetected); Strep pneum Not Reported Not Detected (NotDetected); Strep pyog (GrpA) Not Reported Not Detected (NotDetected); Strep spp Not Reported Not Detected (NotDetected); mecAC+MREJ Resistant Gene MRSA Not Detected (NotDetected)
[2024-06-24 06:38] LABS: Hematocrit (blood only) 41.8 % (42.0-52.0); Hemoglobin 14.3 g/dl (14.0-18.0); Mean Corpuscular Hemoglobin 28.8 pg (25.0-34.0); Mean Corpuscular Hgb Conc 34.2 g/dL (32.0-36.0); Mean Corpuscular Volume 84.3 fL (80.0-100.0); Mean Platelet Volume 9.6 fL (9.4-12.4); Platelet Count 226 K/uL (130-400); RDW Coefficient of Variation 12.3 % (11.5-14.5); RDW Standard Deviation 37.2 fL (36.4-46.3); Red Blood Count 4.96 M/uL (4.70-6.10); White Blood Count 9.58 K/ul (4.8-10.8)
[2024-06-24 07:01] LABS: BUN Creatinine Ratio 16.2 (10-20); Calcium 8.4 mg/dl (8.6-10.3); Creatinine Clr Calc Pharmacy 154.6 ml/min; Potassium 3.7 mmol/L (3.5-5.1)
--- NOTE | 2024-06-24 09:33 | Hospitalist Progress Note ---
Date of Service June 24, 2024 Assessment & Plan (1) Diabetic ulcer of left foot: (2) History of amputation of foot through metatarsal bone: (3) Diabetes mellitus type 2 with complications: (4) Diabetic peripheral neuropathy associated with type 2 diabetes mellitus: (5) Elevated troponin: (6) Pwveqkq-Slksg-Orsoq syndrome: Plan The patient is a 68-year-old male with a past medical history including diabetic ulcer of left foot, peripheral neuropathy, history of partial amputation of foot through metatarsal bone, B12 deficiency, diabetes mellitus, vitamin D deficiency, hypertension, paroxysmal SVT, LBBB, presents of pacemaker, hyperlipidemia, chronic venous insufficiency, morbid obesity, GERD, and Etilakw-Ahrmg-Xxgta syndrome.The patient presents to the emergency department via EMS, after a ground-level fall this morning, when he hit his head, requiring a neighbor to help him get up. He then fell again in the afternoon, where his neighbor was unable to help him get up, and he called EMS. In both instances, he hit his head. He does not remember the exact mechanism of how he fell. He did initially complain of some generalized headache, with neck pain and low back pain, but these resolved spontaneously while in the ED. The patient has been following with the diabetic foot care clinic for a chronic left lower extremity foot ulcer. The patient has a primary concern of losing his left foot, similar to what happened to his father, and has had a history of partial amputation in the past. Workup in the emergency department included CT scan of head, cervical spine, chest which were all negative. CT scan of the lumbar spine showed moderate L3-4, and mild L4-5 degenerative disc disease and spinal stenosis. CT scan of the left lower extremity without IV contrast showed soft tissue swelling and gas most likely reflecting anaerobic infection at the level of the fourth proximal phalanx. No defined fluid collection or gross osteomyelitis although limiting motion could obscure these abnormalities. The patient was referred to the [facility] service for further evaluation and treatment. Bacteremia Blood culture now growing MRSA source is likely foot ulcer Will continue IV daptomycin for now Consult ID #Diabetic foot ulcer of left foot/history of partial amputation through metatarsal bone- CT scan of left foot notes soft tissue swelling and gas most likely reflecting anaerobic infection at the level of the fourth proximal phalanx. He is now day 1 s/o Incision and debridement Plan is further debridement and possibly transmetatarsal amputation with probable need for posterior muscle group lengthening on Monday or per Podiatry Patient told me this morning, 06/24 that he does not want to lose his foot Culture growing Staph and Strep Continue IV daptomycin Appreciate wound care and Podiatry #Elevated troponin/LBBB/PSVT history/hypertension- Likely demand ischemia The patient will be admitted to telemetry for serial cardiac enzymes, serial EKG's, cardiac rhythm monitoring Continue amlodipine, aspirin, metoprolol titrate Holding lisinopril #Diabetes mellitus- Hold metformin Reduce glargine from 35 to 25 units subcu daily Check hemoglobin A1c #Chronic medical conditions: Hyperlipidemia-continue atorvastatin, check a fasting lipid panel Vitamin D deficiency-continue supplement next 12 vitamin B12 deficiency-continue supplement Disposition: patient would likely need rehab after amputation Admission and Anticipated Discharge Date Admission Date: June 20, 2024 Subjective Patient seen and examined, he is stable post I&D of the left foot , patient told me this morning he does not want to lose his foot Review of Systems Review of Systems: All systems reviewed are negative, apart from the ones contained in the history. Physical Exam Physical Exam: The patient is awake, alert and oriented 3, well developed and well nourished, normocephalic and atraumatic, lying in bed and in no acute distress. HEENT--PERRL, EOMI, mucous membranes and oropharynx mildly dry Neck--supple. No JVD. No bruits. Thyroid normal, trachea midline, no adenopathy. Heart--normal S1 and S2. No murmurs, rubs or gallops. Lungs--clear bilaterally, no respiratory distress, no accessory muscle use. Abdomen--normal bowel sounds and soft. Extremities--left LE in bandage, amputation of 4th digits Dermatologic--normal skin turgor, normal color, no abnormal lymph nodes, no r shy. Neurologic--cranial nerves II through XII grossly intact. Rheumatologic--normal range of motion. Psychiatric--normal affect. Results & Data Results & Data Vital Signs (Past 12 Hours) Vital Signs Temp Pulse Resp BP Pulse Ox O2 Del Method 06/24/24 08:00 Room Air 06/24/24 07:11 97.9 F 62 14 152/69 H 97 Room Air PG Care Time/CCT Total # of Minutes Spent Total Time Spent with Patient: Total time spent is greater than 50% in coordination of care (as documented) at patient's floor/unit and/or counseling patient: Coding Level of Care Code 11011 SUB INP/OBS CARE 2/35MIN Diagnoses Diabetic ulcer of left midfoot associated with type 2 diabetes mellitus, with necrosis of muscle E11.621; L97.423 Diabetes mellitus type: type 2 Diabetic foot ulcer location: midfoot Non-pressure ulcer stage: with necrosis of muscle History of amputation of foot through metatarsal bone Z89.439 Diabetes mellitus type 2 with complications E11.8 Diabetic peripheral neuropathy associated with type 2 diabetes mellitus E11.42 Elevated troponin R79.89 Bmxwflt-Lyqva-Nrwyb syndrome G60.0 Time Spent (min) 35 (1) Diabetic ulcer of left foot Diabetes mellitus type: type 2 Diabetic foot ulcer location: midfoot Non- pressure ulcer stage: with necrosis of muscle Qualified Code(s): E11.621 - Type 2 diabetes mellitus with foot ulcer; L97.423 - Non-pressure chronic ulcer of left heel and midfoot with necrosis of muscle
--- NOTE | 2024-06-24 11:17 | Podiatry Progress Note ---
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 Plan for transmetatarsal amputation Monday afternoon. Pt plans to discuss the suggested case with his ex prior to final discission to move forward. Dressing change left foot and repacked with quarter inch iodoform packing gauze. Blood cultures 06/20/2024 growing Staph aureus. Repeat blood cultures06/22 growing SA. Patient continues IV daptomycin Bone pathology third metatarsal left foot 06/21/2024: Growing Staph aureus and group be strep. Bone for culture third metatarsal left foot 06/21/2024: Growing Staph aureus and group be strep. Okay to bear weight to the left foot with post op shoe in place. Will need to be non-weightbearing to the left following TMA/ZULMA for a minimum of 2 days then weightbearing in CAM walker for 6 wks. Patient would benefit from care home facility placement at discharge. Admission and Anticipated Discharge Date Admission Date: June 20, 2024 Subjective Postop day 3 status post I&D of the left foot. Patient seen resting comfortably in hospital bed. Denies pain in the left foot. Pt continues to express concern over losing his leg "like his dad." We discussed case and I explained that a TMA (though he will lose the toes) will be more stable and reduce the risk of future ulceration and loss of limb compared to a solitary remaining 1st ray. Pt voiced understanding of explanation. Review of Systems Review of Systems: Review of systems negative unless otherwise stated in HPI or below. Physical Exam Physical Exam: Objective: Const: Appears well developed and well nourished. No signs of acute distress present. CV: Extremities: No cyanosis. Capillary refill time is less than 2 seconds all digits of the bilateral foot. Posterior tibial and dorsalis pedis pulses are lightly palpable bilateral. Lymph: No palpable or visible regional lymphadenopathy. Skin: Loss of hair growth bilateral leg below the knee with thin atrophic skin and venous stasis skin changes bilateral. Neuro: Loss of protective sensation to the bilateral foot and ankle as tested with [place] 5.0 7 monofilament. Psych: Mood/Affect: Mood is normal. Affect is normal. Cognition: Orientation is intact to person, place and time. Focused lower extremity musculoskeletal exam: Leg: No pain with compression of the calf muscle. Ankles: Normal to inspection and palpation. +1 pitting edema bilateral no tenderness bilaterally. Motor strength is intact. Range of motion pain-free and unlimited. Left foot: History of partial fourth and fifth ray amputation of the left foot with well-healed amputation site. History of second metatarsal head resection. Deformity of the left foot with subluxation of the left second and third digit. Diabetic ulcer left foot sub 3rd mettarsal head. Status post I&D of the left foot with debridement of necrotic soft tissue and bone. Wound bed is relatively healthy appearing soft tissue with exception of the distal aspect of the third metatarsal which now has a hoskins discoloration. Wound bed is mixed fibrotic, gra nular, muscular and subcutaneous tissue. Sanguinous drainage to the surgical dressing. No active drainage. Pressure is applied to the surrounding soft tissues and I am unable to express any purulent drainage from the left foot on the wound bed. Results & Data Results & Data Vital Signs (Past 12 Hours) Vital Signs Temp Pulse Resp BP Pulse Ox O2 Del Method 06/24/24 10:36 36.2 C L 66 14 146/72 H 94 Room Air 06/24/24 08:00 Room Air 06/24/24 07:11 36.6 C 62 14 152/69 H 97 Room Air Laboratory Results WBC 9.58. Coding Level of Care Code 04615 SUB INP/OBS CARE 2/35MIN Diagnoses MRSA bacteremia R78.81; B95.62 Infection of left foot L08.9 Diabetic ulcer of left midfoot associated with type 2 diabetes mellitus, with necrosis of muscle E11.621; L97.423 Diabetes mellitus type: type 2 Diabetic foot ulcer location: midfoot Non-pressure ulcer stage: with necrosis of muscle History of amputation of foot through metatarsal bone Z89.439 Diabetic ulcer of left midfoot associated with type 2 diabetes mellitus, with necrosis of bone E11.621; L97.424 Diabetes mellitus type: type 2 Diabetic foot ulcer location: midfoot (3) Diabetic ulcer of left foot Diabetes mellitus type: type 2 Diabetic foot ulcer location: midfoot Non- pressure ulcer stage: with necrosis of muscle Qualified Code(s): E11.621 - Type 2 diabetes mellitus with foot ulcer; L97.423 - Non-pressure chronic ulcer of left heel and midfoot with necrosis of muscle (5) 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
--- NOTE | 2024-06-24 12:24 | Infectious Disease Progress Nt ---
Date of Service June 24, 2024 Assessment & Plan (1) MRSA bacteremia: (2) Diabetic ulcer of left foot: Plan 68yo M with h/o T2DM, CHB s/p PPM 2017, s/p bl TKA in 2013, peripheral neuropathy, diabetic foot ulcer/OM s/p prior amputation, Oeftzya-Tscdg-Cejhs syndrome who presented on 06/20 after a ground level fall, found with left diabetic foot infection. Initially afebrile with WBC 17.88, Cr 0.87. CT LLE without contrast was significantly limited due to motion artifact, but showed soft tissue swelling and gas most likely reflecting anaerobic infection at the level of the fourth proximal phalanx, no defined fluid collection or gross osteomyelitis although limiting motion could obscure these abnormalities. BCX with MSSA and Strep. Pt was started on dapto and Zosyn. S/p OR 06/21 and underwent left foot I+D. TTE negative for vegetations. Source of bacteremia likely his foot infection. BCX from 06/22 are still positive. I do think that with ongoing bacteremia and presence of PPM, he should get a MIKE. I did speak to lab regarding the BCID panel, they are waiting to see if Staph epidermidis grows on the cultures, which so far they have not been able to isolate. He has mecA/MREJ gene positive for MRSA but only MSSA isolated on cultures. Also Staph epi + mecA/C gene suggesting MRSE on BCID, but no growth of Staph epi. Possible there was very low colonies? Unclear why there is this discrepancy. Will wait for cultures for 5 days from the , which is tomorrow. If no growth of MRSA or MRSE, then plan to narrow abx. Will keep on daptomycin for now. Note he has bone cultures positive, suggesting OM. Will f/u podiatry plans. # Bacteremia 2/2 MSSA, Strep mitis/oralis # L diabetic foot infection with OM s/p I+D 06/21 cx with MSSA and GBS # H/o CHF s/p PPM # h/o TKA - would pursue MIKE given persistent MSSA bacteremia and presence of PPM - f/u blood cx - repeat BCX tomorrow (72hr) - continue daptomycin 800mg (8mg/kg, AdjBW 104kg) IV daily - f/u surgical plans Will continue to follow. If questions or concerns, contact via [facility] or Infectious Disease Call Center . Latanya Escobar MD [facility], Division of Infectious Diseases Admission and Anticipated Discharge Date Admission Date: June 20, 2024 Subjective Subsequent visit was provided via telemedicine using two-way real-time interactive telecommunication between the patient and the telemedicine provider. For the duration of the visit, the provider was performing the assessment from a different facility than the patient. This includesuse of bluetooth stetho scope forauscultationperformed by the telepresenter that the telemedicine provider can hear if described in the physical exam. [employer] contact information: Please call [facility] [phone]. (Phone Number For Physician Use Only) After establishing a telemedicine visit, patient was: Patient was verified with two unique identifiers, Patient/authorized rep acknowledged consent and understanding and Gave permission to continue telehealth session Time Spent with Patient: Subsequent => 55 min Patient with some pain in his foot. He denies having any back pain or joint pain. He had bl knee replaced, no issues. No pain at PPM site. Physical Exam Physical Exam: General: Awake, alert, no acute distress HEENT: NC/AT, EOMI, mmm Neck: supple Lungs: respirations non-labored Heart: nl peripheral perfusion Chest: PPM nontender or red Abdomen: soft, NT/ND Back: no spinal tenderness Ext: left foot with dressing, some swelling, mild erythema of leg Neuro: moving all extremities Results & Data Vital Signs (Past 12 Hours) Vital Signs Temp Pulse Resp BP Pulse Ox O2 Del Method 06/24/24 10:36 36.2 C L 66 14 146/72 H 94 Room Air 06/24/24 08:00 Room Air 06/24/24 07:11 36.6 C 62 14 152/69 H 97 Room Air Laboratory Results Labs reviewed. Diagnostic Findings Imaging reviewed. (2) Diabetic ulcer of left foot Diabetes mellitus type: type 2 Diabetic foot ulcer location: midfoot Non- pressure ulcer stage: with necrosis of muscle Qualified Code(s): E11.621 - Type 2 diabetes mellitus with foot ulcer; L97.423 - Non-pressure chronic ulcer of lef t heel and midfoot with necrosis of muscle
--- NOTE | 2024-06-24 16:16 | Cardiology Consultation ---
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 Minimal troponin elevation in the absence of symptoms consistent with minor demand ischemia. No further workup necessary. Agree with transesophageal echocardiogram to further exclude vegetation. The probability of major vegetation is likely to be very low given absence of evidence for valvular disease on transthoracic study and there is a chance of a false positive if there is any fibrinous stranding on the pacemaker wire itself. Nonetheless, in the presence of a pacemaker would be prudent to evaluate further, since the presence of convincing vegetation would merit not only sustained antibiotic course but may require explantation of pacemaker. Discussed risks and benefits with patient, he is agreeable to proceeding. Transesophageal echocardiogram planned for tomorrow morning. History of Present Illness Reason for Consultation: need for MIKE, persistent bateremia Requesting Physician: Chilango Plascencia MD Attending Physician: Chilango Plascencia MD History of Present Illness 68-year-old man status post dual-chamber pacemaker for complete heart block, history of conduction abnormality/dysrhythmias (SVT/LBBB/nonsustained VT), diabetes and chronic venous insufficiency who was admitted 06/20/2024 after several falls, he was noted to have left foot infection with methicillin- resistant Staph aureus bacteremia on multiple cultures and is being considered for transesophageal echocardiogram. No cardiac issues during this hospitalization, rhythm has been atrial sensing ventricular pacing. Troponin values have been 62 or less. No chest pain, dyspnea, or subjective palpitations. Patient denies any history of swallowing problems. He had no somatic complaints at the time of my evaluation this afternoon. Allergies Allergy/AdvReac Type Severity Reaction Status Date / Time vancomycin Allergy Mild thrombocyto Verified 05/22/24 09:45 penia Home Medications Medication Instructions Recorded Confirmed Type acetaminophen 650 mg 650 mg PO Q6H PRN pain or fever 02/19/18 05/22/24 History tablet,extended release ascorbic acid (vitamin C) 500 mg 500 mg PO QAM 02/19/18 05/22/24 History tablet aspirin 81 mg tablet,delayed 81 mg PO DIRECTED PRN Pain 02/19/18 05/22/24 History release calcium 600 mg (as carbonate)-vit 1 tab PO QAM 02/19/18 05/22/24 History D3 20 mcg (800 unit) chewable tablet (Caltrate plus D) multivitamin 1 tab PO QAM 11/13/18 05/22/24 History cholecalciferol (vitamin D3) 50 5,000 units PO HS 10/03/19 05/22/24 History mcg (2,000 unit) tablet pen needle, diabetic 32 gauge x #100 ea 06/14/23 05/22/24 Rx 5/32" (BD Ultra-Fine Danitza Pen Needle) blood-glucose meter (OneTouch #1 ea 06/28/23 05/22/24 Rx Verio Flex Meter) FreeStyle [place] 2 [place] (flash #1 ea 09/05/23 05/22/24 Rx glucose scanning reader) blood sugar diagnostic (OneTouch #100 ea 02/06/24 05/22/24 Rx Verio test strips) amlodipine 5 mg tablet 5 mg PO DAILY #90 tabs 04/10/24 05/22/24 Rx atorvastatin 80 mg tablet 80 mg PO DAILY #90 tabs 04/10/24 05/22/24 Rx insulin glargine 100 unit/mL (3 35 unit (0.35 mL) subcut PM #15 mL 04/10/24 05/22/24 Rx mL) subcutaneous pen (Basaglar KwikPen U-100 Insulin) insulin lispro 100 unit/mL 10 unit (0.1 mL) subcut .COMPLEX 04/10/24 05/22/24 Rx subcutaneous pen (Admelog SoloStar #15 mL U-) lisinopril 10 mg tablet 10 mg PO DAILY #90 tabs 04/10/24 05/22/24 Rx metformin 1,000 mg tablet 1,000 mg PO BID diabetes #180 tabs 04/10/24 05/22/24 Rx metoprolol tartrate 25 mg tablet 25 mg PO BID #180 tabs 04/10/24 05/22/24 Rx mecobalamin (vitamin B12) 1,000 1,000 mcg PO DAILY #30 tabs 06/04/24 Rx mcg chewable tablet Patient History Medical History Nonsustained paroxysmal ventricular tachycardia 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 Penicillin allergy Ventricular tachycardia History of colon polyps History of syncope reason for pacemaker per pt Bilateral lower extremity edema Improving - wound clinic did wrap to right LE Complete heart block (~2017) followed by cardiology Dr Menon Hypertension History of diabetic ulcer of foot seeing wound clinic Surgical History Hx of vasectomy History of colonoscopy with polypectomy 10/13 repeat 10 years History of arthroscopy of left knee History of arthroscopy of right knee History of permanent cardiac pacemaker placement meditronic 2018 @ [facility]--follows with Dr. Menon > last checked few months ago History of tonsillectomy S/P TKR (total knee replacement) (06/26/13) 1 on right knee 1 on left knee Family History Mother Alzheimer disease Depression Seizure Lung disease Hypertension Family hx of colon cancer Colorectal cancer Father Diabetes Depression Kidney disease Leukemia Seizure Lung disease Hypertension Sister Brain tumor Seizure Lung disease Lung cancer Other No family history of adverse response to anesthesia Denies family history of Ovarian cancer Prostate cancer Myocardial infarction Breast cancer Social History Smoking Status: Never smoker Second Hand Exposure: No; Do You Dip or Chew Tobacco: No; Tobacco Cessation Education Requested by Patient: No Hx Alcohol Use: No Hx Substance Use: No Preferred Language: Japanese Communication Ability: Effective Visual Impairment: No Limitations Hearing Ability: Normal Tare Man Required: No Beliefs That Will Affect Care: None marital status: marital status details: Current Living Situation: Personal Care Facility Current Living Situation Comment: [facility] living current occupational status: previously employed How many Children do You have: 2 Other Information That Helps Us Care for You: No Feels Safe at Home: Yes Safety Concerns: Feels Safe At This Time Childhood Exposure to Second-Hand Smoke: Yes Diet: regular caffeine: Yes Dental Care, Regularly: Yes Physical Activity Frequency: Does not Exercise Seatbelt Use: always Sunscreen Use: Yes Assistive Devices: Walker and Wheelchair Physical Exam Physical Exam: No distress. Afebrile. BP 184/82 mmHg. Pulse 66 bpm and regular with ectopy. Respirations 18 and unlabored. Skin: no stigmata of SBE, ecchymoses or generalized lesions. HEENT: unremarkable. Neck: JVP at the clavicle at 90 degrees, no carotid bruits. Lungs: clear. Cardiac: regular rhythm with ectopy, normal S1-2, no murmur. Abdomen: benign. Extremities: Surgical dressing left foot, venous stasis changes both lower extremities. Neurologic: normal affect and conversation, nonfocal. Results & Data Vital Signs (Past 12 Hours) Vital Signs Temp Pulse Pulse Resp BP Pulse Ox O2 Del Method 06/24/24 14:53 98.2 F 66 18 184/82 H 95 Room Air 06/24/24 10:36 97.2 F L 66 14 146/72 H 94 Room Air 06/24/24 08:00 Room Air 06/24/24 07:11 97.9 F 62 14 152/69 H 97 Room Air Laboratory Results Multiple cultures from 06/20/2024, 06/21/2024, and 06/22/2024 with Staph aureus, 2 cultures with group B strep. Normal WBC of 9.58, normal hemoglobin and platelet count. Normal electrolytes, BUN 11, creatinine 0.68. Procalcitonin 0.93. Diagnostic Findings ECG showed atrial sensed ventricular paced rhythm at 87 bpm. A second ECG was similar. Transthoracic echocardiogram showed EF 6065% with no wall motion abnormalities, no obvious valvular vegetation, and no significant valvular disease. Unchanged from 2018. 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
[2024-06-25 06:15] LABS: Hematocrit (blood only) 42.7 % (42.0-52.0); Hemoglobin 14.5 g/dl (14.0-18.0); Mean Corpuscular Hemoglobin 28.3 pg (25.0-34.0); Mean Corpuscular Volume 83.4 fL (80.0-100.0); Mean Platelet Volume 9.3 fL (9.4-12.4); Platelet Count 244 K/uL (130-400); RDW Coefficient of Variation 12.2 % (11.5-14.5); RDW Standard Deviation 37.2 fL (36.4-46.3); Red Blood Count 5.12 M/uL (4.70-6.10); White Blood Count 11.81 K/ul (4.8-10.8)
[2024-06-25 06:32] LABS: Calcium 8.6 mg/dl (8.6-10.3); Creatinine Clr Calc Pharmacy 166.9 ml/min; Potassium 3.9 mmol/L (3.5-5.1)
--- NOTE | 2024-06-25 07:18 | Anesthesiology Consultation ---
Date of Service June 25, 2024 Assessment & Plan (1) Encounter for pre-operative examination: Chart Review Chart Review: Acceptable Risk for Surgery History Surgery Operation Date: 06/21/24 11:30 Proposed Procedures p Left Foot Incision and Drainage, Possible Second/Third Toe Amputation - Junaid Marks DPM Operation Date: 06/25/24 07:15 Proposed Procedures p Transesophageal Echo w/Anesthesia - Kranthi Chase MD Height/Weight Height: 6 ft 5 in Weight: 125.6 kg Allergies Allergy/AdvReac Type Severity Reaction Status Date / Time vancomycin Allergy Mild thrombocyto Verified 05/22/24 09:45 penia Medications Home Medications Medication Instructions Recorded Confirmed Last Taken acetaminophen 650 mg 650 mg PO Q6H PRN pain or fever 02/19/18 05/22/24 06/25/22 tablet,extended release ascorbic acid (vitamin C) 500 mg 500 mg PO QAM 02/19/18 05/22/24 07/04/22 tablet aspirin 81 mg tablet,delayed 81 mg PO DIRECTED PRN Pain 02/19/18 05/22/24 07/05/22 release calcium 600 mg (as carbonate)-vit 1 tab PO QAM 02/19/18 05/22/24 07/04/22 D3 20 mcg (800 unit) chewable tablet (Caltrate plus D) multivitamin 1 tab PO QAM 11/13/18 05/22/24 07/05/22 cholecalciferol (vitamin D3) 50 5,000 units PO HS 10/03/19 05/22/24 07/04/22 mcg (2,000 unit) tablet pen needle, diabetic 32 gauge x #100 ea 06/14/23 05/22/24 Unknown 32" (BD Ultra-Fine Danitza Pen Needle) blood-glucose meter (OneTouch #1 ea 06/28/23 05/22/24 Unknown Verio Flex Meter) FreeStyle Almaz 2 [place] (flash #1 ea 09/05/23 05/22/24 Unknown glucose scanning reader) blood sugar diagnostic (OneTouch #100 ea 02/06/24 05/22/24 Unknown Verio test strips) amlodipine 5 mg tablet 5 mg PO DAILY #90 tabs 04/10/24 05/22/24 Unknown atorvastatin 80 mg tablet 80 mg PO DAILY #90 tabs 04/10/24 05/22/24 Unknown insulin glargine 100 unit/mL (3 35 unit (0.35 mL) subcut PM #15 mL 04/10/24 05/22/24 Unknown mL) subcutaneous pen (Basaglar KwikPen U-100 Insulin) insulin lispro 100 unit/mL 10 unit (0.1 mL) subcut .COMPLEX 04/10/24 05/22/24 Unknown subcutaneous pen (Admelog SoloStar #15 mL U-) lisinopril 10 mg tablet 10 mg PO DAILY #90 tabs 04/10/24 05/22/24 Unknown metformin 1,000 mg tablet 1,000 mg PO BID diabetes #180 tabs 04/10/24 05/22/24 Unknown metoprolol tartrate 25 mg tablet 25 mg PO BID #180 tabs 04/10/24 05/22/24 Unknown mecobalamin (vitamin B12) 1,000 1,000 mcg PO DAILY #30 tabs 06/04/24 Unknown mcg chewable tablet Active Medications Generic Name Dose Route Start Last Admin Trade Name Freq PRN Reason Stop Dose Admin Acetaminophen 650 mg 06/21/24 01:06 06/23/24 08:32 Acetaminophen 325 Mg Tab PO 07/21/24 01:05 650 mg Q6H PRN Administration pain or fever Amlodipine Besylate 5 mg 06/21/24 09:00 06/24/24 07:40 Amlodipine Besylate 5 Mg Tab PO 07/21/24 08:59 5 mg DAILY CAROL Administration Ascorbic Acid 500 mg 06/21/24 09:00 06/24/24 07:40 Ascorbic Acid 500 Mg Tab PO 07/21/24 08:59 500 mg QAM CAROL Administration Aspirin 81 mg 06/21/24 09:00 06/24/24 07:39 Aspirin 81 Mg Ectab PO 07/21/24 08:59 81 mg QAM CAROL Administration Atorvastatin Calcium 80 mg 06/21/24 09:00 06/21/24 09:11 Atorvastatin 40 Mg Tab PO 07/21/24 08:59 80 mg DAILY CAROL Administration Calcium/Vitamin D 1 tab 06/21/24 09:00 06/24/24 07:39 Calcium 600mg + Vit D 400 Iu Tab PO 07/21/24 08:59 1 tab QAM CAROL Administration Cyanocobalamin 1,000 mcg 06/21/24 09:00 06/24/24 07:39 Cyanocobalamin (B-12) 500 Mcg Tablet PO 07/21/24 08:59 1,000 mcg DAILY CAROL Administration Daptomycin 800 mg/ Syringe 16 mls @ 8 mls/min 06/21/24 19:00 06/24/24 18:03 IV 07/05/24 18:59 8 mls/min Q24H CAROL Administration Protocol Insulin Aspart 0 units 06/21/24 07:30 06/24/24 20:28 Insulin Aspart Per Unit Charge SC 07/21/24 07:29 Not Given ACHS CAROL Insulin Glargine 25 units 06/21/24 21:00 06/24/24 20:44 Lantus Per Unit Charge SQ 07/21/24 20:59 25 units PM CAROL Administration Metoprolol Tartrate 25 mg 06/21/24 09:00 06/24/24 20:43 Metoprolol Tartrate 25 Mg Tab PO 07/21/24 08:59 25 mg BID CAROL Administration Miconazole Nitrate 1 appln 06/21/24 10:10 06/23/24 17:51 Miconazole Nitrate Powder 85 Gm EXT 07/21/24 10:09 1 appln PRN PRN Administration Affected Skin Folds Vitamin D 125 mcg 06/21/24 21:00 06/24/24 20:43 Cholecalciferol 125 Mcg (5,000 Units) Tab PO 07/21/24 20:59 125 mcg HS CAROL Administration NPO Date Last Intake of Fluids: 06/24/24 Time Last Intake of Fluids: 22:00 Date Last Intake of Solids: 06/24/24 Time Last Intake of Solids: 17:00 Past Medical History Medical History Nonsustained paroxysmal ventricular tachycardia 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 Penicillin allergy Ventricular tachycardia History of colon polyps History of syncope reason for pacemaker per pt Bilateral lower extremity edema Improving - wound clinic did wrap to right LE Complete heart block (~2018) followed by cardiology Dr Menon Hypertension History of diabetic ulcer of foot seeing wound clinic Past Family History Family History Mother Alzheimer disease Depression Seizure Lung disease Hypertension Family hx of colon cancer Colorectal cancer Father Diabetes Depression Kidney disease Leukemia Seizure Lung disease Hypertension Sister Brain tumor Seizure Lung disease Lung cancer Other No family history of adverse response to anesthesia Denies family history of Ovarian cancer Prostate cancer Myocardial infarction Breast cancer Past Surgical History Surgical History Hx of vasectomy History of colonoscopy with polypectomy 10/13 repeat 10 years History of arthroscopy of left knee History of arthroscopy of right knee History of permanent cardiac pacemaker placement meditronic 2018 @ [facility]--follows with Dr. Menon > last checked few months ago History of tonsillectomy S/P TKR (total knee replacement) (06/26/13) 1 on right knee 1 on left knee Social History Smoking Status: Never smoker Do You Dip or Chew Tobacco: No Hx Alcohol Use: No Hx Substance Use: No substance use type: does not use Physical Exam Vital Signs Last Vital Signs Temp 37.2 C 06/25/24 06:59 Pulse 68 06/25/24 06:59 Resp 20 06/25/24 06:59 BP 193/93 H 06/25/24 06:59 Pulse Ox 96 06/25/24 06:59 O2 Del Method Room Air 06/25/24 06:59 O2 Flow Rate 2 06/23/24 16:17 Testing Laboratory Results 06/25/24 05:43 06/25/24 05:43 PT 11.0 Seconds (9.0-12.0) 06/23/24 06:32 INR 1.0 (0.9-1.1) 06/23/24 06:32 APTT 27 Seconds (21-31) 06/23/24 06:32 Hemoglobin A1c 9.0 % (4.5-5.6) H 06/21/24 05:35 Urine Color Dark Yellow 06/21/24 06:19 Urine Appearance Clear (Clear) 06/21/24 06:19 Urine pH 5.5 (4.5-7.5) 06/21/24 06:19 Ur Specific [place] > 1.045 (1.000-1.030) H 06/21/24 06:19 Urine Protein 2+ (Negative) H 06/21/24 06:19 Urine Glucose (UA) 3+ (Negative) H 06/21/24 06:19 Urine Ketones 1+ (Negative) H 06/21/24 06:19 Urine Nitrite Negative (Negative) 06/21/24 06:19 Ur Leukocyte Esterase Negative (Negative) 06/21/24 06:19 Urine WBC (Auto) 0-5 /hpf (0-5) 06/21/24 06:19 Urine RBC (Auto) 0-2 /hpf (0-2) 06/21/24 06:19 U Hyaline Cast (Auto) 6-10 /lpf (0-2) H 06/21/24 06:19 U Epithel Cells (Auto) 0-2 /hpf (0-2) 06/21/24 06:19 Urine Bacteria (Auto) None Seen (None Seen) 06/21/24 06:19 06/21/24 Unknown Gram Stain - Final Bone Aerobic and Anaerobic Culture - Preliminary Staphylococcus aureus Strep agalactiae (group B) 06/21/24 Unknown Gram Stain - Final Foot,Left Aerobic and Anaerobic Culture - Preliminary Staphylococcus aureus Strep agalactiae (group B) 06/21/24 13:07 Aerobic Blood Culture - Final Blood Staphylococcus aureus Anaerobic Blood Culture - Final Staphylococcus aureus 06/20/24 18:21 Aerobic Blood Culture - Final Blood Staphylococcus aureus Anaerobic Blood Culture - Final Staphylococcus aureus 06/20/24 18:00 Aerobic Blood Culture - Final Blood Staphylococcus aureus Anaerobic Blood Culture - Final Staphylococcus aureus 06/20/24 19:18 Gram Stain - Final Foot Aerobic and Anaerobic Culture - Preliminary Staphylococcus aureus Strep agalactiae (group B) 06/22/24 06:57 Aerobic Blood Culture - Preliminary Blood Staphylococcus aureus Anaerobic Blood Culture - Preliminary No growth in Anaerobic bottle after 48 hours. 06/21/24 13:10 Aerobic Blood Culture - Preliminary Blood Streptococcus mitis/oralis grp Anaerobic Blood Culture - Preliminary Staphylococcus aureus 06/22/24 07:09 Aerobic Blood Culture - Preliminary Blood No growth in Aerobic bottle after 48 hours. Anaerobic Blood Culture - Preliminary No growth in Anaerobic bottle after 48 hours. 06/21/24 Unknown Gram Stain - Final Foot Aerobic and Anaerobic Culture - Preliminary Staphylococcus aureus 06/24/24 20:12 POC Glucose 159 H Echocardiogram Date: 06/25/24 EF: 60-65% Valvular Disease: + no significant valvular disease
--- NOTE | 2024-06-25 08:28 | Anesthesiology Progress Note ---
Date of Service June 25, 2024 Anesthesia Post Procedure Vital Signs Vital Signs: Temp Pulse Pulse Resp BP Pulse Ox O2 Del Method 06/25/24 08:15 66 18 124/66 97 Room Air 06/25/24 08:00 64 18 137/71 97 Room Air 06/25/24 07:45 66 18 125/68 96 Room Air 06/25/24 06:59 37.2 C 68 20 193/93 H 96 Room Air 06/24/24 23:03 Room Air 06/24/24 20:20 36.5 C 70 18 170/83 H 98 Room Air 06/24/24 14:53 36.8 C 66 18 184/82 H 95 Room Air 06/24/24 10:36 36.2 C L 66 14 146/72 H 94 Room Air Pain Intensity Back: Pain Intensity: 0 Transfer of Care Handoff Completed per policy Notes Mental Status: alert / awake / arousable Patient Amnestic to Procedure: Yes Nausea / Vomiting: adequately controlled Pain: adequately controlled Airway Patency, RR, SpO2: stable & adequate BP & HR: stable & adequate Hydration State: stable & adequate Anesthetic Complications: no major complications apparent
--- NOTE | 2024-06-25 08:57 | XCELERA ---
[id number] [id number]
--- NOTE | 2024-06-25 09:18 | Hospitalist Progress Note ---
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 He then fell again in the afternoon, where his neighbor was unable to help him get up, and he called EMS. In both instances, he hit his head. He does not remember the exact mechanism of how he fell. He did initially complain of some generalized headache, with neck pain and low back pain, but these resolved spontaneously while in the ED. The patient has been following with the diabetic foot care clinic for a chronic left lower extremity foot ulcer. The patient has a primary concern of losing his left foot, similar to what happened to his father, and has had a history of partial amputation in the past. Workup in the emergency department included CT scan of head, cervical spine, chest which were all negative. CT scan of the lumbar spine showed moderate L3-4, and mild L4-5 degenerative disc disease and spinal stenosis. CT scan of the left lower extremity without IV contrast showed soft tissue swelling and gas most likely reflecting anaerobic infection at the level of the fourth proximal phalanx. No defined fluid collection or gross osteomyelitis although limiting motion could obscure these abnormalities. The patient was referred to the [facility] service for further evaluation and treatment. Bacteremia Blood culture now growing MRSA source is likely foot ulcer Will continue IV daptomycin for now Consult ID #Diabetic foot ulcer of left foot/history of partial amputation through metatarsal bone- CT scan of left foot notes soft tissue swelling and gas most likely reflecting anaerobic infection at the level of the fourth proximal phalanx. He is now day 1 s/o Incision and debridement Plan is further debridement and possibly transmetatarsal amputation with probable need for posterior muscle group lengthening on Monday or per Podiatry Patient told me this morning, 06/24 that he does not want to lose his foot Culture growing Staph and Strep Continue IV daptomycin Appreciate wound care and Podiatry #Elevated troponin/LBBB/PSVT history/hypertension- Likely demand ischemia The patient will be admitted to telemetry for serial cardiac enzymes, serial EKG's, cardiac rhythm monitoring Continue amlodipine, aspirin, metoprolol titrate Holding lisinopril #Diabetes mellitus- Hold metformin Reduce glargine from 35 to 25 units subcu daily hemoglobin A1c 7.9 #Chronic medical conditions: Hyperlipidemia-continue atorvastatin, check a fasting lipid panel Vitamin D deficiency-continue supplement next 12 vitamin B12 deficiency-continue supplement Disposition: patient would likely need rehab after amputation Admission and Anticipated Discharge Date Admission Date: June 20, 2024 Subjective Patient with some pain in his foot. He denies having any back pain or joint pain. He had bl knee replaced, no issues. No pain at PPM site. Review of Systems Review of Systems: All systems reviewed are negative, apart from the ones contained in the history. Physical Exam Physical Exam: e patient is awake, alert and oriented 3, well developed and well nourished, normocephalic and atraumatic, lying in bed and in no acute distress. HEENT--PERRL, EOMI, mucous membranes and oropharynx mildly dry Neck--supple. No JVD. No bruits. Thyroid normal, trachea midline, no adenopathy. Heart--normal S1 and S2. No murmurs, rubs or gallops. Lungs--clear bilaterally, no respiratory distress, no accessory muscle use. Abdomen--normal bowel sounds and soft. Extremities--left LE in bandage, amputation of 4th digits Dermatologic--normal skin turgor, normal color, no abnormal lymph nodes, no rash. Neurologic--cranial nerves II through XII grossly intact. Rheumatologic--normal range of motion. Psychiatric--normal affect Results & Data Results & Data Vital Signs (Past 12 Hours) Vital Signs Temp Pulse Resp BP BP Pulse Ox O2 Del Method 06/25/24 09:00 36.4 C L 66 20 164/71 H 98 Room Air 06/25/24 08:15 66 18 124/66 97 Room Air 06/25/24 08:00 64 18 137/71 97 Room Air 06/25/24 07:45 66 18 125/68 96 Room Air 06/25/24 06:59 37.2 C 68 20 193/93 H 96 Room Air 06/24/24 23:03 Room Air PG Care Time/CCT Total # of Minutes Spent Total Time Spent with Patient: Total time spent is greater than 50% in coordination of care (as documented) at patient's floor/unit and/or counseling patient: Coding Level of Care Code 35856 SUB INP/OBS CARE 2/35MIN Diagnoses Diabetic ulcer of left midfoot associated with type 2 diabetes mellitus, with necrosis of muscle E11.621; L97.423 Diabetes mellitus type: type 2 Diabetic foot ulcer location: midfoot Non-pressure ulcer stage: with necrosis of muscle History of amputation of foot through metatarsal bone Z89.439 Diabetes mellitus type 2 with complications E11.8 Diabetic peripheral neuropathy associated with type 2 diabetes mellitus E11.42 Elevated troponin R79.89 Fgmlltt-Aaxto-Oixmq syndrome G60.0 Time Spent (min) 35 (1) Diabetic ulcer of left foot Diabetes mellitus type: type 2 Diabetic foot ulcer location: midfoot Non- pressure ulcer stage: with necrosis of muscle Qualified Code(s): E11.621 - Type 2 diabetes mellitus with foot ulcer; L97.423 - Non-pressure chronic ulcer of left heel and midfoot with necrosis of muscle
[2024-06-25] MEDS: BENZOCAINE/TETRACAIN/BUTAM 50 APPLN/5 GM CAN EXT ONE (09:47)
[2024-06-25] MEDS: PROPOFOL IV EMULSION 10 MG/ML 20 ML VIAL IV ONE ×2 (09:47→09:51)
[2024-06-25] MEDS: LIDOCAINE 2% 2 ML VIAL/AMP(20MG/ML) INFIL ONE (09:47)
--- NOTE | 2024-06-25 13:09 | Infectious Disease Progress Nt ---
Date of Service June 25, 2024 Assessment & Plan (1) MRSA bacteremia: (2) Diabetic ulcer of left foot: Plan 68yo M with h/o T2DM, CHB s/p PPM 2017, s/p bl TKA in 2013, peripheral neuropathy, diabetic foot ulcer/OM s/p prior amputation, Kbjwoyx-Ngtut-Gjzkd syndrome who presented on 06/20 after a ground level fall, found with left diabetic foot infection. Initially afebrile with WBC 17.88, Cr 0.87. CT LLE without contrast was significantly limited due to motion artifact, but showed soft tissue swelling and gas most likely reflecting anaerobic infection at the level of the fourth proximal phalanx, no defined fluid collection or gross osteomyelitis although limiting motion could obscure these abnormalities. BCX with MSSA and Strep. Pt was started on dapto and Zosyn. S/p OR 06/21 and underwent left foot I+D. TTE negative for vegetations. MIKE negative for valvular vegetation, minor filamentous structure on the distal portion of pacemaker lead most likely fibrin strand, unlikely to be vegetation. Bacteremia likely 2/2 foot infection. TTE/MIKE negative. I ordered repeat BCx for today. I did ask micro lab to also run sensi on Strep mitis/oralis. Keep daptomycin pending sensi. Will likely require a longer course of IV abx for the bacteremia. Hes tentatively planned for TMA on Monday. # Bacteremia 2/2 MSSA, Strep mitis/oralis TTE/MIKE neg # L diabetic foot infection with OM s/p I+D 06/21 cx with MSSA and GBS # H/o CHF s/p PPM # h/o TKA - f/u blood cx awaiting negative - continue daptomycin 800mg (8mg/kg, AdjBW 104kg) IV daily - f/u surgical plans please send proximal margin cx and path if he goes for amputation Will continue to follow. If questions or concerns, contact via [employer] or Infectious Disease Call Center . Latanya Escobar MD [facility], Division of Infectious Diseases Admission and Anticipated Discharge Date Admission Date: June 20, 2024 Subjective This patient recommendation is based on a telemedicine consult request which was completed asynchronously through chart review and information provided by the primary physician. The patient was not seen or examined today. The evaluation is consultative in nature and all patient care and treatment decisions can either be accepted or rejected by the patient's primary hospital-based treating physician using their own independent medical judgment for their patient. Time Spent Reviewing Chart: 31+ minutes Results & Data Vital Signs (Past 12 Hours) Vital Signs Temp Pulse Resp BP BP Pulse Ox O2 Del Method 06/25/24 11:05 36.7 C 70 18 146/76 H 97 Room Air 06/25/24 09:00 36.4 C L 66 20 164/71 H 98 Room Air 06/25/24 08:30 Room Air 06/25/24 08:15 66 18 124/66 97 Room Air 06/25/24 08:00 64 18 137/71 97 Room Air 06/25/24 07:45 66 18 125/68 96 Room Air 06/25/24 06:59 37.2 C 68 20 193/93 H 96 Room Air Laboratory Results Labs reviewed. Diagnostic Findings Imaging reviewed. (2) Diabetic ulcer of left foot Diabetes mellitus type: type 2 Diabetic foot ulcer location: midfoot Non- pressure ulcer stage: with necrosis of muscle Qualified Code(s): E11.621 - Type 2 diabetes mellitus with foot ulcer; L97.423 - Non-pressure chronic ulcer of left heel and midfoot with necrosis of muscle
--- NOTE | 2024-06-26 06:17 | Podiatry Progress Note ---
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 Plan for transmetatarsal amputation sometime after 430 today. Case recommendation reviewed with patient. All questions answered. Written informed consent reviewed with patient and signed with nurse to witness. -N.p.o. order placed to continue until postop Dressing change left foot and repacked with quarter inch iodoform packing gauze. Blood cultures 06/20/2024 growing Staph aureus. Repeat blood cultures06/22 growing SA. Patient continues IV daptomycin Bone pathology third metatarsal left foot 06/21/2024: Growing Staph aureus and group be strep. Bone for culture third metatarsal left foot 06/21/2024: Growing Staph aureus and group be strep. Following transmetatarsal amputation with tendo Achilles lengthening patient will be nonweightbearing for the first 2 days to allow initial healing at the amputation site which will be tenuous given need for remodeling of the distal foot. Likely okay to start weightbearing Monday afternoon and high tide Cam wal ker. Order placed for high tide Cam walker. Will collect proximal margin pathology from the second and third metatarsals as well as repeat bone and soft tissue cultures. Hoping to achieve clean margins which would minimize patient's antibiotic needs moving forward. Patient will benefit from discharge to snf facility. Admission and Anticipated Discharge Date Admission Date: June 20, 2024 Subjective Patient seen this morning resting comfortably in hospital bed. Denies pain in left foot. Denies nausea vomiting fever chills. We again reviewed the procedure and rationale for recommendation. patient voices understanding and would like to move forward. Patient is admittedly nervous for the procedure. His biggest concern is risk of limb amputation which is something his father went through. I explained that recommended procedure is in part to remove infected soft tissue and bone but also to hopefully stabilize and balance the foot with redistribution of pressure so he is less likely to develop another ulceration which would increase his risk of limb loss. All questions answered. Written informed consent reviewed with patient signed and witnessed. Review of Systems Review of Systems: Review of systems negative unless otherwise stated in HPI or below. Physical Exam Physical Exam: Objective: Const: Appears well developed and well nourished. No signs of acute distress present. CV: Extremities: No cyanosis. Capillary refill time is less than 2 seconds all digits of the bilateral foot. Posterior tibial and dorsalis pedis pulses are lightly palpable bilateral. Lymph: No palpable or visible regional lymphadenopathy. Skin: Loss of hair growth bilateral leg below the knee with thin atrophic skin and venous stasis skin changes bilateral. Neuro: Loss of protective sensation to the bilateral foot and ankle as tested with [place] 5.0 7 monofilament. Psych: Mood/Affect: Mood is normal. Affect is normal. Cognition: Orientation is intact to person, place and time. Focused lower extremity musculoskeletal exam: Leg: No pain with compression of the calf muscle. Ankles: Normal to inspection and palpation. +1 pitting edema bilateral no tenderness bilaterally. Motor strength is intact. Range of motion pain-free and unlimited. Left foot: History of partial fourth and fifth ray amputation of the left foot with well-healed amputation site. History of second metatarsal head resection. Deformity of the left foot with subluxation of the left second and third digit. Diabetic ulcer left foot sub 3rd mettarsal head. Status post I&D of the left foot with debridement of necrotic soft tissue and bone. Significant reduction in erythema and edema noted to the left forefoot today with return of relaxed skin tension lines. No lymphangitis or streaking. Wound bed is relatively healthy appearing soft tissue with exception of the distal aspect of the third metatarsal which now has a hoskins discoloration. Wound bed is mixed fibrotic, granular, muscular and subcutaneous tissue. Sanguinous drainage to the surgical dressing. No active drainage. Pressure is applied to the surrounding soft tissues and I am unable to express any purulent drainage from the left foot on the wound bed. Results & Data Results & Data Vital Signs (Past 12 Hours) Vital Signs Temp Pulse Resp BP Pulse Ox O2 Del Method 06/25/24 22:35 36.3 C L 63 18 152/73 H 97 Room Air 06/25/24 22:16 Room Air Coding Level of Care Code 03346 SUB INP/OBS CARE 3/50MIN Diagnoses MRSA bacteremia R78.81; B95.62 Infection of left foot L08.9 Diabetic ulcer of left midfoot associated with type 2 diabetes mellitus, with necrosis of muscle E11.621; L97.423 Diabetes mellitus type: type 2 Diabetic foot ulcer location: midfoot Non-pressure ulcer stage: with necrosis of muscle History of amputation of foot through metatarsal bone Z89.439 Diabetic ulcer of left midfoot associated with type 2 diabetes mellitus, with necrosis of bone E11.621; L97.424 Diabetes mellitus type: type 2 Diabetic foot ulcer location: midfoot Comment 57 (3) Diabetic ulcer of left foot Diabetes mellitus type: type 2 Diabetic foot ulcer location: midfoot Non- pressure ulcer stage: with necrosis of muscle Qualified Code(s): E11.621 - Type 2 diabetes mellitus with foot ulcer; L97.423 - Non-pressure chronic ulcer of left heel and midfoot with necrosis of muscle (5) 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
--- NOTE | 2024-06-26 07:32 | Infectious Disease Progress Nt ---
Date of Service June 26, 2024 Assessment & Plan (1) MSSA bacteremia: (2) Streptococcal bacteremia: (3) Foot osteomyelitis, left: (4) Diabetic ulcer of left foot: Plan 68yo M with h/o T2DM, CHB s/p PPM 2017, s/p bl TKA in 2013, peripheral neuropathy, diabetic foot ulcer/OM s/p prior amputation, Jzjaslm-Mzjlq-Iezod syndrome who presented on 06/20 after a ground level fall, found with left diabetic foot infection. Initially afebrile with WBC 17.88, Cr 0.87. CT LLE without contrast was significantly limited due to motion artifact, but showed soft tissue swelling and gas most likely reflecting anaerobic infection at the level of the fourth proximal phalanx, no defined fluid collection or gross osteomyelitis although limiting motion could obscure these abnormalities. BCX with MSSA and Strep. Pt was started on dapto and Zosyn. S/p OR 06/21 and underwent left foot I+D (wound probe to 2nd/3rd MT). OR bone cx positive. TTE negative for vegetations. MIKE negative for valvular vegetation, minor filamentous structure on the distal portion of pacemaker lead most likely fibrin strand, unlikely to be vegetation. Bacteremia likely 2/2 foot infection. TTE/MIKE negative. He is planned for TMA today. Bone cx now also growing Parvimonas which is an anaerobe. I will change dapto to unasyn. If all infected bone is able to be removed, then duration/regimen of abx will be for his bacteremia, which will likely require a longer course of IV abx given several days positive for MSSA. # Bacteremia 2/2 MSSA, Strep mitis/oralis TTE/MIKE neg # L diabetic foot infection with OM s/p I+D 06/21 cx with MSSA, GBS, Parvimonas # H/o CHF s/p PPM # h/o TKA - Gifty stopped daptomycin and started unasyn 3g IV q6h based on cultures - f/u blood cx awaiting negative - please send proximal margin cx and path - if all infected bone is able to be removed, will plan course of abx for his bacteremia - no long-term lines until BCX are negative x 48hrs Will continue to follow. If questions or concerns, contact via [facility] or Infectious Disease Call Center . Latanya Escobar MD [facility], Division of Infectious Diseases Admission and Anticipated Discharge Date Admission Date: June 20, 2024 Subjective This patient recommendation is based on a telemedicine consult request which was completed asynchronously through chart review and information provided by the primary physician. The patient was not seen or examined today. The evaluation is consultative in nature and all patient care and treatment decisions can either be accepted or rejected by the patient's primary hospital-based treating physician using their own independent medical judgment for their patient. Time Spent Reviewing Chart: 31+ minutes Results & Data Vital Signs (Past 12 Hours) Vital Signs Temp Pulse Resp BP Pulse Ox O2 Del Method 06/25/24 22:35 36.3 C L 63 18 152/73 H 97 Room Air 06/25/24 22:16 Room Air (4) Diabetic ulcer of left foot Diabetes mellitus type: type 2 Diabetic foot ulcer location: midfoot Non- pressure ulcer stage: with necrosis of muscle Qualified Code(s): E11.621 - Type 2 diabetes mellitus with foot ulcer; L97.423 - Non-pressure chronic ulcer of left heel and midfoot with necrosis of muscle
[2024-06-26] MEDS: AMPICILLIN/SULBACTAM SOD 3,000 MG/100 ML BAG IV SCH (08:29)
--- NOTE | 2024-06-26 15:20 | Anesthesiology Consultation ---
Date of Service June 26, 2024 Assessment & Plan (1) Encounter for pre-operative examination: Chart Review Chart Review: Acceptable Risk for Surgery History Surgery Operation Date: 06/21/24 11:30 Proposed Procedures p Left Foot Incision and Drainage, Possible Second/Third Toe Amputation - Junaid Marks DPM Operation Date: 06/25/24 07:15 Proposed Procedures p Transesophageal Echo w/Anesthesia - Kranthi Chase MD Operation Date: 06/26/24 07:00 Proposed Procedures p Left Foot Transmetatarsal Amputation - Junaid Marks DPM Height/Weight Height: 6 ft 5 in Weight: 125.6 kg Allergies Allergy/AdvReac Type Severity Reaction Status Date / Time vancomycin Allergy Mild thrombocyto Verified 05/22/24 09:45 penia Medications Home Medications Medication Instructions Recorded Confirmed Last Taken acetaminophen 650 mg 650 mg PO Q6H PRN pain or fever 02/19/18 05/22/24 06/25/22 tablet,extended release ascorbic acid (vitamin C) 500 mg 500 mg PO QAM 02/19/18 05/22/24 07/04/22 tablet aspirin 81 mg tablet,delayed 81 mg PO DIRECTED PRN Pain 02/19/18 05/22/24 07/05/22 release calcium 600 mg (as carbonate)-vit 1 tab PO QAM 02/19/18 05/22/24 07/04/22 D3 20 mcg (800 unit) chewable tablet (Caltrate plus D) multivitamin 1 tab PO QAM 11/13/18 05/22/24 07/05/22 cholecalciferol (vitamin D3) 50 5,000 units PO HS 10/03/19 05/22/24 07/04/22 mcg (2,000 unit) tablet pen needle, diabetic 32 gauge x #100 ea 06/14/23 05/22/24 Unknown 32" (BD Ultra-Fine Danitza Pen Needle) blood-glucose meter (OneTouch #1 ea 06/28/23 05/22/24 Unknown Verio Flex Meter) FreeStyle [place] 2 [place] (flash #1 ea 09/05/23 05/22/24 Unknown glucose scanning reader) blood sugar diagnostic (OneTouch #100 ea 02/06/24 05/22/24 Unknown Verio test strips) amlodipine 5 mg tablet 5 mg PO DAILY #90 tabs 04/10/24 05/22/24 Unknown atorvastatin 80 mg tablet 80 mg PO DAILY #90 tabs 04/10/24 05/22/24 Unknown insulin glargine 100 unit/mL (3 35 unit (0.35 mL) subcut PM #15 mL 04/10/24 05/22/24 Unknown mL) subcutaneous pen (Basaglar KwikPen U-100 Insulin) insulin lispro 100 unit/mL 10 unit (0.1 mL) subcut .COMPLEX 04/10/24 05/22/24 Unknown subcutaneous pen (Admelog SoloStar #15 mL U-) lisinopril 10 mg tablet 10 mg PO DAILY #90 tabs 04/10/24 05/22/24 Unknown metformin 1,000 mg tablet 1,000 mg PO BID diabetes #180 tabs 04/10/24 05/22/24 Unknown metoprolol tartrate 25 mg tablet 25 mg PO BID #180 tabs 04/10/24 05/22/24 Unknown mecobalamin (vitamin B12) 1,000 1,000 mcg PO DAILY #30 tabs 06/04/24 Unknown mcg chewable tablet Active Medications Generic Name Dose Route Start Last Admin Trade Name Freq PRN Reason Stop Dose Admin Acetaminophen 650 mg 06/21/24 01:06 06/23/24 08:32 Acetaminophen 325 Mg Tab PO 07/21/24 01:05 650 mg Q6H PRN Administration pain or fever Amlodipine Besylate 5 mg 06/21/24 09:00 06/26/24 08:35 Amlodipine Besylate 5 Mg Tab PO 07/21/24 08:59 5 mg DAILY CAROL Administration Ascorbic Acid 500 mg 06/21/24 09:00 06/26/24 08:35 Ascorbic Acid 500 Mg Tab PO 07/21/24 08:59 500 mg QAM CAROL Administration Aspirin 81 mg 06/21/24 09:00 06/26/24 08:35 Aspirin 81 Mg Ectab PO 07/21/24 08:59 81 mg QAM CAROL Administration Atorvastatin Calcium 80 mg 06/21/24 09:00 06/21/24 09:11 Atorvastatin 40 Mg Tab PO 07/21/24 08:59 80 mg DAILY CAROL Administration Calcium/Vitamin D 1 tab 06/21/24 09:00 06/26/24 08:35 Calcium 600mg + Vit D 400 Iu Tab PO 07/21/24 08:59 1 tab QAM CAROL Administration Cyanocobalamin 1,000 mcg 06/21/24 09:00 06/26/24 08:35 Cyanocobalamin (B-12) 500 Mcg Tablet PO 07/21/24 08:59 1,000 mcg DAILY CAROL Administration Ampicillin Sodium/Sulbactam Sodium 3,000 mg in 100 mls @ 200 mls/hr 06/26/24 08:00 06/26/24 13:45 Unasyn IV 07/10/24 07:59 Infused Q6H CAROL Infusion Insulin Aspart 0 units 06/21/24 07:30 06/26/24 12:49 Insulin Aspart Per Unit Charge SC 07/21/24 07:29 Not Given ACHS CAROL Insulin Glargine 25 units 06/21/24 21:00 06/25/24 21:39 Lantus Per Unit Charge SQ 07/21/24 20:59 25 units PM CAROL Administration Metoprolol Tartrate 25 mg 06/21/24 09:00 06/26/24 08:32 Metoprolol Tartrate 25 Mg Tab PO 07/21/24 08:59 25 mg BID CAROL Administration Miconazole Nitrate 1 appln 06/21/24 10:10 06/26/24 08:32 Miconazole Nitrate Powder 85 Gm EXT 07/21/24 10:09 1 appln PRN PRN Administration Affected Skin Folds Vitamin D 125 mcg 06/21/24 21:00 06/25/24 21:41 Cholecalciferol 125 Mcg (5,000 Units) Tab PO 07/21/24 20:59 125 mcg HS CAROL Administration NPO Date Last Intake of Fluids: 06/24/24 Time Last Intake of Fluids: 22:00 Date Last Intake of Solids: 06/24/24 Time Last Intake of Solids: 17:00 Past Medical History Medical History (Updated 06/26/24 @ 15:19 by Dontae Null MD) 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 Pacemaker (~2018) Nonsustained paroxysmal ventricular tachycardia 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 History of colon polyps History of syncope reason for pacemaker per pt Bilateral lower extremity edema Improving - wound clinic did wrap to right LE Complete heart block (~2018) followed by cardiology Dr Menon Hypertension Past Family History Family History Mother Alzheimer disease Depression Seizure Lung disease Hypertension Family hx of colon cancer Colorectal cancer Father Diabetes Depression Kidney disease Leukemia Seizure Lung disease Hypertension Sister Brain tumor Seizure Lung disease Lung cancer Other No family history of adverse response to anesthesia Denies family history of Ovarian cancer Prostate cancer Myocardial infarction Breast cancer Past Surgical History Surgical History Hx of vasectomy History of colonoscopy with polypectomy 10/13 repeat 10 years History of arthroscopy of left knee History of arthroscopy of right knee History of permanent cardiac pacemaker placement meditronic 2018 @ [facility]--follows with Dr. Menon > last checked few months ago History of tonsillectomy S/P TKR (total knee replacement) (06/26/13) 1 on right knee 1 on left knee Social History Smoking Status: Never smoker Do You Dip or Chew Tobacco: No Hx Alcohol Use: No Hx Substance Use: No substance use type: does not use Physical Exam Vital Signs Last Vital Signs Temp 36.8 C 06/26/24 14:53 Pulse 74 06/26/24 14:53 Resp 16 06/26/24 14:53 BP 186/91 H 06/26/24 14:53 Pulse Ox 92 06/26/24 14:53 O2 Del Method Room Air 06/26/24 14:53 O2 Flow Rate 2 06/23/24 16:17 Testing Laboratory Results 06/25/24 05:43 06/25/24 05:43 PT 11.0 Seconds (9.0-12.0) 06/23/24 06:32 INR 1.0 (0.9-1.1) 06/23/24 06:32 APTT 27 Seconds (21-31) 06/23/24 06:32 Hemoglobin A1c 9.0 % (4.5-5.6) H 06/21/24 05:35 Urine Color Dark Yellow 06/21/24 06:19 Urine Appearance Clear (Clear) 06/21/24 06:19 Urine pH 5.5 (4.5-7.5) 06/21/24 06:19 Ur Specific [place] > 1.045 (1.000-1.030) H 06/21/24 06:19 Urine Protein 2+ (Negative) H 06/21/24 06:19 Urine Glucose (UA) 3+ (Negative) H 06/21/24 06:19 Urine Ketones 1+ (Negative) H 06/21/24 06:19 Urine Nitrite Negative (Negative) 06/21/24 06:19 Ur Leukocyte Esterase Negative (Negative) 06/21/24 06:19 Urine WBC (Auto) 0-5 /hpf (0-5) 06/21/24 06:19 Urine RBC (Auto) 0-2 /hpf (0-2) 06/21/24 06:19 U Hyaline Cast (Auto) 6-10 /lpf (0-2) H 06/21/24 06:19 U Epithel Cells (Auto) 0-2 /hpf (0-2) 06/21/24 06:19 Urine Bacteria (Auto) None Seen (None Seen) 06/21/24 06:19 06/21/24 Unknown Gram Stain - Final Bone Aerobic and Anaerobic Culture - Final Staphylococcus aureus Strep agalactiae (group B) Streptococcus mitis/oralis grp Parvimonas micra 06/21/24 Unknown Gram Stain - Final Foot,Left Aerobic and Anaerobic Culture - Final Staphylococcus aureus Strep agalactiae (group B) Parvimonas micra 06/21/24 Unknown Gram Stain - Final Foot Aerobic and Anaerobic Culture - Final Staphylococcus aureus Streptococcus mitis/oralis grp Parvimonas micra 06/25/24 10:05 Aerobic Blood Culture - Preliminary Blood No growth in Aerobic bottle after 24 hours. Anaerobic Blood Culture - Preliminary No growth in Anaerobic bottle after 24 hours. 06/25/24 10:05 Aerobic Blood Culture - Preliminary Blood No growth in Aerobic bottle after 24 hours. 06/21/24 13:10 Aerobic Blood Culture - Final Blood Streptococcus mitis/oralis grp Anaerobic Blood Culture - Final Staphylococcus aureus 06/20/24 19:18 Gram Stain - Final Foot Aerobic and Anaerobic Culture - Final Staphylococcus aureus Strep agalactiae (group B) 06/21/24 13:07 Aerobic Blood Culture - Final Blood Staphylococcus aureus Anaerobic Blood Culture - Final Staphylococcus aureus 06/20/24 18:21 Aerobic Blood Culture - Final Blood Staphylococcus aureus Anaerobic Blood Culture - Final Staphylococcus aureus 06/20/24 18:00 Aerobic Blood Culture - Final Blood Staphylococcus aureus Anaerobic Blood Culture - Final Staphylococcus aureus 06/22/24 06:57 Aerobic Blood Culture - Preliminary Blood Staphylococcus aureus Anaerobic Blood Culture - Preliminary No growth in Anaerobic bottle after 48 hours. 06/22/24 07:09 Aerobic Blood Culture - Preliminary Blood No growth in Aerobic bottle after 48 hours. Anaerobic Blood Culture - Preliminary No growth in Anaerobic bottle after 48 hours. 06/26/24 06/26/24 12:44 08:12 POC Glucose 141 H 143 H Echocardiogram Date: 06/25/24 EF: 55-60% LV Function: normal Valvular Disease: + no significant valvular disease no vegetations seen
--- NOTE | 2024-06-26 15:33 | Hospitalist Progress Note ---
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 He then fell again in the afternoon, where his neighbor was unable to help him get up, and he called EMS. In both instances, he hit his head. He does not remember the exact mechanism of how he fell. He did initially complain of some generalized headache, with neck pain and low back pain, but these resolved spontaneously while in the ED. The patient has been following with the diabetic foot care clinic for a chronic left lower extremity foot ulcer. The patient has a primary concern of losing his left foot, similar to what happened to his father, and has had a history of partial amputation in the past. Workup in the emergency department included CT scan of head, cervical spine, chest which were all negative. CT scan of the lumbar spine showed moderate L3-4, and mild L4-5 degenerative disc disease and spinal stenosis. CT scan of the left lower extremity without IV contrast showed soft tissue swelling and gas most likely reflecting anaerobic infection at the level of the fourth proximal phalanx. No defined fluid collection or gross osteomyelitis although limiting motion could obscure these abnormalities. [facility]. Bacteremia Blood culture now growing MRSA source is likely foot ulcer Will continue IV daptomycin for now Per ID consult 8yo M with h/o T2DM, CHB s/p PPM 2017, s/p bl TKA in 2013, peripheral neuropathy, diabetic foot ulcer/OM s/p prior amputation, Dvivfvb-Kdfiw-Fanwu syndrome who presented on 06/20 after a ground level fall, found with left diabetic foot infection. Initially afebrile with WBC 17.88, Cr 0.87. CT LLE without contrast was significantly limited due to motion artifact, but showed soft tissue swelling and gas most likely reflecting anaerobic infection at the level of the fourth proximal phalanx, no defined fluid collection or gross osteomyelitis although limiting motion could obscure these abnormalities. BCX with MSSA and Strep. Pt was started on dapto and Zosyn. S/p OR 06/21 and underwent left foot I+D (wound probe to 2nd/3rd MT). OR bone cx positive. TTE negative for vegetations. MIKE negative for valvular vegetation, minor filamentous structure on the distal portion of pacemaker lead most likely fibrin strand, unlikely to be vegetation. Bacteremia likely 2/2 foot infection. TTE/MIKE negative. He is planned for TMA today. Bone cx now also growing Parvimonas which is an anaerobe. I will change dapto to unasyn. If all infected bone is able to be removed, then duration/regimen of abx will be for his bacteremia, which will likely require a longer course of IV abx given several days positive for MSSA. # Bacteremia 2/2 MSSA, Strep mitis/oralis TTE/MIKE neg # L diabetic foot infection with OM s/p I+D 06/21 cx with MSSA, GBS, Parvimonas # H/o CHF s/p PPM # h/o TKA - stopped daptomycin and started unasyn 3g IV q6h based on cultures - f/u blood cx awaiting negative - please send proximal margin cx and path - if all infected bone is able to be removed, will plan course of abx for his bacteremia - no long-term lines until BCX are negative x 48hrs #Diabetic foot ulcer of left foot/history of partial amputation through metatarsal bone- CT scan of left foot notes soft tissue swelling and gas most likely reflecting anaerobic infection at the level of the fourth proximal phalanx. He is now day 1 s/o Incision and debridement Plan is further debridement and possibly transmetatarsal amputation with probable need for posterior muscle group lengthening on Monday or per Podiatry Patient told me this morning, 06/24 that he does not want to lose his foot Culture growing Staph and Strep Continue IV daptomycin Appreciate wound care and Podiatry #Elevated troponin/LBBB/PSVT history/hypertension- Likely demand ischemia The patient will be admitted to telemetry for serial cardiac enzymes, serial EKG's, cardiac rhythm monitoring Continue amlodipine, aspirin, metoprolol titrate Holding lisinopril #Diabetes mellitus- Hold metformin Reduce glargine from 35 to 25 units subcu daily hemoglobin A1c 7.9 #Chronic medical conditions: Hyperlipidemia-continue atorvastatin, check a fasting lipid panel Vitamin D deficiency-continue supplement next 12 vitamin B12 deficiency-continue supplement Disposition: patient would likely need rehab after amputation Admission and Anticipated Discharge Date Admission Date: June 20, 2024 Subjective Patient seen this morning resting comfortably in hospital bed. Denies pain in left foot. Denies nausea vomiting fever chills. We again reviewed the procedure and rationale for recommendation. patient voices understanding and would like to move forward. Patient is admittedly nervous for the procedure. His biggest concern is risk of limb amputation which is something his father went through. I explained that recommended procedure is in part to remove infected soft tissue and bone but also to hopefully stabilize and balance the foot with redistribution of pressure so he is less likely to develop another ulceration which would increase his risk of limb loss. All questions answered. Written informed consent reviewed with patient signed and witnessed. Physical Exam Physical Exam: patient is awake, alert and oriented 3, well developed and well nourished, normocephalic and atraumatic, lying in bed and in no acute distress. HEENT--PERRL, EOMI, mucous membranes and oropharynx mildly dry Neck--supple. No JVD. No bruits. Thyroid normal, trachea midline, no adenopathy. Heart--normal S1 and S2. No murmurs, rubs or gallops. Lungs--clear bilaterally, no respiratory distress, no accessory muscle use. Abdomen--normal bowel sounds and soft. Extremities--left LE in bandage, amputation of 4th digits Dermatologic--normal skin turgor, normal color, no abnormal lymph nodes, no rash. Neurologic--cranial nerves II through XII grossly intact. Rheumatologic--normal range of motion. Psychiatric--normal affect Results & Data Results & Data Vital Signs (Past 12 Hours) Vital Signs Temp Pulse Pulse Resp BP BP Pulse Ox 06/26/24 14:53 36.8 C 74 16 186/91 H 92 06/26/24 11:27 36.6 C 63 16 136/80 06/26/24 08:38 06/26/24 07:43 36.6 C 63 16 150/78 H 95 O2 Del Method 06/26/24 14:53 Room Air 06/26/24 11:27 06/26/24 08:38 Room Air 06/26/24 07:43 Room Air PG Care Time/CCT Total # of Minutes Spent Total Time Spent with Patient: Total time spent is greater than 50% in coordination of care (as documented) at patient's floor/unit and/or counseling patient: Coding Level of Care Code 99173 SUB INP/OBS CARE 2/35MIN Diagnoses Diabetic ulcer of left midfoot associated with type 2 diabetes mellitus, with necrosis of muscle E11.621; L97.423 Diabetes mellitus type: type 2 Diabetic foot ulcer location: midfoot Non-pressure ulcer stage: with necrosis of muscle History of amputation of foot through metatarsal bone Z89.439 Diabetes mellitus type 2 with complications E11.8 Diabetic peripheral neuropathy associated with type 2 diabetes mellitus E11.42 Elevated troponin R79.89 Klpopjh-Rsrbc-Fdjkr syndrome G60.0 (1) Diabetic ulcer of left foot Diabetes mellitus type: type 2 Diabetic foot ulcer location: midfoot Non- pressure ulcer stage: with necrosis of muscle Qualified Code(s): E11.621 - Type 2 diabetes mellitus with foot ulcer; L97.423 - Non-pressure chronic ulcer of left heel and midfoot with necrosis of muscle
[2024-06-26] MEDS ORDERED: ONDANSETRON INJ 2 MG/ML 2 ML VIAL ONE (15:49)
[2024-06-26] MEDS ORDERED: PROPOFOL IV EMULSION 10 MG/ML 20 ML VIAL IV ONE ×5 (15:49→17:09)
[2024-06-26] MEDS ORDERED: LIDOCAINE 2% 2 ML VIAL/AMP(20MG/ML) INFIL ONE (15:49)
[2024-06-26] MEDS ORDERED: LABETALOL HCL IV 5 MG/ML 20ML IV PRN (16:41)
[2024-06-26] MEDS ORDERED: fentaNYL citrate PF 100 MCG/2 ML VIAL IV PRN (16:41)
[2024-06-26] MEDS ORDERED: ONDANSETRON INJ 2 MG/ML 2 ML VIAL IV PRN (16:41)
[2024-06-26] MEDS ORDERED: ATROPINE SULFATE 0.1 MG/ML 10ML SYR IV PRN (16:41)
[2024-06-26] MEDS ORDERED: fentaNYL citrate PF 100 MCG/2 ML VIAL ONE (17:16)
[2024-06-26] MEDS ORDERED: PHENYLEPHRINE 100MCG/ML 5ML SYR ONE (17:26)
[2024-06-26] MEDS ORDERED: ePHEDrine sulfate 50 MG/5 ML SYR ONE (17:38)
[2024-06-26] MEDS: GENTAMICIN SULFATE 40 MG/ML 2 ML VIAL ONE (17:41)
[2024-06-26] MEDS ORDERED: PHENYLEPHRINE HCL 10 MG/ML VIAL ONE (17:53)
[2024-06-26] MEDS: LIDOCAINE 1% LOCAL 20 ML VIAL ONE (17:57)
[2024-06-26] MEDS: BUPIVACAINE 0.5 % 5 MG/1 ML MPF 30ML VIAL ONE (17:58)
--- NOTE | 2024-06-26 18:32 | Post Operative Brief Note ---
PG Immediate Post Op with CF Date of Surgery June 26, 2024 Pre & Post Diagnosis Operation Date: 06/26/24 07:00 Pre-Op Diagnosis: Left Lower Extremity Diabetic Foot Ulcer Post-Op Diagnosis: Left Lower Extremity Diabetic Foot Ulcer I identified the patient and participated in the time-out.: Yes Procedure Operation Date: 06/26/24 07:00 Actual Procedures p Left Foot Transmetatarsal Amputation, Tendo Achilles Lengthening-Left(Left) - Junaid Makrs DPM Surgeon Junaid Marks DPM Radiological Health Specialist none Estimated Blood Loss 30 Findings Consistent with Post-Op Diagnosis Specimens Specimen Description: Culture 1: Bone Third Metatarsal for Culture A. Left First Metatarsal, Proximal Margin B. Left Second Metatarsal, Proximal Margin C. Left Third Metatarsal, Proximal Margin D. Left Foot Drains Young Catheter (Young cath intact- placed prior to OR)
--- NOTE | 2024-06-26 18:37 | Operative Report ---
LES[facility] Post Operative Report Pre & Post Diagnosis Operation Date: 06/26/24 07:00 Pre-Op Diagnosis: Left Lower Extremity Diabetic Foot Ulcer, osteomyelitis third metatarsal, deformity of foot Post-Op Diagnosis: Left Lower Extremity Diabetic Foot Ulcer, osteomyelitis third metatarsal, deformity of foot I identified the patient and participated in the time-out.: Yes Procedure Operation Date: 06/26/24 07:00 Actual Procedures p Left Foot Transmetatarsal Amputation, Tendo Achilles Lengthening-Left(Left) - Junaid Marks DPM Surgeon Junaid Marks DPM Hearing Therapist none Estimated Blood Loss 30 Findings Consistent with Post-Op Diagnosis Fluids 800ml Specimens Proximal margin bone first metatarsal left foot pathology Proximal margin bone second metatarsal left foot pathology Proximal margin bone third metatarsal left foot pathology Left foot transmetatarsal amputation for gross pathology Left foot third metatarsal bone for culture Drains None Complications None Indications Diabetic ulcer plantar aspect of the left foot subthird metatarsal head with exposed bone of the third metatarsal and base of the proximal phalanx. Gas- forming organisms noted on CT scan of the left foot and strep bacteremia. Patient was brought to the operating room on 06/24/2024 for I&D of the left foot which time bone for pathology and culture was collected. Bone to pathology positive for acute osteomyelitis. Patient has history of left fourth and fifth ray amputation and Charcot neuroarthropathy of the left foot. Recommendation is made for transmetatarsal amputation of the left foot with tendo Achilles lengthening to recreate the metatarsal parabola and reduce pressure to the forefoot postoperatively the presence of a history of Charcot Kandice tooth and equinus deformity left. Description of Procedure Patient is brought the operating room placed on the operating table in supine position. Following IV sedation local anesthesia obtained about the patient's left foot utilizing a total of 20 cc of one-to-one mixture of 1% lidocaine plain and half percent Marcaine plain in a modified ankle block fashion with augmentation at the forefoot. Timeout is held confirming correct patient, side, site, procedure with all necessary parties confirming. Well-padded calf tourniquet is placed around the left calf. Left lower extremity is scrubbed pr epped and draped in the usual aseptic fashion to the level of the calf tourniquet. Attention is directed to the left foot. 7 cm x 3 cm x 3 cm open wound plantar left foot with exposed third metatarsal and the base of the proximal phalanx within the wound bed. There is slough fibrotic and some necrotic tissue within the wound bed along with luna discoloration to the distal aspect of the third me tatarsal. The wound is excised full-thickness as much as possible to remove exposed and nonviable tissue from the wound bed with approximately 1/8 inch margin circumferentially. This tissue was passed from the operative field. Skin scribe was utilized to plan transmetatarsal amputation from traditional [place] fashion with elongated plantar flap for closure. The soft tissue at the area of ulceration of the plantar foot was excised in a V shape resection of the plantar flap. Attention was directed the dorsal aspect of the foot in a incision is made direct to the level of the dorsal aspect of the first second and third metatarsals with a 10 blade. Tourniquet is inflated to 275 mmHg and all bleeding vessels are cauterized and ligated as needed to achieve hemostasis. Electrocautery was used to continue dissection in the intermetatarsal spaces. [place] elevator was used to free periosteal structures from the dorsal medial and lateral aspect of the first second and third metatarsals. Sagittal saw was utilized to resect first second and third metatarsals between the proximal one third and midshaft of the metatarsal recreating a parabola as feasible given previous resection of the fourth and fifth ray. Dissection of the plantar flap is continued within the wound following the plantar aspect of the metatarsals to the level of metatarsal head and the amputated portion of the foot is passed from the operative field. On the back table proximal margin pathology is collected from the first second and third metatarsal. Bone cultures collected from the distal aspect of the third metatarsal for culture and sensitivity. The remainder of the amputated foot is sent for gross pathologic analysis. Tourniquet is released at a total tourniquet time of 23 minutes. Wound is flushed with copious amounts normal sterile saline hemostasis is achieved with direct pressure for 2 minutes, electrocautery of smaller bleeding vessels and ligation of open lumens with 3-0 Vicryl suture. After achieving adequate hemostasis the wound was again flushed with copious amounts of normal sterile saline the wound bed is evaluated and noted to be free of any nonviable appearing soft tissue or bone. Tendons within the wound bed are grasped with a hemostat and pulled distally and cut with a clean 15 blade and allowed to retract into proximal soft tissues. Subcutaneous tissue was reapproximated over the amputated portion of the metatarsals with 3-0 Vicryl to reduce space and improve contact between dorsal and plantar flaps. Wound edges are reapproximated and closed with a 3-0 and 4-0 nylon suture in simple interrupted fashion along the distal end of the metatarsal. The medial and lateral arms of the plantar flap with wound resected in the shape are brought together and closed with 3-0 nylon in simple interrupted fashion. This time the foot is put through range of motion and dorsiflexion of the foot on the ankle was assessed with noted 10 degrees plantarflexion with the knee extended to reduce this to approximately 7 degrees plantarflexion at the ankle with the knee flexed. Decision is made to move forward with percutaneous tendo Achilles lengthening to reduce risk of amputation site breakdown due to excess pressure on a shortened foot in the presence of equinus deformity and patient's history of Charcot Kandice tooth. Incisions are planned at 1 and 5 cm proximal to the Achilles tendon insertion on the calcaneus medially and 3 cm proximal to the Achilles tendon insertion on the calcaneus laterally. Percutaneous incisions are used for hemisection of the Achilles tendon with a 15 blade with medial Diogenes sections exiting the tendon medially and the lateral hemisection and exiting the laterally. Following tendo Achilles lengthening the foot was again put through range of motion in dorsiflexion is noted to reach approximately 5 degrees dorsiflexion with the knee extended which improves to 10 degrees with the knee flexed. Foot is cleansed with normal sterile saline dried and dressed with Betadine soaked Adaptic 4 x 4 fluff gauze ABD pad x 3 Edmund and a lightly applied Brayan bandage to hold dressings in place. Patient tolerated the procedure and anesthesia well. Is transferred to the recovery room with vital signs stable and vascular status intact to the remainder of the left foot. Following a brief period of postoperative monitoring in the recovery room patient is transferred back to his bed on the floor for ongoing IV antibiotics and medical management. Patient will remain nonweightbearing until he receives Cam walker. Elevate left foot x 2 pillows. I attest to the content of the Intraoperative Record and any orders documented therein. Any exceptions are noted below.
--- NOTE | 2024-06-26 21:28 | Anesthesiology Progress Note ---
Date of Service June 26, 2024 Anesthesia Post Procedure Vital Signs Vital Signs: Temp Pulse Pulse Resp BP BP Pulse Ox 06/26/24 21:15 36.3 C L 65 20 139/81 92 06/26/24 20:17 36.5 C 67 20 146/74 H 96 06/26/24 19:47 36.3 C L 63 16 152/73 H 97 06/26/24 19:20 65 21 137/72 96 06/26/24 19:05 36.4 C L 63 20 139/73 96 06/26/24 18:55 64 16 136/79 95 06/26/24 18:45 72 18 128/74 96 06/26/24 18:36 36 C L 64 17 107/64 100 06/26/24 17:00 06/26/24 16:30 36.9 C 72 20 132/76 97 06/26/24 14:53 36.8 C 74 16 186/91 H 92 06/26/24 11:27 36.6 C 63 16 136/80 06/26/24 08:38 06/26/24 07:43 36.6 C 63 16 150/78 H 95 06/25/24 22:35 36.3 C L 63 18 152/73 H 97 06/25/24 22:16 O2 Del Method O2 Flow Rate 06/26/24 21:15 Room Air 06/26/24 20:17 Room Air 06/26/24 19:47 Room Air 06/26/24 19:20 Room Air 06/26/24 19:05 Room Air 06/26/24 18:55 Room Air 06/26/24 18:45 Room Air 06/26/24 18:36 Oxymask 6 06/26/24 17:00 Room Air 06/26/24 16:30 Room Air 06/26/24 14:53 Room Air 06/26/24 11:27 06/26/24 08:38 Room Air 06/26/24 07:43 Room Air 06/25/24 22:35 Room Air 06/25/24 22:16 Room Air Pain Intensity Back: Pain Intensity: 0 Transfer of Care Handoff Completed per policy Notes Mental Status: alert / awake / arousable Patient Amnestic to Procedure: Yes Nausea / Vomiting: adequately controlled Pain: adequately controlled Airway Patency, RR, SpO2: stable & adequate BP & HR: stable & adequate Hydration State: stable & adequate Anesthetic Complications: no major complications apparent
--- NOTE | 2024-06-27 09:36 | Podiatry Progress Note ---
Date of Service June 27, 2024 Assessment & Plan (1) Diabetic ulcer of left foot: (2) History of amputation of foot through metatarsal bone: (3) Diabetes mellitus type 2 with complications: (4) Diabetic peripheral neuropathy associated with type 2 diabetes mellitus: (5) Elevated troponin: (6) Dimnawf-Ulxvz-Jvnke syndrome: (7) MRSA bacteremia: (8) Infection of left foot: (9) 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: Plan Postop day 1 status post transmetatarsal amputation and tendo Achilles lengthening left. -Continue nonweightbearing to the left foot until fit with a cam walker. At that point he is okay to ambulate for short distance and transfer with the assistance of a walker. -Dressing remains clean dry and intact. Will plan for first dressing change 06/28/2024. Blood cultures 06/20/2024 growing Staph aureus. Repeat blood cultures06/22 growing SA. Patient continues IV daptomycin Bone pathology third metatarsal left foot 06/21/2024: Acute osteomyelitis Bone for culture third metatarsal left foot 06/21/2024: Growing Staph aureus and group be strep. Proximal margin pathology first, second, third metatarsal left foot 06/26/2024: Pending Bone for culture distal (exposed within the wound bed) third metatarsal left foot 06/26/2024: Pending Patient will benefit from discharge to intermediate facility. Patient lives at home alone in an apartment with limited mobility at baseline. He is unable to evaluate his feet or change dressing to the left foot. Admission and Anticipated Discharge Date Admission Date: June 20, 2024 Subjective Pt seen resting comfortably in bedside chair. Denies pain in the left foot. Surgical dressing clean dry and intact. He is reminded to remain NWB to the left until he receives the CAM boot. Denies nausea, vomiting, fever, chills. Review of Systems Review of Systems: Denies pain in the left foot. Denies nausea, vomiting, fever, chills, shortness of breath, chest pain. All other systems reviewed and negative unless detailed above. Physical Exam Physical Exam: Objective: Const: Appears well developed and well nourished. No signs of acute distress present. CV: Extremities: No cyanosis. Capillary refill time is less than 2 seconds all digits of the bilateral foot. Posterior tibial and dorsalis pedis pulses are lightly palpable bilateral. Lymph: No palpable or visible regional lymphadenopathy. Skin: Loss of hair growth bilateral leg below the knee with thin atrophic skin and venous stasis skin changes bilateral. Neuro: Loss of protective sensation to the bilateral foot and ankle as tested with [place] 5.0 7 monofilament. Psych: Mood/Affect: Mood is normal. Affect is normal. Cognition: Orientation is intact to person, place and time. Focused lower extremity musculoskeletal exam: Leg: No pain with compression of the calf muscle. Ankles: Normal to inspection and palpation. +1 pitting edema bilateral no tenderness bilaterally. Motor strength is intact. Range of motion pain-free and unlimited. Left foot: History of partial fourth and fifth ray amputation of the left foot with well-healed amputation site. History of second metatarsal head resection. Deformity of the left foot with subluxation of the left second and third digit. Postop day 1 status post transmetatarsal amputation of the left foot. Dressing remains clean dry and intact. No strikethrough. Patient denies pain to the left foot. Results & Data Results & Data Vital Signs (Past 12 Hours) Vital Signs Temp Pulse Resp BP Pulse Ox O2 Del Method 06/27/24 07:46 36.7 C 63 20 141/72 H 95 Room Air 06/26/24 23:49 36.3 C L 63 16 125/77 99 Room Air 06/26/24 23:27 Room Air 06/26/24 22:17 36.4 C L 63 16 171/83 H 97 Room Air Coding Level of Care Code 43208 Post Operative Follow-Up Diagnoses Diabetic ulcer of left midfoot associated with type 2 diabetes mellitus, with necrosis of muscle E11.621; L97.423 Diabetes mellitus type: type 2 Diabetic foot ulcer location: midfoot Non-pressure ulcer stage: with necrosis of muscle History of amputation of foot through metatarsal bone Z89.439 Diabetes mellitus type 2 with complications E11.8 Diabetic peripheral neuropathy associated with type 2 diabetes mellitus E11.42 Elevated troponin R79.89 Cesmabm-Eejhk-Qfaev syndrome G60.0 MRSA bacteremia R78.81; B95.62 Infection of left foot L08.9 Diabetic ulcer of left midfoot associated with type 2 diabetes mellitus, with necrosis of bone E11.621; L97.424 Diabetes mellitus type: type 2 Diabetic foot ulcer location: midfoot (1) Diabetic ulcer of left foot Diabetes mellitus type: type 2 Diabetic foot ulcer location: midfoot Non- pressure ulcer stage: with necrosis of muscle Qualified Code(s): E11.621 - Type 2 diabetes mellitus with foot ulcer; L97.423 - Non-pressure chronic ulcer of left heel and midfoot with necrosis of muscle (9) 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
--- NOTE | 2024-06-27 13:20 | Infectious Disease Progress Nt ---
Date of Service June 27, 2024 Assessment & Plan (1) MSSA bacteremia: (2) Streptococcal bacteremia: (3) Foot osteomyelitis, left: (4) Diabetic ulcer of left foot: Plan 68yo M with h/o T2DM, CHB s/p PPM 2017, s/p bl TKA in 2013, peripheral neuropathy, diabetic foot ulcer/OM s/p prior amputation, Uchpxwt-Smrdg-Xkdbl syndrome who presented on 06/20 after a ground level fall, found with left diabetic foot infection. Initially afebrile with WBC 17.88, Cr 0.87. CT LLE without contrast was significantly limited due to motion artifact, but showed soft tissue swelling and gas most likely reflecting anaerobic infection at the level of the fourth proximal phalanx, no defined fluid collection or gross osteomyelitis although limiting motion could obscure these abnormalities. BCX with MSSA and Strep. Pt was started on dapto and Zosyn. S/p OR 06/21 and underwent left foot I+D (wound probe to 2nd/3rd MT). OR bone cx positive, path with acute OM. TTE negative for vegetations. MIKE negative for valvular vegetation, minor filamentous structure on the distal portion of pacemaker lead most likely fibrin strand, unlikely to be vegetation. S/p left foot TMA on 06/26. OR cx of 3rd toe with S aurues. Bacteremia likely 2/2 foot infection. MIKE reported neg for vegetation, does note a filamentous structure but felt unlikely to be a vegetation. Awaiting most recent OR path to assess for residual OM. His cultures are positive, however, per my discussion with podiatry, this is cx of the resected bone and not residual. Hes currently on Unasyn for coverage of MSSA, Strep, and Parvimonas. If no residual OM, then will adjust abx to just MSSA and Strep (ie cefazolin) for a duration of 4 weeks. # Bacteremia 2/2 MSSA, Strep mitis/oralis TTE/MIKE neg # L diabetic foot infection with OM s/p I+D 06/21 cx with MSSA, GBS, S mitis/oralis, Parvimonas # H/o CHF s/p PPM # h/o TKA - f/u OR path/cx - f/u blood cx ngtd x 48h - continue unasyn 3g IV q6h based on cultures - he is going to need IV abx for at least 4 weeks for MSSA/Strep bacteremia regardless of the presence of OM, if there is OM present then abx will be for up to 6 weeks - final regimen/duration pending path Will continue to follow. If questions or concerns, contact via [employer] or Infectious Disease Call Center . Latanya Escobar MD [facility], Division of Infectious Diseases Admission and Anticipated Discharge Date Admission Date: June 20, 2024 Subjective This patient recommendation is based on a telemedicine consult request which was completed asynchronously through chart review and information provided by the primary physician. The patient was not seen or examined today. The evaluation is consultative in nature and all patient care and treatment decisions can either be accepted or rejected by the patient's primary hospital-based treating physician using their own independent medical judgment for their patient. Time Spent Reviewing Chart: 31+ minutes Results & Data Vital Signs (Past 12 Hours) Vital Signs Temp Pulse Resp BP Pulse Ox O2 Del Method 06/27/24 07:46 36.7 C 63 20 141/72 H 95 Room Air Laboratory Results Labs reviewed. Diagnostic Findings Imaging reviewed. (4) Diabetic ulcer of left foot Diabetes mellitus type: type 2 Diabetic foot ulcer location: midfoot Non- pressure ulcer stage: with necrosis of muscle Qualified Code(s): E11.621 - Type 2 diabetes mellitus with foot ulcer; L97.423 - Non-pressure chronic ulcer of left heel and midfoot with necrosis of muscle
--- NOTE | 2024-06-27 15:15 | Hospitalist Progress Note ---
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 He then fell again in the afternoon, where his neighbor was unable to help him get up, and he called EMS. In both instances, he hit his head. He does not remember the exact mechanism of how he fell. He did initially complain of some generalized headache, with neck pain and low back pain, but these resolved spontaneously while in the ED. The patient has been following with the diabetic foot care clinic for a chronic left lower extremity foot ulcer. The patient has a primary concern of losing his left foot, similar to what happened to his father, and has had a history of partial amputation in the past. Workup in the emergency department included CT scan of head, cervical spine, chest which were all negative. CT scan of the lumbar spine showed moderate L3-4, and mild L4-5 degenerative disc disease and spinal stenosis. CT scan of the left lower extremity without IV contrast showed soft tissue swelling and gas most likely reflecting anaerobic infection at the level of the fourth proximal phalanx. No defined fluid collection or gross osteomyelitis although limiting motion could obscure these abnormalities. The patient was referred to the [facility] service for further evaluation and treatment. Bacteremia Blood culture now growing MRSA source is likely foot ulcer Will continue IV daptomycin for now Per ID consult 68yo M with h/o T2DM, CHB s/p PPM 2017, s/p bl TKA in 2013, peripheral neuropathy, diabetic foot ulcer/OM s/p prior amputation, Cbzugyu-Ywxpe-Gwwfj syndrome who presented on 06/20 after a ground level fall, found with left diabetic foot infection. Initially afebrile with WBC 17.88, Cr 0.87. CT LLE without contrast was significantly limited due to motion artifact, but showed soft tissue swelling and gas most likely reflecting anaerobic infection at the level of the fourth proximal phalanx, no defined fluid collection or gross osteomyelitis although limiting motion could obscure these abnormalities. BCX with MSSA and Strep. Pt was started on dapto and Zosyn. S/p OR 06/21 and underwent left foot I+D (wound probe to 2nd/3rd MT). OR bone cx positive, path with acute OM. TTE negative for vegetations. MIKE negative for valvular vegetation, minor filamentous structure on the distal portion of pacemaker lead most likely fibrin strand, unlikely to be vegetation. S/p left foot TMA on 06/26. OR cx of 3rd toe with S aurues. Bacteremia likely 2/2 foot infection. MIKE reported neg for vegetation, does note a filamentous structure but felt unlikely to be a vegetation. Awaiting most recent OR path to assess for residual OM. His cultures are positive, however, per my discussion with podiatry, this is cx of the resected bone and not residual. Hes currently on Unasyn for coverage of MSSA, Strep, and Parvimonas. If no residual OM, then will adjust abx to just MSSA and Strep (ie cefazolin) for a duration of 4 weeks. # Bacteremia 2/2 MSSA, Strep mitis/oralis TTE/MIKE neg # L diabetic foot infection with OM s/p I+D 06/21 cx with MSSA, GBS, S mitis/oralis, Parvimonas # H/o CHF s/p PPM # h/o TKA - f/u OR path/cx - f/u blood cx ngtd x 48h - continue unasyn 3g IV q6h based on cultures - he is going to need IV abx for at least 4 weeks for MSSA/Strep bacteremia regardless of the presence of OM, if there is OM present then abx will be for up to 6 weeks - final regimen/duration pending path - stopped daptomycin and started unasyn 3g IV q6h based on cultures - f/u blood cx awaiting negative - please send proximal margin cx and path - if all infected bone is able to be removed, will plan course of abx for his bacteremia - no long-term lines until BCX are negative x 48hrs #Diabetic foot ulcer of left foot/history of partial amputation through metatarsal bone- CT scan of left foot notes soft tissue swelling and gas most likely reflecting anaerobic infection at the level of the fourth proximal phalanx. He is now day 1 s/o Incision and debridement Plan is further debridement and possibly transmetatarsal amputation with probable need for posterior muscle group lengthening on Monday or per Podiatry Patient told me this morning, 06/24 that he does not want to lose his foot Culture growing Staph and Strep Continue IV daptomycin Appreciate wound care and Podiatry #Elevated troponin/LBBB/PSVT history/hypertension- Likely demand ischemia The patient will be admitted to telemetry for serial cardiac enzymes, serial EKG's, cardiac rhythm monitoring Continue amlodipine, aspirin, metoprolol titrate Holding lisinopril #Diabetes mellitus- Hold metformin Reduce glargine from 35 to 25 units subcu daily hemoglobin A1c 7.9 #Chronic medical conditions: Hyperlipidemia-continue atorvastatin, check a fasting lipid panel Vitamin D deficiency-continue supplement next 12 vitamin B12 deficiency-continue supplement Disposition: patient would likely need rehab after amputation Admission and Anticipated Discharge Date Admission Date: June 20, 2024 Subjective Pt seen resting comfortably in bedside chair. Denies pain in the left foot. Surgical dressing clean dry and intact. He is reminded to remain NWB to the left until he receives the CAM boot. Denies nausea, vomiting, fever, chills. Physical Exam Physical Exam: patient is awake, alert and oriented 3, well developed and well nourished, normocephalic and atraumatic, lying in bed and in no acute distress. HEENT--PERRL, EOMI, mucous membranes and oropharynx mildly dry Neck--supple. No JVD. No bruits. Thyroid normal, trachea midline, no adenopathy. Heart--normal S1 and S2. No murmurs, rubs or gallops. Lungs--clear bilaterally, no respiratory distress, no accessory muscle use. Abdomen--normal bowel sounds and soft. Extremities--left LE in bandage, amputation of 4th digits Dermatologic--normal skin turgor, normal color, no abnormal lymph nodes, no rash. Neurologic--cranial nerves II through XII grossly intact. Rheumatologic--normal range of motion. Psychiatric--normal affect Results & Data Results & Data Vital Signs (Past 12 Hours) Vital Signs Temp Pulse Resp BP Pulse Ox O2 Del Method 06/27/24 07:46 36.7 C 63 20 141/72 H 95 Room Air PG Care Time/CCT Total # of Minutes Spent Total Time Spent with Patient: Total time spent is greater than 50% in coordination of care (as documented) at patient's floor/unit and/or counseling patient: Coding Level of Care Code 72674 SUB INP/OBS CARE 3/50MIN Diagnoses Diabetic ulcer of left midfoot associated with type 2 diabetes mellitus, with necrosis of muscle E11.621; L97.423 Diabetes mellitus type: type 2 Diabetic foot ulcer location: midfoot Non-pressure ulcer stage: with necrosis of muscle History of amputation of foot through metatarsal bone Z89.439 Diabetes mellitus type 2 with complications E11.8 Diabetic peripheral neuropathy associated with type 2 diabetes mellitus E11.42 Elevated troponin R79.89 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
[2024-06-28 06:25] LABS: Hematocrit (blood only) 38.2 % (42.0-52.0); Hemoglobin 13.1 g/dl (14.0-18.0); Mean Corpuscular Hgb Conc 34.3 g/dL (32.0-36.0); Mean Corpuscular Volume 84.5 fL (80.0-100.0); Mean Platelet Volume 9.6 fL (9.4-12.4); Platelet Count 238 K/uL (130-400); RDW Coefficient of Variation 12.4 % (11.5-14.5); RDW Standard Deviation 37.3 fL (36.4-46.3); Red Blood Count 4.52 M/uL (4.70-6.10); White Blood Count 11.36 K/ul (4.8-10.8)
[2024-06-28 10:09] LABS: Albumin Level 3.1 gm/dl (3.4-5.0); Bilirubin,Total 0.6 mg/dl (0.2-1.0); Calcium 8.6 mg/dl (8.6-10.3); Potassium 4.3 mmol/L (3.5-5.1)
[2024-06-28 10:15] LABS: Albumin Globulin Ratio 0.9 (0.9-2); BUN Creatinine Ratio 17.1 (10-20); Creatinine Clr Calc Pharmacy 138.3 ml/min; Globulin 3.4 gm/dl (2.5-4.0); Total Protein 6.5 gm/dl (6.0-8.3)
[2024-06-28 12:35] VITALS: RESP 18
[2024-06-28] MEDS ORDERED: CEFEPIME 2 GM VIAL IV SCH (13:00)
[2024-06-28] MEDS: CEFEPIME 2000MG 2,000 MG/20 ML SYR IV SCH (14:03)
--- NOTE | 2024-06-28 15:15 | Infectious Disease Progress Nt ---
Date of Service June 28, 2024 Assessment & Plan (1) MSSA bacteremia: (2) Streptococcal bacteremia: (3) Foot osteomyelitis, left: (4) Diabetic ulcer of left foot: Plan 68yo M with h/o T2DM, CHB s/p PPM 2017, s/p bl TKA in 2013, peripheral neuropathy, diabetic foot ulcer/OM s/p prior amputation, Rzvopqc-Jxxxk-Qoncb syndrome who presented on 06/20 after a ground level fall, found with left diabetic foot infection. Initially afebrile with WBC 17.88, Cr 0.87. CT LLE without contrast was significantly limited due to motion artifact, but showed soft tissue swelling and gas most likely reflecting anaerobic infection at the level of the fourth proximal phalanx, no defined fluid collection or gross osteomyelitis although limiting motion could obscure these abnormalities. BCX with MSSA and Strep. Pt was started on dapto and Zosyn. S/p OR 06/21 and underwent left foot I+D (wound probe to 2nd/3rd MT). OR bone cx positive, path with acute OM. TTE negative for vegetations. MIKE negative for valvular vegetation, minor filamentous structure on the distal portion of pacemaker lead most likely fibrin strand, unlikely to be vegetation. S/p left foot TMA on 06/26. OR cx of 3rd toe with MSSA and now growing E cloacae. Gifty changed Unasyn to cefepime/flagyl to include coverage for E cloacae. Waiting for proximal path. Per podiatry, the cultures from 06/26 are that of the resected bone. # Bacteremia 04/28 MSSA, Strep mitis/oralis TTE/MIKE neg, ngtd 06/25 # L diabetic foot infection with OM s/p I+D 06/21, TMA on 06/26 cx with MSSA, GBS, S mitis/oralis, Parvimonas, E cloacae # H/o CHF s/p PPM # h/o bl TKA no issues - f/u OR path - ok to place PICC - Gifty stopped Unasyn - Started cefepime 2g IV q8h to include coverage of Enterobacter and flagyl 500mg PO bid for coverage of anaerobes - if OR path positive for OM in proximal margin: continue cefepime x 6 weeks (end 08/06) and flagyl x 2 weeks (end 07/09), both starting from 06/26 - if OR path negative for OM in proximal margin: change abx to cefazolin 2g IV q8h x 4 weeks (start 06/25, end through 07/22) - monitor weekly CBC w diff, BMP, and LFTs while on IV abx - outpatient follow up with local ID provider or PCP ID service will continue to follow. Please note that there will be no ID notes over the weekend. If questions or concerns arise, please contact the Infectious Disease Call Center and ask to speak with the covering ID physician. Dr. Manzano will take over on Monday. Latanya Escobar MD [facility], Division of Infectious Diseases Admission and Anticipated Discharge Date Admission Date: June 20, 2024 Subjective Subsequent visit was provided via telemedicine using two-way real-time interactive telecommunication between the patient and the telemedicine provider. For the duration of the visit, the provider was performing the assessment from a different facility than the patient. This includesuse of bluetooth stethoscope forauscultationperformed by the telepresenter that the telemedicine provider can hear if described in the physical exam. Infusion Nurse contact information: Please call [facility] Call Center . (Phone Number For Physician Use Only) After establishing a telemedicine visit, patient was: Patient was verified with two unique identifiers, Patient/authorized rep acknowledged consent and understanding and Gave permission to continue telehealth session Time Spent with Patient: Subsequent => 55 min Patient without complaints. No abdominal pain or diarrhea. Physical Exam Physical Exam: General: Awake, alert, no acute distress HEENT: NC/AT, EOMI, mmm Neck: supple Lungs: respirations non-labored Heart: nl peripheral perfusion Chest: PPM not red Abdomen: soft, NT/ND Ext: left foot with dressing, some mild erythema of leg Neuro: moving all extremities Results & Data Vital Signs (Past 12 Hours) Vital Signs Temp Pulse Pulse Resp BP Pulse Ox O2 Del Method 06/28/24 14:58 36.9 C 69 18 132/66 96 Room Air 06/28/24 12:00 36.6 C 66 18 146/80 H 99 Room Air 06/28/24 08:10 Room Air 06/28/24 08:00 36.6 C 65 17 160/76 H 96 Room Air Laboratory Results Labs reviewed. (4) Diabetic ulcer of left foot Diabetes mellitus type: type 2 Diabetic foot ulcer location: midfoot Non- pressure ulcer stage: with necrosis of muscle Qualified Code(s): E11.621 - Type 2 diabetes mellitus with foot ulcer; L97.423 - Non-pressure chronic ulcer of left heel and midfoot with necrosis of muscle
--- NOTE | 2024-06-28 15:18 | Hospitalist Progress Note ---
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 He then fell again in the afternoon, where his neighbor was unable to help him get up, and he called EMS. In both instances, he hit his head. He does not remember the exact mechanism of how he fell. He did initially complain of some generalized headache, with neck pain and low back pain, but these resolved spontaneously while in the ED. The patient has been following with the diabetic foot care clinic for a chronic left lower extremity foot ulcer. The patient has a primary concern of losing his left foot, similar to what happened to his father, and has had a history of partial amputation in the past. Workup in the emergency department included CT scan of head, cervical spine, chest which were all negative. CT scan of the lumbar spine showed moderate L3-4, and mild L4-5 degenerative disc disease and spinal stenosis. CT scan of the left lower extremity without IV contrast showed soft tissue swelling and gas most likely reflecting anaerobic infection at the level of the fourth proximal phalanx. No defined fluid collection or gross osteomyelitis although limiting motion could obscure these abnormalities. [facility] and treatment. Bacteremia Blood culture now growing MRSA source is likely foot ulcer Will continue IV daptomycin for now Per ID consult 68yo M with h/o T2DM, CHB s/p PPM 2017, s/p bl TKA in 2013, peripheral neuropathy, diabetic foot ulcer/OM s/p prior amputation, Wuhjguh-Juogd-Jtmhg syndrome who presented on 06/20 after a ground level fall, found with left diabetic foot infection. Initially afebrile with WBC 17.88, Cr 0.87. CT LLE without contrast was significantly limited due to motion artifact, but showed soft tissue swelling and gas most likely reflecting anaerobic infection at the level of the fourth proximal phalanx, no defined fluid collection or gross osteomyelitis although limiting motion could obscure these abnormalities. BCX with MSSA and Strep. Pt was started on dapto and Zosyn. S/p OR 06/21 and underwent left foot I+D (wound probe to 2nd/3rd MT). OR bone cx positive, path with acute OM. TTE negative for vegetations. MIKE negative for valvular vegetation, minor filamentous structure on the distal portion of pacemaker lead most likely fibrin strand, unlikely to be vegetation. S/p left foot TMA on 06/26. OR cx of 3rd toe with S aurues. Bacteremia likely 2/2 foot infection. MIKE reported neg for vegetation, does note a filamentous structure but felt unlikely to be a vegetation. Awaiting most recent OR path to assess for residual OM. His cultures are positive, however, per my discussion with podiatry, this is cx of the resected bone and not residual. Hes currently on Unasyn for coverage of MSSA, Strep, and Parvimonas. If no residual OM, then will adjust abx to just MSSA and Strep (ie cefazolin) for a duration of 4 weeks. # Bacteremia 2/2 MSSA, Strep mitis/oralis TTE/MIKE neg # L diabetic foot infection with OM s/p I+D 06/21 cx with MSSA, GBS, S mitis/oralis, Parvimonas # H/o CHF s/p PPM # h/o TKA - f/u OR path/cx - f/u blood cx ngtd x 48h - continue unasyn 3g IV q6h based on cultures - he is going to need IV abx for at least 4 weeks for MSSA/Strep bacteremia regardless of the presence of OM, if there is OM present then abx will be for up to 6 weeks - final regimen/duration pending path - stopped daptomycin and started unasyn 3g IV q6h based on cultures - f/u blood cx awaiting negative - please send proximal margin cx and path - if all infected bone is able to be removed, will plan course of abx for his bacteremia - no long-term lines until BCX are negative x 48hrs #Diabetic foot ulcer of left foot/history of partial amputation through metatarsal bone- CT scan of left foot notes soft tissue swelling and gas most likely reflecting anaerobic infection at the level of the fourth proximal phalanx. He is now day 1 s/o Incision and debridement Plan is further debridement and possibly transmetatarsal amputation with probable need for posterior muscle group lengthening on Monday or per Podiatry Patient told me this morning, 06/24 that he does not want to lose his foot Culture growing Staph and Strep Continue IV daptomycin Appreciate wound care and Podiatry #Elevated troponin/LBBB/PSVT history/hypertension- Likely demand ischemia The patient will be admitted to telemetry for serial cardiac enzymes, serial EKG's, cardiac rhythm monitoring Continue amlodipine, aspirin, metoprolol titrate Holding lisinopril #Diabetes mellitus- Hold metformin Reduce glargine from 35 to 25 units subcu daily hemoglobin A1c 7.9 #Chronic medical conditions: Hyperlipidemia-continue atorvastatin, check a fasting lipid panel Vitamin D deficiency-continue supplement next 12 vitamin B12 deficiency-continue supplement Disposition: patient would likely need rehab after amputation Admission and Anticipated Discharge Date Admission Date: June 20, 2024 Subjective Patient with some pain in his foot. He denies having any back pain or joint pain. He had bl knee replaced, no issues. No pain at PPM site. 4/4 tolerating diet very well, Visitors at bed side Review of Systems Review of Systems: All systems reviewed are negative, apart from the ones contained in the history. Physical Exam Physical Exam: patient is awake, alert and oriented 3, well developed and well nourished, normocephalic and atraumatic, lying in bed and in no acute distress. HEENT--PERRL, EOMI, mucous membranes and oropharynx mildly dry Neck--supple. No JVD. No bruits. Thyroid normal, trachea midline, no adenopathy. Heart--normal S1 and S2. No murmurs, rubs or gallops. Lungs--clear bilaterally, no respiratory distress, no accessory muscle use. Abdomen--normal bowel sounds and soft. Extremities--left LE in bandage, amputation of 4th digits Dermatologic--normal skin turgor, normal color, no abnormal lymph nodes, no rash. Neurologic--cranial nerves II through XII grossly intact. Rheumatologic--normal range of motion. Psychiatric--normal affect wound dressing is clean dry and intact Results & Data Results & Data Vital Signs (Past 12 Hours) Vital Signs Temp Pulse Pulse Resp BP Pulse Ox O2 Del Method 06/28/24 14:58 36.9 C 69 18 132/66 96 Room Air 06/28/24 12:00 36.6 C 66 18 146/80 H 99 Room Air 06/28/24 08:10 Room Air 06/28/24 08:00 36.6 C 65 17 160/76 H 96 Room Air PG Care Time/CCT Total # of Minutes Spent Total Time Spent with Patient: Total time spent is greater than 50% in coordination of care (as documented) at patient's floor/unit and/or counseling patient: Coding Level of Care Code 95860 SUB INP/OBS CARE 2/35MIN Diagnoses Diabetic ulcer of left midfoot associated with type 2 diabetes mellitus, with necrosis of muscle E11.621; L97.423 Diabetes mellitus type: type 2 Diabetic foot ulcer location: midfoot Non-pressure ulcer stage: with necrosis of muscle History of amputation of foot through metatarsal bone Z89.439 Diabetes mellitus type 2 with complications E11.8 Diabetic peripheral neuropathy associated with type 2 diabetes mellitus E11.42 Elevated troponin R79.89 Cdtyvke-Fgiva-Wsmhj syndrome G60.0 (1) Diabetic ulcer of left foot Diabetes mellitus type: type 2 Diabetic foot ulcer location: midfoot Non- pressure ulcer stage: with necrosis of muscle Qualified Code(s): E11.621 - Type 2 diabetes mellitus with foot ulcer; L97.423 - Non-pressure chronic ulcer of left heel and midfoot with necrosis of muscle
--- NOTE | 2024-06-28 19:20 | Podiatry Progress Note ---
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 -Patient reminded to avoid keeping her feet in a dependent position for extended periods of time, avoid pressure on the footboard and should contact nurses for assistance if he finds himself pushing on the footboard of the bed. We discussed the importance of ambulating in the cam walker to the left lower ext remity at all times while weightbearing to prevent Achilles tendon rupture and stress to the transmetatarsal amputation which could increase the odds of dehiscence of wound, slow healing wound and loss of limb. Patient voices understanding. -Surgical dressing removed and there are no signs of active bleeding. Wound edges remain well and approximated with all sutures intact. Foot is cleansed with saline dried dressed with 4 x 4 fluff gauze ABD pads Edmund and an Brayan bandage to hold dressings in place. Please reinforce dressing as necessary for any further strikethrough. Blood cultures 06/20/2024 growing Staph aureus. Repeat blood cultures06/22 growing SA. Patient continues IV daptomycin Bone pathology third metatarsal left foot 06/21/2024: Acute osteomyelitis Bone for culture third metatarsal left foot 06/21/2024: Growing Staph aureus and group be strep. Proximal margin pathology first, second, third metatarsal left foot 06/26/2024: Pending Bone for culture distal (exposed within the wound bed) third metatarsal left foot 06/26/2024: Enterobacter cloaca complex, Staph aureus Patient's Unasyn adjusted to cefepime/Flagyl today by infectious disease to cover Enterobacter cloaca. This bone culture was taken from exposed bone within the wound bed and not from the resected margin. Proximal margin pathology from transmetatarsal amputation for the first second and third metatarsals remains pending. With clear margins with no signs of osteomyelitis patient okay to transition to p.o. antibiotics at discharge from podiatry standpoint. Should proximal margin pathology still signs of osteomyelitis patient would benefit from continued IV antibiotic therapy over further surgical intervention. Patient will benefit from discharge to group home facility. Patient lives at home alone in an apartment with limited mobility at baseline. He is unable to evaluate his feet or change dressing to the left foot. Admission and Anticipated Discharge Date Admission Date: June 20, 2024 Subjective Pt seen resting comfortably in bedside chair. Patient's friend is present for visit and remains in room throughout evaluation today at patient's request. Denies pain in the left foot. Dressing has notable strikethrough of sanguinous drainage medially today. He did receive his cam walker from orthotics and is questionable whether or not patient has been using this at all times while ambulating. Denies nausea, vomiting, fever, chills. Review of Systems Review of Systems: Denies pain in the left foot. Denies nausea, vomiting, fever, chills, shortness of breath, chest pain. All other systems reviewed and negative unless detailed above. Physical Exam Physical Exam: Objective: Const: Appears well developed and well nourished. No signs of acute distress present. CV: Extremities: No cyanosis. Capillary refill time is less than 2 seconds all digits of the bilateral foot. Posterior tibial and dorsalis pedis pulses are lightly palpable bilateral. Lymph: No palpable or visible regional lymphadenopathy. Skin: Loss of hair growth bilateral leg below the knee with thin atrophic skin and venous stasis skin changes bilateral. Neuro: Loss of protective sensation to the bilateral foot and ankle as tested with Carmen Courtney 5.0 7 monofilament. Psych: Mood/Affect: Mood is normal. Affect is normal. Cognition: Orientation is intact to person, place and time. Focused lower extremity musculoskeletal exam: Leg: No pain with compression of the calf muscle. Ankles: Normal to inspection and palpation. +1 pitting edema bilateral no tenderness bilaterally. Motor strength is intact. Range of motion pain-free and unlimited. Left foot: History of partial fourth and fifth ray amputation of the left foot with well-healed amputation site. History of second metatarsal head resection. Deformity of the left foot with subluxation of the left second and third digit. Postop day 2 status post transmetatarsal amputation of the left foot. Patient denies pain to the left foot. There is strikethrough of sanguinous on the medial aspect of the dressing today. Surgical dressing is removed there is no active bleeding. Wound edges remain well-approximated with all sutures intact. Results & Data Results & Data Vital Signs (Past 12 Hours) Vital Signs Temp Pulse Pulse Resp BP Pulse Ox O2 Del Method 06/28/24 14:58 36.9 C 69 18 132/66 96 Room Air 06/28/24 12:00 36.6 C 66 18 146/80 H 99 Room Air 06/28/24 08:10 Room Air 06/28/24 08:00 36.6 C 65 17 160/76 H 96 Room Air Coding Level of Care Code 19859 Post Operative Follow-Up Diagnoses Diabetic ulcer of left midfoot associated with type 2 diabetes mellitus, with necrosis of muscle E11.621; L97.423 Diabetes mellitus type: type 2 Diabetic foot ulcer location: midfoot Non-pressure ulcer stage: with necrosis of muscle History of amputation of foot through metatarsal bone Z89.439 Diabetes mellitus type 2 with complications E11.8 Diabetic peripheral neuropathy associated with type 2 diabetes mellitus E11.42 Elevated troponin R79.89 Wzvvubo-Zbrwb-Dypei syndrome G60.0 MRSA bacteremia R78.81; B95.62 Infection of left foot L08.9 Diabetic ulcer of left midfoot associated with type 2 diabetes mellitus, with necrosis of bone E11.621; L97.424 Diabetic foot ulcer location: midfoot Diabetes mellitus type: type 2 (1) Diabetic ulcer of left foot Diabetes mellitus type: type 2 Diabetic foot ulcer location: midfoot Non- pressure ulcer stage: with necrosis of muscle Qualified Code(s): E11.621 - Type 2 diabetes mellitus with foot ulcer; L97.423 - Non-pressure chronic ulcer of left heel and midfoot with necrosis of muscle (9) 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
[2024-06-28] MEDS: metroNIDAZOLE 500 MG TAB PO SCH (21:35)
[2024-06-29 06:23] LABS: Hematocrit (blood only) 39.6 % (42.0-52.0); Hemoglobin 13.2 g/dl (14.0-18.0); Mean Corpuscular Hgb Conc 33.3 g/dL (32.0-36.0); Mean Corpuscular Volume 84.1 fL (80.0-100.0); Mean Platelet Volume 9.3 fL (9.4-12.4); Platelet Count 231 K/uL (130-400); RDW Coefficient of Variation 12.3 % (11.5-14.5); RDW Standard Deviation 37.8 fL (36.4-46.3); Red Blood Count 4.71 M/uL (4.70-6.10); White Blood Count 8.69 K/ul (4.8-10.8)
[2024-06-29 06:39] LABS: Albumin Globulin Ratio 0.8 (0.9-2); Albumin Level 3.1 gm/dl (3.4-5.0); BUN Creatinine Ratio 16.7 (10-20); Bilirubin,Total 0.5 mg/dl (0.2-1.0); Calcium 8.6 mg/dl (8.6-10.3); Globulin 3.7 gm/dl (2.5-4.0); Potassium 4.1 mmol/L (3.5-5.1); Total Protein 6.8 gm/dl (6.0-8.3)
--- NOTE | 2024-06-29 17:58 | Hospitalist Progress Note ---
Date of Service June 29, 2024 Assessment & Plan (1) Diabetic ulcer of left foot: (2) History of amputation of foot through metatarsal bone: (3) Diabetes mellitus type 2 with complications: (4) Diabetic peripheral neuropathy associated with type 2 diabetes mellitus: (5) Elevated troponin: (6) Iztfthl-Fuuvy-Ablzy syndrome: Plan The patient is a 68-year-old male with a past medical history including diabetic ulcer of left foot, peripheral neuropathy, history of partial amputation of foot through metatarsal bone, B12 deficiency, diabetes mellitus, vitamin D deficiency, hypertension, paroxysmal SVT, LBBB, presents of pacemaker, hyperlipidemia, chronic venous insufficiency, morbid obesity, GERD, and Dgvnpvs-Cwxer-Dzyox syndrome.The patient presents to the emergency department via EMS, after a ground-level fall this morning, when he hit his head, requiring a neighbor to help him get up. He then fell again in the afternoon, where his neighbor was unable to help him get up, and he called EMS. In both instances, he hit his head. He does not remember the exact mechanism of how he fell. He did initially complain of some generalized headache, with neck pain and low back pain, but these resolved spontaneously while in the ED. The patient has been following with the diabetic foot care clinic for a chronic left lower extremity foot ulcer. The patient has a primary concern of losing his left foot, similar to what happened to his father, and has had a history of partial amputation in the past. Workup in the emergency department included CT scan of head, cervical spine, chest which were all negative. CT scan of the lumbar spine showed moderate L3-4, and mild L4-5 degenerative disc disease and spinal stenosis. CT scan of the left lower extremity without IV contrast showed soft tissue swelling and gas most likely reflecting anaerobic infection at the level of the fourth proximal phalanx. No defined fluid collection or gross osteomyelitis although limiting motion could obscure these abnormalities. The patient was referred to the [place] [facility] service for further evaluation and treatment. Bacteremia Blood culture now growing MRSA source is likely foot ulcer Will continue IV daptomycin for now Per ID consult 68yo M with h/o T2DM, CHB s/p PPM 2017, s/p bl TKA in 2013, peripheral neuropathy, diabetic foot ulcer/OM s/p prior amputation, Gvvplzj-Aaige-Laccz syndrome who presented on 06/20 after a ground level fall, found with left diabetic foot infection. Initially afebrile with WBC 17.88, Cr 0.87. CT LLE without contrast was significantly limited due to motion artifact, but showed soft tissue swelling and gas most likely reflecting anaerobic infection at the level of the fourth proximal phalanx, no defined fluid collection or gross osteomyelitis although limiting motion could obscure these abnormalities. BCX with MSSA and Strep. Pt was started on dapto and Zosyn. S/p OR 06/21 and underwent left foot I+D (wound probe to 2nd/3rd MT). OR bone cx positive, path with acute OM. TTE negative for vegetations. MIKE negative for valvular vegetation, minor filamentous structure on the distal portion of pacemaker lead most likely fibrin strand, unlikely to be vegetation. S/p left foot TMA on 06/26. OR cx of 3rd toe with S aurues. Bacteremia likely 2/2 foot infection. MIKE reported neg for vegetation, does note a filamentous structure but felt unlikely to be a vegetation. Awaiting most recent OR path to assess for residual OM. His cultures are positive, however, per my discussion with podiatry, this is cx of the resected bone and not residual. Hes currently on Unasyn for coverage of MSSA, Strep, and Parvimonas. If no residual OM, then will adjust abx to just MSSA and Strep (ie cefazolin) for a duration of 4 weeks. # Bacteremia 2/2 MSSA, Strep mitis/oralis TTE/MIKE neg # L diabetic foot infection with OM s/p I+D 06/21 cx with MSSA, GBS, S mitis/oralis, Parvimonas # H/o CHF s/p PPM # h/o TKA - f/u OR path/cx - f/u blood cx ngtd x 48h - continue unasyn 3g IV q6h based on cultures if OR path positive for OM in proximal margin: continue cefepime x 6 weeks (end 08/06) and flagyl x 2 weeks (end 07/09), both starting from 06/26 - if OR path negative for OM in proximal margin: change abx to cefazolin 2g IV q8h x 4 weeks (start 06/25, end through 07/22) - monitor weekly CBC w diff, BMP, and LFTs while on IV abx - ostop day 2 status post transmetatarsal amputation and tendo Achilles lengthening left. -Patient reminded to avoid keeping her feet in a dependent position for extended periods of time, avoid pressure on the footboard and should contact nurses for assistance if he finds himself pushing on the footboard of the bed. We discussed the importance of ambulating in the cam walker to the left lower extremity at all times while weightbearing to prevent Achilles tendon rupture and stress to the transmetatarsal amputation which could increase the odds of dehiscence of wound, slow healing wound and loss of limb. Patient voices understanding. -Surgical dressing removed and there are no signs of active bleeding. Wound edges remain well and approximated with all sutures intact. Foot is cleansed with saline dried dressed with 4 x 4 fluff gauze ABD pads Edmund and an Braayn bandage to hold dressings in place. Please reinforce dressing as necessary for any further strikethrough. Blood cultures 06/20/2024 growing Staph aureus. Repeat blood cultures06/22 growing SA. Bone pathology third metatarsal left foot 06/21/2024: Acute osteomyelitis Bone for culture third metatarsal left foot 06/21/2024: Growing Staph aureus and group be strep. Proximal margin pathology first, second, third metatarsal left foot 06/26/2024: Pending Bone for culture distal (exposed within the wound bed) third metatarsal left foot 06/26/2024: Enterobacter cloaca complex, Staph aureus 06/29 ordered PICC line - stopped daptomycin and started unasyn 3g IV q6h based on cultures - f/u blood cx awaiting negative - please send proximal margin cx and path - if all infected bone is able to be removed, will plan course of abx for his bacteremia - no long-term lines until BCX are negative x 48hrs #Diabetic foot ulcer of left foot/history of partial amputation through metatarsal bone- CT scan of left foot notes soft tissue swelling and gas most likely reflecting anaerobic infection at the level of the fourth proximal phalanx. He is now day 1 s/o Incision and debridement Plan is further debridement and possibly transmetatarsal amputation with p robable need for posterior muscle group lengthening on Monday or per Podiatry Patient told me this morning, 06/24 that he does not want to lose his foot Culture growing Staph and Strep Continue IV daptomycin Appreciate wound care and Podiatry #Elevated troponin/LBBB/PSVT history/hypertension- Likely demand ischemia The patient will be admitted to telemetry for serial cardiac enzymes, serial EKG's, cardiac rhythm monitoring Continue amlodipine, aspirin, metoprolol titrate Holding lisinopril #Diabetes mellitus- Hold metformin Reduce glargine from 35 to 25 units subcu daily hemoglobin A1c 7.9 #Chronic medical conditions: Hyperlipidemia-continue atorvastatin, check a fasting lipid panel Vitamin D deficiency-continue supplement next 12 vitamin B12 deficiency-continue supplement Disposition: patient would likely need rehab after amputation Admission and Anticipated Discharge Date Admission Date: June 20, 2024 Subjective Pt seen resting comfortably in bed . Review of Systems Review of Systems: All systems reviewed are negative, apart from the ones contained in the history. Physical Exam Physical Exam: patient is awake, alert and oriented 3, well developed and well nourished, normocephalic and atraumatic, lying in bed and in no acute distress. HEENT--PERRL, EOMI, mucous membranes and oropharynx mildly dry Neck--supple. No JVD. No bruits. Thyroid normal, trachea midline, no adenopathy. Heart--normal S1 and S2. No murmurs, rubs or gallops. Lungs--clear bilaterally, no respiratory distress, no accessory muscle use. Abdomen--normal bowel sounds and soft. Extremities--left LE in bandage, amputation of 4th digits Dermatologic--normal skin turgor, normal color, no abnormal lymph nodes, no rash. Neurologic--cranial nerves II through XII grossly intact. Rheumatologic--normal range of motion. Psychiatric--normal affect wound dressing is clean dry and intact Results & Data Results & Data Vital Signs (Past 12 Hours) Vital Signs Temp Pulse Resp BP BP Pulse Ox O2 Del Method 06/29/24 15:28 36.8 C 63 18 137/69 98 Room Air 06/29/24 08:30 Room Air 06/29/24 07:08 36.6 C 63 18 144/76 H 96 Room Air PG Care Time/CCT Total # of Minutes Spent Total Time Spent with Patient: Total time spent is greater than 50% in coordination of care (as documented) at patient's floor/unit and/or counseling patient: Coding Level of Care Code 18263 SUB INP/OBS CARE 2/35MIN Diagnoses Diabetic ulcer of left midfoot associated with type 2 diabetes mellitus, with necrosis of muscle E11.621; L97.423 Diabetes mellitus type: type 2 Diabetic foot ulcer location: midfoot Non-pressure ulcer stage: with necrosis of muscle History of amputation of foot through metatarsal bone Z89.439 Diabetes mellitus type 2 with complications E11.8 Diabetic peripheral neuropathy associated with type 2 diabetes mellitus E11.42 Elevated troponin R79.89 Bpixche-Pfvcj-Mrjpt syndrome G60.0 (1) Diabetic ulcer of left foot Diabetes mellitus type: type 2 Diabetic foot ulcer location: midfoot Non- pressure ulcer stage: with necrosis of muscle Qualified Code(s): E11.621 - Type 2 diabetes mellitus with foot ulcer; L97.423 - Non-pressure chronic ulcer of left heel and midfoot with necrosis of muscle
[2024-06-30 06:43] LABS: Basophils # (auto) 0.06 K/uL (0.00-0.20); Basophils % (auto) 0.6 %; Eosinophils # (auto) 0.16 K/uL (0.00-0.50); Eosinophils % (auto) 1.6 %; Hematocrit (blood only) 40.6 % (42.0-52.0); Hemoglobin 13.7 g/dl (14.0-18.0); Immature Granulocytes # (auto) 0.32 K/uL (0.01-0.20); Immature Granulocytes % (auto) 3.3 %; Lymphocytes % (auto) 15.3 %; Mean Corpuscular Hemoglobin 28.5 pg (25.0-34.0); Mean Corpuscular Hgb Conc 33.7 g/dL (32.0-36.0); Mean Corpuscular Volume 84.6 fL (80.0-100.0); Mean Platelet Volume 9.7 fL (9.4-12.4); Monocytes # (auto) 0.73 K/uL (0.11-0.59); Monocytes % (auto) 7.4 %; Neutrophils # (auto) 7.04 K/uL (1.40-6.50); Neutrophils % (auto) 71.8 %; Platelet Count 262 K/uL (130-400); RDW Coefficient of Variation 12.5 % (11.5-14.5); RDW Standard Deviation 38.1 fL (36.4-46.3); White Blood Count 9.81 K/ul (4.8-10.8)
[2024-06-30 06:49] LABS: Albumin Globulin Ratio 0.8 (0.9-2); Albumin Level 3.2 gm/dl (3.4-5.0); Bilirubin,Total 0.5 mg/dl (0.2-1.0); C Reactive Protein 9.66 mg/dl (0-0.5); Calcium 8.9 mg/dl (8.6-10.3); Creatinine Clr Calc Pharmacy 150.2 ml/min; Globulin 3.9 gm/dl (2.5-4.0); Potassium 4.2 mmol/L (3.5-5.1); Total Protein 7.1 gm/dl (6.0-8.3)
--- NOTE | 2024-06-30 12:29 | XRay Report ---
XR chest 1V portable HISTORY: 68 years-old Male PICC placement status post placement of a right-sided PICC COMPARISON: Chest CT 06/18/2026 TECHNIQUE: AP view of the chest FINDINGS: Cardiac silhouette is enlarged. Dual lead left subclavian pacer. Status post placement of a right-ayan ed PICC with distal tip projected over the expected location of the inferior SVC. No pneumothorax, la rge pleural effusion or airspace consolidation. Pulmonary vascular congestion. IMPRESSION: 1. Status post placement of a right-sided PICC with distal tip projected over the expected location o f the inferior SVC. 2. No pneumothorax. ACT 112: Negative or not required by law. The above report was generated using voice recognition software. It may contain grammatical, syntax o r spelling errors. Electronically signed by: Edward Burnette M.D. 06/30/2024 12:28 PM
--- NOTE | 2024-06-30 14:48 | Hospitalist Progress Note ---
Date of Service June 30, 2024 Assessment & Plan (1) Diabetic ulcer of left foot: (2) History of amputation of foot through metatarsal bone: (3) Diabetes mellitus type 2 with complications: (4) Diabetic peripheral neuropathy associated with type 2 diabetes mellitus: (5) Elevated troponin: (6) Opcaptc-Fycla-Dljke syndrome: Plan The patient is a 68-year-old male with a past medical history including diabetic ulcer of left foot, peripheral neuropathy, history of partial amputation of foot through metatarsal bone, B12 deficiency, diabetes mellitus, vitamin D deficiency, hypertension, paroxysmal SVT, LBBB, presents of pacemaker, hyperlipidemia, chronic venous insufficiency, morbid obesity, GERD, and Eulgbzl-Qihwr-Djeop syndrome.The patient presents to the emergency department via EMS, after a ground-level fall this morning, when he hit his head, requiring a neighbor to help him get up. He then fell again in the afternoon, where his neighbor was unable to help him get up, and he called EMS. In both instances, he hit his head. He does not remember the exact mechanism of how he fell. He did initially complain of some generalized headache, with neck pain and low back pain, but these resolved spontaneously while in the ED. The patient has been following with the diabetic foot care clinic for a chronic left lower extremity foot ulcer. The patient has a primary concern of losing his left foot, similar to what happened to his father, and has had a history of partial amputation in the past. Workup in the emergency department included CT scan of head, cervical spine, chest which were all negative. CT scan of the lumbar spine showed moderate L3-4, and mild L4-5 degenerative disc disease and spinal stenosis. CT scan of the left lower extremity without IV contrast showed soft tissue swelling and gas most likely reflecting anaerobic infection at the level of the fourth proximal phalanx. No defined fluid collection or gross osteomyelitis although limiting motion could obscure these abnormalities. The patient was referred to the [facility] service for further evaluation and treatment. Bacteremia Blood culture now growing MRSA source is likely foot ulcer Will continue IV daptomycin for now Per ID consult 68yo M with h/o T2DM, CHB s/p PPM 2017, s/p bl TKA in 2013, peripheral neuropathy, diabetic foot ulcer/OM s/p prior amputation, Rrkrihp-Znrfa-Wtmae syndrome who presented on 06/20 after a ground level fall, found with left diabetic foot infection. Initially afebrile with WBC 17.88, Cr 0.87. CT LLE without contrast was significantly limited due to motion artifact, but showed soft tissue swelling and gas most likely reflecting anaerobic infection at the level of the fourth proximal phalanx, no defined fluid collection or gross osteomyelitis although limiting motion could obscure these abnormalities. BCX with MSSA and Strep. Pt was started on dapto and Zosyn. S/p OR 06/21 and underwent left foot I+D (wound probe to 2nd/3rd MT). OR bone cx positive, path with acute OM. TTE negative for vegetations. MIKE negative for valvular vegetation, minor filamentous structure on the distal portion of pacemaker lead most likely fibrin strand, unlikely to be vegetation. S/p left foot TMA on 06/26. OR cx of 3rd toe with S aurues. Bacteremia likely 2/2 foot infection. MIKE reported neg for vegetation, does note a filamentous structure but felt unlikely to be a vegetation. Awaiting most recent OR path to assess for residual OM. His cultures are positive, however, per my discussion with podiatry, this is cx of the resected bone and not residual. Hes currently on Unasyn for coverage of MSSA, Strep, and Parvimonas. If no residual OM, then will adjust abx to just MSSA and Strep (ie cefazolin) for a duration of 4 weeks. # Bacteremia 2/2 MSSA, Strep mitis/oralis TTE/MIKE neg # L diabetic foot infection with OM s/p I+D 06/21 cx with MSSA, GBS, S mitis/oralis, Parvimonas # H/o CHF s/p PPM # h/o TKA - f/u OR path/cx - f/u blood cx ngtd x 48h - continue unasyn 3g IV q6h based on cultures if OR path positive for OM in proximal margin: continue cefepime x 6 weeks (end 08/06) and flagyl x 2 weeks (end 07/09), both starting from 06/26 - if OR path negative for OM in proximal margin: change abx to cefazolin 2g IV q8h x 4 weeks (start 06/25, end through 07/22) - monitor weekly CBC w diff, BMP, and LFTs while on IV abx - Postop day 3 status post transmetatarsal amputation and tendo Achilles lengthening left. -Patient reminded to avoid keeping her feet in a dependent position for extended periods of time, avoid pressure on the footboard and should contact nurses for assistance if he finds himself pushing on the footboard of the bed. We discussed the importance of ambulating in the cam walker to the left lower extremity at all times while weightbearing to prevent Achilles tendon rupture and stress to the transmetatarsal amputation which could increase the odds of dehiscence of wound, slow healing wound and loss of limb. Patient voices understanding. -Surgical dressing removed and there are no signs of active bleeding. Wound edges remain well and approximated with all sutures intact. Foot is cleansed with saline dried dressed with 4 x 4 fluff gauze ABD pads Edmund and an Brayan bandage to hold dressings in place. Please reinforce dressing as necessary for any further strikethrough. Blood cultures 06/20/2024 growing Staph aureus. Repeat blood cultures06/22 growing SA. Bone pathology third metatarsal left foot 06/21/2024: Acute osteomyelitis Bone for culture third metatarsal left foot 06/21/2024: Growing Staph aureus and group be strep. Proximal margin pathology first, second, third metatarsal left foot 06/26/2024: Pending Bone for culture distal (exposed within the wound bed) third metatarsal left foot 06/26/2024: Enterobacter cloaca complex, Staph aureus 06/29 ordered PICC line - stopped daptomycin and started unasyn 3g IV q6h based on cultures - f/u blood cx awaiting negative - please send proximal margin cx and path - if all infected bone is able to be removed, will plan course of abx for his bacteremia - no long-term lines until BCX are negative x 48hrs #Elevated troponin/LBBB/PSVT history/hypertension- Likely demand ischemia The patient will be admitted to telemetry for serial cardiac enzymes, serial EKG's, cardiac rhythm monitoring Continue amlodipine, aspirin, metoprolol titrate Holding lisinopril #Diabetes mellitus- Hold metformin Reduce glargine from 35 to 25 units subcu daily hemoglobin A1c 7.9 #Chronic medical conditions: Hyperlipidemia-continue atorvastatin, check a fasting lipid panel Vitamin D deficiency-continue supplement next 12 vitamin B12 deficiency-continue supplement Disposition: patient would likely need rehab after amputation PICC line ordered for skilled nursing antibiotics Admission and Anticipated Discharge Date Admission Date: June 20, 2024 Subjective Pt seen resting comfortably in bed . 06/30 consent for PICC line was obtained witnessed by nursing staff for IV antibiotics Review of Systems Review of Systems: All systems reviewed are negative, apart from the ones contained in the history. Physical Exam 2 Physical Exam: patient is awake, alert and oriented 3, well developed and well nourished, normocephalic and atraumatic, lying in bed and in no acute distress. HEENT--PERRL, EOMI, mucous membranes and oropharynx mildly dry Neck--supple. No JVD. No bruits. Thyroid normal, trachea midline, no adenopathy. Heart--normal S1 and S2. No murmurs, rubs or gallops. Lungs--clear bilaterally, no respiratory distress, no accessory muscle use. Abdomen--normal bowel sounds and soft. Extremities--left LE in bandage, amputation of 4th digits Dermatologic--normal skin turgor, normal color, no abnormal lymph nodes, no rash. Neurologic--cranial nerves II through XII grossly intact. Rheumatologic--normal range of motion. Psychiatric--normal affect wound dressing is clean dry and intact Results & Data Results & Data Vital Signs (Past 12 Hours) Vital Signs Temp Pulse Resp BP Pulse Ox O2 Del Method 06/30/24 07:24 36.6 C 65 18 168/79 H 96 Room Air PG Care Time/CCT Total # of Minutes Spent Total Time Spent with Patient: Total time spent is greater than 50% in coordination of care (as documented) at patient's floor/unit and/or counseling patient: Coding Level of Care Code 69841 SUB INP/OBS CARE 2/35MIN Diagnoses Diabetic ulcer of left midfoot associated with type 2 diabetes mellitus, with necrosis of muscle E11.621; L97.423 Diabetes mellitus type: type 2 Diabetic foot ulcer location: midfoot Non-pressure ulcer stage: with necrosis of muscle History of amputation of foot through metatarsal bone Z89.439 Diabetes mellitus type 2 with complications E11.8 Diabetic peripheral neuropathy associated with type 2 diabetes mellitus E11.42 Elevated troponin R79.89 Baoyhvn-Ckgho-Qdnvy syndrome G60.0 (1) Diabetic ulcer of left foot Diabetes mellitus type: type 2 Diabetic foot ulcer location: midfoot Non- pressure ulcer stage: with necrosis of muscle Qualified Code(s): E11.621 - Type 2 diabetes mellitus with foot ulcer; L97.423 - Non-pressure chronic ulcer of left heel and midfoot with necrosis of muscle
[2024-07-01 08:03] LABS: Hematocrit (blood only) 45.8 % (42.0-52.0); Hemoglobin 15.5 g/dl (14.0-18.0); Mean Corpuscular Hemoglobin 28.4 pg (25.0-34.0); Mean Corpuscular Hgb Conc 33.8 g/dL (32.0-36.0); Mean Platelet Volume 9.4 fL (9.4-12.4); Platelet Count 370 K/uL (130-400); RDW Coefficient of Variation 12.5 % (11.5-14.5); RDW Standard Deviation 37.8 fL (36.4-46.3); Red Blood Count 5.45 M/uL (4.70-6.10); White Blood Count 11.66 K/ul (4.8-10.8)
[2024-07-01 08:40] LABS: Albumin Globulin Ratio 0.8 (0.9-2); Albumin Level 3.6 gm/dl (3.4-5.0); BUN Creatinine Ratio 22.1 (10-20); Bilirubin,Total 0.6 mg/dl (0.2-1.0); C Reactive Protein 7.42 mg/dl (0-0.5); Calcium 9.2 mg/dl (8.6-10.3); Creatinine Clr Calc Pharmacy 154.6 ml/min; Globulin 4.4 gm/dl (2.5-4.0); Potassium 4.2 mmol/L (3.5-5.1)
[2024-07-01] MEDS: POLYETHYLENE (MIRALAX) 17 GM PACK PO PRN ×2 (12:07→20:15)
--- NOTE | 2024-07-01 13:39 | Podiatry Progress Note ---
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 -Patient again reminded to avoid keeping his feet in a dependent position for extended periods of time, avoid pressure on the footboard and should contact nurses for assistance if he finds himself pushing on the footboard of the bed. We discussed the importance of ambulating in the cam walker to the left lower extremity at all times while weightbearing to prevent Achilles tendon rupture and stress to the transmetatarsal amputation which could increase the odds of dehiscence of wound, slow healing wound and loss of limb. Patient voices understanding. -Dressing removed and there are no signs of active bleeding. Wound edges remain well and approximated with all sutures intact. Foot is cleansed with saline dried dressed with 4 x 4 fluff gauze ABD pads Edmund and an Brayan bandage to hold dressings in place. Please reinforce dressing as necessary for any further strikethrough. Blood cultures 06/20/2024 growing Staph aureus. Repeat blood cultures06/22 growing SA. Patient continues IV daptomycin Bone pathology third metatarsal left foot 06/21/2024: Acute osteomyelitis Bone for culture third metatarsal left foot 06/21/2024: Growing Staph aureus and group be strep. Proximal margin pathology first, second, third metatarsal left foot 06/26/2024: Variable osteonecrosis noted in the first and second metatarsal proximal margin. Third metatarsal proximal margin: Viable appearing bone with nonspecific chronic inflammation and reactive changes. Left foot for pathology with acute osteomyelitis. Bone for culture distal (exposed within the wound bed) third metatarsal left foot 06/26/2024: Enterobacter cloaca complex, Staph aureus Continues cefepime/Flagyl today by infectious disease to cover Enterobacter cloaca. This bone culture was taken from exposed bone within the wound bed and not from the resected margin. Proximal margin pathology from transmetatarsal a mputation for the first second and third metatarsals without signs of acute osteomyelitis. Given the clinical appearance of the amputation stump and increased white count today would feel most comfortable with patient were to continue IV antibiotics until surgical wound is healed and patient no longer display signs of local soft tissue infection. Patient will benefit from discharge to halfway facility. Patient lives at home alone in an apartment with limited mobility at baseline. He is unable to evaluate his feet or change dressing to the left foot. Admission and Anticipated Discharge Date Admission Date: June 20, 2024 Subjective Patient resting comfortably in hospital bedside chair with Cam walker in place to the left lower extremity. Dressing remains clean dry and intact. Patient denies pain in the left foot. Reports using the cam walker at all times while ambulating. Denies nausea vomiting fever chills. Review of Systems Review of Systems: Denies nausea vomiting fever chills. Denies shortness of breath or chest pain. Reports constipation. Reports intermittent malaise over the weekend which is since resolved. All other systems reviewed and negative unless detailed above. Physical Exam Physical Exam: Objective: Const: Appears well developed and well nourished. No signs of acute distress present. CV: Extremities: No cyanosis. Capillary refill time is less than 2 seconds all digits of the bilateral foot. Posterior tibial and dorsalis pedis pulses are lightly palpable bilateral. Lymph: No palpable or visible regional lymphadenopathy. Skin: Loss of hair growth bilateral leg below the knee with thin atrophic skin and venous stasis skin changes bilateral. Neuro: Loss of protective sensation to the bilateral foot and ankle as tested with [place] 5.0 7 monofilament. Psych: Mood/Affect: Mood is normal. Affect is normal. Cognition: Orientation is intact to person, place and time. Focused lower extremity musculoskeletal exam: Leg: No pain with compression of the calf muscle. Ankles: Normal to inspection and palpation. +1 pitting edema bilateral no tenderness bilaterally. Motor strength is intact. Range of motion pain-free and unlimited. Left foot: History of partial fourth and fifth ray amputation of the left foot with well-healed amputation site. History of second metatarsal head resection. Deformity of the left foot with subluxation of the left second and third digit. Postop day 5 status post transmetatarsal amputation of the left foot. Patient denies pain to the left foot. Moderate sanguinous on the medial aspect of the dressing today. Wound edges remain well-approximated with all sutures intact. Moderate increased warmth, erythema and edema to the amputation stump. No active drainage. Unable to express any drainage with compression of the wound edges and distal stump. Results & Data Results & Data Vital Signs (Past 12 Hours) Vital Signs Temp Pulse Resp BP Pulse Ox O2 Del Method 07/01/24 08:00 36.6 C 84 18 118/72 96 Room Air Coding Level of Care Code 25212 Post Operative Follow-Up Diagnoses Diabetic ulcer of left midfoot associated with type 2 diabetes mellitus, with necrosis of muscle E11.621; L97.423 Diabetes mellitus type: type 2 Diabetic foot ulcer location: midfoot Non-pressure ulcer stage: with necrosis of muscle History of amputation of foot through metatarsal bone Z89.439 Diabetes mellitus type 2 with complications E11.8 Diabetic peripheral neuropathy associated with type 2 diabetes mellitus E11.42 Elevated troponin R79.89 Dvdnbod-Iqehe-Xzcbb syndrome G60.0 MRSA bacteremia R78.81; B95.62 Infection of left foot L08.9 Diabetic ulcer of left midfoot associated with type 2 diabetes mellitus, with necrosis of bone E11.621; L97.424 Diabetic foot ulcer location: midfoot Diabetes mellitus type: type 2 (1) Diabetic ulcer of left foot Diabetes mellitus type: type 2 Diabetic foot ulcer location: midfoot Non- pressure ulcer stage: with necrosis of muscle Qualified Code(s): E11.621 - Type 2 diabetes mellitus with foot ulcer; L97.423 - Non-pressure chronic ulcer of left heel and midfoot with necrosis of muscle (9) 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
--- NOTE | 2024-07-01 14:18 | Hospitalist Progress Note ---
Date of Service July 01, 2024 Assessment & Plan (1) Diabetic ulcer of left foot: (2) History of amputation of foot through metatarsal bone: (3) Diabetes mellitus type 2 with complications: (4) Diabetic peripheral neuropathy associated with type 2 diabetes mellitus: (5) Elevated troponin: (6) Vnixmuv-Cvzkh-Dcigx syndrome: Plan The patient is a 68-year-old male with a past medical history including diabetic ulcer of left foot, peripheral neuropathy, history of partial amputation of foot through metatarsal bone, B12 deficiency, diabetes mellitus, vitamin D deficiency, hypertension, paroxysmal SVT, LBBB, presents of pacemaker, hyperlipidemia, chronic venous insufficiency, morbid obesity, GERD, and Axeajrq-Mnksk-Wyjfb syndrome.The patient presents to the emergency department via EMS, after a ground-level fall this morning, when he hit his head, requiring a neighbor to help him get up. He then fell again in the afternoon, where his neighbor was unable to help him get up, and he called EMS. In both instances, he hit his head. He does not remember the exact mechanism of how he fell. He did initially complain of some generalized headache, with neck pain and low back pain, but these resolved spontaneously while in the ED. The patient has been following with the diabetic foot care clinic for a chronic left lower extremity foot ulcer. The patient has a primary concern of losing his left foot, similar to what happened to his father, and has had a history of partial amputation in the past. Workup in the emergency department included CT scan of head, cervical spine, chest which were all negative. CT scan of the lumbar spine showed moderate L3-4, and mild L4-5 degenerative disc disease and spinal stenosis. CT scan of the left lower extremity without IV contrast showed soft tissue swelling and gas most likely reflecting anaerobic infection at the level of the fourth proximal phalanx. No defined fluid collection or gross osteomyelitis although limiting motion could obscure these abnormalities. The patient was referred to the [facility] for further evaluation and treatment. Bacteremia Blood culture now growing MRSA source is likely foot ulcer Will continue IV daptomycin for now Per ID consult 68yo M with h/o T2DM, CHB s/p PPM 2017, s/p bl TKA in 2013, peripheral neuropathy, diabetic foot ulcer/OM s/p prior amputation, Imlfpey-Eenis-Zggdx syndrome who presented on 06/20 after a ground level fall, found with left diabetic foot infection. Initially afebrile with WBC 17.88, Cr 0.87. CT LLE without contrast was significantly limited due to motion artifact, but showed soft tissue swelling and gas most likely reflecting anaerobic infection at the level of the fourth proximal phalanx, no defined fluid collection or gross osteomyelitis although limiting motion could obscure these abnormalities. BCX with MSSA and Strep. Pt was started on dapto and Zosyn. S/p OR 06/21 and underwent left foot I+D (wound probe to 2nd/3rd MT). OR bone cx positive, path with acute OM. TTE negative for vegetations. MIKE negative for valvular vegetation, minor filamentous structure on the distal portion of pacemaker lead most likely fibrin strand, unlikely to be vegetation. S/p left foot TMA on 06/26. OR cx of 3rd toe with S aurues. Bacteremia likely 2/2 foot infection. MIKE reported neg for vegetation, does note a filamentous structure but felt unlikely to be a vegetation. Awaiting most recent OR path to assess for residual OM. His cultures are positive, however, per my discussion with podiatry, this is cx of the resected bone and not residual. Hes currently on Unasyn for coverage of MSSA, Strep, and Parvimonas. If no residual OM, then will adjust abx to just MSSA and Strep (ie cefazolin) for a duration of 4 weeks. # Bacteremia 2/2 MSSA, Strep mitis/oralis TTE/MIKE neg # L diabetic foot infection with OM s/p I+D 06/21 cx with MSSA, GBS, S mitis/oralis, Parvimonas # H/o CHF s/p PPM # h/o TKA - f/u OR path/cx - f/u blood cx ngtd x 48h - continue unasyn 3g IV q6h based on cultures if OR path positive for OM in proximal margin: continue cefepime x 6 weeks (end 08/06) and flagyl x 2 weeks (end 07/09), both starting from 06/26 - if OR path negative for OM in proximal margin: change abx to cefazolin 2g IV q8h x 4 weeks (start 06/25, end through 07/22) - monitor weekly CBC w diff, BMP, and LFTs while on IV abx - Postop day 3 status post transmetatarsal amputation and tendo Achilles lengthening left. -Patient reminded to avoid keeping her feet in a dependent position for extended periods of time, avoid pressure on the footboard and should contact nurses for assistance if he finds himself pushing on the footboard of the bed. We discussed the importance of ambulating in the cam walker to the left lower extremity at all times while weightbearing to prevent Achilles tendon rupture and stress to the transmetatarsal amputation which could increase the odds of dehiscence of wound, slow healing wound and loss of limb. Patient voices understanding. -Surgical dressing removed and there are no signs of active bleeding. Wound edges remain well and approximated with all sutures intact. Foot is cleansed with saline dried dressed with 4 x 4 fluff gauze ABD pads Edmund and an Brayan bandage to hold dressings in place. Please reinforce dressing as necessary for any further strikethrough. Blood cultures 06/20/2024 growing Staph aureus. Repeat blood cultures06/22 growing SA. Bone pathology third metatarsal left foot 06/21/2024: Acute osteomyelitis Bone for culture third metatarsal left foot 06/21/2024: Growing Staph aureus and group be strep. Proximal margin pathology first, second, third metatarsal left foot 06/26/2024: Pending Bone for culture distal (exposed within the wound bed) third metatarsal left foot 06/26/2024: Enterobacter cloaca complex, Staph aureus 06/29 ordered PICC line - stopped daptomycin and started unasyn 3g IV q6h based on cultures - f/u blood cx awaiting negative - please send proximal margin cx and path - if all infected bone is able to be removed, will plan course of abx for his bacteremia - no long-term lines until BCX are negative x 48hrs #Elevated troponin/LBBB/PSVT history/hypertension- Likely demand ischemia The patient will be admitted to telemetry for serial cardiac enzymes, serial EKG's, cardiac rhythm monitoring Continue amlodipine, aspirin, metoprolol titrate Holding lisinopril #Diabetes mellitus- Hold metformin Reduce glargine from 35 to 25 units subcu daily hemoglobin A1c 7.9 #Chronic medical conditions: Hyperlipidemia-continue atorvastatin, check a fasting lipid panel Vitamin D deficiency-continue supplement next 12 vitamin B12 deficiency-continue supplement Disposition: patient would likely need rehab after amputation PICC line has been placed in right upper extremity and looks good Admission and Anticipated Discharge Date Admission Date: June 20, 2024 Subjective 07/01: Dr. Marks was changing dressing on patient's foot patient got a PICC line yesterday for long-term antibiotics Physical Exam Physical Exam: atient is awake, alert and oriented 3, well developed and well nourished, normocephalic and atraumatic, lying in bed and in no acute distress. HEENT--PERRL, EOMI, mucous membranes and oropharynx mildly dry Neck--supple. No JVD. No bruits. Thyroid normal, trachea midline, no adenopathy. Heart--normal S1 and S2. No murmurs, rubs or gallops. Lungs--clear bilaterally, no respiratory distress, no accessory muscle use. Abdomen--normal bowel sounds and soft. Extremities--left LE in bandage, amputation of 4th digits Dermatologic--normal skin turgor, normal color, no abnormal lymph nodes, no rash. Neurologic--cranial nerves II through XII grossly intact. Rheumatologic--normal range of motion. Psychiatric--normal affect wound dressing is clean dry and intact Results & Data Results & Data Vital Signs (Past 12 Hours) Vital Signs Temp Pulse Resp BP Pulse Ox O2 Del Method 07/01/24 08:00 36.6 C 84 18 118/72 96 Room Air PG Care Time/CCT Total # of Minutes Spent Total Time Spent with Patient: Total time spent is greater than 50% in coordination of care (as documented) at patient's floor/unit and/or counseling patient: Coding Level of Care Code 11176 SUB INP/OBS CARE 2/35MIN Diagnoses Diabetic ulcer of left midfoot associated with type 2 diabetes mellitus, with necrosis of muscle E11.621; L97.423 Diabetes mellitus type: type 2 Diabetic foot ulcer location: midfoot Non-pressure ulcer stage: with necrosis of muscle History of amputation of foot through metatarsal bone Z89.439 Diabetes mellitus type 2 with complications E11.8 Diabetic peripheral neuropathy associated with type 2 diabetes mellitus E11.42 Elevated troponin R79.89 Hfxndwv-Dxhow-Vnwuj syndrome G60.0 (1) Diabetic ulcer of left foot Diabetes mellitus type: type 2 Diabetic foot ulcer location: midfoot Non- pressure ulcer stage: with necrosis of muscle Qualified Code(s): E11.621 - Type 2 diabetes mellitus with foot ulcer; L97.423 - Non-pressure chronic ulcer of left heel and midfoot with necrosis of muscle
[2024-07-02 09:07] LABS: Albumin Globulin Ratio 0.8 (0.9-2); Albumin Level 3.2 gm/dl (3.4-5.0); BUN Creatinine Ratio 29.5 (10-20); Bilirubin,Total 0.6 mg/dl (0.2-1.0); Calcium 8.8 mg/dl (8.6-10.3); Creatinine Clr Calc Pharmacy 172.4 ml/min; Potassium 4.3 mmol/L (3.5-5.1); Total Protein 7.2 gm/dl (6.0-8.3)
--- NOTE | 2024-07-02 09:28 | Infectious Disease Progress Nt ---
Date of Service July 02, 2024 Assessment & Plan (1) MSSA bacteremia: (2) Streptococcal bacteremia: (3) Foot osteomyelitis, left: (4) Diabetic ulcer of left foot: Plan ID Problem List: # Bacteremia with MSSA, Strep mitis/oralis TTE/MIKE neg, ngtd 06/25 # L diabetic foot infection with OM s/p I+D 06/21, TMA on 06/26 cx with MSSA, GBS, S mitis/oralis, Parvimonas, E cloacae # H/o CHF s/p PPM # h/o bl TKA no issues # Antibiotic allergy: vancthrombocytopenia Impression: Casimiro Nolasco is a 68yo M with h/o T2DM, CHB s/p PPM 2017, s/p bl TKA in 2013, peripheral neuropathy, diabetic foot ulcer/OM s/p prior amputation, Ggebiuq-Ktckd-Feihb syndrome who presented on 06/20 after a ground level fall, found with left diabetic foot infection. Initially afebrile with WBC 17.88, Cr 0.87. CT LLE without contrast was significantly limited due to motion artifact, but showed soft tissue swelling and gas most likely reflecting anaerobic infection at the level of the fourth proximal phalanx, no defined fluid collection or gross osteomyelitis although limiting motion could obscure these abnormalities. BCX with MSSA and Strep. Pt was started on dapto and Zosyn. S/p OR 06/21 and underwent left foot I+D (wound probe to 2nd/3rd MT). OR bone cx pos itive, path with acute OM. TTE negative for vegetations. MIKE negative for valvular vegetation, minor filamentous structure on the distal portion of pacemaker lead most likely fibrin strand, unlikely to be vegetation. S/p left foot TMA on 06/26. 06/26 OR cx of 3rd toe with MSSA and now growing E cloacae. Discussion Unasyn was changed to cefepime/flagyl to include coverage for E. cloacae (due to ampC). 06/27 OR pathology returned without osteomyelitis at the margins (do have some variable osteonecrosis described). Per podiatry, the cultures from 06/26 are that of the bone in the wound bed (not from the resected margin). Discussed with Dr. Junaid Marks, who felt that the patient is high risk for ongoing infection, given positive bone Cx, poor wound appearance, and underlying bone already with osteonecrosis therefore would favor of treating with a longer (6-week) course of IV abx for presumptive osteomyelitis, out of caution. MSSA and Strep bacteremia likely 2/2 foot infection. MIKE reported neg for vegetation, does note a filamentous structure but felt unlikely to be a vegetation. Cefepime, while not the first-line for MSSA/Strep, still maintains excellent coverage of both along with Enterobacter. Will recommend to complete a 6-week course of IV abx with cefepime for coverage of both osteomyelitis and bacteremia, along with a 2-week course of PO metronidazole (for anaerobic coverage). Recommendations: - Continue cefepime 2g IV q8h to complete a 6-week course (06/26 - 08/06/24) - Continue metronidazole 500mg PO bid for coverage of anaerobes (06/26 - 07/09/24) - Monitor weekly CBC w diff, BMP, LFTs, ESR, CRP, while on IV abx - Recommend referral to local outpatient ID for follow-up if able - Ensure close follow-up with podiatry Thank you for letting ID participate in the care of this patient. ID will sign off at this time. If questions, [facility] at [phone]. Suzanne Manzano MD, S Infectious Diseases [facility]/ID Connect ID Connect direct line: [phone] Admission and Anticipated Discharge Date Admission Date: June 20, 2024 Subjective This patient recommendation is based on a telemedicine consult request which was completed asynchronously through chart review and information provided by the primary physician. The patient was not seen or examined today. The evaluation is consultative in nature and all patient care and treatment decisions can either be accepted or rejected by the patient's primary hospital-based treating physician using their own independent medical judgment for their patient. Time Spent Reviewing Chart: 31+ minutes - 4/3 OR pathology returned without osteomyelitis at the margins (do have some variable osteonecrosis described) - Discussed with Dr. Junaid Marks, who felt that the patient is high risk for ongoing infection, given positive proximal bone Cx, poor wound appearance, and underlying bone already with osteonecrosis he is in favor of treating with a longer (6-week) course of IV abx for presumptive osteomyelitis, out of caution. - Afebrile, WBC 11.66 Results & Data Vital Signs (Past 12 Hours) Vital Signs Temp Pulse Resp BP Pulse Ox O2 Del Method 07/02/24 07:01 36.8 C 58 L 18 147/73 H 98 Room Air Diagnostic Findings Diagnostics: 06/27 OR pathology A. Bone, left first metatarsal proximal margin, excision: - Bone with variable osteonecrosis. - No significant inflammation identified. B. Bone, left second metatarsal proximal margin, excision: - Bone with variable osteonecrosis. - No significant inflammation identified. C. Bone, left third metatarsal proximal margin, excision: - Viable-appearing bone. - Nonspecific chronic inflammatory and reactive changes noted within a portion of the bone marrow space and periosteum. D. Foot, left, amputation: - Acute osteomyelitis. Ulcer. Inflamed granulation tissue/cellulitis. Small vessel vasculopathy. - See comment. Comment: While the three bone margin specimens (A-C) do not appear normal, they do not show changes of acute osteomyelitis. Micro Data: BCx 06/25 BCX: ngtd 06/22 BCX: MSSA 1 of 4 bottles 06/21 BCX: MSSA, Strep mitis/oralis grp (sensi PCN, R-erythro) 06/20 BCX: MSSA Other micro 06/20 WCX: S agalactiae (group B) (du-S), MSSA 06/21 OR cx (left foot): MSSA, skin lucio, Parvimonas micra 06/21 OR cx (soft tissue L foot): MSSA, S agalactaie (GBS), Parvominons micra 06/21 OR cx (bone): MSSA, GBS, Strep mitis/oralis, Parvimonas micra, skin lucio 06/26 OR cx (third MT bone not prox margin): MSSA, E. cloacae Path 06/26 OR path: pending 06/21 Path 3rd MT bone: acute OM Antibiotic Summary: Cefepime 06/28-present Flagyl 06/28-present Daptomycin 06/20-06/26 pip-tazo 06/20 Unasyn 06/26-06/28 (4) Diabetic ulcer of left foot Diabetes mellitus type: type 2 Diabetic foot ulcer location: midfoot Non- pressure ulcer stage: with necrosis of muscle Qualified Code(s): E11.621 - Type 2 diabetes mellitus with foot ulcer; L97.423 - Non-pressure chronic ulcer of left heel and midfoot with necrosis of muscle
[2024-07-02] MEDS: lisinopril 10 MG TAB PO STA (12:07)
--- NOTE | 2024-07-02 15:16 | Discharge Summary ---
Discharge Summary Date of Service July 02, 2024 Principal Dx & Hospital Course #1 = Principal Diagnosis (1) Diabetic ulcer of left foot: (2) History of amputation of foot through metatarsal bone: (3) Diabetes mellitus type 2 with complications: (4) Diabetic peripheral neuropathy associated with type 2 diabetes mellitus: (5) Elevated troponin: (6) Ivawsad-Moahp-Fvbsq syndrome: Plan The patient is a 68-year-old male with a past medical history including diabetic ulcer of left foot, peripheral neuropathy, history of partial amputation of foot through metatarsal bone, B12 deficiency, diabetes mellitus, vitamin D deficiency , hypertension, CHD S/P PPM, hyperlipidemia, chronic venous insufficiency, morbid obesity, GERD, and Uhvpiiz-Mvouf-Vmfmd syndrome.The patient presents to the emergency department via EMS, after a ground-level fall, when he hit his head, requiring a neighbor to help him get up. He then fell again in the afternoon, where his neighbor was unable to help him get up, and he called EMS. In both instances, he hit his head. He does not remember the exact mechanism of how he fell. He did initially complain of some generalized headache, with neck pain and low back pain, but these resolved spontaneously while in the ED. The patient has been following with the diabetic foot care clinic for a chronic left lower extremity foot ulcer. The patient has a primary concern of losing his left foot, similar to what happened to his father, and has had a history of partial amputation in the past. Workup in the emergency department included CT scan of head, cervical spine, chest which were all negative. CT scan of the lumbar spine showed moderate L3-4, and mild L4-5 degenerative disc disease and spinal stenosis. CT scan of the left lower extremity without IV contrast showed soft tissue swelling and gas most likely reflecting anaerobic infection at the level of the fourth proximal phalanx. No defined fluid collection or gross osteomyelitis although limiting motion could obscure these abnormalities. [facility]. #MSSA bacteremia #Streptococcal bacteremia #Left foot osteomyelitis #Left foot diabetic infection with osteomyelitis status post I&D on 06/21/2024 and TMA on 06/26/2024 ID and podiatry saw the patient during hospital stay #Elevated troponin/LBBB/PSVT history/hypertension- Likely demand ischemia The patient will be admitted to telemetry for serial cardiac enzymes, serial EKG's, cardiac rhythm monitoring Continue amlodipine, aspirin, metoprolol titrate Holding lisinopril #Diabetes mellitus- Hold metformin Reduce glargine from 35 to 25 units subcu daily hemoglobin A1c 7.9 #Chronic medical conditions: Hyperlipidemia-continue atorvastatin, check a fasting lipid panel Vitamin D deficiency-continue supplement next 12 vitamin B12 deficiency-continue supplement Disposition: patient would likely need rehab after amputation PICC line has been placed in right upper extremity and looks good Admission HPI Per Admitting Provider The patient is a 68-year-old male with a past medical history including diabetic ulcer of left foot, peripheral neuropathy, history of partial amputation of foot through metatarsal bone, B12 deficiency, diabetes mellitus, vitamin D deficiency, hypertension, paroxysmal SVT, LBBB, presents of pacemaker, hyperlipidemia, chronic venous insufficiency, morbid obesity, GERD, and Xdzklju-Exmnd-Tedvc syndrome.The patient presents to the emergency department via EMS, after a ground-level fall this morning, when he hit his head, requiring a neighbor to help him get up. He then fell again in the afternoon, where his neighbor was unable to help him get up, and he called EMS. In both instances, he hit his head. He does not remember the exact mechanism of how he fell. He did initially complain of some generalized headache, with neck pain and low back pain, but these resolved spontaneously while in the ED. The patient has been following with the diabetic foot care clinic for a chronic left lower extremity foot ulcer. The patient has a primary concern of losing his left foot, similar to what happened to his father, and has had a history of partial amputation in the past. Workup in the emergency department included CT scan of head, cervical spine, chest which were all negative. CT scan of the lumbar spine showed moderate L3-4, and mild L4-5 degenerative disc disease and spinal stenosis. CT scan of the left lower extremity without IV contrast showed soft tissue swelling and gas most likely reflecting anaerobic infection at the level of the fourth proximal phalanx. No defined fluid collection or gross osteomyelitis although limiting motion could obscure these abnormalities. [facility]. Discharge Plan Discharge Items Patient Disposition: Transfer Half-Way Fac Reason For Visit: LLE DIABETIC FOOT ULCER Discharge Diagnosis: Left foot infected diabetic ulcer with left foot osteomyelitis MSSA bacteremia Streptococcal bacteremia Peripheral neuropathy Type 2 diabetes mellitus History of complete heart block status post pacemaker in 2018 Essential hypertension Condition on Discharge: Fair Activity: As commented below Activity Comment: INSTRUCTIONS PER PODIATRY Non-emergency contact: Primary Care Provider Call non-emergency contact if: you have any medication questions, your symptoms worsen, your pain is not controlled, you have a fever, your wound has increased redness, your wound has increased drainage and your wound pain has increased Follow-up/Referrals: Branden Renteria DO [Primary Care Provider] - Junaid Marks DPM [Surgeon] - Diet: Carb Consistent or DM2 and Heart Healthy Addtl Attending Provider Instructions: DISCHARGE INSTRUCTION TO PATIENT/FAMILY/SNF: Follow-up with your primary care provider within 1 week regarding: Posthospital discharge, medication review, medication refills and follow-up on all your medical problems Please take all your discharge medications, discharge information and discharge instructions to all your doctors appointments. Avoid all NSAIDs including ibuprofen, Motrin, Advil, Aleve, naproxen, meloxicam, Toradol, diclofenac Out of bed to chair for all meals, no meals in bed Patient needs referral to local outpatient ID per ID instructions Patient needs follow-up with podiatry in 1 to 2 weeks time Weekly labs at SNF every MONDAY: CBC w diff, BMP, LFTs, ESR, CRP, Mg while on IV abx INSTRUCTIONS FROM PODIATRY: avoid keeping his feet in a dependent position for extended periods of time, avoid pressure on the footboard and should contact nurses for assistance if he finds himself pushing on the footboard of the bed. Podiatry discussed the importance of ambulating in the cam walker to the left lower extremity at all times while weightbearing to prevent Achilles tendon rupture and stress to the transmetatarsal amputation which could increase the odds of dehiscence of wound, slow healing wound and loss of limb Foot is cleansed with saline dried dressed with 4 x 4 fluff gauze ABD pads Edmund and an Brayan bandage to hold dressings in place. Please reinforce dressing as necessary for any further strikethrough. INSTRUCTIONS FROM INFECTIOUS DISEASE: - Continue cefepime 2g IV q8h to complete a 6-week course (06/26 - 08/06/24) - Continue metronidazole 500mg PO bid for coverage of anaerobes (06/26 - 07/09/24) - Monitor weekly CBC w diff, BMP, LFTs, ESR, CRP, while on IV abx - Recommend referral to local outpatient ID for follow-up if able - Ensure close follow-up with podiatry Addtl Chain Maker Machine Provider Instructions: INSTRUCTIONS FROM PODIATRY: avoid keeping his feet in a dependent position for extended periods of time, avoid pressure on the footboard and should contact nurses for assistance if he finds himself pushing on the footboard of the bed. Podiatry discussed the importance of ambulating in the cam walker to the left lower extremity at all times while weightbearing to prevent Achilles tendon rupture and stress to the transmetatarsal amputation which could increase the odds of dehiscence of wound, slow healing wound and loss of limb Foot is cleansed with saline dried dressed with 4 x 4 fluff gauze ABD pads Edmund and an Brayan bandage to hold dressings in place. Please reinforce dressing as necessary for any further strikethrough. INSTRUCTIONS FROM INFECTIOUS DISEASE: - Continue cefepime 2g IV q8h to complete a 6-week course (06/26 - 08/06/24) - Continue metronidazole 500mg PO bid for coverage of anaerobes (06/26 - 07/09/24) - Monitor weekly CBC w diff, BMP, LFTs, ESR, CRP, while on IV abx - Recommend referral to local outpatient ID for follow-up if able - Ensure close follow-up with podiatry Pending Studies at Discharge: No Stand-Alone Forms: My [facility] Skilled Items Patient informed of condition?: Yes DNR: No Discharge Level of Care: Skilled Communicable Disease: No Discharge Prognosis: Stable Lines: PICC Urinary Catheter: No Medications and DC Order Prescriptions: New metronidazole 500 mg Tablet 500 mg PO BID Qty: 16 0RF Rx Instructions: UNTIL 07/09/24 Continued cholecalciferol (vitamin D3) 50 mcg (2,000 unit) tablet 5,000 units PO HS (DME) blood-glucose meter [OneTouch Verio Flex meter] Mis See Rx Instructions .ROUTE .MEDSUPPLY Qty: 1 0RF Rx Instructions: test blood sugar TID (DME) FreeStyle Almaz 2 [place] Mis See Rx Instructions .Route Qty: 1 0RF Rx Instructions: Use to monitor blood sugars daily (DME) OneTouch Verio test strips Strip See Rx Instructions miscellaneous .MEDSUPPLY Qty: 100 3RF Rx Instructions: Check every day 1x insulin lispro [Admelog SoloStar U-100 Insulin] 100 unit/mL insulin pen 10 unit subcut .COMPLEX Qty: 15 5RF Rx Instructions: 10 units subcutaneously with breakfast and dinnet; insulin glargine [Basaglar KwikPen U-100 Insulin] 100 unit/mL (3 mL) insulin pen 35 unit SQ PM Qty: 15 5RF mecobalamin (vitamin B12) 1,000 mcg tablet,chewable 1,000 mcg PO DAILY Qty: 30 11RF amlodipine 5 mg tablet 5 mg PO DAILY Qty: 90 3RF atorvastatin 80 mg tablet 80 mg PO DAILY Qty: 90 3RF metoprolol tartrate 25 mg tablet 25 mg PO BID Qty: 180 3RF metformin 1,000 mg tablet 1,000 mg PO BID Qty: 180 3RF lisinopril 10 mg tablet 10 mg PO DAILY Qty: 90 3RF (DME) pen needle, diabetic [BD Ultra-Fine Danitza Pen Needle] 32 gauge x 5/32" needle See Rx Instructions .Route Qty: 100 5RF Rx Instructions: Use 3 per day acetaminophen 650 mg Tablet Extended Release 650 mg PO Q6H PRN (Reason: pain or fever) Rx Instructions: Temp greater than 100 not to exceed 3 grams/24 hour period Give for pain not to exceed 3 grams/24 hour period ascorbic acid (vitamin C) 500 mg Tablet 500 mg PO QAM aspirin 81 mg Tablet,Delayed Release (Dr/Ec) 81 mg PO DIRECTED PRN (Reason: Pain) Caltrate 600 plus D 600 mg (1,500 mg)-800 unit Tablet,Chewable 1 tab PO QAM multivitamin tablet 1 tab PO QAM Discharge Orders: Discharge Order (Routine); Ordered 07/02/24 Ordered By: Ferny Brantley Admission Data Admit Date/Time: 06/20/24 21:42 Attending Provider: Ferny Brantley Admit Provider: Nick Montoya Primary Care Provider: Branden Renteria Other Providers: Nick Montoya; Junaid Marks; Aidan Ortega; Kranthi Chase; Grady Menon; Zeus Nichols; Jose Ramon Conley; Dannie Eduardo Jr; Pipe Uribe; Madeline Haider; Nila Hankins; Diaz Umaña; Diaz Carnes; Anna Spencer; Paddy Mathew; Bridgett Lund; Paddy Escobedo; Basil Garcia; Charles Benitez; [facility] Stay Data Consultations 06/20/24 20:24 ED Decision to Admit Stat 06/21/24 07:44 Consult Podiatry Routine 06/21/24 10:32 Consult Infectious Diseases Routine 06/24/24 13:47 Consult Cardiology Routine Procedures Performed Operation Date: 06/26/24 07:00 Actual Procedures p Left Foot Transmetatarsal Amputation,(Left) - Junaid Marks DPM s Tendo Achilles Lengthening-Left(Left) - Junaid Marks DPM Diagnostic Imagining Performed 06/20/24 17:14 CT abd pelvis IV con only Stat CT cervical spine wo con Stat CT chest diagnostic w con Stat CT head/brain wo con Stat CT lumbar spine w con Stat US venous doppler LE LT Stat 06/20/24 17:39 CT foot LT wo con Stat 06/20/24 21:23 US arterial duplex LE BI Urgent Pending Results Patient Have Any Pending Studies at Discharge: No Discharge Instructions Given to Patient (Per Discharging Provider) DISCHARGE INSTRUCTION TO PATIENT/FAMILY/SNF: Follow-up with your primary care provider within 1 week regarding: Posthospital discharge, medication review, medication refills and follow-up on all your medical problems Please take all your discharge medications, discharge information and discharge instructions to all your doctors appointments. Avoid all NSAIDs including ibuprofen, Motrin, Advil, Aleve, naproxen, meloxicam, Toradol, diclofenac Out of bed to chair for all meals, no meals in bed Patient needs referral to local outpatient ID per ID instructions Patient needs follow-up with podiatry in 1 to 2 weeks time Weekly labs at SNF every MONDAY: CBC w diff, BMP, LFTs, ESR, CRP, Mg while on IV abx INSTRUCTIONS FROM PODIATRY: avoid keeping his feet in a dependent position for extended periods of time, avoid pressure on the footboard and should contact nurses for assistance if he finds himself pushing on the footboard of the bed. Podiatry discussed the importance of ambulating in the cam walker to the left lower extremity at all times while weightbearing to prevent Achilles tendon rupture and stress to the transmetatarsal amputation which could increase the odds of dehiscence of wound, slow healing wound and loss of limb Foot is cleansed with saline dried dressed with 4 x 4 fluff gauze ABD pads Edmund and an Brayan bandage to hold dressings in place. Please reinforce dressing as necessary for any further strikethrough. INSTRUCTIONS FROM INFECTIOUS DISEASE: - Continue cefepime 2g IV q8h to complete a 6-week course (06/26 - 08/06/24) - Continue metronidazole 500mg PO bid for coverage of anaerobes (06/26 - 07/09/24) - Monitor weekly CBC w diff, BMP, LFTs, ESR, CRP, while on IV abx - Recommend referral to local outpatient ID for follow-up if able - Ensure close follow-up with podiatry Coding Diagnoses Diabetic ulcer of left midfoot associated with type 2 diabetes mellitus, with necrosis of muscle E11.621; L97.423 Diabetes mellitus type: type 2 Diabetic foot ulcer location: midfoot Non-pressure ulcer stage: with necrosis of muscle History of amputation of foot through metatarsal bone Z89.439 Diabetes mellitus type 2 with complications E11.8 Diabetic peripheral neuropathy associated with type 2 diabetes mellitus E11.42 Elevated troponin R79.89 Ugnaqws-Feexz-Vvpfy syndrome G60.0
--- NOTE | 2024-07-02 15:41 | Hospitalist Progress Note ---
Date of Service July 02, 2024 Assessment & Plan (1) Diabetic ulcer of left foot: (2) History of amputation of foot through metatarsal bone: (3) Diabetes mellitus type 2 with complications: (4) Diabetic peripheral neuropathy associated with type 2 diabetes mellitus: (5) Elevated troponin: (6) Rxcjkvr-Lyhmu-Eajof syndrome: Plan The patient is a 68-year-old male with a past medical history including diabetic ulcer of left foot, peripheral neuropathy, history of partial amputation of foot through metatarsal bone, B12 deficiency, diabetes mellitus, vitamin D deficiency, hypertension, CHD S/P PPM, hyperlipidemia, chronic venous insufficiency, morbid obesity, GERD, and Tetkvep-Tzyrp-Vtqdz syndrome.The patient presents to the emergency department via EMS, after a ground-level fall, when he hit his head, requiring a neighbor to help him get up. He then fell again in the afternoon, where his neighbor was unable to help him get up, and he called EMS. In both instances, he hit his head. He does not remember the exact mechanism of how he fell. He did initially complain of some generalized headache, with neck pain and low back pain, but these resolved spontaneously while in the ED. The patient has been following with the diabetic foot care clinic for a chronic left lower extremity foot ulcer. The patient has a primary concern of losing his left foot, similar to what happened to his father, and has had a history of partial amputation in the past. Workup in the emergency department included CT scan of head, cervical spine, chest which were all negative. CT scan of the lumbar spine showed moderate L3-4, and mild L4-5 degenerative disc disease and spinal stenosis. CT scan of the left lower extremity without IV contrast showed soft tissue swelling and gas most likely reflecting anaerobic infection at the level of the fourth proximal phalanx. No defined fluid collection or gross osteomyelitis although limiting motion could obscure these abnormalities. [facility] for further evaluation and treatment. #MSSA bacteremia #Streptococcal bacteremia #Left foot osteomyelitis #Left foot diabetic infection with osteomyelitis status post I&D on 06/21/2024 and TMA on 06/26/2024 ID and podiatry saw the patient during hospital stay Bacteremia likely secondary to foot infection TTE from 06/21/2024 negative for vegetation MIKE from 06/25/2024 negative for vegetation Patient underwent left foot transmetatarsal amputation, tendo Achilles lengthening of the left side by slunk skin curer Dr. Marks on 06/26/2024 Patient was initially on IV daptomycin and then switched to IV Unasyn. ID reviewed the cultures and or pathology and switch patient from IV Unasyn to IV cefepime plus oral Flagyl ID spoke with podiatry and in discussion between ID and podiatry, patient is a high risk for ongoing infection given positive bone culture, poor wound appearance and underlying bone already with osteonecrosis. Hence ID and podiatry are in favor of 6 weeks of IV antibiotics for presumptive osteomyelitis Patient had PICC line placed in his right upper extremity on 06/30/2024 ID recommendations are as follows: - Continue cefepime 2g IV q8h to complete a 6-week course (06/26 - 08/06/24) - Continue metronidazole 500mg PO bid for coverage of anaerobes (06/26 - 07/09/24) - Monitor weekly CBC w diff, BMP, LFTs, ESR, CRP, while on IV abx - Recommend referral to local outpatient ID for follow-up if able - Ensure close follow-up with podiatry #Elevated troponin #History of CHB status post pacemaker #Hypertension #Hyperlipidemia Troponin elevated in setting of demand ischemia from infection Patient is chest pain-free and denies any shortness of breath Continue aspirin and statin Continue amlodipine and resume lisinopril for better blood pressure control Monitor vital signs #Insulin-dependent type 2 diabetes mellitus A1c is 9.0 Increase glargine to 30 units subcutaneous daily Accu-Cheks before every meal and nightly with sliding scale insulin coverage Monitor glycemic control CODE STATUS: Full code DVT prophylaxis: Start Lovenox 40 mg subcutaneous daily Patient is medically stable for discharge to [facility] when bed available and transportation arranged Care plan discussed with patient, nursing staff and case management Admission and Anticipated Discharge Date Admission Date: June 20, 2024 Subjective Patient seen and examined Sitting up in a chair Denies any chest pain, shortness of breath, nausea, vomiting or abdominal pain Physical Exam Physical Exam: General: No acute distress Psych: Awake and alert, oriented to place and person HEENT: Anicteric sclera, moist oral mucosa CVS: Regular rate and rhythm, left-sided pacemaker in place Lungs: Bilateral air entry, no wheezing noted Abdomen: Soft, nontender, no rebound, no guarding Ext: Left foot in dressing, clean and dry Results & Data Results & Data Vital Signs (Past 12 Hours) Vital Signs Temp Pulse Resp BP Pulse Ox O2 Del Method 07/02/24 15:11 36.7 C 75 18 166/83 H 97 Room Air 07/02/24 07:01 36.8 C 58 L 18 147/73 H 98 Room Air Laboratory Results Laboratory Results - last 24 hr 07/01/24 07/01/24 07/02/24 16:25 21:07 07:23 Sodium Potassium Chloride Carbon Dioxide Anion Gap BUN Creatinine Est Cr Clr Drug Dosing eGFR BUN/Creatinine Ratio Glucose POC Glucose 200 H 207 H 180 H Calcium Total Bilirubin AST ALT Alkaline Phosphatase Total Protein Albumin Globulin Albumin/Globulin Ratio 07/02/24 07/02/24 07:37 11:29 Sodium 134 L Potassium 4.3 Chloride 98 Carbon Dioxide 30 Anion Gap 6 BUN 18 Creatinine 0.61 Est Cr Clr Drug Dosing 172.4 eGFR 105.28 BUN/Creatinine Ratio 29.5 H Glucose 166 H POC Glucose 208 H Calcium 8.8 Total Bilirubin 0.6 AST 16 ALT 13 Alkaline Phosphatase 41 Total Protein 7.2 Albumin 3.2 L Globulin 4.0 Albumin/Globulin Ratio 0.8 L PG Care Time/CCT Total # of Minutes Spent Total Time Spent with Patient: Total time spent is greater than 50% in coordination of care (as documented) at patient's floor/unit and/or counseling patient: Coding Level of Care Code 98509 SUB INP/OBS CARE 2/35MIN Diagnoses Diabetic ulcer of left midfoot associated with type 2 diabetes mellitus, with necrosis of muscle E11.621; L97.423 Diabetes mellitus type: type 2 Diabetic foot ulcer location: midfoot Non-pressure ulcer stage: with necrosis of muscle History of amputation of foot through metatarsal bone Z89.439 Diabetes mellitus type 2 with complications E11.8 Diabetic peripheral neuropathy associated with type 2 diabetes mellitus E11.42 Elevated troponin R79.89 Jwhijvw-Uiwsp-Scigj syndrome G60.0 (1) Diabetic ulcer of left foot Diabetes mellitus type: type 2 Diabetic foot ulcer location: midfoot Non- pressure ulcer stage: with necrosis of muscle Qualified Code(s): E11.621 - Type 2 diabetes mellitus with foot ulcer; L97.423 - Non-pressure chronic ulcer of left heel and midfoot with necrosis of muscle
[2024-07-02 20:00] VITALS: BP 136/73; TEMP 97.9; O2SAT 99
[2024-07-02] MEDS: LANTUS PER UNIT CHARGE SQ SCH (21:09)
[2024-07-02] MEDS: ENOXAPARIN INJ 40 MG/0.4 ML SYR SQ SCH (21:09)
[2024-07-03] MEDS: lisinopril 10 MG TAB PO SCH (07:00)
--- NOTE | 2024-07-03 08:04 | Discharge Summary ---
Discharge Summary Date of Service July 03, 2024 Principal Dx & Hospital Course #1 = Principal Diagnosis (1) Diabetic ulcer of left foot: (2) History of amputation of foot through metatarsal bone: (3) Diabetes mellitus type 2 with complications: (4) Diabetic peripheral neuropathy associated with type 2 diabetes mellitus: (5) Elevated troponin: (6) Bhgltlw-Xlvkt-Xbbcb syndrome: Plan The patient is a 68-year-old male with a past medical history including diabetic ulcer of left foot, peripheral neuropathy, history of partial amputation of foot through metatarsal bone, B12 deficiency, diabetes mellitus, vitamin D deficiency , hypertension, CHD S/P PPM, hyperlipidemia, chronic venous insufficiency, morbid obesity, GERD, and Rrxpxqe-Taeqx-Ipwfu syndrome.The patient presents to the emergency department via EMS, after a ground-level fall, when he hit his head, requiring a neighbor to help him get up. He then fell again in the afternoon, where his neighbor was unable to help him get up, and he called EMS. In both instances, he hit his head. He does not remember the exact mechanism of how he fell. He did initially complain of some generalized headache, with neck pain and low back pain, but these resolved spontaneously while in the ED. The patient has been following with the diabetic foot care clinic for a chronic left lower extremity foot ulcer. The patient has a primary concern of losing his left foot, similar to what happened to his father, and has had a history of partial amputation in the past. Workup in the emergency department included CT scan of head, cervical spine, chest which were all negative. CT scan of the lumbar spine showed moderate L3-4, and mild L4-5 degenerative disc disease and spinal stenosis. CT scan of the left lower extremity without IV contrast showed soft tissue swelling and gas most likely reflecting anaerobic infection at the level of the fourth proximal phalanx. No defined fluid collection or gross osteomyelitis although limiting motion could obscure these abnormalities. [facility] and [facility]. #MSSA bacteremia #Streptococcal bacteremia #Left foot osteomyelitis #Left foot diabetic infection with osteomyelitis status post I&D on 06/21/2024 and TMA on 06/26/2024 ID and podiatry saw the patient during hospital stay Bacteremia likely secondary to foot infection TTE from 06/21/2024 negative for vegetation MIKE from 06/25/2024 negative for vegetation Patient underwent left foot transmetatarsal amputation, tendo Achilles lengthening of the left side by systems development consultant Dr. Marks on 06/26/2024 Patient was initially on IV daptomycin and then switched to IV Unasyn. ID reviewed the cultures and or pathology and switch patient from IV Unasyn to IV cefepime plus oral Flagyl ID spoke with podiatry and in discussion between ID and podiatry, patient is a high risk for ongoing infection given positive bone culture, poor wound appearance and underlying bone already with osteonecrosis. Hence ID and podiatry are in favor of 6 weeks of IV antibiotics for presumptive osteomyelitis Patient had PICC line placed in his right upper extremity on 06/30/2024 ID recommendations are as follows: - Continue cefepime 2g IV q8h to complete a 6-week course (06/26 - 08/06/24) - Continue metronidazole 500mg PO bid for coverage of anaerobes (06/26 - 07/09/24) - Monitor weekly CBC w diff, BMP, LFTs, ESR, CRP, while on IV abx - Recommend referral to local outpatient ID for follow-up if able - Ensure close follow-up with podiatry #Elevated troponin #History of CHB status post pacemaker #Hypertension #Hyperlipidemia Troponin elevated in setting of demand ischemia from infection Patient is chest pain-free and denies any shortness of breath Continue aspirin and statin Continue amlodipine and lisinopril Outpatient Follow up with PCP #Insulin-dependent type 2 diabetes mellitus A1c is 9.0 Continue glargine 35 units subcutaneous daily Accu-Cheks before every meal and nightly with sliding scale insulin coverage Outpatient Follow up with PCP Patient is medically stable for discharge to [facility]. Discharge care plan, follow up and meds reviewed with patient. This discharge took greater than 30 minutes to co-ordinate. Discharge Exam General: No acute distress Psych: Awake and alert, oriented to place and person HEENT: Anicteric sclera, moist oral mucosa CVS: Regular rate and rhythm, left-sided pacemaker in place Lungs: Bilateral air entry, no wheezing noted Abdomen: Soft, nontender, no rebound, no guarding Ext: Left foot in boot Discharge Plan Discharge Items Patient Disposition: Transfer [facility] Reason For Visit: LLE DIABETIC FOOT ULCER Discharge Diagnosis: Left foot infected diabetic ulcer with left foot osteomyelitis MSSA bacteremia Streptococcal bacteremia Peripheral neuropathy Type 2 diabetes mellitus History of complete heart block status post pacemaker in 2018 Essential hypertension Condition on Discharge: Fair Activity: As commented below Activity Comment: INSTRUCTIONS PER PODIATRY Non-emergency contact: Primary Care Provider Call non-emergency contact if: you have any medication questions, your symptoms worsen, your pain is not controlled, you have a fever, your wound has increased redness, your wound has increased drainage and your wound pain has increased Follow-up/Referrals: Branden Renteria DO [Primary Care Provider] - Junaid Marks DPM [Surgeon] - Diet: Carb Consistent or DM2 and Heart Healthy Addtl Attending Provider Instructions: DISCHARGE INSTRUCTION TO PATIENT/FAMILY/SNF: Follow-up with your primary care provider within 1 week regarding: Posthospital discharge, medication review, medication refills and follow-up on all your medical problems Please take all your discharge medications, discharge information and discharge instructions to all your doctors appointments. Avoid all NSAIDs including ibuprofen, Motrin, Advil, Aleve, naproxen, meloxicam, Toradol, diclofenac Out of bed to chair for all meals, no meals in bed Patient needs referral to local outpatient ID per ID instructions Patient needs follow-up with podiatry in 1 to 2 weeks time Weekly labs at SNF every MONDAY: CBC w diff, BMP, LFTs, ESR, CRP, Mg while on IV abx INSTRUCTIONS FROM PODIATRY: avoid keeping his feet in a dependent position for extended periods of time, avoid pressure on the footboard and should contact nurses for assistance if he finds himself pushing on the footboard of the bed. Podiatry discussed the importance of ambulating in the cam walker to the left lower extremity at all times while weightbearing to prevent Achilles tendon rupture and stress to the transmetatarsal amputation which could increase the odds of dehiscence of wound, slow healing wound and loss of limb Foot is cleansed with saline dried dressed with 4 x 4 fluff gauze ABD pads Edmund and an Brayan bandage to hold dressings in place. Please reinforce dressing as necessary for any further strikethrough. INSTRUCTIONS FROM INFECTIOUS DISEASE: - Continue cefepime 2g IV q8h to complete a 6-week course (06/26 - 08/06/24) - Continue metronidazole 500mg PO bid for coverage of anaerobes (06/26 - 07/09/24) - Monitor weekly CBC w diff, BMP, LFTs, ESR, CRP, while on IV abx - Recommend referral to local outpatient ID for follow-up if able - Ensure close follow-up with podiatry Addtl Seafood Clerk Provider Instructions: INSTRUCTIONS FROM PODIATRY: avoid keeping his feet in a dependent position for extended periods of time, avoid pressure on the footboard and should contact nurses for assistance if he finds himself pushing on the footboard of the bed. Podiatry discussed the importance of ambulating in the cam walker to the left lower extremity at all times while weightbearing to prevent Achilles tendon rupture and stress to the transmetatarsal amputation which could increase the odds of dehiscence of wound, slow healing wound and loss of limb Foot is cleansed with saline dried dressed with 4 x 4 fluff gauze ABD pads Edmund and an Brayan bandage to hold dressings in place. Please reinforce dressing as necessary for any further strikethrough. INSTRUCTIONS FROM INFECTIOUS DISEASE: - Continue cefepime 2g IV q8h to complete a 6-week course (06/26 - 08/06/24) - Continue metronidazole 500mg PO bid for coverage of anaerobes (06/26 - 07/09/24) - Monitor weekly CBC w diff, BMP, LFTs, ESR, CRP, while on IV abx - Recommend referral to local outpatient ID for follow-up if able - Ensure close follow-up with podiatry Pending Studies at Discharge: No Stand-Alone Forms: My [facility] Skilled Items Patient informed of condition?: Yes DNR: No Discharge Level of Care: Skilled Communicable Disease: No Discharge Prognosis: Stable Lines: PICC Urinary Catheter: No Medications and DC Order Prescriptions: New metronidazole 500 mg Tablet 500 mg PO BID Qty: 16 0RF Rx Instructions: UNTIL 07/09/24 Continued cholecalciferol (vitamin D3) 50 mcg (2,000 unit) tablet 5,000 units PO HS (DME) blood-glucose meter [OneTouch Verio Flex meter] [facility] See Rx Instructions .ROUTE .MEDSUPPLY Qty: 1 0RF Rx Instructions: test blood sugar TID (DME) FreeStyle Almaz 2 [place]hton Mis See Rx Instructions .Route Qty: 1 0RF Rx Instructions: Use to monitor blood sugars daily (DME) OneTouch Verio test strips Strip See Rx Instructions miscellaneous .MEDSUPPLY Qty: 100 3RF Rx Instructions: Check every day 1x insulin lispro [Admelog SoloStar U-100 Insulin] 100 unit/mL insulin pen 10 unit subcut .COMPLEX Qty: 15 5RF Rx Instructions: 10 units subcutaneously with breakfast and dinnet; insulin glargine [Basaglar KwikPen U-100 Insulin] 100 unit/mL (3 mL) insulin pen 35 unit SQ PM Qty: 15 5RF mecobalamin (vitamin B12) 1,000 mcg tablet,chewable 1,000 mcg PO DAILY Qty: 30 11RF amlodipine 5 mg tablet 5 mg PO DAILY Qty: 90 3RF atorvastatin 80 mg tablet 80 mg PO DAILY Qty: 90 3RF metoprolol tartrate 25 mg tablet 25 mg PO BID Qty: 180 3RF metformin 1,000 mg tablet 1,000 mg PO BID Qty: 180 3RF lisinopril 10 mg tablet 10 mg PO DAILY Qty: 90 3RF (DME) pen needle, diabetic [BD Ultra-Fine Danitza Pen Needle] 32 gauge x 5/32" needle See Rx Instructions .Route Qty: 100 5RF Rx Instructions: Use 3 per day acetaminophen 650 mg Tablet Extended Release 650 mg PO Q6H PRN (Reason: pain or fever) Rx Instructions: Temp greater than 100 not to exceed 3 grams/24 hour period Give for pain not to exceed 3 grams/24 hour period ascorbic acid (vitamin C) 500 mg Tablet 500 mg PO QAM aspirin 81 mg Tablet,Delayed Release (Dr/Ec) 81 mg PO DIRECTED PRN (Reason: Pain) Caltrate 600 plus D 600 mg (1,500 mg)-800 unit Tablet,Chewable 1 tab PO QAM multivitamin tablet 1 tab PO QAM Discharge Orders: Discharge Order (Routine); Ordered 07/03/24 Ordered By: Ferny Brantley Admission Data Admit Date/Time: 06/20/24 21:42 Attending Provider: Ferny Brantley Admit Provider: Nick Montoya Primary Care Provider: Branden Renteria Other Providers: Nick Montoya; Junaid Marks; Aidan Ortega; Kranthi Chase; Grady Menon; Zeus Nichols; Jose Ramon Conley; Dannie Eduardo Jr; Pipe Uribe; Madeline Haider; Nila Hankins; Diaz Umaña; Diaz Carnes; Anna Spencer; Paddy Mathew; Bridgett Lund; Paddy Escobedo; Basil Garcia; Charles Benitez; [facility] Hospital Stay Data Consultations 06/20/24 20:24 ED Decision to Admit Stat 06/21/24 07:44 Consult Podiatry Routine 06/21/24 10:32 Consult Infectious Diseases Routine 06/24/24 13:47 Consult Cardiology Routine Procedures Performed Operation Date: 06/26/24 07:00 Actual Procedures p Left Foot Transmetatarsal Amputation,(Left) - Junaid Marks DPM s Tendo Achilles Lengthening-Left(Left) - Junaid Marks DPM Diagnostic Imagining Performed 06/20/24 17:14 CT abd pelvis IV con only Stat CT cervical spine wo con Stat CT chest diagnostic w con Stat CT head/brain wo con Stat CT lumbar spine w con Stat US venous doppler LE LT Stat 06/20/24 17:39 CT foot LT wo con Stat 06/20/24 21:23 US arterial duplex LE BI Urgent Abdomen/Pelvis CT 06/20/24 17:14 EXAM: CT Chest Abdomen and Pelvis With Intravenous Contrast INDICATION: Multiple falls. Lower back pain and lightheadedness. TECHNIQUE: Axial computed tomography images of the chest, abdomen and pelvis with intravenous contrast. Sagittal and coronal reformatted images were created and reviewed. This CT exam was performed using one or more of the following dose reduction techniques: automated exposure control, adjustment of the mA and/or kV according to patient size, and/or use of iterative reconstruction technique. CONTRAST: 93ml of Optiray 320 was administered intravenously. COMPARISON: CT chest 11/10/2020 FINDINGS: Limitations: None. CHEST: Lungs and pleural spaces: No abnormality noted. No mass. No consolidation. No significant effusion. No pneumothorax. Heart: Cardiomegaly noted. Cardiac pacing device noted. Metallic artifact limits assessment of lead integrity. Mediastinum: No abnormality noted. Thyroid: No abnormality noted. ABDOMEN: Liver: No abnormality noted. Gallbladder and bile ducts: No calcified stones or surrounding fluid. No ductal dilation. Pancreas: Homogeneous enhancement. No mass, inflammation or ductal dilation. Spleen: The spleen is enlarged to 16.8 cm long. Adrenals: Stable 2.7 x 2.1 cm right adrenal myelolipoma. No further assessment required. The left appears normal. Kidneys and ureters: Simple bilateral renal cysts noted. No follow-up necessary. No stones or hydronephrosis. There is scarring of the lower pole of the left kidney with a small associated nonobstructing stone measuring about 3 mm. No hydronephrosis. No urinary gas. Stomach and bowel: No distension or mucosal thickening. No inflammation noted. PELVIS: Appendix: Well seen and appears normal. Bladder: No filling defects to suggest mass or large stone. No inflammation. Reproductive: No significant abnormality noted. CHEST, ABDOMEN and PELVIS: Intraperitoneal space: No free air. No significant fluid collection. Retroperitoneal space: No abnormality noted. No fluid collection. Bones/joints: Degenerative changes noted throughout the spine. No acute osseous abnormality seen. Degenerative changes of the hips. There is heterotopic ossification contiguous with the left iliac crest presumably postoperative or posttraumatic. Soft tissues: There are small bilateral fat containing inguinal hernias. Vasculature: No abnormality noted. No aortic aneurysm. Lymph nodes: No enlarged lymph nodes. IMPRESSION: 1. No traumatic change in the chest, abdomen or pelvis. 2. Chronic changes as above. ACT 112: N/A Electronically signed by Katerina Xavier 06-20-2024 6:[address] 06/20/24 17:14 CT cervical spine without IV contrast History: Pain Comparison: None Technique: Using multidetector thin collimation helical acquisition technique, axial, coronal and sagittal CT images through the cervical spine were obtained without intravenous contrast. Dose reduction techniques were achieved by using automatic exposure control and/or adjustment of mA and/or kV according to patient size and/or use of iterative reconstruction technique. Findings: The cervical vertebrae are normally aligned. Normal cervical lordosis. No acute fracture or subluxation. No prevertebral edema. Mild multilevel uncovertebral osteophytes of the vertebral bodies. No abnormality of the paraspinous soft tissues. Impression: No acute fracture or traumatic subluxation. Electronically signed by Diaz Duran 06-20-2024 6:[address] 06/20/24 17:14 EXAM: CT Chest Abdomen and Pelvis With Intravenous Contrast INDICATION: Multiple falls. Lower back pain and lightheadedness. TECHNIQUE: Axial computed tomography images of the chest, abdomen and pelvis with intravenous contrast. Sagittal and coronal reformatted images were created and reviewed. This CT exam was performed using one or more of the following dose reduction techniques: automated exposure control, adjustment of the mA and/or kV according to patient size, and/or use of iterative reconstruction technique. CONTRAST: 93ml of Optiray 320 was administered intravenously. COMPARISON: CT chest 11/10/2020 FINDINGS: Limitations: None. CHEST: Lungs and pleural spaces: No abnormality noted. No mass. No consolidation. No significant effusion. No pneumothorax. Heart: Cardiomegaly noted. Cardiac pacing device noted. Metallic artifact limits assessment of lead integrity. Mediastinum: No abnormality noted. Thyroid: No abnormality noted. ABDOMEN: Liver: No abnormality noted. Gallbladder and bile ducts: No calcified stones or surrounding fluid. No ductal dilation. Pancreas: Homogeneous enhancement. No mass, inflammation or ductal dilation. Spleen: The spleen is enlarged to 16.8 cm long. Adrenals: Stable 2.7 x 2.1 cm right adrenal myelolipoma. No further assessment required. The left appears normal. Kidneys and ureters: Simple bilateral renal cysts noted. No follow-up necessary. No stones or hydronephrosis. There is scarring of the lower pole of the left kidney with a small associated nonobstructing stone measuring about 3 mm. No hydronephrosis. No urinary gas. Stomach and bowel: No distension or mucosal thickening. No inflammation noted. PELVIS: Appendix: Well seen and appears normal. Bladder: No filling defects to suggest mass or large stone. No inflammation. Reproductive: No significant abnormality noted. CHEST, ABDOMEN and PELVIS: Intraperitoneal space: No free air. No significant fluid collection. Retroperitoneal space: No abnormality noted. No fluid collection. Bones/joints: Degenerative changes noted throughout the spine. No acute osseous abnormality seen. Degenerative changes of the hips. There is heterotopic ossification contiguous with the left iliac crest presumably postoperative or posttraumatic. Soft tissues: There are small bilateral fat containing inguinal hernias. Vasculature: No abnormality noted. No aortic aneurysm. Lymph nodes: No enlarged lymph nodes. IMPRESSION: 1. No traumatic change in the chest, abdomen or pelvis. 2. Chronic changes as above. ACT 112: N/A Electronically signed by Katerina Xavier 06-20-2024 6:[address] 06/20/24 17:14 Exam(s): CT HEAD Without Contrast EXAM: CT Head Without Intravenous Contrast CLINICAL HISTORY: Reason for exam: Trauma. TECHNIQUE: Axial computed tomography images of the head/brain without intravenous contrast. CTDI is 36.9 mGy and DLP is 702.4 mGy-cm. Automated exposure control was utilized for the study. A dose lowering technique was utilized adhering to the principles of ALARA. COMPARISON: No relevant prior studies available. FINDINGS: Brain: Generalized parenchymal volume loss. Periventricular and deep cerebral white matter hypoattenuation suggesting chronic small vessel ischemic change. Neely-white matter differentiation maintained. No hemorrhage, mass effect, parenchymal edema, or midline shift. Ventricles: No hydrocephalus. Bones/joints: No acute fracture. Soft tissues: Unremarkable. Vasculature: Intracranial atherosclerosis. Sinuses: Unremarkable as visualized. Mastoid air cells: No significant mastoid effusion. IMPRESSION: No acute intracranial process. Electronically signed by: Diana Hoyos M.D. 06/20/24 21:[address] 06/20/24 17:14 EXAM: CT Lumbar Spine With Intravenous Contrast INDICATION: Multiple falls. TECHNIQUE: Axial computed tomography images of the lumbar spine with intravenous contrast. Sagittal and coronal reformatted images were created and reviewed. This CT exam was performed using one or more of the following dose reduction techniques: automated exposure control, adjustment of the mA and/or kV according to patient size, and/or use of iterative reconstruction technique. CONTRAST: 93 ml of Optiray 320 was administered intravenously. COMPARISON: No relevant prior studies available. FINDINGS: Limitations: None. Vertebrae: The bones are diffusely demineralized. There is diffuse mild to moderate facet arthrosis and moderate to severe spondylosis. There is no acute fracture or subluxation. Sacrum/coccyx: No significant abnormality noted. No acute change noted. Discs/spinal canal/neural foramina: There is diffuse mild to moderate disc space degeneration. Diffuse disc bulge with moderate canal stenosis noted at L3-L4. Mild stenosis L4-L5. Soft tissues: No significant abnormality noted. Kidneys and ureters: Simple left renal cyst/s. No simple cyst follow-up necessary. Right kidney appears normal. No renal stone, hydronephrosis or perinephric fluid. IMPRESSION: Chronic changes. No acute abnormality. ACT 112: N/A Electronically signed by Katerina Xavier 06-20-2024 6:51 PM Venous Doppler Study 06/20/24 17:14 Exam(s): US VENOUS LEFT LOWER EXTREMITY EXAM: US Duplex Left Lower Extremity Veins CLINICAL HISTORY: Reason for exam: eval DVT. TECHNIQUE: Real-time duplex ultrasound scan of the left lower extremity veins integrating B-mode two-dimensional vascular structure, Doppler spectral analysis, color flow Doppler imaging and compression. COMPARISON: No relevant prior studies available. FINDINGS: Deep veins: Unremarkable. The visualized deep veins of the left lower extremity are compressible with color flow. No visualized thrombus. Superficial veins: Unremarkable. No thrombus identified in the GSV. Soft tissues: No acute findings. IMPRESSION: No DVT within the left lower extremity. Electronically signed by: Beka Jules MD 06/20/24 21:[address] 06/20/24 17:39 EXAM: CT Left Lower Extremity Without Intravenous Contrast Foot INDICATION: Evaluate for osteomyelitis TECHNIQUE: Axial computed tomography images of the left foot without intravenous contrast. Sagittal and coronal reformatted images were created and reviewed. This CT exam was performed using one or more of the following dose reduction techniques: automated exposure control, adjustment of the mA and/or kV according to patient size, and/or use of iterative reconstruction technique. COMPARISON: X-ray left foot 11/18/2020 FINDINGS: Limitations: Significant motion artifact limits assessment. Bones/joints: Significantly limited evaluation of the tarsals, metatarsals and residual phalanges. Hypertrophic changes noted similar to the plain radiograph. There is no gross fracture or dislocation. Periosteal reaction and small erosions would not be visualized. Soft tissues: There is marked soft tissue edema. There is soft tissue gas adjacent to the base of the fourth proximal phalanx. No loculated collection is identified although there is significant motion. No radiopaque foreign body. IMPRESSION: 1. Significantly limited exam. 2. Soft tissue swelling and gas most likely reflecting anaerobic infection at the level of the fourth proximal phalanx. No defined fluid collection or gross osteomyelitis although limiting motion could obscure these abnormalities. ACT 112: N/A Electronically signed by Katerina Xavier 06-20-2024 6:49 PM Duplex Scan Lower Extremity Artery 06/20/24 21:23 EXAM: US arterial duplex LE BI CLINICAL HISTORY: LLE diabetic foot ulcr. TECHNIQUE: Ultrasound examination of the bilateral lower extremities arteries was performed in real time and duplex. One or more of the following were performed: spectral analysis, resistive index, waveform analysis, and pulsed Doppler. COMPARISON: None. FINDINGS: Vessel Flow Pattern Right Peak Velocity Right (cm/sec) Flow Pattern Left Peak Velocity Left (cm/sec) Common Femoral Artery (MARKET INTELLIGENCE CONSULTANT) Triphasic 93/7 Triphasic 103 Profunda femoris Artery Triphasic 61 Triphasic 61 Superficial Femoral Artery (SFA) Triphasic 93/7-Proximal 90-Mid 74-Distal Triphasic 89-Proximal 100-Mid 88-Distal Popliteal Artery (POP A) Triphasic 95-Proximal 77-Distal Triphasic 64/9-Proximal 88/6-Distal Anterior tbial Artery(MER) Triphasic 39-Proximal 32-Mid 52-Distal Biphasic 33-Proximal 19-Mid 63-Distal Posterior Tibial Artery (ZIPPER MACHINE OPERATOR) Triphasic 65-proximal 51-Mid 44-Distal Triphasic 102-Proximal 264-Mid 70-Distal Peroneal Artery (ZIPPER MACHINE OPERATOR) Triphasic 34-Proximal 34-Mid 17-Distal Biphasic 42-Proximal 60-Mid 38-Distal Dorsalis Pedis Artery (DPA) Triphasic 48 Triphasic 18 Atherosclerotic changes with multifocal scattered calcified plaques are seen in both lower limb extremities arteries. Right side: Triphasic waveform in right lower limb arteries as described above. Normal peak systolic velocities. No hemodynamically significant stenosis. Left side: Biphasic flow in left anterior tibial and peoneal arteries. Triphasic flow in rest of the evaluated arteries of left lower limb. Increased peak systolic velocity of left mid posterior tibial artery, suggesting moderate stenosis. Low peak systolic velocity of left anterior tibial artery, with limited visualization of left proximal anterior tibial artery due to position and plaques. Collateral Circulation: Evaluation of collateral vessels: No significant collateral circulation was noted, indicative of chronic arterial occlusion. Additional Findings: Absence of haematoma IMPRESSION: 1. Normal triphasic waveforms, along with mild atherosclerotic changes and multifocal calcified plaques, were noted in the arteries of the right lower limb with normal peak systolic velocities, suggestive of minimal peripheral arterial disease. Details as above. 2. Triphasic/Biphasic waveforms along with moderate atherosclerotic changes noted in the arteries of the left lower limb, along with increased peak systolic velocity of left posterior tibial and low velocity of left anterior tibial arteries, could be due to position and plaques suggestive of mild to moderate peripheral arterial disease. Details as above. 3. Increased peak systolic velocity of left mid posterior tibial artery with velocity of 264 cm/sec, suggesting moderate stenosis. Electronically signed by Parag House 06-21-2024 02:30 AM Chest X-Ray 06/30/24 11:25 XR chest 1V portable HISTORY: 68 years-old Male PICC placement status post placement of a right- sided PICC COMPARISON: Chest CT 06/18/2026 TECHNIQUE: AP view of the chest FINDINGS: Cardiac silhouette is enlarged. Dual lead left subclavian pacer. Status post placement of a right-sided PICC with distal tip projected over the expected location of the inferior SVC. No pneumothorax, large pleural effusion or airspace consolidation. Pulmonary vascular congestion. IMPRESSION: 1. Status post placement of a right-sided PICC with distal tip projected over the expected location of the inferior SVC. 2. No pneumothorax. ACT 112: Negative or not required by law. The above report was generated using voice recognition software. It may contain grammatical, syntax or spelling errors. Electronically signed by: Edward Burnette M.D. 06/30/2024 12:28 PM Laboratory Results - last 72 hr 06/30/24 06/30/24 06/30/24 11:40 16:46 20:47 WBC RBC Hgb Hct MCV MCH MCHC RDW Std Deviation RDW Coeff of Oskar Plt Count MPV Sodium Potassium Chloride Carbon Dioxide Anion Gap BUN Creatinine Est Cr Clr Drug Dosing eGFR BUN/Creatinine Ratio Glucose POC Glucose 235 H 202 H 228 H Calcium Total Bilirubin AST ALT Alkaline Phosphatase C-Reactive Protein Total Protein Albumin Globulin Albumin/Globulin Ratio 07/01/24 07/01/24 07/01/24 07:44 07:50 11:37 WBC 11.66 H RBC 5.45 Hgb 15.5 Hct 45.8 MCV 84.0 MCH 28.4 MCHC 33.8 RDW Std Deviation 37.8 RDW Coeff of Oskar 12.5 Plt Count 370 MPV 9.4 Sodium 133 L Potassium 4.2 Chloride 97 L Carbon Dioxide 29 Anion Gap 7 BUN 15 Creatinine 0.68 Est Cr Clr Drug Dosing 154.6 eGFR 101.88 BUN/Creatinine Ratio 22.1 H Glucose 177 H POC Glucose 177 H 243 H Calcium 9.2 Total Bilirubin 0.6 AST 15 ALT 12 Alkaline Phosphatase 45 C-Reactive Protein 7.42 H Total Protein 8.0 Albumin 3.6 Globulin 4.4 H Albumin/Globulin Ratio 0.8 L 07/01/24 07/01/24 07/02/24 16:25 21:07 07:23 WBC RBC Hgb Hct MCV MCH MCHC RDW Std Deviation RDW Coeff of Oskar Plt Count MPV Sodium Potassium Chloride Carbon Dioxide Anion Gap BUN Creatinine Est Cr Clr Drug Dosing eGFR BUN/Creatinine Ratio Glucose POC Glucose 200 H 207 H 180 H Calcium Total Bilirubin AST ALT Alkaline Phosphatase C-Reactive Protein Total Protein Albumin Globulin Albumin/Globulin Ratio 07/02/24 07/02/24 07/02/24 07:37 11:29 16:38 WBC RBC Hgb Hct MCV MCH MCHC RDW Std Deviation RDW Coeff of Oskar Plt Count MPV Sodium 134 L Potassium 4.3 Chloride 98 Carbon Dioxide 30 Anion Gap 6 BUN 18 Creatinine 0.61 Est Cr Clr Drug Dosing 172.4 eGFR 105.28 BUN/Creatinine Ratio 29.5 H Glucose 166 H POC Glucose 208 H 168 H Calcium 8.8 Total Bilirubin 0.6 AST 16 ALT 13 Alkaline Phosphatase 41 C-Reactive Protein Total Protein 7.2 Albumin 3.2 L Globulin 4.0 Albumin/Globulin Ratio 0.8 L 07/02/24 07/03/24 20:36 07:20 WBC RBC Hgb Hct MCV MCH MCHC RDW Std Deviation RDW Coeff of Oskar Plt Count MPV Sodium Potassium Chloride Carbon Dioxide Anion Gap BUN Creatinine Est Cr Clr Drug Dosing eGFR BUN/Creatinine Ratio Glucose POC Glucose 185 H 173 H Calcium Total Bilirubin AST ALT Alkaline Phosphatase C-Reactive Protein Total Protein Albumin Globulin Albumin/Globulin Ratio Pending Results Patient Have Any Pending Studies at Discharge: No Discharge Instructions Given to Patient (Per Discharging Provider) DISCHARGE INSTRUCTION TO PATIENT/FAMILY/SNF: Follow-up with your primary care provider within 1 week regarding: Posthospital discharge, medication review, medication refills and follow-up on all your medical problems Please take all your discharge medications, discharge information and discharge instructions to all your doctors appointments. Avoid all NSAIDs including ibuprofen, Motrin, Advil, Aleve, naproxen, meloxicam, Toradol, diclofenac Out of bed to chair for all meals, no meals in bed Patient needs referral to local outpatient ID per ID instructions Patient needs follow-up with podiatry in 1 to 2 weeks time Weekly labs at SNF every MONDAY: CBC w diff, BMP, LFTs, ESR, CRP, Mg while on IV abx INSTRUCTIONS FROM PODIATRY: avoid keeping his feet in a dependent position for extended periods of time, avoid pressure on the footboard and should contact nurses for assistance if he finds himself pushing on the footboard of the bed. Podiatry discussed the importance of ambulating in the cam walker to the left lower extremity at all times while weightbearing to prevent Achilles tendon rupture and stress to the transmetatarsal amputation which could increase the odds of dehiscence of wound, slow healing wound and loss of limb Foot is cleansed with saline dried dressed with 4 x 4 fluff gauze ABD pads Edmund and an Brayan bandage to hold dressings in place. Please reinforce dressing as necessary for any further strikethrough. INSTRUCTIONS FROM INFECTIOUS DISEASE: - Continue cefepime 2g IV q8h to complete a 6-week course (06/26 - 08/06/24) - Continue metronidazole 500mg PO bid for coverage of anaerobes (06/26 - 07/09/24) - Monitor weekly CBC w diff, BMP, LFTs, ESR, CRP, while on IV abx - Recommend referral to local outpatient ID for follow-up if able - Ensure close follow-up with podiatry Total Time Total Time Spent Total Time Spent (In Minutes): 36 Coding Level of Care Code 36625 INP/OBS DISCH >30 MIN Diagnoses Diabetic ulcer of left midfoot associated with type 2 diabetes mellitus, with necrosis of muscle E11.621; L97.423 Diabetes mellitus type: type 2 Diabetic foot ulcer location: midfoot Non-pressure ulcer stage: with necrosis of muscle 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
[2024-07-03 08:08] VITALS: PULSE 84
== END 2024-07-03 08:47 | DRG 617 ==
LOC: ED 16:53 → SUATTDRO 21:42 → 2N 21:42 → 3E 06-27 22:38